=== PATIENT | female | born 1970 | race Caucasian/White ===

== ENCOUNTER 2020-08-08 08:51 | Emergency (ER) | payer OTHER, SELFPAY ==
[2020-08-08] VITALS (7 sets, daily range): BP systolic 129–140; BP diastolic 72–89; PULSE 95–99; RESP 16–20; TEMP 36.2–36.5; O2SAT 95–96; BMI 27.4
--- NOTE | 2020-08-08 10:30 | ED.PSYCH ---
HPI - Psych General Chief Complaint: Psychiatric Symptoms Stated Complaint: crisis Time Seen by Provider: 08/08/20 10:30 Source: patient Mode of arrival: ambulatory Limitations: no limitations History of Present Illness HPI Narrative: 50-year-old female with history of bipolar disorder presenting with disorganized behavior states he has history of bipolar and feels like she is decompensating. Reports she is post be on psych medications but she stop taking a couple days ago and not sure why. Denies any SI or HI. Denies any alcohol or drug use. Denies any recent travel, sick contacts or COVID symptoms. No other medical complaints at this time. Onset (ago): day(s) Duration: constant History of same: Yes Relieving factors: none Exacerbating factors: none Associated symptoms: denies other symptoms Treatments prior to arrival: none Related Data Allergies Allergy/AdvReac Type Severity Reaction Status Date / Time No Known Allergies Allergy Unverified 02/17/20 16:17 [No Known Allergies*] Review of Systems Review of Systems: Constitutional: No Weight loss, No Fever, No Chills, No Night Sweats, No Fatigue, No Malaise ENT/Mouth: No Hearing loss, No Ear Pain, No Nasal Congestion, No Sinus Pain, No Hoarseness, No sore throat, No Rhinorrhea, No Swallowing Difficulty Eyes: No Eye Pain, No Swelling, No Redness, No Foreign Body, No Discharge, No Vision Changes Cardiovascular: No Chest Pain, No SOB, No Dyspnea on Exertion, No Orthopnea, No Edema, No Palpitations Respiratory: No Cough, No Sputum, No Wheezing No Dyspnea Gastrointestinal: No Nausea, No Vomiting, No Diarrhea, No Constipation, No abdominal Pain, No Hematochezia, No Melena Genitourinary: no irregular bleeding, No Dysuria, No Urinary Frequency, No Hematuria, No Urinary Incontinence, No Urgency, No Flank Pain, No Urinary Flow Changes, No Hesitancy Musculoskeletal: No joint pain, No Myalgias, No Joint Swelling Skin: No Skin Lesions, No rash Neuro: No Weakness, No Numbness, No Paresthesias, No Loss of Consciousness, No Dizziness, No Headache Psych: As noted per HPI Heme/Lymph: No Bruising, No Bleeding,No Lymphadenopathy Endocrine: No Polyuria, No Polydipsia, No Temperature Intolerance Yes all other systems are reviewed and are negative [facility] Past Medical History Medical History (Updated 08/08/20 @ 14:15 by Yazan Caballero NP) Bipolar disorder Social History Social History Advance Directives: No Advance Directives Information Provided: No Physical Exam Vital Signs: Vital Signs: Last Vital Signs Temp 97.6 F 08/08/20 09:55 Pulse 98 08/08/20 09:55 Resp 20 08/08/20 12:00 BP 140/89 H 08/08/20 09:55 Pulse Ox 96 08/08/20 09:55 Body Mass Index 27.4 Reviewed Const: Other: Flat affect General: cooperative; No acute distress or intoxicated appearing Nutritional Appearance: average body habitus Orientation/consciousness: patient oriented x3 HENMT: Head: Yes normal to inspection Ears: hearing grossly normal bilaterally General nose exam: Normal external nose present Face and sinus: Yes normal facial exam Eyes: General: appearance normal, both eyes and all related structures Visual Aguirre: normal visual aguirre by confrontation EOM: EOMs intact bilaterally Neck: Neck: Yes normal visual inspection, No positive Brudzinski's sign, No positive Kernig's sign and No tender Thyroid: Thyroid normal Chest: Chest palpation & inspection: normal inspection of the chest Resp: Effort & Inspection: normal respiratory effort Auscultation: clear to auscultation bilaterally Cardio: Jugular venous distension: no JVD Rhythm: regular rhythm Heart sounds: S1 normal heart sound present and S2 normal heart sound present GI: Inspection: Yes normal to inspection Palpation (GI): Soft to palpation Percussion: Yes normal to percussion Auscultation: normal bowel sounds : General: Yes no CVA tenderness Back/Spine/Pelvis: Back: no CVA tenderness Skin: General skin exam: no rashes or lesions noted Neuro: General: patient oriented x3 Extrem: General: Yes normal to inspection Psych: Other: Labile affect Appearance: well kempt Course Reevaluation(s) Reevaluation #1: 1030 Offers no medical complaints will get medical screening labs and psychiatric evaluation. Reevaluation #2: 1412 Remains calm cooperative offers no medical complaints. Medical workup stable. Vitals are stable. Medically clear at this time for psychiatric evaluation At this time patient placed on physician observation due to patient requiring more time for evaluation by the crisis team and potential psychiatric admission. At this time he is alert oriented flat affect offers no medical complaints. Plan reviewed agreeable. MDM - Psych Lab Data Result diagrams: 08/08/20 10:29 08/08/20 10:29 Labs: Lab Results 08/08/20 08/08/20 08/08/20 Range/Units 10: 10:29 10:29 WBC 10.7 (4.8-10.8) X10*3/uL RBC 4.62 (4.20-5.50) X10*6/uL Hgb 14.4 (12.0-16.0) g/dl Hct 43.2 (37-47) % MCV 93.5 (80-98) fL MCH 31.2 (27.0-33.0) pg MCHC 33.3 (31.0-35.0) g/dl RDW 12.6 (11.0-16.0) % Plt Count 378 (160-400) X10*3/uL MPV 9.8 (9.4-12.3) fL Immature Gran % (Auto) 0.4 (0.0-0.4) % Neut % (Auto) 76.0 H (45-73) % Lymph % (Auto) 17.8 L (20-40) % Johnston % (Auto) 4.7 (2-11) % Eos % (Auto) 0.5 (0-4) % Baso % (Auto) 0.6 (0-2) % Lymph # (Auto) 1.9 (1.2-4.9) X10*3/uL Johnston # (Auto) 0.5 (0.1-1.2) X10*3/uL Eos # (Auto) 0.1 (0.0-0.4) X10*3/uL Baso # (Auto) 0.1 (0.0-0.2) X10*3/uL Abs Immat Gran (auto) 0.04 H (0.00-0.03) X10*3/uL Absolute Neuts (auto) 8.2 (2.0-8.3) X10*3/uL Absolute Nucleated RBC 0.000 (0.0-0.012) X10*3/uL Nucleated RBC % (auto) 0.0 (0.0-0.2) /100WBC Sodium (135-145) mmol/L Potassium (3.3-5.1) mmol/L Chloride (96-108) mmol/L Carbon Dioxide (22-29) mmol/L Anion Gap (12-20) BUN (9-16) mg/dL Creatinine (0.5-1.4) mg/dL Estim Creat Clear Calc Estimated GFR Random Glucose (60-115) mg/dL Calcium (8.4-10.2) mg/dL Total Bilirubin (0.0-1.0) mg/dL AST (5-31) U/L ALT (0-31) U/L Alkaline Phosphatase (39-117) U/L Total Protein (6.5-8.0) g/dL Albumin (3.5-5.0) g/dL Urine Test NEGATIVE (NEGATIVE) Salicylates (15-30) mg/dL Urine Opiates Screen Not Detected (Not Detect) Acetaminophen (<30) mcg/mL Ur Barbiturates Screen Not Detected (Not Detect) Ur Phencyclidine Scrn Not Detected (Not Detect) Ur Amphetamines Screen Not Detected (Not Detect) U Benzodiazepines Scrn Not Detected (Not Detect) Urine Cocaine Screen Not Detected (Not Detect) U Marijuana (THC) Screen Not Detected (Not Detect) Ethyl Alcohol mg/dL COVID-19 (DESIREE) (Negative) COVID-19 Clin Com 08/08/20 08/08/20 08/08/20 Range/Units 10:29 10:29 13:27 WBC (4.8-10.8) X10*3/uL RBC (4.20-5.50) X10*6/uL Hgb (12.0-16.0) g/dl Hct (37-47) % MCV (80-98) fL MCH (27.0-33.0) pg MCHC (31.0-35.0) g/dl RDW (11.0-16.0) % Plt Count (160-400) X10*3/uL MPV (9.4-12.3) fL Immature Gran % (Auto) (0.0-0.4) % Neut % (Auto) (45-73) % Lymph % (Auto) (20-40) % Johnston % (Auto) (2-11) % Eos % (Auto) (0-4) % Baso % (Auto) (0-2) % Lymph # (Auto) (1.2-4.9) X10*3/uL Johnston # (Auto) (0.1-1.2) X10*3/uL Eos # (Auto) (0.0-0.4) X10*3/uL Baso # (Auto) (0.0-0.2) X10*3/uL Abs Immat Gran (auto) (0.00-0.03) X10*3/uL Absolute Neuts (auto) (2.0-8.3) X10*3/uL Absolute Nucleated RBC (0.0-0.012) X10*3/uL Nucleated RBC % (auto) (0.0-0.2) /100WBC Sodium 139 (135-145) mmol/L Potassium 4.0 (3.3-5.1) mmol/L Chloride 102 (96-108) mmol/L Carbon Dioxide 26 (22-29) mmol/L Anion Gap 15 (12-20) BUN 5 L (9-16) mg/dL Creatinine 0.72 (0.5-1.4) mg/dL Estim Creat Clear Calc 99.1 Estimated GFR > 60 Random Glucose 99 (60-115) mg/dL Calcium 9.6 (8.4-10.2) mg/dL Total Bilirubin 0.5 (0.0-1.0) mg/dL AST 21 (5-31) U/L ALT 15 (0-31) U/L Alkaline Phosphatase 73 (39-117) U/L Total Protein 7.5 (6.5-8.0) g/dL Albumin 4.7 (3.5-5.0) g/dL Urine Test (NEGATIVE) Salicylates < 5.0 L (15-30) mg/dL Urine Opiates Screen (Not Detect) Acetaminophen < 1 (<30) mcg/mL Ur Barbiturates Screen (Not Detect) Ur Phencyclidine Scrn (Not Detect) Ur Amphetamines Screen (Not Detect) U Benzodiazepines Scrn (Not Detect) Urine Cocaine Screen (Not Detect) U Marijuana (THC) Screen (Not Detect) Ethyl Alcohol < 10 mg/dL COVID-19 (DESIREE) Negative (Negative) COVID-19 Clin Com See Note Discharge Plan Discharge Clinical Impression: Bipolar disorder
[2020-08-08 10:45] LABS: MANUAL DIFF FLAG NO
[2020-08-08 10:53] LABS: Basophils Absolute Auto 0.1 X10*3/uL (0.0-0.2); Basophils Percent Auto 0.6 % (0-2); Eosinophils Absolute Auto 0.1 X10*3/uL (0.0-0.4); Eosinophils Percent Auto 0.5 % (0-4); Hematocrit 43.2 % (37-47); Hemoglobin 14.4 g/dl (12.0-16.0); Imm Gran Abs Auto 0.04 X10*3/uL (0.00-0.03); Imm Gran Pct Auto 0.4 % (0.0-0.4); Lymphocytes Absolute Auto 1.9 X10*3/uL (1.2-4.9); Lymphocytes Percent Auto 17.8 % (20-40); Mean Corpuscular HGB Conc 33.3 g/dl (31.0-35.0); Mean Corpuscular Hemoglobin 31.2 pg (27.0-33.0); Mean Corpuscular Volume 93.5 fL (80-98); Mean Platelet Volume 9.8 fL (9.4-12.3); Monocytes Absolute Auto 0.5 X10*3/uL (0.1-1.2); Monocytes Percent Auto 4.7 % (2-11); Neutrophils Absolute Auto 8.2 X10*3/uL (2.0-8.3); Platelet Count 378 X10*3/uL (160-400); Red Blood Count 4.62 X10*6/uL (4.20-5.50); Red Cell Distribution Width 12.6 % (11.0-16.0); White Blood Count 10.7 X10*3/uL (4.8-10.8)
[2020-08-08 11:00] LABS: UPreg QC Valid YES; Urine Pregnancy NEGATIVE (NEGATIVE)
[2020-08-08 11:11] LABS: Ethanol < 10 mg/dL
[2020-08-08 11:14] LABS: Acetaminophen LAB < 1 mcg/mL (<30); Alanine Aminotransferase 15 U/L (0-31); Albumin Level 4.7 g/dL (3.5-5.0); Alkaline Phosphatase 73 U/L (39-117); Anion Gap 15 (12-20); Aspartate Amino Transferase 21 U/L (5-31); Bilirubin Total 0.5 mg/dL (0.0-1.0); Blood Urea Nitrogen 5 mg/dL (9-16); Calcium 9.6 mg/dL (8.4-10.2); Carbon Dioxide 26 mmol/L (22-29); Chloride 102 mmol/L (96-108); Creatinine Clr Calc Pharmacy 99.1; Estimated Glomerular Filt Rate > 60; Glucose Random 99 mg/dL (60-115); Salicylate < 5.0 mg/dL (15-30); Sodium 139 mmol/L (135-145); Total Protein 7.5 g/dL (6.5-8.0)
--- NOTE | 2020-08-08 11:21 | PC.NURSE ---
Pt awake, alert- in common area, awaiting [facility] evaluation.
[2020-08-08 11:26] LABS: Amphetamine Screen Urine Not Detected (Not Detect); Barbiturates, Urine Not Detected (Not Detect); Benzodiazepines Screen Urine Not Detected (Not Detect); Cannabinoid Screen Urine Not Detected (Not Detect); Cocaine Screen Urine Not Detected (Not Detect); Opiate Screen Urine Not Detected (Not Detect); Phencyclidine Screen Urine Not Detected (Not Detect)
--- NOTE | 2020-08-08 11:59 | PC.NURSE ---
AKIN called and faxed.
--- NOTE | 2020-08-08 13:29 | PC.NURSE ---
pt declined to eat lunch, but did not state why when asked.
[2020-08-08 13:57] LABS: COVID-19 Test Negative (Negative); IDNOW Serial# 9DD0AD1C
--- NOTE | 2020-08-08 16:14 | PC.NURSE ---
BHN in to see. Pt gives permission to give information to Marybeth, daughter. Pt resting out in common area. Affect blunted, pt appears to be thought blocking. Pt continues to decline food or fluids.
--- NOTE | 2020-08-08 18:19 | PC.NURSE ---
Pt out in common area, affect guarded, declined dinner, stated 'I'm just not hungry.' Denies any other concerns at this time.
--- NOTE | 2020-08-08 20:30 | PC.NURSE ---
Patient just got moved to her new room, seems upset and depressed, irritable at time, mood brightens up little after talking her daughter, provided urine sample, discussed her medication refused to take her medication by saying i want to be off my medication, will continue to monitor.
[2020-08-08 20:57] LABS: Glucose Urine UA NEG (NEG); Leukocyte Esterase Urine NEG (NEG); Nitrite Urine NEG (NEG); Specific Gravity - Urine >= 1.030 (1.005-1.025); Urine Blood 2+ (NEG); Urine Ketones 15 MG/DL (NEG); Urine Protein NEG (NEG-TRACE)
[2020-08-08 20:58] LABS: Appearance Urine HAZY; Color Urine YELLOW
[2020-08-08 20:59] LABS: UPreg QC Valid YES; Urine Pregnancy NEGATIVE (NEGATIVE)
[2020-08-08 21:05] LABS: Bacteria Urine 1+ /LPF; Mucus Urine 1+ /LPF; Squamous Epithelial Cell Urine 1+ /LPF; WBC Urine 0 /HPF (0-4)
[2020-08-08 21:25] LABS: Amphetamine Screen Urine Not Detected (Not Detect); Barbiturates, Urine Not Detected (Not Detect); Benzodiazepines Screen Urine Not Detected (Not Detect); Cannabinoid Screen Urine Not Detected (Not Detect); Cocaine Screen Urine Not Detected (Not Detect); Opiate Screen Urine Not Detected (Not Detect); Phencyclidine Screen Urine Not Detected (Not Detect)
[2020-08-09 00:14] VITALS: BP 135/79; PULSE 96; RESP 16; TEMP 36.7; O2SAT 96
--- NOTE | 2020-08-09 08:52 | PC.NURSE ---
PT SLEEPING, BEDSEARCH CONTINUES. CLOSE OBSERVATION MAINTAINED
[2020-08-09 08:55] VITALS: BP 143/67; PULSE 86; RESP 16; TEMP 36.8; O2SAT 95
--- NOTE | 2020-08-09 14:48 | PC.NURSE ---
SPOKE WITH PT'S DAUGHTER. OFF MEDS FOR AT LEAST 2 WEEKS.
--- NOTE | 2020-08-09 15:32 | PC.NURSE ---
Report received. Pt asleep at current. No signs of distress. Respirations even and unlabored.
[2020-08-09 16:18] VITALS: BP 138/82; PULSE 105; RESP 20; TEMP 37.2; O2SAT 95
--- NOTE | 2020-08-09 17:55 | PC.NURSE ---
Pt requesting to go outside to smoke a cigarette. Offered nicotine patch or gum, pt declined. Currently resting in bed.
--- NOTE | 2020-08-09 19:17 | PC.NURSE ---
Patient is out of room in milieu watching TV, quiet and seems depressed, no distress observed/reported, will continue to monitor.
--- NOTE | 2020-08-09 22:01 | PC.NURSE ---
Patient in her bed, resting quietly at this time, no distress observed/reported, will continue to monitor.
--- NOTE | 2020-08-09 22:30 | PC.NURSE ---
Received call from Sondra STOKES [facility] notified that they are considering to admit the patient but not sure about time line. I was told that overnight nurse will call us to set up ETA, patient and her daughter made aware and both were not in agreement to go to [facility] they it is too far away. I request Care team to do follow up with the case because it involves certain insurance technicality that can not be explained by the floor nurse. Care team agreed/pending update.
[2020-08-10] VITALS: BP 113/84; PULSE 93; RESP 18; O2SAT 94
--- NOTE | 2020-08-10 01:35 | PC.NURSE ---
[facility] called and spoke with Celestine to discuss admission plan of the patient, I was told patient is accepted in principle but no ETA because of overnight provider issues.
--- NOTE | 2020-08-10 02:20 | MHC.CARE ---
CARE Team assists [facility] RN, Celso. Pt has been accepted to [facility] for overnight or morning admission, TBD. Pt not willing to go to [facility] and wants [facility]. She is being held on a sect 12. Both pt and daughter express being very upset that pt is not coming to [facility]. CARE Team speaks with [facility] coordinator, Radha, who confirms no beds on [facility], and they are not anticipating openings soon. CARE Team speaks with [facility] shipping track supervisor, Sandra, who states that pt must take the first available bed because she is on a section 12 and insurance mandates that pts take the first available bed. CARE Team speaks with pt and daughter is on speaker phone. CARE Team offers reassurance, apologies and information to demystify this process. Pt and daughter continue to express discontent. Daughter would like to be notified of when pt will be admitted to [facility] so she can drop off belongings. KIKE [place] agrees to keep daughter up to date.
--- NOTE | 2020-08-10 05:00 | PC.NURSE ---
JOLENE called and requested Susie to place a call to [facility] to find admission plan for the patient. Susie told us that [facility] is accepting the patient but do not have ETA due to overnight providers issues.
[2020-08-10 06:00] VITALS: BP 124/91; PULSE 102; RESP 20; TEMP 35.9; O2SAT 94
--- NOTE | 2020-08-10 07:03 | PC.NURSE ---
Report received. PT currently resting, calm and cooperative. PT is inpatient bedsearch.
--- NOTE | 2020-08-10 08:01 | PC.NURSE ---
Nurse to nurse completed with Chen STOKES at [facility]
[2020-08-10 09:00] VITALS: BP 125/50; PULSE 82; RESP 18; TEMP 36.3; O2SAT 96
== END 2020-08-10 11:36 ==
PROVIDERS: Nurse Practitioner Family; Nurse Practitioner Primary Care; Emergency Provider Emergency Medicine Emergency Medical Services; PCP Internal Medicine
DX: F31.9 Bipolar disorder, unspecified (principal); R41.0 Disorientation, unspecified; Z20.822 Contact with and (suspected) exposure to COVID-19; Z79.899 Other long term (current) drug therapy
CPT/HCPCS: 36415; 80053; 80143; 80179; 80307; 80320; 81001; 81025; 85025; 87635; 99285

== ENCOUNTER 2021-07-14 17:10 | Inpatient (IN) | payer OTHER, SELFPAY ==
[2021-07-14 17:31] VITALS: BP 155/95; PULSE 95; RESP 16; TEMP 36.5; O2SAT 96; BMI 30.2
--- NOTE | 2021-07-14 18:03 | ED_ITS ---
HPI - Psych General Chief Complaint: Psychiatric Symptoms Stated Complaint: crisis Time Seen by Provider: 07/14/21 18:02 Source: patient and family (daughter) Mode of arrival: ambulatory Limitations: no limitations History of Present Illness HPI Narrative: 51-year-old female with a history of bipolar disorder, here with her daughter, presents for disorganized behavior. Daughter states that her mother was in the dark downstairs rocking, and making statements such as ?lose use can go upstairs?. Daughter states mother has been staring into space for the last few days and has not been sleeping for the last 2 days. Patient has not been taking her medications. Patient denies SI, HI, but endorses auditory hallucinations but will not tell me what they are. She was here in July 2020 for similar presentation of bipolar disorganized behavior. Related Data Home Medications Medication Instructions Recorded Confirmed atorvastatin 10 mg tablet 1 tab PO DAILY 07/14/21 07/14/21 buprenorphine 2 mg-naloxone 0.5 mg 1 strip SUBLINGUAL DAILY 07/14/21 07/14/21 sublingual film clonazepam 0.5 mg tablet 1 tab PO BID PRN 07/14/21 07/14/21 cyclobenzaprine 10 mg tablet 0.5 - 1 tab PO BID PRN 07/14/21 07/14/21 fluoxetine 20 mg capsule 2 cap PO QAM 07/14/21 07/14/21 risperidone 2 mg tablet 1 tab PO BEDTIME 07/14/21 07/14/21 Allergies Allergy/AdvReac Type Severity Reaction Status Date / Time No Known Allergies Allergy Unverified 02/17/20 16:17 [No Known Allergies*] Review of Systems Constitutional: Constitutional: Denies body ache(s), Denies chills, Denies fatigue, Denies fever(s), Denies headache(s), Denies malaise and Denies weakness Eyes: Eyes: Denies diplopia ENT: Denies vertigo, Denies dizziness, Denies otalgia, Denies headache(s), Denies mouth pain, Denies post nasal drip, Denies sinus pain, Denies sinus pressure, Denies sore throat and Denies throat swelling Cardiovascular: Cardiovascular: Denies chest pain, Denies syncope, Denies leg edema, Denies lightheadedness, Denies Loss of Consciousness, Denies palpitations and Denies dyspnea Respiratory: Respiratory: Denies chest congestion, Denies cough and Denies dyspnea Gastrointestinal: Gastrointestinal: Reports abdominal pain, Denies hematochezia, Denies constipation, Denies diarrhea and Denies vomiting Musculoskeletal: Musculoskeletal: Reports no additional musculoskeletal complaints Neurologic: Denies confusion, Denies vertigo, Denies dizziness, Denies syncope, Denies headache(s) and Denies weakness Psychiatric: Psychiatric: Reports anxiety, Denies confusion, Reports depression, Reports auditory hallucinations, Denies visual hallucinations, Denies homicidal ideation and Denies suicidal ideation Endocrine: Endocrine: Denies fatigue and Denies palpitations Allergic/Immunologic: Allergic/Immunologic: Denies throat swelling PMFSH Past Medical History Medical History (Updated 07/14/21 @ 21:40 by SANDEE Osman) Bipolar disorder Social History Social History Advance Directives: No Advance Directives Information Provided: Yes Patient : No Physical Exam Vital Signs: Vital Signs: Last Vital Signs Temp 97.7 F 07/14/21 17:31 Pulse 95 07/14/21 17:31 Resp 16 07/14/21 17:31 BP 155/95 H 07/14/21 17:31 Pulse Ox 96 07/14/21 17:31 BMI result Body Mass Index 30.2 Const: General: No confusion Nutritional Appearance: well nourished Orientation/consciousness: No confusion Limitations: no limitations HENMT: Head: Yes normal to inspection, Yes normocephalic and Yes atraumatic Ears: hearing grossly normal bilaterally, external ears normal, TM's normal bilaterally and EAC's normal General nose exam: Normal external nose present Face and sinus: Yes normal facial exam and Yes sinuses nontender Mouth: Normal oral and palatal mucosa present Throat: Yes posterior oropharynx normal Eyes: Conjunctivae: conjunctivae normal Pupils: Equal, round and reactive pupils present EOM: EOMs intact bilaterally Neck: Neck: Yes full ROM, Yes no lymphadenopathy and Yes supple Resp: Effort & Inspection: normal respiratory effort and able to speak in complete sentences Auscultation: clear to auscultation bilaterally, no crackles, no rales, no rhonchi and no wheezes Cardio: Rate: regular rate Rhythm: regular rhythm Heart sounds: S1 normal heart sound present and S2 normal heart sound present GI: Inspection: Yes normal to inspection Palpation (GI): Soft to palpation, nontender, no guarding and not rigid Percussion: Yes normal to percussion Auscultation: normal bowel sounds Skin: General skin exam: no rashes or lesions noted Neuro: General: No confusion Cranial nerves: Yes Equal, round and reactive pupils present Extrem: General: Yes normal to inspection and Yes full ROM Psych: Appearance: disheveled Mental Status: other (says, I'm fine to all questions) Speech and movement: Restless speech present Affect: Anxious affect present, Depressed mood present and Blunted affect present Attitude: cooperative Course Course Course Narrative: 51-year-old female with a history of bipolar here for evaluation of disorganized behavior. Patient is COVID negative, urine is negative, alcohol negative. Urine tox screen is negative. Patient has a mild leukocytosis of 12, and is hyponatremic at 129. Discussed low sodium with Dr Tamez, who suggested patient get repeat chemistries in the morning to re-evaluate hyponatremia. Patient is a bed search MDM - Psych Lab Data Result diagrams: 07/14/21 18:34 07/14/21 18:34 Labs: Lab Results 07/14/21 07/14/21 07/14/21 Range/Units 17:52 17:53 17:53 WBC (4.8-10.8) X10*3/uL RBC (4.20-5.50) X10*6/uL Hgb (12.0-16.0) g/dl Hct (37.0-47.0) % MCV (80.0-98.0) fL MCH (27.0-33.0) pg MCHC (31.0-35.0) g/dl RDW (11.0-16.0) % Plt Count (160-400) X10*3/uL MPV (9.4-12.3) fL Immature Gran % (Auto) (0.0-0.4) % Neut % (Auto) (45-73) % Lymph % (Auto) (20-40) % Billings % (Auto) (2-11) % Eos % (Auto) (0-4) % Baso % (Auto) (0-2) % Lymph # (Auto) (1.2-4.9) X10*3/uL Billings # (Auto) (0.1-1.2) X10*3/uL Eos # (Auto) (0.0-0.4) X10*3/uL Baso # (Auto) (0.0-0.2) X10*3/uL Abs Immat Gran (auto) (0.00-0.03) X10*3/uL Absolute Neuts (auto) (2.0-8.3) x10*3/uL Absolute Nucleated RBC (0.0-0.012) X10*3/uL Nucleated RBC % (auto) (0.0-0.2) /100WBC Sodium (135-145) mmol/L Potassium (3.3-5.1) mmol/L Chloride (96-108) mmol/L Carbon Dioxide (22-29) mmol/L Anion Gap (12-20) BUN (9-16) mg/dL Creatinine (0.5-1.4) mg/dL Estim Creat Clear Calc Estimated GFR Random Glucose (60-115) mg/dL Calcium (8.4-10.2) mg/dL Total Bilirubin (0.0-1.0) mg/dL AST (5-31) U/L ALT (0-31) U/L Alkaline Phosphatase (39-117) U/L Total Protein (6.5-8.0) g/dL Albumin (3.5-5.0) g/dL Urine Color YELLOW Urine Appearance CLEAR Urine pH 5.5 (5.0-8.0) Ur Specific [place] 1.020 (1.005-1.025) Urine Protein NEG (NEG-TRACE) MG/DL Urine Glucose (UA) NEG (NEG) MG/DL Urine Ketones 40 (NEG) MG/DL Urine Blood 1+ H (NEG) Urine Nitrite NEG (NEG) Ur Leukocyte Esterase NEG (NEG) Urine RBC 1-4 (0) /HPF Urine WBC 0-2 (0-4) /HPF Ur Squamous Epith Cells 2+ /LPF Urine Bacteria 1+ /LPF Urine Mucus TRACE /LPF Urine Opiates Screen Not Detected (Not Detect) Urine Fentanyl Screen Not Detected (Not Detect) Ur Barbiturates Screen Not Detected (Not Detect) Ur Phencyclidine Scrn Not Detected (Not Detect) Ur Amphetamines Screen Not Detected (Not Detect) U Benzodiazepines Scrn Not Detected (Not Detect) Urine Cocaine Screen Not Detected (Not Detect) U Marijuana (THC) Screen Not Detected (Not Detect) Ethyl Alcohol mg/dL COVID-19 (DESIREE) Negative (Negative) COVID-19 Clin Com See Note 07/14/21 07/14/21 07/14/21 Range/Units 18:34 18:34 18:34 WBC 12.0 H (4.8-10.8) X10*3/uL RBC 4.35 (4.20-5.50) X10*6/uL Hgb 13.8 (12.0-16.0) g/dl Hct 40.3 (37.0-47.0) % MCV 92.6 (80.0-98.0) fL MCH 31.7 (27.0-33.0) pg MCHC 34.2 (31.0-35.0) g/dl RDW 12.7 (11.0-16.0) % Plt Count 377 (160-400) X10*3/uL MPV 9.5 (9.4-12.3) fL Immature Gran % (Auto) 0.3 (0.0-0.4) % Neut % (Auto) 77.3 H (45-73) % Lymph % (Auto) 16.1 L (20-40) % Billings % (Auto) 5.5 (2-11) % Eos % (Auto) 0.2 (0-4) % Baso % (Auto) 0.6 (0-2) % Lymph # (Auto) 1.9 (1.2-4.9) X10*3/uL Billings # (Auto) 0.7 (0.1-1.2) X10*3/uL Eos # (Auto) 0.0 (0.0-0.4) X10*3/uL Baso # (Auto) 0.1 (0.0-0.2) X10*3/uL Abs Immat Gran (auto) 0.04 H (0.00-0.03) X10*3/uL Absolute Neuts (auto) 9.3 H (2.0-8.3) x10*3/uL Absolute Nucleated RBC 0.000 (0.0-0.012) X10*3/uL Nucleated RBC % (auto) 0.0 (0.0-0.2) /100WBC Sodium 129 L (135-145) mmol/L Potassium 4.3 (3.3-5.1) mmol/L Chloride 96 (96-108) mmol/L Carbon Dioxide 23 (22-29) mmol/L Anion Gap 14 (12-20) BUN 8 L (9-16) mg/dL Creatinine 0.65 (0.5-1.4) mg/dL Estim Creat Clear Calc 113.7 Estimated GFR > 60 Random Glucose 105 (60-115) mg/dL Calcium 9.5 (8.4-10.2) mg/dL Total Bilirubin 0.6 (0.0-1.0) mg/dL AST 18 (5-31) U/L ALT 8 (0-31) U/L Alkaline Phosphatase 73 (39-117) U/L Total Protein 7.2 (6.5-8.0) g/dL Albumin 4.5 (3.5-5.0) g/dL Urine Color Urine Appearance Urine pH (5.0-8.0) Ur Specific Kingston (1.005-1.025) Urine Protein (NEG-TRACE) MG/DL Urine Glucose (UA) (NEG) MG/DL Urine Ketones (NEG) MG/DL Urine Blood (NEG) Urine Nitrite (NEG) Ur Leukocyte Esterase (NEG) Urine RBC (0) /HPF Urine WBC (0-4) /HPF Ur Squamous Epith Cells /LPF Urine Bacteria /LPF Urine Mucus /LPF Urine Opiates Screen (Not Detect) Urine Fentanyl Screen (Not Detect) Ur Barbiturates Screen (Not Detect) Ur Phencyclidine Scrn (Not Detect) Ur Amphetamines Screen (Not Detect) U Benzodiazepines Scrn (Not Detect) Urine Cocaine Screen (Not Detect) U Marijuana (THC) Screen (Not Detect) Ethyl Alcohol < 10 mg/dL COVID-19 (DESIREE) (Negative) COVID-19 Clin Com Discharge Plan Discharge Clinical Impression: Bipolar disorder Patient Disposition: Still a Patient Prescriptions: No Action atorvastatin 10 mg tablet 1 tab PO DAILY 0RF buprenorphine-naloxone 2-0.5 mg film 1 strip sublingual DAILY 0RF risperidone 2 mg tablet 1 tab PO BEDTIME 0RF cyclobenzaprine 10 mg tablet 0.5 - 1 tab PO BID PRN (Reason: muscle spasm) 0RF fluoxetine 20 mg capsule 2 cap PO QAM 0RF clonazepam 0.5 mg tablet 1 tab PO BID PRN (Reason: Anxiety) 0RF
[2021-07-14 18:06] LABS: Appearance Urine CLEAR; Color Urine YELLOW; Glucose Urine UA NEG (NEG); Leukocyte Esterase Urine NEG (NEG); Nitrite Urine NEG (NEG); PH 5.5 (5.0-8.0); UACC Culture Trigger NO; Urine Blood 1+ (NEG); Urine Ketones 40 MG/DL (NEG); Urine Protein NEG (NEG-TRACE)
[2021-07-14 18:13] LABS: Bacteria Urine 1+ /LPF; Mucus Urine TRACE /LPF; Squamous Epithelial Cell Urine 2+ /LPF; WBC Urine 0-2 /HPF (0-4)
[2021-07-14 18:17] LABS: COVID-19 Test Negative (Negative)
[2021-07-14 18:18] LABS: Amphetamine Screen Urine Not Detected (Not Detect); Barbiturates, Urine Not Detected (Not Detect); Benzodiazepines Screen Urine Not Detected (Not Detect); Cannabinoid Screen Urine Not Detected (Not Detect); Cocaine Screen Urine Not Detected (Not Detect); Fentanyl, urine Not Detected (Not Detect); Opiate Screen Urine Not Detected (Not Detect); Phencyclidine Screen Urine Not Detected (Not Detect)
[2021-07-14 18:38] LABS: MANUAL DIFF FLAG NO
[2021-07-14 18:42] LABS: Basophils Absolute Auto 0.1 X10*3/uL (0.0-0.2); Basophils Percent Auto 0.6 % (0-2); Eosinophils Percent Auto 0.2 % (0-4); Hematocrit 40.3 % (37.0-47.0); Hemoglobin 13.8 g/dl (12.0-16.0); Imm Gran Abs Auto 0.04 X10*3/uL (0.00-0.03); Imm Gran Pct Auto 0.3 % (0.0-0.4); Lymphocytes Absolute Auto 1.9 X10*3/uL (1.2-4.9); Lymphocytes Percent Auto 16.1 % (20-40); Mean Corpuscular HGB Conc 34.2 g/dl (31.0-35.0); Mean Corpuscular Hemoglobin 31.7 pg (27.0-33.0); Mean Corpuscular Volume 92.6 fL (80.0-98.0); Mean Platelet Volume 9.5 fL (9.4-12.3); Monocytes Absolute Auto 0.7 X10*3/uL (0.1-1.2); Monocytes Percent Auto 5.5 % (2-11); Neutrophils Absolute Auto 9.3 x10*3/uL (2.0-8.3); Neutrophils Percent Auto 77.3 % (45-73); Platelet Count 377 X10*3/uL (160-400); Red Blood Count 4.35 X10*6/uL (4.20-5.50); Red Cell Distribution Width 12.7 % (11.0-16.0)
[2021-07-14 18:59] LABS: Ethanol < 10 mg/dL
[2021-07-14 19:02] LABS: Alanine Aminotransferase 8 U/L (0-31); Albumin Level 4.5 g/dL (3.5-5.0); Alkaline Phosphatase 73 U/L (39-117); Anion Gap 14 (12-20); Aspartate Amino Transferase 18 U/L (5-31); Bilirubin Total 0.6 mg/dL (0.0-1.0); Blood Urea Nitrogen 8 mg/dL (9-16); Calcium 9.5 mg/dL (8.4-10.2); Carbon Dioxide 23 mmol/L (22-29); Chloride 96 mmol/L (96-108); Creatinine Clr Calc Pharmacy 113.7; Estimated Glomerular Filt Rate > 60; Glucose Random 105 mg/dL (60-115); Potassium 4.3 mmol/L (3.3-5.1); Sodium 129 mmol/L (135-145); Total Protein 7.2 g/dL (6.5-8.0)
[2021-07-15 01:06] VITALS: BP 147/85; PULSE 100; RESP 17; TEMP 37; O2SAT 96
--- NOTE | 2021-07-15 06:01 | PC.NURSE ---
Patient stayed up whole night, refused offered medication, thought process tangential, thought content paranoid, behavior quiet and isolative, VS at baseline, patient was assessed by care team, disposition not established yet most probably inpatient bed search, will continue to monitor.
--- NOTE | 2021-07-15 07:03 | PC.NURSE ---
patient appears to remain asleep at present respirations are even and unlabored patient appears in no distress
--- NOTE | 2021-07-15 14:30 | P.CNPS_ITS ---
History of Present Illness Date of Service: 07/15/2021 Chief Complaint: crisis Reason for Consult: 51 yo female, known to our service, history of schizoaffective disorder, bipolar type. Pt to ER with family for disorganized behavior, loss of sleep-team reports no sleep in ~2 days and having stopped prescribed medications-risperdal, prozac, klonopin, suboxone, atorvastatin, flexoril. Family reports pt was found sitting in darkness in a downstairs room, rocking, making comments that were not sensible and staring into space without purpose or intent. Reported perceptual alterations to team. Upon admission pt is found to be hyponatremic at 129. This a.m. she refuses to have this re-evaluated. Team is searching for an in patient bed. Met with pt who is alert, attentive, with good eye contact however she does not verbally respond. She will nod yes or no to answer questions-she affirms auditory perceptual alterations, she affirms medication non-compliance, she affirms refusal to accept meds or diagnostics, even was explanation attempted. She appears calm, depressed, flat Requesting physician: Billy Santiago Discussed with referring provider: Yes (discussed with ER team and CARE Team) Sources of Information: patient interviewed and chart reviewed HPI Narrative: 51 yo female, hx of dx of bipolar II, schizoaffective disorder, bipolar type to ER with family with sx of disorganized behaviors, no sleep for ~2 days, non compliance with medications and auditory perceptual alterations. Past Psychiatric History: IP: [facility] 05/2013-SI, Asked partner to nelida Meyernce 2017 [facility] 2019-two subsequent admissions for decompensation, re-admitted soon after discharge as she was found wandering in the street. 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 Trauma History: Son of OD age 23 in October 2012 Diagnostics Vital Signs (24Hr): Vital Signs - 24 hr 07/14/21 17:31 07/15/21 01:06 Temperature 97.7 F 98.6 F Pulse Rate 95 100 Respiratory Rate 16 17 Blood Pressure 155/95 H 147/85 H Pulse Oximetry 96 96 BMI result Body Mass Index 30.2 Labs Results: 07/14/21 18:34 07/14/21 18:34 Labs: Laboratory Results - last 48 hr 07/14/21 07/14/21 07/14/21 17:52 17:53 17:53 WBC RBC Hgb Hct MCV MCH MCHC RDW Plt Count MPV Immature Gran % (Auto) Neut % (Auto) Lymph % (Auto) Wallace % (Auto) Eos % (Auto) Baso % (Auto) Lymph # (Auto) Wallace # (Auto) Eos # (Auto) Baso # (Auto) Abs Immat Gran (auto) Absolute Neuts (auto) Absolute Nucleated RBC Nucleated RBC % (auto) Sodium Potassium Chloride Carbon Dioxide Anion Gap BUN Creatinine Estim Creat Clear Calc Estimated GFR Random Glucose Calcium Total Bilirubin AST ALT Alkaline Phosphatase Total Protein Albumin Urine Color YELLOW Urine Appearance CLEAR Urine pH 5.5 Ur Specific Barton 1.020 Urine Protein NEG Urine Glucose (UA) NEG Urine Ketones 40 Urine Blood 1+ H Urine Nitrite NEG Ur Leukocyte Esterase NEG Urine RBC 1-4 Urine WBC 0-2 Ur Squamous Epith Cells 2+ Urine Bacteria 1+ Urine Mucus TRACE Urine Opiates Screen Not Detected Urine Fentanyl Screen Not Detected Ur Barbiturates Screen Not Detected Ur Phencyclidine Scrn Not Detected Ur Amphetamines Screen Not Detected U Benzodiazepines Scrn Not Detected Urine Cocaine Screen Not Detected U Marijuana (THC) Screen Not Detected Ethyl Alcohol COVID-19 ([facility]IREE) Negative COVID-19 Clin Com See Note 07/14/21 07/14/21 07/14/21 18:34 18:34 18:34 WBC 12.0 H RBC 4.35 Hgb 13.8 Hct 40.3 MCV 92.6 MCH 31.7 MCHC 34.2 RDW 12.7 Plt Count 377 MPV 9.5 Immature Gran % (Auto) 0.3 Neut % (Auto) 77.3 H Lymph % (Auto) 16.1 L Wallace % (Auto) 5.5 Eos % (Auto) 0.2 Baso % (Auto) 0.6 Lymph # (Auto) 1.9 Wallace # (Auto) 0.7 Eos # (Auto) 0.0 Baso # (Auto) 0.1 Abs Immat Gran (auto) 0.04 H Absolute Neuts (auto) 9.3 H Absolute Nucleated RBC 0.000 Nucleated RBC % (auto) 0.0 Sodium 129 L Potassium 4.3 Chloride 96 Carbon Dioxide 23 Anion Gap 14 BUN 8 L Creatinine 0.65 Estim Creat Clear Calc 113.7 Estimated GFR > 60 Random Glucose 105 Calcium 9.5 Total Bilirubin 0.6 AST 18 ALT 8 Alkaline Phosphatase 73 Total Protein 7.2 Albumin 4.5 Urine Color Urine Appearance Urine pH Ur Specific Barton Urine Protein Urine Glucose (UA) Urine Ketones Urine Blood Urine Nitrite Ur Leukocyte Esterase Urine RBC Urine WBC Ur Squamous Epith Cells Urine Bacteria Urine Mucus Urine Opiates Screen Urine Fentanyl Screen Ur Barbiturates Screen Ur Phencyclidine Scrn Ur Amphetamines Screen U Benzodiazepines Scrn Urine Cocaine Screen U Marijuana (THC) Screen Ethyl Alcohol < 10 COVID-19 ([facility]IREE) COVID-19 Clin Com Mental Status Exam Mental Status Exam Patient Appearance: Fatigued Patient Orientation: Person Level of Consciousness: Awake and Alert Patient Behavior: Guarded, Passive, Suspicious, Anxious, Fearful, Resistive to Care, Avoidant, Fatigued, Distractible, Isolative, Good Eye Contact and Uncooperative Mood Description: Blunted Affect Description: Blunted Ability to Follow Directions: Poor Speech Pattern: No Speech Memory Description: Remote Impaired Hallucinations: Auditory Delusions: Paranoid Ideation Perceptual Disturbances: Depersonalization, Derealization and Hallucinations Thought Process: Illogical, Distracted and Evasive Thought Content: positive for Perseveration, positive for Poverty of Content and positive for Thought Blocking Depressive Symptoms: Insomnia, Diff. Making Decisions, Difficulty Sleeping and Isolating-Friends/Family Judgement: Poor Medications Medications Current Medications Atorvastatin Calcium (Atorvastatin Calcium 10 Mg Tablet) 10 mg PO BEDTIME [facility] Buprenorphine/Naloxone (Buprenorphine/Naloxone 2/0.5mg Film) 1 film SUBLINGUAL DAILY [facility] Last Admin: 07/15/21 09:22 Dose: Not Given Documented by: Clonazepam (Clonazepam 0.5 Mg Tablet) 0.5 mg PO BID PRN PRN Reason: Anxiety Cyclobenzaprine HCl (Cyclobenzaprine Hcl 10 Mg Tablet) 5 mg PO BID PRN PRN Reason: muscle spasm Fluoxetine HCl (Fluoxetine Hcl 20 Mg Capsule) 40 mg PO DAILY [facility] Last Admin: 07/15/21 09:22 Dose: Not Given Documented by: Risperidone (Risperidone 2 Mg Tablet) 2 mg PO BEDTIME [facility] Last Admin: 07/15/21 06:46 Dose: Not Given Documented by: Allergies Allergies Allergy/AdvReac Type Severity Reaction Status Date / Time No Known Allergies Allergy Unverified 02/17/20 16:17 [No Known Allergies*] Assessment & Plan Assessment & Plan (1) Schizoaffective disorder, bipolar type: Status: Acute Code(s): F25.0 - Schizoaffective disorder, bipolar type Assessment and Plan: 51 yo female, hx of schizoaffective disorder, bipolar type, having stopped medications with sx reported of disorganization, isolation, behaviors of concern, nonsensical comments. CARE Team is looking for an inpatient admission for pt which tw agreed is needed. Suggest. 1. Zydis 10 mg bid. 2. EKG-use of atypical antipsychotic medications, TSH- mood instability, A6U-aeo of antipsychotic medications, Lipids-use of antipsychotic medications, B12- Folate- hx of mood instability and addiction 3. Continue in pt bed search 4. Current presentation is similiar to previous presentations of decompensation. Consider ROCHA to assit pt in maintaining more stability and less difficulty to avoid further decompensation. I spent 60 minutes with the patient and/or on the patient floor today, greater than?50% of which was spent counseling/coordinating care. Informed Consent: does not understand
[2021-07-15] MEDS: risperiDONE 2 MG TABLET PO (20:19)
[2021-07-15] MEDS: Nicotine 21 MG PATCH.TD24 TRANSDERMA (20:20)
[2021-07-15] MEDS: clonazePAM 0.5 MG TABLET PO (23:44)
[2021-07-16] VITALS: BP 112/72; PULSE 92; RESP 20; TEMP 36.4; O2SAT 97
--- NOTE | 2021-07-16 | ECG_ITS ---
Test Reason : MED CLEARANCE Blood Pressure : / mmHG Vent. Rate : 093 BPM Atrial Rate : 093 BPM P-R Int : 168 ms QRS Dur : 080 ms QT Int : 366 ms P-R-T Axes : 071 004 048 degrees QTc Int : 455 ms Normal sinus rhythm Normal ECG When compared with ECG of 15-MAY-2019 23:38, Criteria for Septal infarct are no longer Present Referred By: Elana Guzman Electronically Signed By:CHYNA BO MD
--- NOTE | 2021-07-16 06:00 | PC.NURSE ---
Patient slept total 6 hours, denied distress, administered PRN Klonopin 0.5 mg as requested at 2344 with + effect, patient ate adequately, took her night time risperidone 2 mg with prompting, patient is pre-accepted to M3/5, VSS, behavior non-concerning at this time, patient is more verbal, will continue to monitor.
--- NOTE | 2021-07-16 06:57 | PC.NURSE ---
patient appears to remain asleep at present respirations are even and unlabored patient appears in no distress
[2021-07-16 14:55] LABS: Alanine Aminotransferase 7 U/L (0-31); Albumin Level 4.2 g/dL (3.5-5.0); Alkaline Phosphatase 70 U/L (39-117); Anion Gap 13 (12-20); Aspartate Amino Transferase 19 U/L (5-31); Bilirubin Direct 0.2 mg/dL (0.0-0.5); Bilirubin Total 0.5 mg/dL (0.0-1.0); Blood Urea Nitrogen 13 mg/dL (9-16); Calcium 9.4 mg/dL (8.4-10.2); Carbon Dioxide 26 mmol/L (22-29); Chloride 103 mmol/L (96-108); Creatinine Clr Calc Pharmacy 93.5; Estimated Glomerular Filt Rate > 60; Glucose Random 162 mg/dL (60-115); Magnesium 2.1 mg/dL (1.6-2.6); Potassium 4.3 mmol/L (3.3-5.1); Sodium 138 mmol/L (135-145); Total Protein 6.7 g/dL (6.5-8.0)
[2021-07-16 15:01] VITALS: BP 104/74; PULSE 115; TEMP 36.9; O2SAT 95
--- NOTE | 2021-07-16 16:37 | PC.NURSE ---
Patient alert and cooperative was escorted to [id number] via wheelchair, staff and security. Belongings accompanied patient
[2021-07-16 17:00] VITALS: BP 121/65; PULSE 105; TEMP 37.1
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
[2021-07-16] MEDS: risperiDONE 2 MG TABLET PO (22:36)
[2021-07-16] MEDS: Atorvastatin Calcium 10 MG TABLET PO (22:36)
[2021-07-16] MEDS: clonazePAM 0.5 MG TABLET PO (23:53)
--- NOTE | 2021-07-17 00:48 | PC.ADMIT ---
A single, white, female aged 51 years, was [facility] at 1645 following referral from [facility] and [facility] team. Pt has several prior admissions here and elsewhere. Pt denies any admissions r/t substance or Etoh use. Pt self presented to [facility] ED on 07/14/21 reporting that her daughter convinced her to go to the hospital because she had not been taking her medications. Pt reported not taking her medications for several days and is known to decompensate when she stops taking her medications as prescribed. Pt was a poor historian in ED and wasn't oriented to situation or time. Pt was aware of date during admission, but expressed surprise when she was informed she had come to [facility] ED on 07/14 and had been in the hospital for 2 days. Pt denied SI/HI and said can seek out staff for help. Pt denied any history of suicidality, but in ED told CARE team that there was a history of SI a year or two ago. Pt denied AH/VH, but seemed preoccupied and had slowed speech and responses. Pt reports anxiety to be normal and said depression is sometimes present, but right now I am alright . Pt reports that her meds have recently been less effective, adding that she had been on them for a long time. Pt could not say why she stopped taking her medications, but did ask this curriculum writer if any of her meds can cause a sense of heaviness in my legs that makes pt less inclined to walk. Pt said she is open to medication management. Pt's daughter, Marybeth, is involved with her care. Pt reported that she lives with her children, but stated in ED thart she lives alone. Pt stated that her son at age 22 years.GARCÍA was negative, but pt reported she has in the past used opioids to deal with her bilateral knee pain; pt is on suboxone. Pt denies Etoh use; in ED was >10. Medical issuers include: chronic neck pain with a history of cervical spine surgeries, last in 2018 and chronic bilateral leg and knee pain. Pt was placed on 15 minute safety checks upon arrival. [id number] done, initial treatment plan done and admission orders obtained. Pt woke for PRN klonopin 0.5mg and returned to bed. Pt appears to be sleeping at this time.
[2021-07-17 06:00] VITALS: BP 118/78; PULSE 91; RESP 18; TEMP 37; O2SAT 96
[2021-07-17] MEDS: Nicotine 21 MG PATCH.TD24 TRANSDERMA (08:47)
[2021-07-17 18:00] VITALS: BP 113/72; PULSE 91; RESP 18; TEMP 37.1
[2021-07-17] MEDS: Atorvastatin Calcium 10 MG TABLET PO (21:49)
[2021-07-17] MEDS: clonazePAM 0.5 MG TABLET PO (21:49)
[2021-07-17] MEDS: risperiDONE 2 MG TABLET PO (21:49)
--- NOTE | 2021-07-17 22:36 | P.PNPSI_ITS ---
Subjective Subjective Date of Service: 07/17/21 Reason For Visit: Psychosis Interim History: pt reports she's feeling a little better Having been restarted on her medications. Patient reviewed recent history with field underwriter and said she started cutting down on her Risperdal because she was intermittently feeling overly sedated. This started a few months ago. She says she realizes that this was a mistake because whenever she does such a thing she ends of in the hospital. Patient currently denies any SI or HI and says all auditory hallucinations have resolved. She explains that she stop Prozac this past March saying she was feeling overall pretty good and thought maybe she does not needed anymore. She again reiterates that she should have stayed on it. Patient shares further that she used to be a naturally upbeat happy person with lots of energy, friendly and social. She misses that and feels that on Risperdal she has a Drugged feeling. Patient would like to discuss some options that may still be effective but not take away the person she remembers herself to be. Mental Status Exam Mental Status Exam Narrative: A&O. calm, cooperative; dressed in appropriate attire, with adequate hygiene. Good eye contact, attentive. No Tics or Tremors. No abnormal involuntary m ovements.?Mood is better though affect is blunted or constricted Speech is Non-pressured speech, spontaneous with regular rate, normal volume and prosody. No prolonged speech latency or dysarthria; Denies SI/SIB/HI upon inquiry. Denies A/VH or delusional thought content at this time. Thoughts process is organized, goal oriented and logical;? No known cognitive or memory impairment. Insight/ Judgment fair and adequate. Diagnostics Vital Signs (24Hr): Vital Signs - 24 hr 07/17/21 06:00 07/17/21 18:00 Temperature 98.6 F 98.8 F Pulse Rate 91 91 Respiratory Rate 18 18 Blood Pressure 118/78 113/72 Pulse Oximetry 96 BMI result Body Mass Index 30.2 Labs Results: 07/14/21 18:34 07/16/21 14:10 Labs: Laboratory Results - last 48 hr 07/16/21 14:10 Sodium 138 Potassium 4.3 Chloride 103 Carbon Dioxide 26 Anion Gap 13 BUN 13 D Creatinine 0.79 Estim Creat Clear Calc 93.5 Estimated GFR > 60 Random Glucose 162 H Calcium 9.4 Magnesium 2.1 Total Bilirubin 0.5 Direct Bilirubin 0.2 AST 19 ALT 7 Alkaline Phosphatase 70 Total Protein 6.7 Albumin 4.2 Medications Medications Current Medications Acetaminophen (Acetaminophen 325 Mg Tablet) 650 mg PO Q6H PRN PRN Reason: Headache/Pain Mild Scale (1-3) Al Hydroxide/Mg Hydroxide (Magnesium Hydrox/Alum Hydrox 30 Ml Oral.Susp) 30 ml PO Q6H PRN PRN Reason: Heartburn/Nausea Atorvastatin Calcium (Atorvastatin Calcium 10 Mg Tablet) 10 mg PO BEDTIME [facility] Last Admin: 07/17/21 21:49 Dose: 10 mg Documented by: Buprenorphine/Naloxone (Buprenorphine/Naloxone 2/0.5mg Film) 0.5 film SUBLINGUAL BID PRN PRN Reason: leg pain Clonazepam (Clonazepam 0.5 Mg Tablet) 0.5 mg PO BID PRN PRN Reason: Anxiety Last Admin: 07/17/21 21:49 Dose: 0.5 mg Documented by: Cyclobenzaprine HCl (Cyclobenzaprine Hcl 10 Mg Tablet) 5 mg PO BID PRN PRN Reason: muscle spasm Hydroxyzine HCl (Hydroxyzine Hcl 25 Mg Tablet) 25 mg PO BEDTIME PRN PRN Reason: Anxiety Magnesium Hydroxide (Milk Of Magnesia 30 Ml Oral.Susp) 30 ml PO DAILY PRN PRN Reason: Constipation Nicotine (Nicotine 21 Mg Patch.Td24) 21 mg TRANSDERMA DAILY [facility] Last Admin: 07/17/21 08:47 Dose: 21 mg Documented by: Risperidone (Risperidone 2 Mg Tablet) 2 mg PO BEDTIME [facility] Last Admin: 07/17/21 21:49 Dose: 2 mg Documented by: Trazodone HCl (Trazodone Hcl 50 Mg Tablet) 50 mg PO BEDTIME PRN PRN Reason: Insomnia Allergies Allergies Allergy/AdvReac Type Severity Reaction Status Date / Time No Known Allergies Allergy Unverified 02/17/20 16:17 [No Known Allergies*] Assessment & Plan Assessment & Plan (1) Bipolar 1 disorder: Status: Acute Code(s): F31.9 - Bipolar disorder, unspecified Plan Pt carries dx of bipolar I DO, has hx of multiple inpatient stays for decompensation and manic behavior in context of med non-adherence. Hx of SI and depression in context of multiple losses in her life. Patient agrees to continuing with Risperdal for now but wants to discuss other options she would like to get back on Prozac since these have helped her be stable and improved her mood; will discuss further (she's been of it since March) Plan: CV q15 min Continue Risperdal 2 mg q.h.s. since this has helped patient in the past; will discuss further Likely to Restart Prozac 20 mg (home dose 40 mg) since patient reports this has significantly helped her mood in the past I spent minutes with the patient and/or on the patient floor today, greater than?50% of which was spent counseling/coordinating care. Reason for contiued inpatient stay Substantial Risk for: rapid decompensation
[2021-07-18 06:00] VITALS: BP 106/68; PULSE 87; RESP 17; TEMP 36.8; O2SAT 94
--- NOTE | 2021-07-18 09:58 | PC.NURSE ---
pt signed a 3 day notice on friday07/18/2021. will be up on friday07/24/2021.
[2021-07-18] MEDS: Nicotine 21 MG PATCH.TD24 TRANSDERMA (10:03)
[2021-07-18] MEDS: FLUoxetine HCl 10 MG CAPSULE PO (14:40)
--- NOTE | 2021-07-18 17:47 | P.PNPSI_ITS ---
Subjective Subjective Date of Service: 07/18/21 Reason For Visit: Psychosis Interim History: Patient reports she is feeling better. She denies any SI or HI or AVH. She did put in a 3 day notice said she does not like being the unit. Patient engaged in productive discussion about her medications. She agrees that Risperdal is helpful even if it has caused weight gain or intermittently makes her feel sedated. That said she understands that making a change at this time is difficult since she has put in a 3 day notice and it is unclear that another medication will be as effective. To this end patient agrees that she would like to restart Prozac which she said was very helpful for her mood, get back to her normal level of stability and then, discuss medication changes to mitigate side effects with her outpatient provider. She said that she will not stop or lessened her medication on her own, realizing this results an inpatient admissions, but will discussed changes she needs or wants to make with her provider. Retail Merchandiser Technician reviewed chart and discussed with patient that there seems to be a pattern to her inpatient admissions that typically span the months of May, June and July, which encompass the anniversaries of several painful events. She agrees that this is likely true and that it could be helpful knowledge for the future. Regarding sleep, patient said she has typically been taking 0.25 clonazepam at bedtime at the behest of her provider given the concerns for long-term use of benzodiazepines. Patient said she is open to trying other medications for insomnia and agrees to a trial of trazodone. Mental Status Exam Mental Status Exam Narrative: A&O. calm, in appropriate attire, with adequate hygiene. Good eye contact, attentive. No Tics or Tremors. No abnormal involuntary movements. Cooperative, engaged. Non-pressured speech, spontaneous with regular rate and rhythm, normal volume and prosody. No prolonged speech latency or dysarthria. Mood is ?ok,? affect is congruent, somewhat blunted; Denies SI/SIB/HI upon inquiry. Denies A/VH or delusional thought content at this time. Thoughts process organized, goal oriented and logical; No known cognitive or memory impairment. Insight/ Judgment fair and adequate. Diagnostics Vital Signs (24Hr): Vital Signs - 24 hr 07/17/21 18:00 07/18/21 06:00 Temperature 98.8 F 98.2 F Pulse Rate 91 87 Respiratory Rate 18 17 Blood Pressure 113/72 106/68 Pulse Oximetry 94 BMI result Body Mass Index 30.2 Labs Results: 07/14/21 18:34 07/16/21 14:10 Medications Medications Current Medications Acetaminophen (Acetaminophen 325 Mg Tablet) 650 mg PO Q6H PRN PRN Reason: Headache/Pain Mild Scale (1-3) Al Hydroxide/Mg Hydroxide (Magnesium Hydrox/Alum Hydrox 30 Ml Oral.Susp) 30 ml PO Q6H PRN PRN Reason: Heartburn/Nausea Atorvastatin Calcium (Atorvastatin Calcium 10 Mg Tablet) 10 mg PO BEDTIME [facility] Last Admin: 07/17/21 21:49 Dose: 10 mg Documented by: Buprenorphine/Naloxone (Buprenorphine/Naloxone 2/0.5mg Film) 0.5 film S UBLINGUAL BID PRN PRN Reason: leg pain Clonazepam (Clonazepam 0.5 Mg Tablet) 0.5 mg PO BID PRN PRN Reason: Anxiety Last Admin: 07/17/21 21:49 Dose: 0.5 mg Documented by: Cyclobenzaprine HCl (Cyclobenzaprine Hcl 10 Mg Tablet) 5 mg PO BID PRN PRN Reason: muscle spasm Fluoxetine HCl (Fluoxetine Hcl 20 Mg Capsule) 20 mg PO DAILY [facility] Hydroxyzine HCl (Hydroxyzine Hcl 50 Mg Tablet) 50 mg PO TID PRN PRN Reason: Anxiety Magnesium Hydroxide (Milk Of Magnesia 30 Ml Oral.Susp) 30 ml PO DAILY PRN PRN Reason: Constipation Nicotine (Nicotine 21 Mg Patch.Td24) 21 mg TRANSDERMA DAILY [facility] Last Admin: 07/18/21 10:03 Dose: 21 mg Documented by: Risperidone (Risperidone 2 Mg Tablet) 2 mg PO BEDTIME [facility] Last Admin: 07/17/21 21:49 Dose: 2 mg Documented by: Trazodone HCl (Trazodone Hcl 50 Mg Tablet) 50 mg PO BEDTIME PRN PRN Reason: Insomnia Trazodone HCl (Trazodone Hcl 50 Mg Tablet) 50 mg PO BEDTIME [facility] Allergies Allergies Allergy/AdvReac Type Severity Reaction Status Date / Time No Known Allergies Allergy Unverified 02/17/20 16:17 [No Known Allergies*] Assessment & Plan Assessment & Plan (1) Bipolar 1 disorder: Status: Acute Code(s): F31.9 - Bipolar disorder, unspecified Assessment and Plan: PROVISIONAL (symptoms may also be explained by MDD with psychotic features and PTSD/trauma including of her son); psychiatric admissions seem to follow a pattern and occur her around the months of painful traumatic events; Plan Pt carries dx of bipolar I DO, has hx of multiple inpatient stays for decompensation and manic behavior in context of med non-adherence. Hx of SI and depression in context of multiple losses in her life. Pattern of admissions around painful anniversary Patient agrees to continuing with Risperdal and getting back on Prozac since these have helped her be stable and improved her mood; once she feels she has fully returned back to her normal baseline, will address side effects of Risperdal with her outpatient provider to see if they can be lessened. Patient has become organized in speech and behavior; denies any SI, HI or AVH. Plan: 3 day notice Continue Risperdal 2 mg q.h.s. since this has helped patient in the past; patient agrees will continue and address side effects with outpatient provider Restart Prozac 20 mg (home dose 40 mg) since patient reports this has significantly helped her mood in the past Start trazodone 50 mg q.h.s. with a p.r.n. available for help with insomnia to see if she can reduce her need for clonazepam I spent minutes with the patient and/or on the patient floor today, greater than?50% of which was spent counseling/coordinating care. Reason for contiued inpatient stay Substantial Risk for: rapid decompensation
[2021-07-18] MEDS: clonazePAM 0.5 MG TABLET PO (20:12)
[2021-07-18] MEDS: Atorvastatin Calcium 10 MG TABLET PO (20:12)
[2021-07-18] MEDS: risperiDONE 2 MG TABLET PO (20:12)
[2021-07-18] MEDS: traZODone HCL 50 MG TABLET PO ×2 (20:13→23:16)
[2021-07-18 20:14] VITALS: BP 139/81; PULSE 90; RESP 16; TEMP 36.3; O2SAT 98
[2021-07-19 06:00] VITALS: BP 128/68; PULSE 89; RESP 18; TEMP 36.9; O2SAT 97
[2021-07-19 07:00] VITALS: BMI 25.2
[2021-07-19] MEDS: Nicotine 21 MG PATCH.TD24 TRANSDERMA (08:48)
[2021-07-19] MEDS: FLUoxetine HCl 20 MG CAPSULE PO (08:48)
--- NOTE | 2021-07-19 14:04 | HO.PSYCHPN ---
Subjective Subjective Date of Service: 07/19/21 Reason For Visit: Psychosis Interim History: Patient reports that her mood is Okay. She said trazodone did not seem to work that well and had trouble falling asleep. She agrees to increase it to 100 mg tonight to see if this helps. She denies SI; auditory hallucinations remain resolved. Field Crop Farm Worker And patient discussed Behavioral activation as a part of her treatment as she seems to be spending most of her time alone, lying on her bed. She agrees that By pushing herself to interact more, go to groups she will help facilitate her own progress. She agrees to work on this. Mental Status Exam Mental Status Exam Narrative: A&O. calm, cooperative; dressed in appropriate attire, with adequate hygiene. Good eye contact, attentive. No Tics or Tremors. No abnormal involuntary movements.?Mood is ok though affect is blunted; Speech is Non-pressured speech, spontaneous with regular rate, normal volume and prosody. No prolonged speech latency or dysarthria; Denies SI/SIB/HI upon inquiry. Denies A/VH or delusional thought content at this time. Thoughts process is organized, goal oriented and logical;? No known cognitive or memory impairment. Insight/ Judgment fair and adequate. Diagnostics Vital Signs (24Hr): Vital Signs - 24 hr 07/18/21 20:14 07/19/21 06:00 Temperature 97.4 F 98.4 F Pulse Rate 90 89 Respiratory Rate 16 18 Blood Pressure 139/81 128/68 Pulse Oximetry 98 97 BMI result Body Mass Index 30.2 Labs Results: 07/14/21 18:34 07/16/21 14:10 Medications Medications Current Medications Acetaminophen (Acetaminophen 325 Mg Tablet) 650 mg PO Q6H PRN PRN Reason: Headache/Pain Mild Scale (1-3) Al Hydroxide/Mg Hydroxide (Magnesium Hydrox/Alum Hydrox 30 Ml Oral.Susp) 30 ml PO Q6H PRN PRN Reason: Heartburn/Nausea Atorvastatin Calcium (Atorvastatin Calcium 10 Mg Tablet) 10 mg PO BEDTIME [facility] Last Admin: 07/18/21 20:12 Dose: 10 mg Documented by: Buprenorphine/Naloxone (Buprenorphine/Naloxone 2/0.5mg Film) 0.5 film SUBLINGUAL BID PRN PRN Reason: leg pain Clonazepam (Clonazepam 0.5 Mg Tablet) 0.5 mg PO BID PRN PRN Reason: Anxiety Last Admin: 07/18/21 20:12 Dose: 0.5 mg Documented by: Cyclobenzaprine HCl (Cyclobenzaprine Hcl 10 Mg Tablet) 5 mg PO BID PRN PRN Reason: muscle spasm Fluoxetine HCl (Fluoxetine Hcl 20 Mg Capsule) 20 mg PO DAILY [facility] Last Admin: 07/19/21 08:48 Dose: 20 mg Documented by: Hydroxyzine HCl (Hydroxyzine Hcl 50 Mg Tablet) 50 mg PO TID PRN PRN Reason: Anxiety Magnesium Hydroxide (Milk Of Magnesia 30 Ml Oral.Susp) 30 ml PO DAILY PRN PRN Reason: Constipation Nicotine (Nicotine 21 Mg Patch.Td24) 21 mg TRANSDERMA DAILY [facility] Last Admin: 07/19/21 08:48 Dose: 21 mg Documented by: Risperidone (Risperidone 2 Mg Tablet) 2 mg PO BEDTIME [facility] Last Admin: 07/18/21 20:12 Dose: 2 mg Documented by: Trazodone HCl (Trazodone Hcl 50 Mg Tablet) 50 mg PO BEDTIME PRN PRN Reason: Insomnia Last Admin: 07/18/21 23:16 Dose: 50 mg Documented by: Trazodone HCl (Trazodone Hcl 50 Mg Tablet) 50 mg PO BEDTIME [facility] Last Admin: 07/18/21 20:13 Dose: 50 mg Documented by: Allergies Allergies Allergy/AdvReac Type Severity Reaction Status Date / Time No Known Allergies Allergy Unverified 02/17/20 16:17 [No Known Allergies*] Assessment & Plan Assessment & Plan (1) Bipolar 1 disorder: Status: Acute Code(s): F31.9 - Bipolar disorder, unspecified Assessment and Plan: PROVISIONAL (symptoms may also be explained by MDD with psychotic features and PTSD/trauma including of her son); psychiatric admissions seem to follow a pattern and occur her around the months of painful traumatic events; Plan Pt carries dx of bipolar I DO, has hx of multiple inpatient stays for decompensation and manic behavior in context of med non-adherence. Hx of SI and depression in context of multiple losses in her life. Pattern of admissions around painful anniversary; Patient reports that none of these manic or psychotic symptoms were ever present prior to her son's a few years ago. Field Crop Farm Worker will continue with bipolar disorder diagnosis as she has carried that for some time and sign writer hand is working with patient for the 1st time this admission; however sign writer hand did change it to provisional as it may be possible that her symptoms could also be explained by MDD with psychotic features combined with PTSD/trauma, that gets particularly exacerbated around painful anniversaries. Pt placed a 3 day notice; because of this sign writer hand Hesitated to change her current regimen. Field Crop Farm Worker and patient discussed this and Patient agrees to continuing with Risperdal and getting back on Prozac since these have helped her be stable and improved her mood; once she feels she has fully returned back to her normal baseline, will address side effects of Risperdal with her outpatient provider to see if they can be lessened.? Patient has become organized in speech and behavior; denies any SI, HI or AVH. Plan: 3 day notice Continue Risperdal 2 mg q.h.s. since this has helped patient in the past; patient agrees will continue and address side effects with outpatient provider Prozac 20 mg (home dose 40 mg) since patient reports this has significantly helped her mood in the past Increased trazodone 100 mg q.h.s. with a p.r.n. available for help with insomnia to see if she can reduce her need for clonazepam I spent minutes with the patient and/or on the patient floor today, greater than?50% of which was spent counseling/coordinating care. Reason for contiued inpatient stay Substantial Risk for: med/psych decompensation
[2021-07-19 18:00] VITALS: BP 142/84; PULSE 88; RESP 18; TEMP 37.3; O2SAT 96
[2021-07-19] MEDS: clonazePAM 0.5 MG TABLET PO (20:13)
[2021-07-19] MEDS: traZODone HCL 100 MG TABLET PO (20:13)
[2021-07-19] MEDS: Atorvastatin Calcium 10 MG TABLET PO (20:14)
[2021-07-19] MEDS: risperiDONE 2 MG TABLET PO (20:14)
[2021-07-20 06:00] VITALS: BP 140/73; PULSE 70; TEMP 36.8; O2SAT 97
[2021-07-20] MEDS: Nicotine 21 MG PATCH.TD24 TRANSDERMA (08:36)
[2021-07-20] MEDS: FLUoxetine HCl 20 MG CAPSULE PO (08:36)
[2021-07-20 16:20] VITALS: BP 133/73; PULSE 88; TEMP 37.1
--- NOTE | 2021-07-20 18:21 | P.PNPSI_ITS ---
Subjective Subjective Date of Service: 07/20/21 Reason For Visit: Psychosis Interim History: Pt says she's still depressed; no SI and no AVH. Trazodone not helpful, however, she says she eventually falls asleep and gets about 7-8 hours. Hard to fall asleep since thinking about her kids, her life. Agrees to melatonin. Also agrees to increase Risperdal to 3mg qhs to see if this helps w/ mood. Mental Status Exam Mental Status Exam Narrative: A&O. calm, cooperative; dressed in appropriate attire, with adequate hygiene. Good eye contact, attentive. No Tics or Tremors. No abnormal involuntary movements.?Mood is ok though affect is blunted; Speech is Non-pressured speech, spontaneous with regular rate, normal volume and prosody. No prolonged speech latency or dysarthria; Denies SI/SIB/HI upon inquiry. Denies A/VH or delusional thought content at this time. Thoughts process is organized, goal oriented and logical;? No known cognitive or memory impairment. Insight/ Judgment fair and adequate. Diagnostics Vital Signs (24Hr): Vital Signs - 24 hr 07/20/21 06:00 Temperature 98.3 F Pulse Rate 70 Blood Pressure 140/73 H Pulse Oximetry 97 BMI result Body Mass Index 25.2 Labs Results: 07/14/21 18:34 07/16/21 14:10 Medications Medications Current Medications Acetaminophen (Acetaminophen 325 Mg Tablet) 650 mg PO Q6H PRN PRN Reason: Headache/Pain Mild Scale (1-3) Al Hydroxide/Mg Hydroxide (Magnesium Hydrox/Alum Hydrox 30 Ml Oral.Susp) 30 ml PO Q6H PRN PRN Reason: Heartburn/Nausea Atorvastatin Calcium (Atorvastatin Calcium 10 Mg Tablet) 10 mg PO BEDTIME [facility] Last Admin: 07/19/21 20:14 Dose: 10 mg Documented by: Buprenorphine/Naloxone (Buprenorphine/Naloxone 2/0.5mg Film) 0.5 film SUBLINGUAL BID PRN PRN Reason: leg pain Clonazepam (Clonazepam 0.5 Mg Tablet) 0.5 mg PO BID PRN PRN Reason: Anxiety Last Admin: 07/19/21 20:13 Dose: 0.5 mg Documented by: Cyclobenzaprine HCl (Cyclobenzaprine Hcl 10 Mg Tablet) 5 mg PO BID PRN PRN Reason: muscle spasm Fluoxetine HCl (Fluoxetine Hcl 20 Mg Capsule) 20 mg PO DAILY [facility] Last Admin: 07/20/21 08:36 Dose: 20 mg Documented by: Hydroxyzine HCl (Hydroxyzine Hcl 50 Mg Tablet) 50 mg PO TID PRN PRN Reason: Anxiety Magnesium Hydroxide (Milk Of Magnesia 30 Ml Oral.Susp) 30 ml PO DAILY PRN PRN Reason: Constipation Melatonin (Melatonin 3 Mg Tablet) 3 mg PO BEDTIME [facility] Melatonin (Melatonin 3 Mg Tablet) 3 mg PO BEDTIME PRN PRN Reason: insomnia Nicotine (Nicotine 21 Mg Patch.Td24) 21 mg TRANSDERMA DAILY [facility] Last Admin: 07/20/21 08:36 Dose: 21 mg Documented by: Risperidone (Risperidone 3 Mg Tablet) 3 mg PO BEDTIME [facility] Allergies Allergies Allergy/AdvReac Type Severity Reaction Status Date / Time No Known Allergies Allergy Unverified 02/17/20 16:17 [No Known Allergies*] Assessment & Plan Assessment & Plan (1) Bipolar 1 disorder: Status: Acute Code(s): F31.9 - Bipolar disorder, unspecified Assessment and Plan: PROVISIONAL (symptoms may also be explained by MDD with psychotic features and PTSD/trauma including of her son); psychiatric admissions seem to follow a pattern and occur her around the months of painful traumatic events; Plan Pt carries dx of bipolar I DO, has hx of multiple inpatient stays for decompensation and manic behavior in context of med non-adherence. Hx of SI and depression in context of multiple losses in her life. Pattern of admissions around painful anniversary; Patient reports that none of these manic or psychotic symptoms were ever present prior to her son's a few years ago. Imaging Specialist will continue with bipolar disorder diagnosis as she has carried that for some time and junior technical writer is working with patient for the 1st time this admission; however junior technical writer did change it to provisional as it may be possible that her symptoms could also be explained by MDD with psychotic features combined with PTSD/trauma, that gets particularly exacerbated around painful anniversaries. Pt placed a 3 day notice; because of this junior technical writer Hesitated to change her current regimen. Imaging Specialist and patient discussed this and Patient agrees to continuing with Risperdal and getting back on Prozac since these have helped her be stable and improved her mood; once she feels she has fully returned back to her normal baseline, will address side effects of Risperdal with her outpatient provider to see if they can be lessened.? Patient has become organized in speech and behavior; denies any SI, HI or AVH. Plan: 3 day notice INCREASED to Risperdal 3 mg q.h.s. since still depressed; has helped patient in the past; patient agrees will continue and address side effects with outpatient provider start Melatonin pt agrees to trial of Clonidine also to see if can help qhs Prozac 20 mg (home dose 40 mg) since patient reports this has significantly helped her mood in the past DC trazodone not helpful I spent minutes with the patient and/or on the patient floor today, greater than?50% of which was spent counseling/coordinating care. Reason for contiued inpatient stay Substantial Risk for: stable for discharge and med/psych decompensation
[2021-07-20] MEDS: Melatonin 3 MG TABLET PO (21:12)
[2021-07-20] MEDS: risperiDONE 3 MG TABLET PO (21:12)
[2021-07-20] MEDS: Atorvastatin Calcium 10 MG TABLET PO (21:12)
[2021-07-20] MEDS: clonazePAM 0.5 MG TABLET PO (21:15)
[2021-07-21 06:00] VITALS: BP 138/79; PULSE 84; TEMP 37; O2SAT 97
[2021-07-21] MEDS: Nicotine 21 MG PATCH.TD24 TRANSDERMA (08:39)
[2021-07-21] MEDS: FLUoxetine HCl 20 MG CAPSULE PO (08:39)
[2021-07-21] MEDS: Acetaminophen 325 MG TABLET 650 MG PO ×2 (08:43→19:20)
--- NOTE | 2021-07-21 11:45 | HO.PSYCHPN ---
Subjective Subjective Date of Service: 07/21/21 Reason For Visit: Psychosis Subjective Notes: Conditional Voluntary and 3 Day Medical Problems Affecting Mental Status: No Interim History: Met with patient in reviewed with nursing. Seen in room. reports having a lot on their mind. Had difficulty communicating what they are thinking about, however stated that kids and home life were concerning. Unable to elaborate. Reports that they were hearing voices and these are much less intense. Was unable to recognize the Risperdal could be a reason why hallucinations may be decreasing in intensity. Reports mood is okay except for feeling anxious at times. Reports sleep okay. Denied medication side effects. Medication Compliance: Yes Side effects from medications: No Attending Groups: No Review of Systems Acute medical concerns: No Review of Systems: Unremarkable Mental Status Exam Mental Status Exam Narrative: seen in room. Pleasant. Fair hygiene. Internally preoccupied but organization improving. Anxious and affect. No SI. No HI. Did endorse hallucinations but less intense. Non command. No overt delusions. Insight and judgment limited Diagnostics Vital Signs (24Hr): Vital Signs - 24 hr 07/21/21 06:00 07/21/21 19:01 Temperature 98.6 F 98.7 F Pulse Rate 84 97 Respiratory Rate 17 Blood Pressure 138/79 136/77 Pulse Oximetry 97 98 BMI result Body Mass Index 25.2 Labs Results: 07/14/21 18:34 07/16/21 14:10 Medications Medications Current Medications Acetaminophen (Acetaminophen 325 Mg Tablet) 650 mg PO Q6H PRN PRN Reason: Headache/Pain Mild Scale (1-3) Last Admin: 07/21/21 19:20 Dose: 650 mg Documented by: Al Hydroxide/Mg Hydroxide (Magnesium Hydrox/Alum Hydrox 30 Ml Oral.Susp) 30 ml PO Q6H PRN PRN Reason: Heartburn/Nausea Artificial Tears (Artificial Tears 15 Ml Drops) 2 drop EYE-BOTH Q2H PRN PRN Reason: Dry Eyes Last Admin: 07/21/21 20:29 Dose: 2 drop Documented by: Atorvastatin Calcium (Atorvastatin Calcium 10 Mg Tablet) 10 mg PO BEDTIME ADALI Last Admin: 07/21/21 20:25 Dose: 10 mg Documented by: Buprenorphine/Naloxone (Buprenorphine/Naloxone 2/0.5mg Film) 0.5 film SUBLINGUAL BID PRN PRN Reason: leg pain Clonazepam (Clonazepam 0.5 Mg Tablet) 0.5 mg PO BID PRN PRN Reason: Anxiety Last Admin: 07/21/21 20:25 Dose: 0.5 mg Documented by: Clonidine HCl (Clonidine Hcl 0.1 Mg Tablet) 0.1 mg PO BEDTIME PRN; Protocol PRN Reason: Insomnia Cyclobenzaprine HCl (Cyclobenzaprine Hcl 10 Mg Tablet) 5 mg PO BID PRN PRN Reason: muscle spasm Fluoxetine HCl (Fluoxetine Hcl 20 Mg Capsule) 20 mg PO DAILY [facility] Last Admin: 07/21/21 08:39 Dose: 20 mg Documented by: Hydroxyzine HCl (Hydroxyzine Hcl 50 Mg Tablet) 50 mg PO TID PRN PRN Reason: Anxiety Magnesium Hydroxide (Milk Of Magnesia 30 Ml Oral.Susp) 30 ml PO DAILY PRN PRN Reason: Constipation Melatonin (Melatonin 3 Mg Tablet) 3 mg PO BEDTIME [facility] [place] Last Admin: 07/21/21 20:25 Dose: 3 mg Documented by: Melatonin (Melatonin 3 Mg Tablet) 3 mg PO BEDTIME PRN PRN Reason: insomnia Nicotine (Nicotine 21 Mg Patch.Td24) 21 mg TRANSDERMA DAILY [facility] [place] Last Admin: 07/21/21 08:39 Dose: 21 mg Documented by: Risperidone (Risperidone 3 Mg Tablet) 3 mg PO BEDTIME [facility] [place] Last Admin: 07/21/21 20:25 Dose: 3 mg Documented by: Trolamine Salicylate/Aloe Vera (Trolamine Salicylate 10%/Aloe Cream 35.4 Gm) 1 appl TOPICAL QID PRN PRN Reason: Pain, Moderate (Pain Scale 4-6 Allergies Allergies Allergy/AdvReac Type Severity Reaction Status Date / Time No Known Allergies Allergy Unverified 02/17/20 16:17 [No Known Allergies*] Assessment & Plan Assessment & Plan (1) Bipolar 1 disorder: Status: Acute Code(s): F31.9 - Bipolar disorder, unspecified Assessment and Plan: PROVISIONAL (symptoms may also be explained by MDD with psychotic features and PTSD/trauma including of her son); psychiatric admissions seem to follow a pattern and occur her around the months of painful traumatic events; Plan Pt carries dx of bipolar I DO, has hx of multiple inpatient stays for decompensation and manic behavior in context of med non-adherence. Hx of SI and depression in context of multiple losses in her life. Pattern of admissions around painful anniversary; Patient reports that none of these manic or psychotic symptoms were ever present prior to her son's a few years ago. 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 Pt placed a 3 day notice; because of this keno writer Hesitated to change her current regimen. Sales Order Clerk and patient discussed this and Patient agrees to continuing with Risperdal and getting back on Prozac since these have helped her be stable and improved her mood; once she feels she has fully returned back to her normal baseline, will address side effects of Risperdal with her outpatient provider to see if they can be lessened.? Patient has become organized in speech and behavior; denies any SI, HI or AVH. Plan: 3 day notice INCREASED to Risperdal 3 mg q.h.s. since still depressed; has helped patient in the past; patient agrees will continue and address side effects with outpatient provider start Melatonin pt agrees to trial of Clonidine also to see if can help qhs Prozac 20 mg (home dose 40 mg) since patient reports this has significantly helped her mood in the past DC trazodone not helpful 07/21: no changes to current treatment plan. Three-day notice expires 07/24/2021. I spent minutes with the patient and/or on the patient floor today, greater than?50% of which was spent counseling/coordinating care. Reason for contiued inpatient stay Substantial Risk for: inability to function
[2021-07-21 19:01] VITALS: BP 136/77; PULSE 97; RESP 17; TEMP 37.1; O2SAT 98
[2021-07-21] MEDS: risperiDONE 3 MG TABLET PO (20:25)
[2021-07-21] MEDS: clonazePAM 0.5 MG TABLET PO (20:25)
[2021-07-21] MEDS: Melatonin 3 MG TABLET PO (20:25)
[2021-07-21] MEDS: Atorvastatin Calcium 10 MG TABLET PO (20:25)
[2021-07-21] MEDS: Artificial Tears 15 ML DROPS 2 DROP EYE-BOTH (20:29)
[2021-07-22] MEDS: Melatonin 3 MG TABLET PO ×2 (04:44→21:22)
[2021-07-22 06:00] VITALS: BP 118/59; PULSE 118; RESP 18; TEMP 36.8; O2SAT 96
[2021-07-22] MEDS: FLUoxetine HCl 20 MG CAPSULE PO (09:15)
[2021-07-22] MEDS: Nicotine 21 MG PATCH.TD24 TRANSDERMA (09:15)
--- NOTE | 2021-07-22 12:50 | HO.PSYCHPN ---
Subjective Subjective Date of Service: 07/22/21 Reason For Visit: Psychosis Subjective Notes: Conditional Voluntary and 3 Day Medical Problems Affecting Mental Status: No Interim History: Seen in room. Reports mood may be slightly better today. Feeling more motivated. Still however feels overwhelmed. Continues to be vague and unable to give details around same. to encourage getting out of I to groups. Had no clear reason for not attending groups and difficulty communicating concerns. Tried to encourage try and get out of room for perhaps 1 meal per day or even a partial group. Reports sleep is okay. No auditory hallucinations. Medication concerns. Medication side effects. Medication Compliance: Yes Side effects from medications: No Attending Groups: No Review of Systems Acute medical concerns: No Review of Systems Review of Systems Unremarkable Mental Status Exam Mental Status Exam Narrative: seen in room. Pleasant. Poor self-care. Internally preoccupied but organization improving. Anxious and affect. No SI. No HI. Denies hallucinations today. No overt delusions. Insight and judgment limited Diagnostics Vital Signs (24Hr): Vital Signs - 24 hr 07/21/21 19:01 07/22/21 06:00 Temperature 98.7 F 98.2 F Pulse Rate 97 118 H Respiratory Rate 17 18 Blood Pressure 136/77 118/59 L Pulse Oximetry 98 96 BMI result Body Mass Index 25.2 Labs Results: 07/14/21 18:34 07/16/21 14:10 Medications Medications Current Medications Acetaminophen (Acetaminophen 325 Mg Tablet) 650 mg PO Q6H PRN PRN Reason: Headache/Pain Mild Scale (1-3) Last Admin: 07/21/21 19:20 Dose: 650 mg Documented by: Al Hydroxide/Mg Hydroxide (Magnesium Hydrox/Alum Hydrox 30 Ml Oral.Susp) 30 ml PO Q6H PRN PRN Reason: Heartburn/Nausea Artificial Tears (Artificial Tears 15 Ml Drops) 2 drop EYE-BOTH Q2H PRN PRN Reason: Dry Eyes Last Admin: 07/21/21 20:29 Dose: 2 drop Documented by: Atorvastatin Calcium (Atorvastatin Calcium 10 Mg Tablet) 10 mg PO BEDTIME [facility]AL[facility] Last Admin: 07/21/21 20:25 Dose: 10 mg Documented by: Buprenorphine/Naloxone (Buprenorphine/Naloxone 2/0.5mg Film) 0.5 film SUBLINGUAL BID PRN PRN Reason: leg pain Clonazepam (Clonazepam 0.5 Mg Tablet) 0.5 mg PO BID PRN PRN Reason: Anxiety Last Admin: 07/21/21 20:25 Dose: 0.5 mg Documented by: Clonidine HCl (Clonidine Hcl 0.1 Mg Tablet) 0.1 mg PO BEDTIME PRN; Protocol PRN Reason: Insomnia Cyclobenzaprine HCl (Cyclobenzaprine Hcl 10 Mg Tablet) 5 mg PO BID PRN PRN Reason: muscle spasm Fluoxetine HCl (Fluoxetine Hcl 20 Mg Capsule) 20 mg PO DAILY [facility] Last Admin: 07/22/21 09:15 Dose: 20 mg Documented by: Hydroxyzine HCl (Hydroxyzine Hcl 50 Mg Tablet) 50 mg PO TID PRN PRN Reason: Anxiety Magnesium Hydroxide (Milk Of Magnesia 30 Ml Oral.Susp) 30 ml PO DAILY PRN PRN Reason: Constipation Melatonin (Melatonin 3 Mg Tablet) 3 mg PO BEDTIME [facility] Last Admin: 07/21/21 20:25 Dose: 3 mg Documented by: Melatonin (Melatonin 3 Mg Tablet) 3 mg PO BEDTIME PRN PRN Reason: insomnia Last Admin: 07/22/21 04:44 Dose: 3 mg Documented by: Nicotine (Nicotine 21 Mg Patch.Td24) 21 mg TRANSDERMA DAILY [facility] Last Admin: 07/22/21 09:15 Dose: 21 mg Documented by: Risperidone (Risperidone 3 Mg Tablet) 3 mg PO BEDTIME [facility] Last Admin: 07/21/21 20:25 Dose: 3 mg Documented by: Trolamine Salicylate/Aloe Vera (Trolamine Salicylate 10%/Aloe Cream 35.4 Gm) 1 appl TOPICAL QID PRN PRN Reason: Pain, Moderate (Pain Scale 4-6 Allergies Allergies Allergy/AdvReac Type Severity Reaction Status Date / Time No Known Allergies Allergy Unverified 02/17/20 16:17 [No Known Allergies*] Assessment & Plan Assessment & Plan (1) Bipolar 1 disorder: Status: Acute Code(s): F31.9 - Bipolar disorder, unspecified Assessment and Plan: PROVISIONAL (symptoms may also be explained by MDD with psychotic features and PTSD/trauma including of her son); psychiatric admissions seem to follow a pattern and occur her around the months of painful traumatic events; Plan Pt carries dx of bipolar I DO, has hx of multiple inpatient stays for decompensation and manic behavior in context of med non-adherence. Hx of SI and depression in context of multiple losses in her life. Pattern of admissions around painful anniversary; Patient reports that none of these manic or psychotic symptoms were ever present prior to her son's a few years ago. 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 Pt placed a 3 day notice; because of this television writer Hesitated to change her current regimen. Mercury Cracking Tester and patient discussed this and Patient agrees to continuing with Risperdal and getting back on Prozac since these have helped her be stable and improved her mood; once she feels she has fully returned back to her normal baseline, will address side effects of Risperdal with her outpatient provider to see if they can be lessened.? Patient has become organized in speech and behavior; denies any SI, HI or AVH. Plan: 3 day notice INCREASED to Risperdal 3 mg q.h.s. since still depressed; has helped patient in the past; patient agrees will continue and address side effects with outpatient provider start Melatonin pt agrees to trial of Clonidine also to see if can help qhs Prozac 20 mg (home dose 40 mg) since patient reports this has significantly helped her mood in the past DC trazodone not helpful 07/22: no changes to current treatment plan. Three-day notice expires 07/24/2021. I spent minutes with the patient and/or on the patient floor today, greater than?50% of which was spent counseling/coordinating care. Patient educated on: therapeutic strategies Reason for contiued inpatient stay Substantial Risk for: inability to function
[2021-07-22 18:40] VITALS: BP 122/79; PULSE 109; RESP 16; TEMP 36.7; O2SAT 98
[2021-07-22] MEDS: clonazePAM 0.5 MG TABLET PO ×2 (18:41→22:24)
[2021-07-22] MEDS: risperiDONE 3 MG TABLET PO (21:22)
[2021-07-22] MEDS: Atorvastatin Calcium 10 MG TABLET PO (21:34)
[2021-07-23 06:00] VITALS: BP 128/83; PULSE 100; RESP 18; TEMP 36.9; O2SAT 97
[2021-07-23] MEDS: Nicotine 21 MG PATCH.TD24 TRANSDERMA (07:45)
[2021-07-23] MEDS: FLUoxetine HCl 20 MG CAPSULE PO (07:45)
--- NOTE | 2021-07-23 09:40 | P.PNPSI_ITS ---
Subjective Subjective Date of Service: 07/23/21 Reason For Visit: Psychosis Subjective Notes: Conditional Voluntary Interim History: Patient was seen in rounds and discussed. Records were reviewed. She continues to be invasive, anxious and not attending groups because of difficulty communicating. She has put on a 3 day notice. Current plans and medications we re reviewed. She denies any side effects. Eating and sleeping adequately. No changes were made today Medication Compliance: Yes Side effects from medications: No Attending Groups: No Review of Systems Review of Systems Yes all other systems are reviewed and are negative Diagnostics Vital Signs (24Hr): Vital Signs - 24 hr 07/22/21 18:40 07/23/21 06:00 Temperature 98.1 F 98.4 F Pulse Rate 109 H 100 Respiratory Rate 16 18 Blood Pressure 122/79 128/83 Pulse Oximetry 98 97 BMI result Body Mass Index 25.2 Labs Results: 07/14/21 18:34 07/16/21 14:10 Medications Medications Current Medications Acetaminophen (Acetaminophen 325 Mg Tablet) 650 mg PO Q6H PRN PRN Reason: Headache/Pain Mild Scale (1-3) Last Admin: 07/21/21 19:20 Dose: 650 mg Documented by: Al Hydroxide/Mg Hydroxide (Magnesium Hydrox/Alum Hydrox 30 Ml Oral.Susp) 30 ml PO Q6H PRN PRN Reason: Heartburn/Nausea Artificial Tears (Artificial Tears 15 Ml Drops) 2 drop EYE-BOTH Q2H PRN PRN Reason: Dry Eyes Last Admin: 07/21/21 20:29 Dose: 2 drop Documented by: Atorvastatin Calcium (Atorvastatin Calcium 10 Mg Tablet) 10 mg PO BEDTIME [facility] Last Admin: 07/22/21 21:34 Dose: 10 mg Documented by: Buprenorphine/Naloxone (Buprenorphine/Naloxone 2/0.5mg Film) 0.5 film SUBLINGUAL BID PRN PRN Reason: leg pain Clonazepam (Clonazepam 0.5 Mg Tablet) 0.5 mg PO BID PRN PRN Reason: Anxiety Last Admin: 07/22/21 22:24 Dose: 0.5 mg Documented by: Clonidine HCl (Clonidine Hcl 0.1 Mg Tablet) 0.1 mg PO BEDTIME PRN; Protocol PRN Reason: Insomnia Cyclobenzaprine HCl (Cyclobenzaprine Hcl 10 Mg Tablet) 5 mg PO BID PRN PRN Reason: muscle spasm Fluoxetine HCl (Fluoxetine Hcl 20 Mg Capsule) 20 mg PO DAILY [facility] Last Admin: 07/23/21 07:45 Dose: 20 mg Documented by: Hydroxyzine HCl (Hydroxyzine Hcl 50 Mg Tablet) 50 mg PO TID PRN PRN Reason: Anxiety Magnesium Hydroxide (Milk Of Magnesia 30 Ml Oral.Susp) 30 ml PO DAILY PRN PRN Reason: Constipation Melatonin (Melatonin 3 Mg Tablet) 3 mg PO BEDTIME [facility] Last Admin: 07/22/21 21:22 Dose: 3 mg Documented by: Melatonin (Melatonin 3 Mg Tablet) 3 mg PO BEDTIME PRN PRN Reason: insomnia Last Admin: 07/22/21 04:44 Dose: 3 mg Documented by: Nicotine (Nicotine 21 Mg Patch.Td24) 21 mg TRANSDERMA DAILY [facility] Last Admin: 07/23/21 07:45 Dose: 21 mg Documented by: Risperidone (Risperidone 3 Mg Tablet) 3 mg PO BEDTIME [facility] Last Admin: 07/22/21 21:22 Dose: 3 mg Documented by: Trolamine Salicylate/Aloe Vera (Trolamine Salicylate 10%/Aloe Cream 35.4 Gm) 1 appl TOPICAL QID PRN PRN Reason: Pain, Moderate (Pain Scale 4-6 Last Admin: 07/22/21 21:23 Dose: 1 appl Documented by: Allergies Allergies Allergy/AdvReac Type Severity Reaction Status Date / Time No Known Allergies Allergy Unverified 02/17/20 16:17 [No Known Allergies*] Assessment & Plan Assessment & Plan (1) Bipolar 1 disorder: Status: Acute Code(s): F31.9 - Bipolar disorder, unspecified Assessment and Plan: PROVISIONAL (symptoms may also be explained by MDD with psychotic features and PTSD/trauma including of her son); psychiatric admissions seem to follow a pattern and occur her around the months of painful traumatic events; Plan Pt carries dx of bipolar I DO, has hx of multiple inpatient stays for decompensation and manic behavior in context of med non-adherence. Hx of SI and depression in context of multiple losses in her life. Pattern of admissions around painful anniversary; Patient reports that none of t hese manic or psychotic symptoms were ever present prior to her son's a few years ago. 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 Pt placed a 3 day notice; because of this internal communications writer Hesitated to change her current regimen. Job Tracer and patient discussed this and Patient agrees to continuing with Risperdal and getting back on Prozac since these have helped her be stable and improved her mood; once she feels she has fully returned back to her normal baseline, will address side effects of Risperdal with her outpatient provider to see if they can be lessened.? Patient has become organized in speech and behavior; denies any SI, HI or AVH. Plan: 3 day notice INCREASED to Risperdal 3 mg q.h.s. since still depressed; has helped patient in the past; patient agrees will continue and address side effects with outpatient provider start Melatonin pt agrees to trial of Clonidine also to see if can help qhs Prozac 20 mg (home dose 40 mg) since patient reports this has significantly helped her mood in the past DC trazodone not helpful 07/22: no changes to current treatment plan. Three-day notice expires 07/24/2021. 07/23/2021: Continue current regimen and plans. Three day notice expires 07/24 I spent minutes with the patient and/or on the patient floor today, greater than?50% of which was spent counseling/coordinating care. Reason for contiued inpatient stay Substantial Risk for: other
--- NOTE | 2021-07-23 09:44 | HO.PSYCHPN ---
Subjective Subjective Date of Service: 07/23/21 Reason For Visit: Psychosis Subjective Notes: Conditional Voluntary Medical Problems Affecting Mental Status: No Interim History: Patient was seen and discussed in rounds today. She continues to feel anxious. She is not attending groups because of difficulty communicating. She is med compliant. She has put in a 3 day notice which expires on 07/24. No complaints or side effects. Eating and sleeping adequately. No changes were made today PE Medication Compliance: Yes Side effects from medications: No Review of Systems Review of Systems Yes all other systems are reviewed and are negative Mental Status Exam Mental Status Exam Narrative: In today's visit she is alert, oriented and marginally kempt. Speech is soft-spoken. Little eye contact. Affect is appropriate and constricted. No acute signs of psychosis. Denies any hallucinations. No SI. Cognitively she has slow thought processes. Judgment is intact Diagnostics Vital Signs (24Hr): Vital Signs - 24 hr 07/22/21 18:40 07/23/21 06:00 Temperature 98.1 F 98.4 F Pulse Rate 109 H 100 Respiratory Rate 16 18 Blood Pressure 122/79 128/83 Pulse Oximetry 98 97 BMI result Body Mass Index 25.2 Labs Results: 07/14/21 18:34 07/16/21 14:10 Medications Medications Current Medications Acetaminophen (Acetaminophen 325 Mg Tablet) 650 mg PO Q6H PRN PRN Reason: Headache/Pain Mild Scale (1-3) Last Admin: 07/21/21 19:20 Dose: 650 mg Documented by: Al Hydroxide/Mg Hydroxide (Magnesium Hydrox/Alum Hydrox 30 Ml Oral.Susp) 30 ml PO Q6H PRN PRN Reason: Heartburn/Nausea Artificial Tears (Artificial Tears 15 Ml Drops) 2 drop EYE-BOTH Q2H PRN PRN Reason: Dry Eyes Last Admin: 07/21/21 20:29 Dose: 2 drop Documented by: Atorvastatin Calcium (Atorvastatin Calcium 10 Mg Tablet) 10 mg PO BEDTIME ADALI Last Admin: 07/22/21 21:34 Dose: 10 mg Documented by: Buprenorphine/Naloxone (Buprenorphine/Naloxone 2/0.5mg Film) 0.5 film SUBLINGUAL BID PRN PRN Reason: leg pain Clonazepam (Clonazepam 0.5 Mg Tablet) 0.5 mg PO BID PRN PRN Reason: Anxiety Last Admin: 07/22/21 22:24 Dose: 0.5 mg Documented by: Clonidine HCl (Clonidine Hcl 0.1 Mg Tablet) 0.1 mg PO BEDTIME PRN; Protocol PRN Reason: Insomnia Cyclobenzaprine HCl (Cyclobenzaprine Hcl 10 Mg Tablet) 5 mg PO BID PRN PRN Reason: muscle spasm Fluoxetine HCl (Fluoxetine Hcl 20 Mg Capsule) 20 mg PO DAILY [facility] Last Admin: 07/23/21 07:45 Dose: 20 mg Documented by: Hydroxyzine HCl (Hydroxyzine Hcl 50 Mg Tablet) 50 mg PO TID PRN PRN Reason: Anxiety Magnesium Hydroxide (Milk Of Magnesia 30 Ml Oral.Susp) 30 ml PO DAILY PRN PRN Reason: Constipation Melatonin (Melatonin 3 Mg Tablet) 3 mg PO BEDTIME [facility] Last Admin: 07/22/21 21:22 Dose: 3 mg Documented by: Melatonin (Melatonin 3 Mg Tablet) 3 mg PO BEDTIME PRN PRN Reason: insomnia Last Admin: 07/22/21 04:44 Dose: 3 mg Documented by: Nicotine (Nicotine 21 Mg Patch.Td24) 21 mg TRANSDERMA DAILY [facility] Last Admin: 07/23/21 07:45 Dose: 21 mg Documented by: Risperidone (Risperidone 3 Mg Tablet) 3 mg PO BEDTIME [facility] Last Admin: 07/22/21 21:22 Dose: 3 mg Documented by: Trolamine Salicylate/Aloe Vera (Trolamine Salicylate 10%/Aloe Cream 35.4 Gm) 1 appl TOPICAL QID PRN PRN Reason: Pain, Moderate (Pain Scale 4-6 Last Admin: 07/22/21 21:23 Dose: 1 appl Documented by: Allergies Allergies Allergy/AdvReac Type Severity Reaction Status Date / Time No Known Allergies Allergy Unverified 02/17/20 16:17 [No Known Allergies*] Assessment & Plan Assessment & Plan (1) Bipolar 1 disorder: Status: Acute Code(s): F31.9 - Bipolar disorder, unspecified Assessment and Plan: PROVISIONAL (symptoms may also be explained by MDD with psychotic features and PTSD/trauma including of her son); psychiatric admissions seem to follow a pattern and occur her around the months of painful traumatic events; Plan Pt carries dx of bipolar I DO, has hx of multiple inpatient stays for decompensation and manic behavior in context of med non-adherence. Hx of SI and depression in context of multiple losses in her life. Pattern of admissions around painful anniversary; Patient reports that none of these manic or psychotic symptoms were ever present prior to her son's a few years ago. 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 Pt placed a 3 day notice; because of this internal communications writer Hesitated to change her current regimen. Cold Storage Superintendent and patient discussed this and Patient agrees to continuing with Risperdal and getting back on Prozac since these have helped her be stable and improved her mood; once she feels she has fully returned back to her normal baseline, will address side effects of Risperdal with her outpatient provider to see if they can be lessened.? Patient has become organized in speech and behavior; denies any SI, HI or AVH. Plan: 3 day notice INCREASED to Risperdal 3 mg q.h.s. since still depressed; has helped patient in the past; patient agrees will continue and address side effects with outpatient provider start Melatonin pt agrees to trial of Clonidine also to see if can help qhs Prozac 20 mg (home dose 40 mg) since patient reports this has significantly helped her mood in the past DC trazodone not helpful 07/22: no changes to current treatment plan. Three-day notice expires 07/24/2021. 07/23/2021: Continue current regimen and plans. Three day notice expires 07/24 I spent minutes with the patient and/or on the patient floor today, greater than?50% of which was spent counseling/coordinating care. Reason for contiued inpatient stay Substantial Risk for: med/psych decompensation
--- NOTE | 2021-07-23 09:47 | HO.PSYCHPN ---
Subjective Subjective Date of Service: 07/23/21 Reason For Visit: Psychosis Medical Problems Affecting Mental Status: No Medication Compliance: Yes Side effects from medications: No Diagnostics Vital Signs (24Hr): Vital Signs - 24 hr 07/22/21 18:40 07/23/21 06:00 Temperature 98.1 F 98.4 F Pulse Rate 109 H 100 Respiratory Rate 16 18 Blood Pressure 122/79 128/83 Pulse Oximetry 98 97 BMI result Body Mass Index 25.2 Labs Results: 07/14/21 18:34 07/16/21 14:10 Medications Medications Current Medications Acetaminophen (Acetaminophen 325 Mg Tablet) 650 mg PO Q6H PRN PRN Reason: Headache/Pain Mild Scale (1-3) Last Admin: 07/21/21 19:20 Dose: 650 mg Documented by: Al Hydroxide/Mg Hydroxide (Magnesium Hydrox/Alum Hydrox 30 Ml Oral.Susp) 30 ml PO Q6H PRN PRN Reason: Heartburn/Nausea Artificial Tears (Artificial Tears 15 Ml Drops) 2 drop EYE-BOTH Q2H PRN PRN Reason: Dry Eyes Last Admin: 07/21/21 20:29 Dose: 2 drop Documented by: Atorvastatin Calcium (Atorvastatin Calcium 10 Mg Tablet) 10 mg PO BEDTIME ADALI Last Admin: 07/22/21 21:34 Dose: 10 mg Documented by: Buprenorphine/Naloxone (Buprenorphine/Naloxone 2/0.5mg Film) 0.5 film SUBLINGUAL BID PRN PRN Reason: leg pain Clonazepam (Clonazepam 0.5 Mg Tablet) 0.5 mg PO BID PRN PRN Reason: Anxiety Last Admin: 07/22/21 22:24 Dose: 0.5 mg Documented by: Clonidine HCl (Clonidine Hcl 0.1 Mg Tablet) 0.1 mg PO BEDTIME PRN; Protocol PRN Reason: Insomnia Cyclobenzaprine HCl (Cyclobenzaprine Hcl 10 Mg Tablet) 5 mg PO BID PRN PRN Reason: muscle spasm Fluoxetine HCl (Fluoxetine Hcl 20 Mg Capsule) 20 mg PO DAILY [facility] Last Admin: 07/23/21 07:45 Dose: 20 mg Documented by: Hydroxyzine HCl (Hydroxyzine Hcl 50 Mg Tablet) 50 mg PO TID PRN PRN Reason: Anxiety Magnesium Hydroxide (Milk Of Magnesia 30 Ml Oral.Susp) 30 ml PO DAILY PRN PRN Reason: Constipation Melatonin (Melatonin 3 Mg Tablet) 3 mg PO BEDTIME ADALI Last Admin: 07/22/21 21:22 Dose: 3 mg Documented by: Melatonin (Melatonin 3 Mg Tablet) 3 mg PO BEDTIME PRN PRN Reason: insomnia Last Admin: 07/22/21 04:44 Dose: 3 mg Documented by: Nicotine (Nicotine 21 Mg Patch.Td24) 21 mg TRANSDERMA DAILY [facility] Last Admin: 07/23/21 07:45 Dose: 21 mg Documented by: Risperidone (Risperidone 3 Mg Tablet) 3 mg PO BEDTIME [facility] Last Admin: 07/22/21 21:22 Dose: 3 mg Documented by: Trolamine Salicylate/Aloe Vera (Trolamine Salicylate 10%/Aloe Cream 35.4 Gm) 1 appl TOPICAL QID PRN PRN Reason: Pain, Moderate (Pain Scale 4-6 Last Admin: 07/22/21 21:23 Dose: 1 appl Documented by: Allergies Allergies Allergy/AdvReac Type Severity Reaction Status Date / Time No Known Allergies Allergy Unverified 02/17/20 16:17 [No Known Allergies*] Assessment & Plan Assessment & Plan (1) Bipolar 1 disorder: Status: Acute Code(s): F31.9 - Bipolar disorder, unspecified Assessment and Plan: PROVISIONAL (symptoms may also be explained by MDD with psychotic features and PTSD/trauma including of her son); psychiatric admissions seem to follow a pattern and occur her around the months of painful traumatic events; Plan Pt carries dx of bipolar I DO, has hx of multiple inpatient stays for decompensation and manic behavior in context of med non-adherence. Hx of SI and depression in context of multiple losses in her life. Pattern of admissions around painful anniversary; Patient reports that none of these manic or psychotic symptoms were ever present prior to her son's a few years ago. Rn Unit Manager will continue with bipolar disorder diagnosis as she has carried that for some time and medical technical writer is working with patient for the 1st time this admission; however medical technical writer did change it to provisional as it may be possible that her symptoms could also be explained by MDD with psychotic features combined with PTSD/trauma, that gets particularly exacerbated around painful anniversaries. Pt placed a 3 day notice; because of this medical technical writer Hesitated to change her current regimen. Rn Unit Manager and patient discussed this and Patient agrees to continuing with Risperdal and getting back on Prozac since these have helped her be stable and improved her mood; once she feels she has fully returned back to her normal baseline, will address side effects of Risperdal with her outpatient provider to see if they can be lessened.? Patient has become organized in speech and behavior; denies any SI, HI or AVH. Plan: 3 day notice INCREASED to Risperdal 3 mg q.h.s. since still depressed; has helped patient in the past; patient agrees will continue and address side effects with outpatient provider start Melatonin pt agrees to trial of Clonidine also to see if can help qhs Prozac 20 mg (home dose 40 mg) since patient reports this has significantly helped her mood in the past DC trazodone not helpful 07/22: no changes to current treatment plan. Three-day notice expires 07/24/2021. 07/23/2021: Continue current regimen and plans. Three day notice expires 07/24 I spent minutes with the patient and/or on the patient floor today, greater than?50% of which was spent counseling/coordinating care.
[2021-07-23 17:00] VITALS: BP 137/75; PULSE 85; TEMP 37.1
[2021-07-23] MEDS: Atorvastatin Calcium 10 MG TABLET PO (21:33)
[2021-07-23] MEDS: Melatonin 3 MG TABLET PO (21:33)
[2021-07-23] MEDS: risperiDONE 3 MG TABLET PO (21:33)
[2021-07-23] MEDS: clonazePAM 0.5 MG TABLET PO (21:37)
[2021-07-24 06:00] VITALS: BP 128/66; PULSE 66; RESP 16; TEMP 37; O2SAT 97
[2021-07-24] MEDS: FLUoxetine HCl 20 MG CAPSULE PO (08:34)
[2021-07-24] MEDS: Nicotine 21 MG PATCH.TD24 TRANSDERMA (08:34)
--- NOTE | 2021-07-24 11:45 | P.DS_ITS ---
DS: Providers Provider Date of Service: 07/24/21 Date of admission: 07/16/21 11:38 Date of discharge: 07/24/21 Primary care physician: Елена Rene MD Admitting clinician: Jeanne Gold Attending physician on discharge: Justin Scanlon DS: Diagnosis Discharge Diagnosis (1) Bipolar 1 disorder: Status: Deleted DS: Medications Discharge Medications Home Medications: Home Medications Medication Instructions Recorded Confirmed buprenorphine 2 mg-naloxone 0.5 mg 1 strip SUBLINGUAL DAILY 07/14/21 07/14/21 sublingual film Previous Rx's Medication Instructions Recorded atorvastatin 10 mg tablet 10 mg PO DAILY 30 Days #30 tab 07/24/21 clonazepam 0.5 mg tablet 0.5 mg PO BID PRN 7 Days #14 tab 07/24/21 cyclobenzaprine 10 mg tablet 5 - 10 mg PO BID PRN 30 Days #30 07/24/21 tab fluoxetine 20 mg capsule 20 mg PO DAILY 30 Days #30 cap 07/24/21 melatonin 3 mg tablet 3 mg PO BEDTIME PRN 30 Days #30 tab 07/24/21 risperidone 2 mg tablet 3 mg PO BEDTIME 30 Days #45 tab 07/24/21 trolamine salicylate-aloe vera 10 1 appl TOPICAL TID PRN 30 Days 07/24/21 % topical cream (Aspercreme with #35.4 g Aloe) Mental Status Exam Mental Status Exam Narrative: A&O. calm, cooperative; dressed in appropriate attire, with adequate hygiene. Good eye contact, attentive. No Tics or Tremors. No abnormal involuntary movements.?Mood is ok though affect is blunted; Speech is Non-pressured speech, spontaneous with regular rate, normal volume and prosody. No prolonged speech latency or dysarthria; Denies SI/SIB/HI upon inquiry. Denies A/VH or delusional thought content at this time. Thoughts process is organized, goal oriented and logical;? No known cognitive or memory impairment. Insight/ Judgment fair and adequate. DS: Summary Hospital Course Hospital Course: Pt carries dx of bipolar I DO, has hx of multiple inpatient stays for decompensation and manic behavior in context of med non-adherence. Hx of SI and depression in context of multiple losses in her life. Pattern of admissions around painful anniversary; Patient reports that none of these manic or psychotic symptoms were ever present prior to her son's a f ew years ago.? Bipolar disorder diagnosis continued as she has carried that for some time and telegraphic typewriter operator chief is working with patient for the 1st time this admission; however telegraphic typewriter operator chief did change it to provisional as it may be possible that her symptoms could also be explained by MDD with psychotic features combined with PTSD/trauma, that gets particularly exacerbated around painful anniversaries. Also pt has hx of ADHD which could be contributory. Soon after admission, patient reported that her mood was better and though still depressed felt clear minded and that AVH was resolved; no SI or HI and her speech and behavior were well organized. She was ambivalent about continuing with Risperdal since she felt it caused weight gain and was emotionally numbing. However patient put in a 3 day notice, Wanting to go home and work on this as an outpatient so she decided that she would get back on Risperdal in the meantime since it has proved stabilizing and then discuss any changes down the road. Patient was restarted on Risperdal which was increased to 3 mg q.h.s.. Prozac was also restarted since she felt that had significantly helped her mood in the past. Patient remains stable and reported that her depression though still present, was definitely better than on admission. She continued to have a mildly hopeless [place] that not much in her life will change anyway but also acknowledged that her reticence to talk and engage in therapy makes change much harder and will consider therapy. To that end, patient did agree to push herself to engage in groups and did attend some of them. Patient's 3 day notice was due. Though mostly keeping to her room, patient did not exhibit any unsafe Or disorganized behavior throughout her admission and was appropriate with peers and staff. Patient was not in imminent risk for harm to self or others and her request for discharge honored. Time spent discussing smoking cessation with patient: 3 to 10 minutes Status at Discharge Functional status at discharge: independent ambulation Overall status at discharge: patient is progressing back to baseline Time Spent with Patient Time attestation: Total time spent providing and/or coordinating discharge services: Time spent: Less than 30 minutes Discharge Plan Discharge Patient Disposition: Home, Self-Care Discharge Diagnosis: Bipolar disorder, unspecified Referrals: Psych Prescriber: Michelle Best ([facility]) [Other] - 07/30/21 3:20 pm (Telehealth) Therapist: Allison Pollock ([facility]) [Other] - 07/26/21 9:30 am (Telehealth ) Therapist: Allison Pollock ([facility]) [Other] - 08/03/21 9:30 am (Telehealth ) Елена Rene MD [Primary Care Provider] - 1 Week (OFFICE WILL FOLLOW-UP WITH HER WITH AN APPOINTMENT DATE.) Discharge Medications: New fluoxetine 20 mg Capsule 20 mg PO DAILY 30 Days Qty: 30 0RF melatonin 3 mg Tablet 3 mg PO BEDTIME PRN (Reason: sleep) 30 Days Qty: 30 0RF Aspercreme with Aloe 10 % Cream 1 appl topical TID PRN (Reason: Pain, Moderate (Pain Scale 4-6) 30 Days Qty: 35.4 0RF naloxone [Narcan] 4 mg/actuation spray,non-aerosol 4 mg intranasal Q2M PRN (Reason: opioid overdose) 1 Days Qty: 1 0RF Rx Instructions: spray 1 dose into ONE nostril; alternate nostrils w each dose until help arrives Continued buprenorphine-naloxone 2-0.5 mg film 1 strip sublingual DAILY 0RF Changed cyclobenzaprine 10 mg tablet 5 - 10 mg PO BID PRN (Reason: muscle spasm) 30 Days Qty: 30 0RF atorvastatin 10 mg tablet 10 mg PO DAILY 30 Days Qty: 30 0RF clonazepam 0.5 mg tablet 0.5 mg PO BID PRN (Reason: Anxiety) 7 Days Qty: 14 0RF risperidone 2 mg tablet 3 mg PO BEDTIME 30 Days Qty: 45 0RF Discontinued fluoxetine 20 mg capsule 2 cap PO QAM 0RF Discharge Orders: Discharge Order (Routine); Ordered 07/24/21 Ordered By: Justin Scanlon Diet: regular diet Activity on Discharge: As tolerated Stand Alone Forms: Patient Portal Discharge page, Community Support Care Plan Goals: Maintain mood and safe behaviors Take medications as prescribed Practice coping skills Continue with outpatient providers and reach out to them as needed Health Concerns: Mood stability and behaviors Chronic leg pain Plan of Treatment: Follow up with your PCP, psychiatric provider and other outpatient providers regarding above concerns Take medications as prescribed Assessment: Risk assessment at time of discharge:? Patient was interviewed prior to discharge and found to be fully oriented and without any SI or HI. Patient has insight and demonstrates good judgment in terms of wanting to pursue treatment. Patient is not in imminent risk of harm to self or others and has a safety plan that includes presenting to the closest ER or calling 911 if feeling unsafe.? Patient has been observed closely by nursing and unit staff throughout admission; patient has not engaged in any behaviors that suggest dangerousness to self or others and has demonstrated appropriate behaviors and impulse control Discharge Date/Time: 07/24/21 16:29
== END 2021-07-24 16:29 | disposition home or self-care (01) | DRG 885 ==
LOC: HO.ED 07-16 09:31 → HO.PM5 07-16 13:12
PROVIDERS: Emergency Medicine; Physician Assistant; Admitting Provider Psychiatry & Neurology Psychiatry; Emergency Provider Emergency Medicine; PCP Internal Medicine; Visit Provider Psychiatry & Neurology Psychiatry
DX: F25.0 Schizoaffective disorder, bipolar type (principal); F17.210 Nicotine dependence, cigarettes, uncomplicated; Z71.6 Tobacco abuse counseling; Z20.822 Contact with and (suspected) exposure to COVID-19; Z79.899 Other long term (current) drug therapy
CPT/HCPCS: 36415; 80048; 80053; 80076; 80307; 81001; 82077; 83735; 85025; 87635; 93005; 99284; 99285

== ENCOUNTER 2021-08-17 22:47 | Emergency (ER) | payer OTHER, SELFPAY ==
--- NOTE | ~2021-08-17 | XR_ITS ---
EXAMINATION: X-RAY RIGHT HAND/WRIST CLINICAL INFORMATION: Pain and swelling, status post fall. COMPARISON: None. TECHNIQUE: 3 views of the right wrist/hand. FINDINGS: There is a mildly displaced and volarly angulated fracture in the proximal shaft of the fifth metacarpal bone with overlying soft tissue swelling and no unexpected radiopaque foreign bodies. No other fractures are identified with the caveat that evaluation of the phalanges is limited due to partial flexion of the fingers. XR/XR hand wrist RT IMPRESSION: Fifth metacarpal fracture as above.
[2021-08-17 23:00] VITALS: BP 169/99; PULSE 101; RESP 18; TEMP 37.1; O2SAT 96; BMI 25.3
[2021-08-18 00:35] VITALS: BP 143/85; PULSE 82; RESP 16; TEMP 36.3; O2SAT 98
--- NOTE | 2021-08-18 00:43 | ED.EXTPRO ---
HPI - Extremity Problem General Chief complaint: Extremity Injury, Upper Stated complaint: fall/hand swelling Time Seen by Provider: 08/18/21 00:39 Source: patient Mode of arrival: ambulatory Limitations: no limitations History of Present Illness HPI Narrative: 51-year-old female came in for evaluation of right hand injury. Patient is right handed tripped over her dog fell landing on his right hand, pain and swelling to the right hand. Denies any head injury or LOC, no neck pain, no chest pain, no abdominal pain. Related Data Home Medications Medication Instructions Recorded Confirmed buprenorphine 2 mg-naloxone 0.5 mg 1 strip SUBLINGUAL DAILY 07/14/21 07/14/21 sublingual film Previous Rx's Medication Instructions Recorded atorvastatin 10 mg tablet 10 mg PO DAILY 30 Days #30 tab 07/24/21 clonazepam 0.5 mg tablet 0.5 mg PO BID PRN 7 Days #14 tab 07/24/21 cyclobenzaprine 10 mg tablet 5 - 10 mg PO BID PRN 30 Days #30 07/24/21 tab fluoxetine 20 mg capsule 20 mg PO DAILY 30 Days #30 cap 07/24/21 melatonin 3 mg tablet 3 mg PO BEDTIME PRN 30 Days #30 tab 07/24/21 naloxone 4 mg/actuation nasal 4 mg INTRANASAL Q2M PRN 1 Days #1 07/24/21 spray (Narcan) ea risperidone 2 mg tablet 3 mg PO BEDTIME 30 Days #45 tab 07/24/21 trolamine salicylate-aloe vera 10 1 appl TOPICAL TID PRN 30 Days 07/24/21 % topical cream (Aspercreme with #35.4 g Aloe) oxycodone 5 mg tablet 5 mg PO BID PRN #5 tab 08/18/21 Allergies Allergy/AdvReac Type Severity Reaction Status Date / Time No Known Allergies Allergy Unverified 02/17/20 16:17 [No Known Allergies*] Review of Systems Review of Systems: All other systems are reviewed and are negative Constitutional: Reports as per HPI and Reports no additional constitutional complaints Eyes: Reports as per HPI and Reports no additional eye complaints Reports system reviewed and no additional complaints, except as documented Cardiovascular: Reports as per HPI and Reports no additional cardiovascular complaints Respiratory: Reports as per HPI and Reports no additional respiratory complaints Gastrointestinal: Reports as per HPI and Reports no additional gastrointestinal complaints Genitourinary: Reports no additional female genitourinary complaints Musculoskeletal: Reports no additional musculoskeletal complaints Skin/Breast: Reports system reviewed and no additional complaints, except as docu Psychiatric: Reports no additional psychiatric complaints Endocrine: Reports no additional endocrine complaints Hematologic/Lymphatic: Reports no additional hematologic/lymphatic complaints Allergic/Immunologic: Reports no additional allergic/immunologic complaints Reports system reviewed and no additional complaints, except as documented and Reports Abnormal speech present [facility], [facility] Past Medical History Medical History Bipolar disorder Chronic neck pain with history of cervical spinal surgery Chronic pain of both knees High cholesterol Social History Social History Household Members: Children Housing: House Do you presently have visiting nurse or other home services: No Patient Tobacco Use Status: Current everyday Tobacco user Tobacco use type: Cigarette Cigarette Packs Per Day: 1.2 Cigarettes Per Day: 24.0 Years Smoked: 39 years e-Cigarette/Vaping Use: Former Use Second Hand Smoke Exposure: No Substance Use Type: Opiates Advance Directives: No Advance Directives Information Provided: No Patient : No service: No Sexual orientation: Did not discuss Physical Exam Vital Signs: Vital Signs: Last Vital Signs Temp 97.3 F 08/18/21 00:35 Pulse 82 08/18/21 00:35 Resp 16 08/18/21 00:35 BP 143/85 H 08/18/21 00:35 Pulse Ox 98 08/18/21 00:35 BMI result Body Mass Index 25.3 vital signs have been reviewed as appeared to be correct. Blood pressure normal. Heart rate normal. Respiration rate normal. Temperature normal. Oxygen saturation normal. Appearance: Alert. Oriented X3. No acute distress. Head: Normal external exam. Normocephalic. Atraumatic. No Santana signs noted. No raccoon eyes noted Eyes: PERRLA. EOMI. Conjunctiva and sclera normal. Eyelids normal. ENT: TM's Normal. Pharynx normal. Uvula midline. Moist mucous membranes. No trismus noted. No drooling noted. No muffled voice noted. Neck: Normal inspection. Neck supple. FROM. No adenopathy. Thyroid Normal. No meningeal signs. No neck mass noted. CVS: Normal heart rate and rhythm. Heart sound normal. No murmurs noted. Pulses normal throughout. Respiratory: No respiratory distress. Painless inspiration. Breath sounds normal. No wheezes/rales/rhonchi noted. Chest nontender. No accessory muscle usage noted or decreased air movement noted. Abdomen: Soft and nontender. Bowel sounds normal in all 4 quadrants. No distention noted. No organomegaly noted. No visible injury noted. Back: No CVA tenderness. Full range of motion noted. Skin: Skin warm and dry. Normal skin color. Normal skin turgor. No rashes/lesions/lacerations noted. Extremities: Right hand swelling over the 5th metacarpal bone, tenderness, step-off and deformity. Neurovascular intact Neuro: Oriented X 3. Cranial nerve exam: II-XII are grossly intact No motor deficit. No sensory deficit. Reflexes normal. Course Course Course Narrative: assessment and plan. 51-year-old female tripped and fell causing right 5th metacarpal bone fracture. Elevation/ ice/ splint/ analgesia/ follow-up with Ortho MDM - Extremity (Nontraumatic) Imaging Data right hand x-ray: Attestation: I personally reviewed and interpreted this imaging study as follows: Radiologist's impression: Fifth metacarpal fracture as above. Discharge Plan Discharge Clinical Impression: Fx metacarpal shaft-closed Patient Disposition: Home, Self-Care Instructions: Boxer Fracture (ED) Prescriptions: New oxycodone 5 mg tablet 5 mg PO BID PRN (Reason: pain) Qty: 5 0RF No Action buprenorphine-naloxone 2-0.5 mg film 1 strip sublingual DAILY 0RF fluoxetine 20 mg Capsule 20 mg PO DAILY 30 Days Qty: 30 0RF melatonin 3 mg Tablet 3 mg PO BEDTIME PRN (Reason: sleep) 30 Days Qty: 30 0RF Aspercreme with Aloe 10 % Cream 1 appl topical TID PRN (Reason: Pain, Moderate (Pain Scale 4-6) 30 Days Qty: 35.4 0RF cyclobenzaprine 10 mg tablet 5 - 10 mg PO BID PRN (Reason: muscle spasm) 30 Days Qty: 30 0RF atorvastatin 10 mg tablet 10 mg PO DAILY 30 Days Qty: 30 0RF clonazepam 0.5 mg tablet 0.5 mg PO BID PRN (Reason: Anxiety) 7 Days Qty: 14 0RF risperidone 2 mg tablet 3 mg PO BEDTIME 30 Days Qty: 45 0RF naloxone [Narcan] 4 mg/actuation spray,non-aerosol 4 mg intranasal Q2M PRN (Reason: opioid overdose) 1 Days Qty: 1 0RF Rx Instructions: spray 1 dose into ONE nostril; alternate nostrils w each dose until help arrives Referrals: Felipe Jean MD [Physician] - 2 days
[2021-08-18] MEDS: oxyCODONE HCl Immed Release 5 MG TABLET PO (00:59)
--- NOTE | 2021-08-18 01:57 | PC.NURSE ---
PT [facility] TO RIGHT HAND CHECKED BY DR TAYLOR.
== END 2021-08-18 02:05 | disposition home or self-care (01) ==
PROVIDERS: Emergency Provider Emergency Medicine; PCP Internal Medicine
DX: S62.326A Displaced fracture of shaft of fifth metacarpal bone, right hand, initial encounter for closed fracture (principal); W01.0XXA Fall on same level from slipping, tripping and stumbling without subsequent striking against object, initial encounter; Y93.89 Activity, other specified; Y92.019 Unspecified place in single-family (private) house as the place of occurrence of the external cause; Y99.9 Unspecified external cause status
CPT/HCPCS: 29125; 73110; 73130; 99284

== ENCOUNTER 2021-08-21 07:20 | Outpatient (REF) | payer OTHER, SELFPAY ==
--- NOTE | ~2021-08-21 | XR_ITS ---
EXAMINATION: XR HAND, RIGHT CLINICAL INFORMATION: Right hand pain. COMPARISON: Right hand 08/17/2021 TECHNIQUE: PA, lateral, and oblique views of the right hand. FINDINGS: There is a nondisplaced slightly more angulated fracture proximal end 5th metacarpal with minimal soft tissue swelling along the dorsal aspect. There is no callus formation seen yet. Loss of PIP and DIP joint space is seen at all digits consistent with degenerative arthritis. XR/XR hand RT min 3V IMPRESSION: No change in fracture fracture at the base of 5th metacarpal with mild soft tissue swelling. Degenerative arthritic changes PIP and DIP joints.
== END 2021-08-21 07:21 | disposition home or self-care (01) ==
LOC: HO.HOSX 07:20
PROVIDERS: Visit Provider Physician Assistant
DX: S62.306A Unspecified fracture of fifth metacarpal bone, right hand, initial encounter for closed fracture (principal)
CPT/HCPCS: 73130; 99202

== ENCOUNTER 2021-08-23 08:18 | Day surgery (SDC) | payer OTHER, SELFPAY ==
--- NOTE | 2021-08-22 12:07 | HO.ANESPROP2 ---
Documented by User: Denise Stovall NP 08/22/21 12:13 HPI - Anesthesia Eval Consult details Narrative: 51yo F for Right 4th and 5th Metacarpal CRPP vs ORIF PMFSH Active Problems Active Problems: All Active Problems (Updated 08/21/21 @ 12:23 by Maddi Love PA-C) Fracture of fifth metacarpal bone of right hand (Acute) Bipolar disorder (Acute) Past Medical History Medical History Bipolar disorder Chronic neck pain with history of cervical spinal surgery Chronic pain of both knees High cholesterol Social History Social History Household Members: Children Housing: House Do you presently have visiting nurse or other home services: No Patient Tobacco Use Status: Current everyday Tobacco user Tobacco use type: Cigarette Cigarette Packs Per Day: 1 Cigarettes Per Day: 20.0 Years Smoked: 39 years e-Cigarette/Vaping Use: Former Use Second Hand Smoke Exposure: No Use of substances other than those prescribed or required for medical reasons: No Substance Use Type: Opiates Are you DNR?: No Advance Directives: No Advance Directives Information Provided: Yes service: No Sexual orientation: Did not discuss Meds Allergies Allergy/AdvReac Type Severity Reaction Status Date / Time No Known Allergies Allergy Unverified 02/17/20 16:17 [No Known Allergies*] Home Medications Medication Instructions Recorded Confirmed Last Taken Type buprenorphine 2 mg-naloxone 0.5 mg 1 strip SUBLINGUAL DAILY 07/14/21 07/14/21 Unknown History sublingual film Exam Exam Date and Time: August 22, 2021 1207 Pertinent Lab Results Pertinent Lab Results: Laboratory Tests 07/14/21 07/16/21 18:34 14:10 WBC 12.0 H Hgb 13.8 Hct 40.3 Plt Count 377 Sodium 138 Potassium 4.3 Chloride 103 Carbon Dioxide 26 BUN 13 D Creatinine 0.79 Narrative Narrative: EKG 07/2021 Vent. Rate : 093 BPM ? ? Atrial Rate : 093 BPM ?? P-R Int : 168 ms? QRS Dur : 080 ms ? ? QT Int : 366 ms ? ? ? P-R-T Axes : 071 004 048 degrees ?? QTc Int : 455 ms ? Normal sinus rhythm Normal ECG When compared with ECG of 15-MAY-2019 23:38, Criteria for Septal infarct are no longer Present Assessment and Plan Assessment Anesthesia Assessment: Chart Reviewed Documented by User: Pia Gross MD 08/23/21 08:42 PMFSH Past Medical History Medical History Bipolar disorder Chronic neck pain with history of cervical spinal surgery Chronic pain of both knees High cholesterol Functional capacity: independent ambulation Surgical History History of Problems with Anesthesia: No Social History Social History Household Members: Children Housing: House Do you presently have visiting nurse or other home services: No Patient Tobacco Use Status: Current everyday Tobacco user Tobacco use type: Cigarette Cigarette Packs Per Day: 1 Cigarettes Per Day: 20.0 Years Smoked: 39 years e-Cigarette/Vaping Use: Former Use Second Hand Smoke Exposure: No Use of substances other than those prescribed or required for medical reasons: No Substance Use Type: Opiates Are you DNR?: No Advance Directives: No Advance Directives Information Provided: Yes service: No Sexual orientation: Did not discuss Meds Allergies Allergy/AdvReac Type Severity Reaction Status Date / Time No Known Allergies Allergy Unverified 02/17/20 16:17 [No Known Allergies*] Home Medications Medication Instructions Recorded Confirmed Last Taken Type buprenorphine 2 mg-naloxone 0.5 mg 1 strip SUBLINGUAL DAILY 07/14/21 07/14/21 Unknown History sublingual film Exam Airway Mallampati Class: II TM Dist: >3cm Neck ROM: Full Assessment and Plan Final Anesthetic Review History of Problems with Anesthesia: No Documented by User: Juwan Diaz MD 08/23/21 09:41 PMF Past Medical History Medical History Bipolar disorder Chronic neck pain with history of cervical spinal surgery Chronic pain of both knees High cholesterol Family History Family history of problems with anesthesia: No Social History Social History Household Members: Children Housing: House Do you presently have visiting nurse or other home services: No Patient Tobacco Use Status: Current everyday Tobacco user Tobacco use type: Cigarette Cigarette Packs Per Day: 1 Cigarettes Per Day: 20.0 Years Smoked: 39 years e-Cigarette/Vaping Use: Former Use Second Hand Smoke Exposure: No Use of substances other than those prescribed or required for medical reasons: No Substance Use Type: Opiates Are you DNR?: No Advance Directives: No Advance Directives Information Provided: Yes service: No Sexual orientation: Did not discuss Meds Allergies Allergy/AdvReac Type Severity Reaction Status Date / Time No Known Allergies Allergy Unverified 02/17/20 16:17 [No Known Allergies*] Home Medications Medication Instructions Recorded Confirmed Last Taken Type buprenorphine 2 mg-naloxone 0.5 mg 1 strip SUBLINGUAL DAILY 07/14/21 07/14/21 Unknown History sublingual film Exam Airway Denture: Upper Partial: Lower Loose/Missing/Broken Teeth: Yes Assessment and Plan Assessment Anesthesia Assessment: Anesthesia Plan Discussed Final Anesthetic Review Family History of Problems with Anesthesia: No NPO: Yes ASA Class: II Final Preanesthetic Review: No Changes in Pt Med Stat, Meds/Allgs Chart Reviewed, Consent Obtained/Reviewed and Anes Risks/Benef Reviewed Patient Risk: Low Procedure Risk: Low Anesthetic Plan Anesthetic Plan: GA Disposition: Standard PACU
--- NOTE | ~2021-08-23 | FL_ITS ---
EXAMINATION: XR FLUOROSCOPY WITH IMAGES CLINICAL INFORMATION: Interval stabilization of fracture. COMPARISON: Right hand 08/21/2021. TECHNIQUE: Fluoroscopy performed by Dr. Soraya Hernandez. Fluoroscopy time: 20.9 seconds Dose: 28376.8 uGy-cm2 Images: 1 FINDINGS: The fracture along the base of the 5th metacarpal has been stabilized with a solitary pin. The fracture fragment is in alignment. No additional bony abnormality seen. FL/FL guidance in OR IMPRESSION: Stabilized fracture base of 5th metacarpal with a solitary pin traversing the fracture.
[2021-08-23 08:34] VITALS: BP 134/80; PULSE 101; RESP 18; TEMP 36.9; O2SAT 96; BMI 25.3
[2021-08-23] MEDS: Lactated Ringers 1,000 ML 100 ML IVCONT (08:44)
--- NOTE | 2021-08-23 10:55 | P.OP_ITS ---
Operative Note Operative Note Date of Service: 08/23/21 Narrative: Operative Note Narrative: Preop diagnosis: 1. Right 5th Metacarpal base fracture 2. Right 4th metacarpal base fracture Postop diagnosis: Same Procedure: 1. right 5th Metacarpal fracture closed reduction percutaneous pinning 2. Ulnar nerve block Surgeon: Soraya Hernandez MD Anesthesia: General Findings: Metacarpal fracture Implants: 0.062 K-wires times 1 Tourniquet time: None EBL: Minimal Specimen: None Drains: None Complications: None Disposition: Brought to the recovery room in stable condition Plan: Follow-up in 10-14 days for a wound check, postop radiographs and for placement in a short-arm cast Anticipate K-wire removal in 4-5 weeks based on interval bony healing Educate the patient that full fracture healing anticipated in approximately 8-12 weeks. Indications: The patient is 51 years old with a displaced right 5th metacarpal base fracture and a nondisplaced right 4th metacarpal base fracture . The risks and benefits of operative treatment, including but not limited to risk of damage to blood vessels, nerves, tendons, infection, recurrence, delayed or nonunion of fracture, persistent pain or numbness, incomplete resolution of preoperative symptoms, or need for further surgery were discussed with the patient and they wished to proceed with surgery. Procedure: Once consent was obtained patient was brought back to the operating suite and placed in the operating table in a supine position. . Perioperative antibiotics and general anesthesia was administered by the anesthesia team. A tourniquet was applied to the proximal aspect of the right upper extremity and the limb was prepped and draped in a standard surgical fashion. Tourniquet was not inflated during the case. The FluoroScan was used during the case to assist with our fracture reduction and placement of all implants. A closed reduction was performed on the patient's right 5th metacarpal shaft fracture. I placed a single 0.062 K-wire retrograde through the head of the 5th metacarpal extending proximally across the fracture site to the base of the metacarpal and into the hamate. the 4th metacarpal base fracture appeared to be well aligned and did not require any stabilizing implants. Fracture alignment was assessed for both angular and rotational malalignment. Once satisfied with our fracture reduction and implant placement, the K-wires were bent and cut short and pin caps applied. Final fluoroscopic images were then obtained. The wounds were copiously irrigated with normal saline. An ulnar nerve block was then performed by infiltrating about the ulnar nerve at the wrist with some 1% lidocaine with epinephrine for postop pain control. A Sterile dressing and short volar splint was applied. The patient appears to have tolerated the proc edure well and with no complications. All digits were well vascularized at the conclusion of the case.
--- NOTE | 2021-08-23 10:55 | MHC.SHP ---
Pre-Procedural Eval Section A Date of Service: 08/23/21 The patient is an INPATIENT: No Changes since office visit: No Cold of Flu in the past 2 weeks, No New Medical Problems, No Changes in Medication and No Patient answered all questions The History & Physical has been completed within 30 days and I have reviewed it.: Yes Section B Chief Complaint: 4th and 5th metacarpal right hand Allergies: Allergies Allergy/AdvReac Type Severity Reaction Status Date / Time No Known Allergies Allergy Unverified 02/17/20 16:17 [No Known Allergies*] Plan I have reviewed the history and physical and performed a pertinent physical examination on my patient. No changes have occurred unless specified.
[2021-08-23 11:05] VITALS: BP 161/90; PULSE 112; RESP 18; TEMP 36.5; O2SAT 96
[2021-08-23 11:10] VITALS: BP 148/92; PULSE 100; RESP 17; TEMP 36.4; O2SAT 97
[2021-08-23 11:15] VITALS: BP 147/99; PULSE 99; RESP 18; O2SAT 98
[2021-08-23 11:20] VITALS: BP 147/99; PULSE 93; RESP 20; TEMP 36.8; O2SAT 97
[2021-08-23] MEDS: Acetaminophen 325 MG TABLET 975 MG PO (11:20)
[2021-08-23] MEDS: oxyCODONE HCl Immed Release 5 MG TABLET PO (11:21)
[2021-08-23 11:35] VITALS: BP 149/95; PULSE 97; RESP 20; TEMP 36.5; O2SAT 97
[2021-08-23] MEDS: Ketorolac Tromethamine 30 MG/ML VIAL 15 MG IVPUSH (11:40)
== END 2021-08-23 12:09 | disposition home or self-care (01) ==
PROVIDERS: PCP Internal Medicine; Visit Provider Orthopaedic Surgery
PROC: (CPT 26615; principal; 2021-08-23 09:40)
DX: S62.316A Displaced fracture of base of fifth metacarpal bone, right hand, initial encounter for closed fracture (principal); S62.344A Nondisplaced fracture of base of fourth metacarpal bone, right hand, initial encounter for closed fracture; W01.0XXA Fall on same level from slipping, tripping and stumbling without subsequent striking against object, initial encounter; Y93.9 Activity, unspecified; Y92.9 Unspecified place or not applicable; Y99.8 Other external cause status; E78.00 Pure hypercholesterolemia, unspecified; F31.9 Bipolar disorder, unspecified; Z79.899 Other long term (current) drug therapy; F17.210 Nicotine dependence, cigarettes, uncomplicated
CPT/HCPCS: 26608; J0690; J1100; J1885; J2250; J2405; J3010

== ENCOUNTER 2021-09-05 09:21 | Outpatient (REF) | payer OTHER, SELFPAY ==
--- NOTE | ~2021-09-05 | XR_ITS ---
EXAMINATION: XR HAND, RIGHT CLINICAL INFORMATION: Right hand pain. COMPARISON: 08/21/2021. TECHNIQUE: PA, lateral, and oblique views of the right hand. FINDINGS: Corresponding to the site of the previously documented fracture involving the base of the fifth digit, interval placement of a K wire is noted which appears intact and show satisfactory alignment. The fracture line is still visualized. Minimal interval healing is noted. No new abnormalities. XR/XR hand RT min 3V IMPRESSION: Mild interval healing at the site of the previously documented fracture involving the base of the fifth metacarpal and interval placement of 50 US showing intact hardware and satisfactory alignment. No new abnormalities.
== END 2021-09-05 09:22 | disposition home or self-care (01) ==
LOC: HO.HOSX 09:21
PROVIDERS: Visit Provider Orthopaedic Surgery
DX: S62.306A Unspecified fracture of fifth metacarpal bone, right hand, initial encounter for closed fracture (principal); Z87.891 Personal history of nicotine dependence
CPT/HCPCS: 73130; 99212

== ENCOUNTER → 2021-09-06 10:50 | Outpatient (BNVA) | payer OTHER, SELFPAY | PROVIDERS: Visit Provider Physician Assistant | DX: S62.306A Unspecified fracture of fifth metacarpal bone, right hand, initial encounter for closed fracture (principal); X58.XXXA Exposure to other specified factors, initial encounter; Y93.9 Activity, unspecified; Y92.9 Unspecified place or not applicable; Y99.8 Other external cause status; E78.00 Pure hypercholesterolemia, unspecified; F17.210 Nicotine dependence, cigarettes, uncomplicated; Z79.891 Long term (current) use of opiate analgesic | CPT/HCPCS: 29085; 99212 ==

== ENCOUNTER 2021-09-25 08:39 | Outpatient (REF) | payer OTHER, SELFPAY ==
--- NOTE | ~2021-09-25 | XR_ITS ---
EXAMINATION: XR HAND, RIGHT CLINICAL INFORMATION: Fracture COMPARISON: Previous x-ray most recent 09/05/2021 TECHNIQUE: PA, lateral, and oblique views of the right hand. FINDINGS: There is a K wire or pin transfixing the fracture of the base of the fifth metacarpal bone. Alignment appears unchanged. Fracture lines appear more indistinct suggestive of evidence of healing. No other fracture is seen. There is arthritis at the IP joints and first HALFWAY joint. Soft tissues are unremarkable. XR/XR hand RT min 3V IMPRESSION: Healing of the base of the fifth metacarpal bone.
== END 2021-09-25 08:40 | disposition home or self-care (01) ==
LOC: HO.HOSX 08:39
PROVIDERS: Visit Provider Orthopaedic Surgery
DX: S62.306D Unspecified fracture of fifth metacarpal bone, right hand, subsequent encounter for fracture with routine healing (principal); F17.210 Nicotine dependence, cigarettes, uncomplicated; X58.XXXD Exposure to other specified factors, subsequent encounter
CPT/HCPCS: 73130; 99212

== ENCOUNTER 2021-10-15 09:14 | Outpatient (RCR) | payer OTHER, SELFPAY ==
--- NOTE | 2021-10-15 10:44 | MHC.OT.OEV ---
[address] [phone] F: [phone] Occupational Therapy Evaluation Diagnosis: Right D4 and D5 MC fx Date of Onset: 08/18/21 Date of Surgery: 08/23/21 Attending Provider: Soraya Hernandez MD Prescribed Treatment: Supriya PARISI Follow Up Appointment: 10/18/21 History of Current Condition: Pt reports tripping over her dog and landing on her hand. Seen in the ED then referred to Dr Hernandez. Underwent CRPP for 4th amd 5th MC fx . Pins pulled 09/26/21. Pt referred to OT. OT appt rescheduled due to therapist cancellation Significant Medical History: RA, OA, Cervical fusion Precautions/Contraindications: Patient Goals: Better hand movement Hand Dominance: Right Observations: QuickDASH Score: 68 Prior Level of Function and Occupation Self Care, Employment, Leisure: Indep in all areas Heavy house and yard work... Out of work since 2013 Reports no hobbie Face book Living Situation, Family and/or Social Support: Single parent.. recent 4 children , 1 dog and 3 cats Current Level of Function and Occupation Self Care, Employment, Leisure: Reports not wearing protective brace..Avoiding heavy use of right hand... little protection of right hand with light daily activities Avoiding dishes.. and cooking Doing yard work the past two days. Cut down branches Okay feeding and bathing, personal care with right hand Trying tight jars.. Sleep: Driving: Using left..Brace on right Vision: Glasses Balance: Pain Assessment Pain Score: 4 Pain Scale Used: Numeric (0 - 10) Pain Location and Description: 3-4 achy... right ulnar hand Aggravating Factors: Doing yard works Alleviating Factors: Ibuprofen..ice Skin and Soft Tissue Assessment Skin and Soft Tissue: Comments: Right ulnar hand stiffness and mild swelling Bilateral DIP jt OA Nerve assessment Ulnar Nerve: Median Nerve: Radial Nerve: Comments: Sensory Assessment Temperature: Light Touch: WNL Proprioception: Vibration: Comments: Edema Assessment Upper Extremity: Lower Extremity: Comments: WFL Dexterity Assessment Dexterity: WNL Comments: Special Tests Comments: AROM(PROM) Strength Cervical Cervical Flexion: Cervical Extension: Cervical Lateral Flexion: Cervical Rotation: Comments: Shoulder Flexion: Extension: Abduction: Internal Rotation: External Rotation: Comments: Flexion: Extension: Abduction: Internal Rotation: External Rotation: Comments: Elbow Flexion: Extension: Pronation: Supination: Comments: Flexion: Extension: Pronation: Supination: Comments: Wrist Flexion: Extension: Ulnar Deviation: Radial Deviation: Comments: WNL Flexion: Extension: Ulnar Deviation: Radial Deviation: Comments: Thumb Thumb CMC Flexion: Thumb MCP Flexion: Thumb IP Flexion: Radial Abduction: Palmar Abduction: [place] (Kapandji 0-10): Comments: WNL Digits Index MCP: PIP: DIP: Long MCP: PIP: DIP: Ring MCP: R 50 deg PIP: R 100 deg DIP: R 40 deg Small MCP: R 55 deg PIP: R 80 deg DIP: R 60 deg Comments: Gross Grasp: R deferred L 37 lb Lateral Pinch: Two-Point Pinch: Three-Jaw Jean [place]: Comments: Deferred R Patient Education Primary Language: Mosotho 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 Patient demonstrates Patient verbalizes Barriers to Learning: None Readiness for Learning: Accepting Who was educated? Patient Comments: Plan of Care Assessment: Pt is a 51 yo female in 3 days will be 8 wks s/p CRPP to right D4 and D5. Pt also with underlying RA and OA with jt changes noted at her DIP jts. She has weaned from her protective splint due to discomfort and wearing to drive and with heavy work... 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 LTG Duration: 3 wks Director Of Partner Marketing Goals: Same as above Frequency and Duration: The patient will be seen 1x wk x 3 wks Treatment Plan: Therapeutic Exercise Therapeutic Activity Home Exercise Program Patient Education ADL Training Paraffin Electronically Signed By: Arielle Valles OT CHT Reviewed/agree with student documentation: N/A Therapist: Please sign and return to therapist, Thank you for your referral.
--- NOTE | 2021-11-07 10:34 | MHC.OT.DC ---
[address] [phone] F: [phone] Occupational Therapy Discharge Note Provider: Soraya Hernandez Diagnosis: Right D4 and D5 MC fx Date of Surgery: 08/23/21 Date of Evaluation: 10/15/21 Date of Discharge: 11/07/21 Treatments to Date: 1 Cancellations to Date: 2 No Shows to Date: 1 Discharge Status: Visit Non-compliance Discharge Summary: See eval for details Good inc in ROM after treatment .5 cm to DPC Electronically Signed By: Arielle Valles OT CHT Reviewed/agree with student documentation: N/A Therapist: Please Sign and return to therapist, thank you for your referral.
== END 2021-11-07 10:36 | disposition home or self-care (01) ==
LOC: HO.OT 09:14
PROVIDERS: PCP Internal Medicine; Visit Provider Orthopaedic Surgery
DX: S62.306A Unspecified fracture of fifth metacarpal bone, right hand, initial encounter for closed fracture (principal)
CPT/HCPCS: 97110; 97165

== ENCOUNTER 2021-10-16 08:55 | Outpatient (REF) | payer OTHER, SELFPAY ==
--- NOTE | ~2021-10-16 | XR_ITS ---
EXAMINATION: XR WRIST, RIGHT CLINICAL INFORMATION: Fracture COMPARISON: Previous x-ray August 2020 TECHNIQUE: PA, lateral, and oblique views of the right wrist. FINDINGS: The bones are osteopenic. The K wire or pin across the base of the fifth metacarpal bone has been removed. There is a healing fracture of the base of the fifth metacarpal bone. No new fracture is seen. There are mild degenerative changes of the first CORRECTION joint. Carpal bones are otherwise normal. Soft tissues are normal. XR/XR wrist RT min 3V IMPRESSION: Healing fracture of the base of the fifth metacarpal bone.
== END 2021-10-16 08:56 | disposition home or self-care (01) ==
LOC: HO.HOSX 08:55
PROVIDERS: Visit Provider Orthopaedic Surgery
DX: S62.306D Unspecified fracture of fifth metacarpal bone, right hand, subsequent encounter for fracture with routine healing (principal)
CPT/HCPCS: 73110; 99212

== ENCOUNTER 2022-02-20 15:49 | Emergency (ER) | payer OTHER, SELFPAY ==
--- NOTE | ~2022-02-20 | XR_ITS ---
EXAMINATION: XR CHEST CLINICAL INFORMATION: Cough COMPARISON: May 16, 2019 TECHNIQUE: Frontal view of the chest was obtained. FINDINGS: No significant abnormality is noted involving the heart, lungs, mediastinum, bony thorax or soft tissues. Status post previous cervical spine surgery. XR/XR chest 1V IMPRESSION: No acute disease.
[2022-02-20 16:20] VITALS: BP 124/86; PULSE 89; RESP 18; TEMP 36.6; O2SAT 96; BMI 28.2
[2022-02-20 17:05] LABS: MANUAL DIFF FLAG NO
[2022-02-20 17:06] LABS: Basophils Absolute Auto 0.1 X10*3/uL (0.0-0.2); Basophils Percent Auto 0.9 % (0-2); Eosinophils Absolute Auto 0.4 X10*3/uL (0.0-0.4); Eosinophils Percent Auto 4.7 % (0-4); Hematocrit 43.1 % (37.0-47.0); Imm Gran Abs Auto 0.03 X10*3/uL (0.00-0.03); Imm Gran Pct Auto 0.3 % (0.0-0.4); Lymphocytes Absolute Auto 2.3 X10*3/uL (1.2-4.9); Lymphocytes Percent Auto 24.6 % (20-40); Mean Corpuscular HGB Conc 32.5 g/dl (31.0-35.0); Mean Corpuscular Hemoglobin 30.8 pg (27.0-33.0); Mean Corpuscular Volume 94.7 fL (80.0-98.0); Monocytes Absolute Auto 0.5 X10*3/uL (0.1-1.2); Monocytes Percent Auto 5.3 % (2-11); Neutrophils Absolute Auto 5.9 x10*3/uL (2.0-8.3); Neutrophils Percent Auto 64.2 % (45-73); Platelet Count 326 X10*3/uL (160-400); Red Blood Count 4.55 X10*6/uL (4.20-5.50); Red Cell Distribution Width 13.2 % (11.0-16.0); White Blood Count 9.2 X10*3/uL (4.8-10.8)
[2022-02-20 17:25] LABS: COVID-19 Test Negative (Negative); IDNOW Serial# 08D9AD1C
[2022-02-20 17:33] LABS: Anion Gap 13 (12-20); Blood Urea Nitrogen 4 mg/dL (9-16); Calcium 8.6 mg/dL (8.4-10.2); Carbon Dioxide 30 mmol/L (22-29); Chloride 95 mmol/L (96-108); Creatinine Clr Calc Pharmacy 98.2; Estimated Glomerular Filt Rate > 60; Glucose Random 91 mg/dL (60-115); Potassium 4.4 mmol/L (3.3-5.1); Sodium 134 mmol/L (135-145)
[2022-02-20 20:00] VITALS: BP 108/69; PULSE 94; RESP 18; TEMP 37.2; O2SAT 87; O2SAT 90
--- NOTE | 2022-02-20 20:09 | PC.NURSE ---
pt a&ox3, O2 88-90 on RA, nasal cannual applied, O2 @ 94% on 2L, other vss, pt reports URI symptoms for a couple of weeks, hx of same, usually improves w PO steroids/inhaler per pt but pt has been unable to get in w PCP. referred to urgent care, pt referred from urgent care due to hypotension. pt reporting increased productive coughing, sore throat from post nasal drip, congestion. denies any pain at this time. pt pending ED provider.
--- NOTE | 2022-02-20 20:26 | ED.URI ---
HPI - URI/Sore Throat General Chief Complaint: Upper Respiratory Symptoms Stated Complaint: sent from urgent care stated o2 is low Time Seen by Provider: 02/20/22 16:14 Source: patient Mode of arrival: ambulatory Limitations: no limitations History of Present Illness HPI Narrative: 52-year-old female who presents emergency department for evaluation of cough x2 weeks shortness of breath, fever. The patient states she went to an urgent care clinic and was found to have a low O2 saturation on room air was sent to the emergency department for evaluation. Patient states she has had a productive cough 2 weeks. She states that she coughs up clear to green sputum that is thick. She had subjective fever and chills over the past 2 weeks. She has had rhinorrhea, sore throat. She states she does feel short of breath at rest and with exertion. Patient had 1 episode of diarrhea 1 week prior. The patient does have a history of COPD and she continues to smoke. She smokes 3/4 of pack of cigarettes per day times 40 years. She is not vaccinated against COVID-19. MD elicited complaint: fever, cough, sore throat and rhinorrhea Onset (ago): week(s) (2) Consistency: intermittent Severity: moderate Description of mucous: clear, green and other (Thick) Able to tolerate fluids by mouth: Yes Exacerbating factors: speaking Relieving factors: other (Albuterol inhaler) Associated symptoms: fever, chills, rhinorrhea, sore throat, cough, shortness of breath and diarrhea Treatments prior to arrival: none Related Data Home Medications Medication Instructions Recorded Confirmed buprenorphine 2 mg-naloxone 0.5 mg 1 strip sublingual DAILY 07/14/21 07/14/21 sublingual film Previous Rx's Medication Instructions Recorded atorvastatin 10 mg tablet 10 mg PO DAILY 30 days #30 tabs 07/24/21 clonazepam 0.5 mg tablet 0.5 mg PO BID PRN Anxiety 7 days 07/24/21 #14 tabs cyclobenzaprine 10 mg tablet 5 - 10 mg PO BID PRN muscle spasm 07/24/21 30 days #30 tabs fluoxetine 20 mg capsule 20 mg PO DAILY 30 days #30 caps 07/24/21 melatonin 3 mg tablet 3 mg PO BEDTIME PRN sleep 30 days 07/24/21 #30 tabs naloxone 4 mg/actuation nasal 4 mg intranasal Q2M PRN opioid 07/24/21 spray (Narcan) overdose 1 day #1 ea risperidone 2 mg tablet 3 mg PO BEDTIME 30 days #45 tabs 07/24/21 trolamine salicylate-aloe vera 10 1 appl topical TID PRN Pain, 07/24/21 % topical cream (Aspercreme with Moderate (Pain Scale 4-6 30 days Aloe) #35.4 grams hydrocodone 5 mg-acetaminophen 325 1 - 2 tab PO Q6H PRN pain #15 tabs 08/23/21 mg tablet albuterol sulfate 90 mcg/actuation 2 puff inhalation Q4-6H PRN 02/20/22 aerosol inhaler (ProAir HFA) shortness of breath or wheezing #8.5 grams amoxicillin 500 mg capsule 1,000 mg PO TID 5 days #30 caps 02/20/22 prednisone 20 mg tablet 60 mg PO DAILY 5 days #15 tabs 02/20/22 Allergies Allergy/AdvReac Type Severity Reaction Status Date / Time No Known Allergies Allergy Unverified 02/20/22 16:20 [No Known Allergies*] Review of Systems Review of Systems: Yes all other systems are reviewed and are negative [facility] Past Medical History [facility] Narrative: Social history: The patient smokes 3/4 of pack 6 per day times 40 years. Patient a denies alcohol use. She denies drug use. Medical History Bipolar disorder Chronic neck pain with history of cervical spinal surgery Chronic pain of both knees High cholesterol Social History Social History Household Members: Children Housing: House Do you presently have visiting nurse or other home services: No Alcohol intake: current Alcohol intake frequency: holidays/special occasions only Patient Tobacco Use Status: Current everyday Tobacco user Tobacco use type: Cigarette Cigarette Packs Per Day: 1 Cigarettes Per Day: 20.0 Years Smoked: 39 years Smoked in Last 30 Days: Yes e-Cigarette/Vaping Use: Former Use Second Hand Smoke Exposure: No Use of substances other than those prescribed or required for medical reasons: No Substance Use Type: Opiates Advance Directives: No Advance Directives Information Provided: No service: No Sexual orientation: Did not discuss Physical Exam Vital Signs: Vital Signs: Last Vital Signs Temp 98.9 F 02/20/22 20:00 Pulse 94 02/20/22 20:00 Resp 18 02/20/22 20:00 BP 108/69 02/20/22 20:00 Pulse Ox 90 L 02/20/22 20:00 O2 Del Method 02/20/22 20:00 BMI result Body Mass Index 28.2 Const: General: cooperative and no acute distress Orientation/consciousness: oriented to person and oriented to place Limitations: no limitations HEENT: Head: Yes normal to inspection, Yes normocephalic and Yes atraumatic Ears: external ears normal General nose exam: Normal external nose present Face and sinus: Yes normal facial exam Mouth: Normal oral and palatal mucosa present Throat: Yes posterior oropharynx normal Eyes: General: appearance normal, both eyes and all related structures Pupils: Equal, round and reactive pupils present Neck: Neck: Yes normal visual inspection, Yes no lymphadenopathy, Yes trachea midline and Yes supple Chest: Chest palpation & inspection: normal inspection of the chest and normal palpation of entire chest wall Resp: Effort & Inspection: normal respiratory effort and able to speak in complete sentences Auscultation: clear to auscultation bilaterally Cardio: Rate: regular rate Rhythm: regular rhythm Heart sounds: S1 normal heart sound present, S2 normal heart sound present and no murmurs GI: Inspection: Yes normal to inspection Palpation (GI): Soft to palpation, nontender and no guarding Auscultation: normal bowel sounds : General: Yes no CVA tenderness Back/Spine/Pelvis: Back: no CVA tenderness Skin: General skin exam: no rashes or lesions noted Neuro: General: oriented to person and oriented to place Cranial nerves: Yes CN's II-XII intact bilaterally and Yes Equal, round and reactive pupils present Cognition (Neuro): normal cognition Motor exam (neuro): 5/5 motor strength present throughout Extrem: General: Yes normal to inspection Psych: Appearance: grossly normal Speech and movement: Normal speech and movement present Affect: normal affect Attitude: cooperative Thought process: Normal thought process present Thought content: Normal thought content present Course Course Course Narrative: 52-year-old female with history of COPD who continues to smoke 3/4 pack of cigarettes per day who presents emergency department for evaluation of 2 weeks of productive cough, fever, chills, sore throat, rhinorrhea shortness of breath. Patient was seen in urgent care and referred to the emergency department for low O2 saturation. Here in the emergency department the patient's O2 saturation ranged from 88-92% on room air. Patient's lung exam was clear. Patient's laboratory evaluation was unremarkable. Chest x-ray revealed no pneumonia. COVID-19 was negative. Patient will be treated for acute bronchitis with amoxicillin 1000 mg 3 times a day for 5 days. She received her 1st dose here in the emergency department. She was also started on prednisone 60 mg orally x5 days. She received her 1st dose here in the emergency department. She was also given a prescription for albuterol inhaler 2 puffs every 4 hours as needed for shortness of breath, wheezing. Patient was strongly advised to stop smoking cigarettes. She was also strongly advised to get vaccinated for COVID-19. Patient was given printed and verbal instructions and discharged home. MDM - URI/Sore Throat Lab Data Result diagrams: 02/20/22 16:55 02/20/22 16:55 Labs: Lab Results 02/20/22 02/20/22 02/20/22 Range/Units 16:55 16:55 16:55 WBC 9.2 (4.8-10.8) X10*3/uL RBC 4.55 (4.20-5.50) X10*6/uL Hgb 14.0 (12.0-16.0) g/dl Hct 43.1 (37.0-47.0) % MCV 94.7 (80.0-98.0) fL MCH 30.8 (27.0-33.0) pg MCHC 32.5 (31.0-35.0) g/dl RDW 13.2 (11.0-16.0) % Plt Count 326 (160-400) X10*3/uL MPV 9.0 L (9.4-12.3) fL Immature Gran % (Auto) 0.3 (0.0-0.4) % Neut % (Auto) 64.2 (45-73) % Lymph % (Auto) 24.6 (20-40) % [place] % (Auto) 5.3 (2-11) % Eos % (Auto) 4.7 H (0-4) % Baso % (Auto) 0.9 (0-2) % Lymph # (Auto) 2.3 (1.2-4.9) X10*3/uL [place] # (Auto) 0.5 (0.1-1.2) X10*3/uL Eos # (Auto) 0.4 (0.0-0.4) X10*3/uL Baso # (Auto) 0.1 (0.0-0.2) X10*3/uL Abs Immat Gran (auto) 0.03 (0.00-0.03) X10*3/uL Absolute Neuts (auto) 5.9 (2.0-8.3) x10*3/uL Absolute Nucleated RBC 0.000 (0.0-0.012) X10*3/uL Nucleated RBC % (auto) 0.0 (0.0-0.2) /100WBC Sodium 134 L (135-145) mmol/L Potassium 4.4 (3.3-5.1) mmol/L Chloride 95 L (96-108) mmol/L Carbon Dioxide 30 H (22-29) mmol/L Anion Gap 13 (12-20) BUN 4 L D (9-16) mg/dL Creatinine 0.72 (0.5-1.4) mg/dL Estim Creat Clear Calc 98.2 Estimated GFR > 60 Random Glucose 91 (60-115) mg/dL Calcium 8.6 D (8.4-10.2) mg/dL COVID-19 (DESIREE) Negative (Negative) COVID-19 Clin Com See Note Discharge Plan Discharge Clinical Impression: Acute bronchitis, Acute exacerbation of chronic obstructive pulmonary disease Patient Disposition: Home, Self-Care Instructions: Acute Bronchitis (ED) Additional Instructions: Your blood work was normal. Your chest x-ray was normal. Your COVID-19 test was negative. Your symptoms are consistent with bronchitis causing a exacerbation of your COPD. Take amoxicillin 500 mg, 2 pills 3 times a day for 5 days. Take prednisone 20 mg pills, 3 pills once a day for 5 days. While you are taking prednisone, do not take any NSAIDs (Motrin, Advil, ibuprofen, Aleve, naproxen). Follow-up with your doctor in 2 days. Please return to the emergency department if your symptoms get worse or if you develop any symptoms that are concerning to you. You need to stop smoking cigarettes. You should consider getting vaccinated for COVID-19 since COVID-19 in someone that has COPD and low oxygen levels can be life threatening. Prescriptions: New amoxicillin 500 mg capsule 1,000 mg PO TID 5 Days Qty: 30 0RF prednisone 20 mg tablet 60 mg PO DAILY 5 Days Qty: 15 0RF albuterol sulfate [ProAir HFA] 90 mcg/actuation HFA aerosol inhaler 2 puff inhalation Q4-6H PRN (Reason: shortness of breath or wheezing) Qty: 8.5 0RF No Action buprenorphine-naloxone 2-0.5 mg film 1 strip sublingual DAILY fluoxetine 20 mg Capsule 20 mg PO DAILY 30 Days Qty: 30 0RF melatonin 3 mg Tablet 3 mg PO BEDTIME PRN (Reason: sleep) 30 Days Qty: 30 0RF Aspercreme with Aloe 10 % Cream 1 appl topical TID PRN (Reason: Pain, Moderate (Pain Scale 4-6) 30 Days Qty: 35.4 0RF cyclobenzaprine 10 mg tablet 5 - 10 mg PO BID PRN (Reason: muscle spasm) 30 Days Qty: 30 0RF atorvastatin 10 mg tablet 10 mg PO DAILY 30 Days Qty: 30 0RF clonazepam 0.5 mg tablet 0.5 mg PO BID PRN (Reason: Anxiety) 7 Days Qty: 14 0RF risperidone 2 mg tablet 3 mg PO BEDTIME 30 Days Qty: 45 0RF naloxone [Narcan] 4 mg/actuation spray,non-aerosol 4 mg intranasal Q2M PRN (Reason: opioid overdose) 1 Days Qty: 1 0RF Rx Instructions: spray 1 dose into ONE nostril; alternate nostrils w each dose until help arrives hydrocodone-acetaminophen 5-325 mg tablet 1 - 2 tab PO Q6H PRN (Reason: pain) Qty: 15 0RF
[2022-02-20 20:30] VITALS: BP 107/79; PULSE 89; RESP 18; TEMP 37; O2SAT 90
[2022-02-20] MEDS: predniSONE 20 MG TABLET 60 MG PO (20:48)
[2022-02-20] MEDS: Amoxicillin 500 MG CAPSULE 1000 MG PO (20:49)
--- NOTE | 2022-02-20 20:52 | PC.NURSE ---
medicated per provider order.
== END 2022-02-20 20:53 | disposition home or self-care (01) ==
PROVIDERS: Emergency Provider Emergency Medicine Emergency Medical Services; PCP Internal Medicine
DX: J44.0 Chronic obstructive pulmonary disease with (acute) lower respiratory infection (principal); J44.1 Chronic obstructive pulmonary disease with (acute) exacerbation; E78.00 Pure hypercholesterolemia, unspecified; F17.210 Nicotine dependence, cigarettes, uncomplicated; Z20.822 Contact with and (suspected) exposure to COVID-19; Z79.899 Other long term (current) drug therapy
CPT/HCPCS: 71045; 80048; 85025; 87635; 99283; 99284

== ENCOUNTER 2022-03-08 12:09 | Emergency (ER) | payer OTHER, SELFPAY ==
--- NOTE | ~2022-03-08 | XR_ITS ---
EXAMINATION: XR CHEST CLINICAL INFORMATION: Shortness of breath. COMPARISON: Chest x-rays dating between February 20, 2022 and November 18, 2018. TECHNIQUE: 2 views of the chest were obtained. FINDINGS: No significant abnormality is noted involving the heart, lungs, mediastinum, bony thorax or soft tissues. Lower cervical anterior fixation plate and screws. XR/XR chest 2V IMPRESSION: Unremarkable examination.
--- NOTE | 2022-03-08 12:14 | ECG_ITS ---
Test Reason : chest pain/ tightness Blood Pressure : / mmHG Vent. Rate : 085 BPM Atrial Rate : 085 BPM P-R Int : 174 ms QRS Dur : 078 ms QT Int : 366 ms P-R-T Axes : 077 028 052 degrees QTc Int : 435 ms Normal sinus rhythm with sinus arrhythmia Normal ECG When compared with ECG of 16-JUL-2021 12:45, No significant change was found Referred By: Generic ED Physician Electronically Signed By:MARIBEL CHARLTON
[2022-03-08 12:42] VITALS: BP 135/79; PULSE 100; RESP 22; TEMP 36.6; O2SAT 92; BMI 29.8
[2022-03-08 13:00] LABS: MANUAL DIFF FLAG NO
[2022-03-08 13:02] LABS: Basophils Absolute Auto 0.1 X10*3/uL (0.0-0.2); Eosinophils Absolute Auto 0.4 X10*3/uL (0.0-0.4); Eosinophils Percent Auto 4.5 % (0-4); Hematocrit 43.2 % (37.0-47.0); Imm Gran Abs Auto 0.03 X10*3/uL (0.00-0.03); Imm Gran Pct Auto 0.4 % (0.0-0.4); Lymphocytes Absolute Auto 1.6 X10*3/uL (1.2-4.9); Lymphocytes Percent Auto 19.7 % (20-40); Mean Corpuscular HGB Conc 32.4 g/dl (31.0-35.0); Mean Corpuscular Hemoglobin 30.8 pg (27.0-33.0); Mean Corpuscular Volume 94.9 fL (80.0-98.0); Mean Platelet Volume 8.8 fL (9.4-12.3); Monocytes Absolute Auto 0.4 X10*3/uL (0.1-1.2); Monocytes Percent Auto 4.4 % (2-11); Neutrophils Absolute Auto 5.6 x10*3/uL (2.0-8.3); Platelet Count 325 X10*3/uL (160-400); Red Blood Count 4.55 X10*6/uL (4.20-5.50); Red Cell Distribution Width 13.4 % (11.0-16.0)
[2022-03-08 13:17] LABS: Anion Gap 17 (12-20); Blood Urea Nitrogen 5 mg/dL (9-16); COVID-19 Test Negative (Negative); Carbon Dioxide 26 mmol/L (22-29); Chloride 102 mmol/L (96-108); Creatinine Clr Calc Pharmacy 96.8; Estimated Glomerular Filt Rate > 60; Glucose Random 110 mg/dL (60-115); IDNOW Serial# 9DB6401D; Influenza A Negative (Negative); Influenza B2 Negative (Negative); Potassium 4.9 mmol/L (3.3-5.1); Sodium 140 mmol/L (135-145)
[2022-03-08 19:59] VITALS: BP 143/93; PULSE 80; RESP 16; TEMP 36.7; O2SAT 98
--- NOTE | 2022-03-08 20:28 | ED.SOB ---
HPI - SOB/Dyspnea General Chief Complaint: Dyspnea Stated Complaint: diff breathing/chest pains Time Seen by Provider: 03/08/22 19:39 Source: patient Mode of arrival: ambulatory Limitations: no limitations History of Present Illness HPI Narrative: 52-year-old female history of bipolar disorder, chronic neck pain, chronic pain of both knees, high cholesterol, COPD, asthma presents to the emergency department complaints of chest pain, shortness of breath times a month. Patient reports she has been evaluated in the emergency department and at urgent care and she tells me nobody has been able to figure out what is going on with her. She describes the chest pain as a hard chest unable to elaborate more on this chest pain, tells me it does not radiate however. Reports shortness of breath both at rest and with exertion, she reports she has been taking her albuterol inhaler more frequently and she feels like she is abusing it. Patient tells me that she is a current daily smoker and smokes 1 pack per day. Patient not on control, denies long travel, no lower extremity pain, no calf pain, no headache, vision changes, dizziness, weakness, abdominal pain, nausea, vomiting, fevers or chills. MD elicited complaint: shortness of breath Related Data Home Medications Medication Instructions Recorded Confirmed buprenorphine 2 mg-naloxone 0.5 mg 1 strip sublingual DAILY 07/14/21 07/14/21 sublingual film Previous Rx's Medication Instructions Recorded atorvastatin 10 mg tablet 10 mg PO DAILY 30 days #30 tabs 07/24/21 clonazepam 0.5 mg tablet 0.5 mg PO BID PRN Anxiety 7 days 07/24/21 #14 tabs cyclobenzaprine 10 mg tablet 5 - 10 mg PO BID PRN muscle spasm 07/24/21 30 days #30 tabs fluoxetine 20 mg capsule 20 mg PO DAILY 30 days #30 caps 07/24/21 melatonin 3 mg tablet 3 mg PO BEDTIME PRN sleep 30 days 07/24/21 #30 tabs naloxone 4 mg/actuation nasal 4 mg intranasal Q2M PRN opioid 07/24/21 spray (Narcan) overdose 1 day #1 ea risperidone 2 mg tablet 3 mg PO BEDTIME 30 days #45 tabs 07/24/21 trolamine salicylate-aloe vera 10 1 appl topical TID PRN Pain, 07/24/21 % topical cream (Aspercreme with Moderate (Pain Scale 4-6 30 days Aloe) #35.4 grams hydrocodone 5 mg-acetaminophen 325 1 - 2 tab PO Q6H PRN pain #15 tabs 08/23/21 mg tablet albuterol sulfate 90 mcg/actuation 2 puff inhalation Q4-6H PRN 02/20/22 aerosol inhaler (ProAir HFA) shortness of breath or wheezing #8.5 grams amoxicillin 500 mg capsule 1,000 mg PO TID 5 days #30 caps 02/20/22 prednisone 20 mg tablet 60 mg PO DAILY 5 days #15 tabs 02/20/22 albuterol sulfate 90 mcg/actuation 2 inh inhalation Q4-6H PRN 03/08/22 breath activated powder inhaler shortness of breath or wheezing #1 ea azithromycin 250 mg tablet See Rx Instructions PO .COMPLEX #6 03/08/22 tabs prednisone 20 mg tablet 40 mg PO DAILY 5 days #10 tabs 03/08/22 Allergies Allergy/AdvReac Type Severity Reaction Status Date / Time No Known Allergies Allergy Unverified 02/20/22 16:20 [No Known Allergies*] Review of Systems Review of Systems: Constitutional : No Weight loss, No Fever, No Chills, No Fatigue, No Malaise ENT/Mouth : No sore throat, No Rhinorrhea Eyes: No Eye Pain, No Swelling, No Redness Cardiovascular : + Chest Pain, + SOB, No Dyspnea on Exertion, No Orthopnea, No Edema, No Palpitations Respiratory : No Cough, No Sputum, No Wheezing Gastrointestinal : No Nausea, No Vomiting, No Diarrhea, No Constipation, No abdominal Pain, No Hematochezia, No Melena Genitourinary : No Dysuria, No Urinary Frequency, No Hematuria, Musculoskeletal : No joint pain, No Myalgias, No Joint Swelling Skin : No Skin Lesions, No rash Neuro : No Weakness, No Numbness, No Dizziness, No Headache Psych : No Anxiety/Panic, No Depression All other systems reviewed and are negative Yes all other systems are reviewed and are negative [facility] Past Medical History Attestation statement: The following information was validated with the patient. Source: old records reviewed and nursing notes reviewed Medical History Bipolar disorder Chronic neck pain with history of cervical spinal surgery Chronic pain of both knees High cholesterol Social History Social History Household Members: Children Housing: House Do you presently have visiting nurse or other home services: No Alcohol intake: never Patient Tobacco Use Status: Current everyday Tobacco user Tobacco use type: Cigarette Cigarette Packs Per Day: 1 Cigarettes Per Day: 20.0 Years Smoked: 39 years e-Cigarette/Vaping Use: Former Use Second Hand Smoke Exposure: No Use of substances other than those prescribed or required for medical reasons: No Substance Use Type: Opiates Advance Directives: No Advance Directives Information Provided: No Patient : No service: No Sexual orientation: Did not discuss Physical Exam Vital Signs: Vital Signs: Last Vital Signs Temp 98.3 F 03/08/22 22:00 Pulse 85 03/08/22 22:00 Resp 16 03/08/22 22:00 BP 125/77 03/08/22 22:00 Pulse Ox 97 03/08/22 22:00 O2 Del Method 03/08/22 22:00 BMI result Body Mass Index 29.8 vss Appearance: Alert.? Oriented X3.? No acute distress.? Head: Normocephalic, atraumatic, no step-offs or deformities Eyes: Pupils equal, round and reactive to light.? ENT: Pharynx normal.? Neck: Normal inspection.? Neck supple.? CVS: Normal heart rate and rhythm.? Pulses normal.? Respiratory: No respiratory distress.? Breath sounds normal.? Abdomen: Soft and nontender.? Skin: Skin warm and dry.? Normal skin color.? Normal skin turgor.? Extremities: No lower extremity edema.? No calf ttp, negative elaine. 5/5 strength to bilateral upper and lower extremities Neuro: Oriented X 3.? No motor deficit.? No sensory deficit. CN 2-12 intact Course Reevaluation(s) Reevaluation #1: CBC within normal limits. Chemistry with no acute findings. Troponin negative, EKG nonischemic unlikely ACS. BNP normal. Chest x-ray no acute findings. D-dimer slightly elevated therefore CTA of the chest will be done to rule out PE although unlikely.. Went in to speak to patient some more and patient tells me that she forgot to mention that she has been having a cough with productive of thick sputum. Likely bronchitis. Some symptomatic relief after DuoNeb. Wheezing improved. Patient appears well saturating well on room air. Negative Elaine bilaterally, unlikely DVT. Pending CTA. Time: 21:47 Reevaluation #2: CTA with no signs of PE. Likely bacterial bronchitis based off time frame. At this time patient will be discharged home on antibiotics, prednisone. Advised return with new or worsening symptoms. To note patient's O2 saturation 97% even after ambulation. At this time patient will be discharged home with prompt PCP follow-up, educated on worrisome signs and symptoms, outlined on discharge. Comfortable discharge Time: 23:25 MDM - SOB/Dyspnea MDM Narrative Medical decision making narrative: 2003 52-year-old female presents with chest pain, shortness of breath times a month, reports multiple hospital visits and visits Urgent Care and she tells me know nose with wrong with her. Physical examination with slight wheezing. Likely bronchitis or viral process, I do not suspect PE on this patient. Low suspicion for ACS. Plan at this time is to obtain basic labs, imaging. Medical Records Attestation: I reviewed the patient's medical records. Lab Data Attestation: I reviewed the patient's lab results. Result diagrams: 03/08/22 12:54 03/08/22 12:54 Labs: Lab Results 03/08/22 03/08/22 03/08/22 Range/Units 12:54 12:54 12:54 WBC 8.0 (4.8-10.8) X10*3/uL RBC 4.55 (4.20-5.50) X10*6/uL Hgb 14.0 (12.0-16.0) g/dl Hct 43.2 (37.0-47.0) % MCV 94.9 (80.0-98.0) fL MCH 30.8 (27.0-33.0) pg MCHC 32.4 (31.0-35.0) g/dl RDW 13.4 (11.0-16.0) % Plt Count 325 (160-400) X10*3/uL MPV 8.8 L (9.4-12.3) fL Immature Gran % (Auto) 0.4 (0.0-0.4) % Neut % (Auto) 70.0 (45-73) % Lymph % (Auto) 19.7 L (20-40) % Meagher % (Auto) 4.4 (2-11) % Eos % (Auto) 4.5 H (0-4) % Baso % (Auto) 1.0 (0-2) % Lymph # (Auto) 1.6 (1.2-4.9) X10*3/uL Meagher # (Auto) 0.4 (0.1-1.2) X10*3/uL Eos # (Auto) 0.4 (0.0-0.4) X10*3/uL Baso # (Auto) 0.1 (0.0-0.2) X10*3/uL Abs Immat Gran (auto) 0.03 (0.00-0.03) X10*3/uL Absolute Neuts (auto) 5.6 (2.0-8.3) x10*3/uL Absolute Nucleated RBC 0.000 (0.0-0.012) X10*3/uL Nucleated RBC % (auto) 0.0 (0.0-0.2) /100WBC D-Dimer High Sensitivty NG/ML Sodium 140 (135-145) mmol/L Potassium 4.9 (3.3-5.1) mmol/L Chloride 102 (96-108) mmol/L Carbon Dioxide 26 (22-29) mmol/L Anion Gap 17 (12-20) BUN 5 L (9-16) mg/dL Creatinine 0.75 (0.5-1.4) mg/dL Estim Creat Clear Calc 96.8 Estimated GFR > 60 Random Glucose 110 (60-115) mg/dL Calcium 9.0 (8.4-10.2) mg/dL Troponin I High Sens (<3.5-17.0) ng/L B-Natriuretic Peptide (<100) pg/mL COVID-19 ([facility]) (Negative) COVID-19 Clin Com Influenza Type A ([facility]) Negative (Negative) Influenza Type B ([facility]) Negative (Negative) Influenza A & B Note See Note 03/08/22 03/08/22 03/08/22 Range/Units 12:54 20:52 20:52 WBC (4.8-10.8) X10*3/uL RBC (4.20-5.50) X10*6/uL Hgb (12.0-16.0) g/dl Hct (37.0-47.0) % MCV (80.0-98.0) fL MCH (27.0-33.0) pg MCHC (31.0-35.0) g/dl RDW (11.0-16.0) % Plt Count (160-400) X10*3/uL MPV (9.4-12.3) fL Immature Gran % (Auto) (0.0-0.4) % Neut % (Auto) (45-73) % Lymph % (Auto) (20-40) % Meagher % (Auto) (2-11) % Eos % (Auto) (0-4) % Baso % (Auto) (0-2) % Lymph # (Auto) (1.2-4.9) X10*3/uL Meagher # (Auto) (0.1-1.2) X10*3/uL Eos # (Auto) (0.0-0.4) X10*3/uL Baso # (Auto) (0.0-0.2) X10*3/uL Abs Immat Gran (auto) (0.00-0.03) X10*3/uL Absolute Neuts (auto) (2.0-8.3) x10*3/uL Absolute Nucleated RBC (0.0-0.012) X10*3/uL Nucleated RBC % (auto) (0.0-0.2) /100WBC D-Dimer High Sensitivty 241 NG/ML Sodium (135-145) mmol/L Potassium (3.3-5.1) mmol/L Chloride (96-108) mmol/L Carbon Dioxide (22-29) mmol/L Anion Gap (12-20) BUN (9-16) mg/dL Creatinine (0.5-1.4) mg/dL Estim Creat Clear Calc Estimated GFR Random Glucose (60-115) mg/dL Calcium (8.4-10.2) mg/dL Troponin I High Sens < 3.5 (<3.5-17.0) ng/L B-Natriuretic Peptide 20 (<100) pg/mL COVID-19 ([facility]) Negative (Negative) COVID-19 Clin Com See Note Influenza Type A ([facility]) (Negative) Influenza Type B ([facility]) (Negative) Influenza A & B Note Critical Care Time Critical Care Time Critical Care Time: No Discharge Plan Discharge Clinical Impression: Bronchitis, Shortness of breath, Chest pain Patient Disposition: Home, Self-Care Instructions: Chest Pain (DC), Acute Bronchitis (ED), Wheezing (ED), Shortness of Breath (ED) Additional Instructions: Take your medications as prescribed. If you were prescribed antibiotics today, it is important that you take your medication to their entirety, do not skip any doses, do not finish them early. Follow-up with your primary care provider this week. Return to the emergency department with new or worsening symptoms. Such as fevers, chills, chest pain, shortness of breath, nausea, vomiting, dizziness, headache, vision changes, lethargy, leg swelling In case of emergency call 911 Prescriptions: New azithromycin 250 mg tablet See Rx Instructions .ROUTE .COMPLEX Qty: 6 0RF Rx Instructions: For 250 mg dose pack: take 500 mg today (day 1), then 250 mg for 4 days (days 2-5) prednisone 20 mg tablet 40 mg PO DAILY 5 Days Qty: 10 0RF albuterol sulfate 90 mcg/actuation aerosol powdr breath activated 2 inh inhalation Q4-6H PRN (Reason: shortness of breath or wheezing) Qty: 1 0RF No Action amoxicillin 500 mg capsule 1,000 mg PO TID 5 Days Qty: 30 0RF prednisone 20 mg tablet 60 mg PO DAILY 5 Days Qty: 15 0RF albuterol sulfate [ProAir HFA] 90 mcg/actuation HFA aerosol inhaler 2 puff inhalation Q4-6H PRN (Reason: shortness of breath or wheezing) Qty: 8.5 0RF buprenorphine-naloxone 2-0.5 mg film 1 strip sublingual DAILY fluoxetine 20 mg Capsule 20 mg PO DAILY 30 Days Qty: 30 0RF melatonin 3 mg Tablet 3 mg PO BEDTIME PRN (Reason: sleep) 30 Days Qty: 30 0RF Aspercreme with Aloe 10 % Cream 1 appl topical TID PRN (Reason: Pain, Moderate (Pain Scale 4-6) 30 Days Qty: 35.4 0RF cyclobenzaprine 10 mg tablet 5 - 10 mg PO BID PRN (Reason: muscle spasm) 30 Days Qty: 30 0RF atorvastatin 10 mg tablet 10 mg PO DAILY 30 Days Qty: 30 0RF clonazepam 0.5 mg tablet 0.5 mg PO BID PRN (Reason: Anxiety) 7 Days Qty: 14 0RF risperidone 2 mg tablet 3 mg PO BEDTIME 30 Days Qty: 45 0RF naloxone [Narcan] 4 mg/actuation spray,non-aerosol 4 mg intranasal Q2M PRN (Reason: opioid overdose) 1 Days Qty: 1 0RF Rx Instructions: spray 1 dose into ONE nostril; alternate nostrils w each dose until help arrives hydrocodone-acetaminophen 5-325 mg tablet 1 - 2 tab PO Q6H PRN (Reason: pain) Qty: 15 0RF Referrals: Physician,Unknown J [Primary Care Provider] - 2 days Stand Alone Forms: Work/School Release
[2022-03-08] MEDS: Albuterol/Iprat 2.5/0.5MG 3 ML AMPUL.NEB INHALE (20:32)
[2022-03-08 20:38] VITALS: PULSE 82; RESP 18; O2SAT 95
[2022-03-08 21:05] LABS: D Dimer High Sensitivity 241 NG/ML
[2022-03-08 21:16] LABS: B Type Natriuretic Peptide 20 pg/mL (<100); Troponin-I High Sensitivity < 3.5 ng/L (<3.5-17.0)
--- NOTE | 2022-03-08 21:21 | PC.NURSE ---
Pt was slightly labored upon walking to room at arrival. coarse wheeze. recovered quickly. skin pwd. states she is a 1PPD smoker which is less than previous. plans on quitting. hx of emphysema/COPD.
[2022-03-08 22:00] VITALS: BP 125/77; PULSE 85; RESP 16; TEMP 36.8; O2SAT 97
[2022-03-08] MEDS: iohexoL 350 MG/ML 100 ML INFUS..BTL IV (22:33)
== END 2022-03-09 01:07 | disposition home or self-care (01) ==
PROVIDERS: Physician Assistant; Emergency Provider Emergency Medicine
DX: J40 Bronchitis, not specified as acute or chronic (principal); R06.00 Dyspnea, unspecified; R07.89 Other chest pain; M54.2 Cervicalgia; R51.9 Headache, unspecified; Z20.822 Contact with and (suspected) exposure to COVID-19; Z79.899 Other long term (current) drug therapy; F17.210 Nicotine dependence, cigarettes, uncomplicated; Z71.6 Tobacco abuse counseling
CPT/HCPCS: 36415; 71046; 71275; 80048; 83880; 84484; 85025; 85379; 87502; 87635; 93005; 94640; 99284; 99285; Q9967

== ENCOUNTER 2022-03-22 15:29 | Emergency (ER) | payer OTHER, SELFPAY ==
--- NOTE | ~2022-03-22 | XR_ITS ---
EXAMINATION: XR CHEST CLINICAL INFORMATION: Dyspnea COMPARISON: Chest x-ray 03/08/2022 TECHNIQUE: Frontal view of the chest was obtained. FINDINGS: The lungs are clear. No airspace consolidation, pleural effusion, or pneumothorax. The cardiomediastinal silhouette is within normal limits. No acute osseous injury. ACDF hardware projects over the lower cervical spine. XR/XR chest 1V IMPRESSION: No acute pulmonary disease.
[2022-03-22 15:48] VITALS: BP 128/71; PULSE 100; RESP 20; TEMP 36.7; O2SAT 93; BMI 28.5
--- NOTE | 2022-03-22 15:50 | ECG_ITS ---
Test Reason : CHEST PAIN Blood Pressure : / mmHG Vent. Rate : 091 BPM Atrial Rate : 091 BPM P-R Int : 162 ms QRS Dur : 080 ms QT Int : 352 ms P-R-T Axes : 077 016 062 degrees QTc Int : 432 ms Normal sinus rhythm Normal ECG When compared with ECG of 08-MAR-2022 12:43, No significant change was found Referred By: Generic ED Physician Electronically Signed By:GISELE MERINO MD
[2022-03-22 16:43] LABS: MANUAL DIFF FLAG NO
[2022-03-22 16:46] LABS: Basophils Absolute Auto 0.1 X10*3/uL (0.0-0.2); Basophils Percent Auto 1.1 % (0-2); Eosinophils Absolute Auto 0.3 X10*3/uL (0.0-0.4); Eosinophils Percent Auto 3.2 % (0-4); Hematocrit 44.2 % (37.0-47.0); Hemoglobin 14.3 g/dl (12.0-16.0); Imm Gran Abs Auto 0.02 X10*3/uL (0.00-0.03); Imm Gran Pct Auto 0.2 % (0.0-0.4); Lymphocytes Absolute Auto 2.2 X10*3/uL (1.2-4.9); Lymphocytes Percent Auto 27.3 % (20-40); Mean Corpuscular HGB Conc 32.4 g/dl (31.0-35.0); Mean Corpuscular Hemoglobin 31.3 pg (27.0-33.0); Mean Corpuscular Volume 96.7 fL (80.0-98.0); Monocytes Absolute Auto 0.4 X10*3/uL (0.1-1.2); Monocytes Percent Auto 5.1 % (2-11); Neutrophils Absolute Auto 5.1 x10*3/uL (2.0-8.3); Neutrophils Percent Auto 63.1 % (45-73); Platelet Count 296 X10*3/uL (160-400); Red Blood Count 4.57 X10*6/uL (4.20-5.50); Red Cell Distribution Width 14.1 % (11.0-16.0)
[2022-03-22 17:01] LABS: Alanine Aminotransferase 8 U/L (0-31); Albumin Level 3.9 g/dL (3.5-5.0); Alkaline Phosphatase 89 U/L (39-117); Anion Gap 15 (12-20); Aspartate Amino Transferase 16 U/L (5-31); Bilirubin Direct < 0.2 mg/dL (0.0-0.5); Bilirubin Total 0.3 mg/dL (0.0-1.0); Blood Urea Nitrogen 5 mg/dL (9-16); Calcium 8.7 mg/dL (8.4-10.2); Carbon Dioxide 27 mmol/L (22-29); Chloride 101 mmol/L (96-108); Creatinine Clr Calc Pharmacy 101.6; Estimated Glomerular Filt Rate > 60; Glucose Random 110 mg/dL (60-115); Lipase 10 U/L (8-78); Potassium 4.5 mmol/L (3.3-5.1); Sodium 138 mmol/L (135-145); Total Protein 6.6 g/dL (6.5-8.0)
--- NOTE | 2022-03-22 23:55 | ED_ITS ---
HPI - General Adult General Chief complaint: Dyspnea Stated complaint: diff. breathing Time Seen by Provider: 03/22/22 23:53 History of Present Illness HPI narrative: This is a 52-year-old female with history of COPD, who complains of worsened shortness of breath. The patient has been on prednisone, the last course few weeks ago, which seemed to help. She states that she owes needs to have prednisone to get her breathing better. She has an albuterol metered dose inhaler but is almost out of it. She does not have a nebulizer machine. She does smoke cigarettes. She went to her primary care physician today but was referred to the emergency department. Patient states she has specially short of breath when she gets up in the morning. She has had a cough for about a month. She denies any fever or URI symptoms. Related Data Home Medications Medication Instructions Recorded Confirmed buprenorphine 2 mg-naloxone 0.5 mg 1 strip sublingual DAILY 07/14/21 07/14/21 sublingual film Previous Rx's Medication Instructions Recorded atorvastatin 10 mg tablet 10 mg PO DAILY 30 days #30 tabs 07/24/21 clonazepam 0.5 mg tablet 0.5 mg PO BID PRN Anxiety 7 days 07/24/21 #14 tabs cyclobenzaprine 10 mg tablet 5 - 10 mg PO BID PRN muscle spasm 07/24/21 30 days #30 tabs fluoxetine 20 mg capsule 20 mg PO DAILY 30 days #30 caps 07/24/21 melatonin 3 mg tablet 3 mg PO BEDTIME PRN sleep 30 days 07/24/21 #30 tabs naloxone 4 mg/actuation nasal 4 mg intranasal Q2M PRN opioid 07/24/21 spray (Narcan) overdose 1 day #1 ea risperidone 2 mg tablet 3 mg PO BEDTIME 30 days #45 tabs 07/24/21 trolamine salicylate-aloe vera 10 1 appl topical TID PRN Pain, 07/24/21 % topical cream (Aspercreme with Moderate (Pain Scale 4-6 30 days Aloe) #35.4 grams hydrocodone 5 mg-acetaminophen 325 1 - 2 tab PO Q6H PRN pain #15 tabs 08/23/21 mg tablet albuterol sulfate 90 mcg/actuation 2 puff inhalation Q4-6H PRN 02/20/22 aerosol inhaler (ProAir HFA) shortness of breath or wheezing #8.5 grams amoxicillin 500 mg capsule 1,000 mg PO TID 5 days #30 caps 02/20/22 prednisone 20 mg tablet 60 mg PO DAILY 5 days #15 tabs 02/20/22 albuterol sulfate 90 mcg/actuation 2 inh inhalation Q4-6H PRN 03/08/22 breath activated powder inhaler shortness of breath or wheezing #1 ea azithromycin 250 mg tablet See Rx Instructions PO .COMPLEX #6 03/08/22 tabs prednisone 20 mg tablet 40 mg PO DAILY 5 days #10 tabs 03/08/22 albuterol sulfate 2.5 mg/3 mL 2.5 mg (3 mL) inhalation Q4-6H PRN 03/23/22 (0.083 %) solution for nebulization shortness of breath or wheezing #90 mL nebulizer and compressor ([place] #1 ea 03/23/22 Choice Nebulizer) prednisone 10 mg tablets in a dose 10 mg PO PER PKG DIR #21 ea 03/23/22 pack Allergies Allergy/AdvReac Type Severity Reaction Status Date / Time No Known Allergies Allergy Unverified 02/20/22 16:20 [No Known Allergies*] Review of Systems Review of Systems: Yes all other systems are reviewed and are negative Constitutional: Constitutional: Reports as per HPI and Denies fever(s) Eyes: Eyes: Reports as per HPI and Reports no additional eye complaints ENT: Reports system reviewed and no additional complaints, except as documented, Reports as per HPI, Denies nasal congestion, Denies nasal discharge and Denies sore throat Cardiovascular: Cardiovascular: Reports as per HPI, Denies chest pain and Reports dyspnea Respiratory: Respiratory: Reports as per HPI, Reports cough, Reports dyspnea and Reports wheezing Gastrointestinal: Gastrointestinal: Reports as per HPI, Denies abdominal pain, Denies diarrhea and Denies vomiting Genitourinary: Genitourinary: Reports as per HPI, Denies hematuria, Denies urinary frequency and Denies dysuria Musculoskeletal: Musculoskeletal: Reports no additional musculoskeletal complaints and Denies numbness Integumentary/Breasts: Skin/Breast: Reports as per HPI and Denies rash Neurologic: Reports as per HPI, Denies focal weakness and Denies numbness Psychiatric: Psychiatric: Reports no additional psychiatric complaints and Reports as per HPI Endocrine: Endocrine: Reports no additional endocrine complaints and Reports as per HPI Hematologic/Lymphatic: Hematologic/Lymphatic: Reports no additional hematologic/lymphatic complaints, Reports as per HPI and Reports other (No peripheral edema) Allergic/Immunologic: Allergic/Immunologic: Reports wheezing PMFSH Past Medical History Medical History Bipolar disorder Chronic neck pain with history of cervical spinal surgery Chronic pain of both knees High cholesterol Social History Social History Household Members: Children Housing: House Do you presently have visiting nurse or other home services: No Alcohol intake: never Patient Tobacco Use Status: Current everyday Tobacco user Tobacco use type: Cigarette Cigarette Packs Per Day: 1 Cigarettes Per Day: 20.0 Years Smoked: 39 years e-Cigarette/Vaping Use: Former Use Second Hand Smoke Exposure: No Substance Use Type: Opiates Advance Directives: No Advance Directives Information Provided: No service: No Sexual orientation: Did not discuss Physical Exam ED Vital Signs: Vital Signs - 24 hr 03/22/22 15:48 03/23/22 00:15 03/23/22 00:38 Temperature 98.1 F 98.3 F Pulse Rate 100 105 H 87 Respiratory Rate 20 20 16 Blood Pressure 128/71 139/90 H Pulse Oximetry 93 93 Oxygen Delivery Method Room Air Room Air BMI result Body Mass Index 28.5 Const Other: Patient sitting up, appears comfortable, speaking in full sentences General: no acute distress Orientation/consciousness: patient oriented x3 HENMT Head: Yes normal to inspection General nose exam: Normal external nose present Mouth: moist mucous membranes Throat: Yes posterior oropharynx normal, Yes tonsils normal and Yes uvula midline Eyes Eyelids: Yes eyelids normal Conjunctivae: conjunctivae normal Pupils: Equal, round and reactive pupils present Neck Neck: Yes supple Resp Effort & Inspection: normal respiratory effort Auscultation: clear to auscultation bilaterally and other (Bronchospastic cough, mildly decreased breath sounds bilaterally) Cardio Rate: regular rate Rhythm: regular rhythm Heart sounds: S1 normal heart sound present, S2 normal heart sound present, no gallops, no murmurs and no rubs GI Inspection: No distended Palpation (GI): Soft to palpation and nontender Auscultation: normal bowel sounds Skin General skin exam: other (Warm and dry) Neuro General: patient oriented x3 and CN's II-XI intact bilaterally Cranial nerves: Yes Equal, round and reactive pupils present Extrem General: Yes no pedal edema Psych Affect: normal affect Attitude: cooperative Medical Decision Making MDM Narrative Medical decision making narrative: Patient with COPD, with a cough for a month, has a negative chest x-ray. Patient reports being almost out of her albuterol inhaler. Patient was given DuoNeb, also was dispensed an albuterol inhaler. I am prescribing her a nebulizer machine and albuterol for the nebulizer machine, as well as prednisone taper. She can follow up with her primary care physician. Patient was speaking full sentences, was in no distress, had mild wheezing decreased breath sounds on exam. Labs unremarkable. Lab Data Result diagrams: 03/22/22 16:36 03/22/22 16:36 Labs: Lab Results 03/22/22 03/22/22 Range/Units 16:36 16:36 WBC 8.0 (4.8-10.8) X10*3/uL RBC 4.57 (4.20-5.50) X10*6/uL Hgb 14.3 (12.0-16.0) g/dl Hct 44.2 (37.0-47.0) % MCV 96.7 (80.0-98.0) fL MCH 31.3 (27.0-33.0) pg MCHC 32.4 (31.0-35.0) g/dl RDW 14.1 (11.0-16.0) % Plt Count 296 (160-400) X10*3/uL MPV 9.0 L (9.4-12.3) fL Immature Gran % (Auto) 0.2 (0.0-0.4) % Neut % (Auto) 63.1 (45-73) % Lymph % (Auto) 27.3 (20-40) % [place] % (Auto) 5.1 (2-11) % Eos % (Auto) 3.2 (0-4) % Baso % (Auto) 1.1 (0-2) % Lymph # (Auto) 2.2 (1.2-4.9) X10*3/uL [place] # (Auto) 0.4 (0.1-1.2) X10*3/uL Eos # (Auto) 0.3 (0.0-0.4) X10*3/uL Baso # (Auto) 0.1 (0.0-0.2) X10*3/uL Abs Immat Gran (auto) 0.02 (0.00-0.03) X10*3/uL Absolute Neuts (auto) 5.1 (2.0-8.3) x10*3/uL Absolute Nucleated RBC 0.000 (0.0-0.012) X10*3/uL Nucleated RBC % (auto) 0.0 (0.0-0.2) /100WBC Sodium 138 (135-145) mmol/L Potassium 4.5 (3.3-5.1) mmol/L Chloride 101 (96-108) mmol/L Carbon Dioxide 27 (22-29) mmol/L Anion Gap 15 (12-20) BUN 5 L (9-16) mg/dL Creatinine 0.70 (0.5-1.4) mg/dL Estim Creat Clear Calc 101.6 Estimated GFR > 60 Random Glucose 110 (60-115) mg/dL Calcium 8.7 (8.4-10.2) mg/dL Total Bilirubin 0.3 (0.0-1.0) mg/dL Direct Bilirubin < 0.2 (0.0-0.5) mg/dL AST 16 (5-31) U/L ALT 8 (0-31) U/L Alkaline Phosphatase 89 D (39-117) U/L Total Protein 6.6 (6.5-8.0) g/dL Albumin 3.9 (3.5-5.0) g/dL Lipase 10 (8-78) U/L Imaging Data Chest x-ray: Radiologist's impression: FINDINGS: The lungs are clear. No airspace consolidation, pleural effusion, or pneumothorax. The cardiomediastinal silhouette is within normal limits. No acute osseous injury. ACDF hardware projects over the lower cervical spine. XR/XR chest 1V IMPRESSION: No acute pulmonary disease. ? ECG Data Attestation: I personally reviewed and interpreted this ECG as follows: Interpretation: Normal sinus rhythm with a rate of 91. No ST elevation or depression. Normal QRS axis. Unchanged compared to 03/08/2022. Discharge Plan Discharge Clinical Impression: COPD exacerbation Patient Disposition: Home, Self-Care Additional Instructions: Use the albuterol and prednisone as prescribed. Use the nebulizer machine with the albuterol every 4-6 hours. Follow-up with primary care physician. Return for any new or worsened symptoms Prescriptions: New (DME) nebulizer and compressor [[place] Choice Nebulizer] Device See Rx Instructions .Route Qty: 1 0RF Rx Instructions: As directed albuterol sulfate 2.5 mg /3 mL (0.083 %) solution for nebulization 2.5 mg inhalation Q4-6H PRN (Reason: shortness of breath or wheezing) Qty: 90 1RF prednisone 10 mg tablets,dose pack 10 mg PO PER PKG DIR Qty: 21 0RF Rx Instructions: 4 tabs qd x 3d then 2 tabs qd x 3d then 1 tab qd x 3 d No Action amoxicillin 500 mg capsule 1,000 mg PO TID 5 Days Qty: 30 0RF prednisone 20 mg tablet 60 mg PO DAILY 5 Days Qty: 15 0RF albuterol sulfate [ProAir HFA] 90 mcg/actuation HFA aerosol inhaler 2 puff inhalation Q4-6H PRN (Reason: shortness of breath or wheezing) Qty: 8.5 0RF buprenorphine-naloxone 2-0.5 mg film 1 strip sublingual DAILY fluoxetine 20 mg Capsule 20 mg PO DAILY 30 Days Qty: 30 0RF melatonin 3 mg Tablet 3 mg PO BEDTIME PRN (Reason: sleep) 30 Days Qty: 30 0RF Aspercreme with Aloe 10 % Cream 1 appl topical TID PRN (Reason: Pain, Moderate (Pain Scale 4-6) 30 Days Qty: 35.4 0RF cyclobenzaprine 10 mg tablet 5 - 10 mg PO BID PRN (Reason: muscle spasm) 30 Days Qty: 30 0RF atorvastatin 10 mg tablet 10 mg PO DAILY 30 Days Qty: 30 0RF clonazepam 0.5 mg tablet 0.5 mg PO BID PRN (Reason: Anxiety) 7 Days Qty: 14 0RF risperidone 2 mg tablet 3 mg PO BEDTIME 30 Days Qty: 45 0RF naloxone [Narcan] 4 mg/actuation spray,non-aerosol 4 mg intranasal Q2M PRN (Reason: opioid overdose) 1 Days Qty: 1 0RF Rx Instructions: spray 1 dose into ONE nostril; alternate nostrils w each dose until help arrives hydrocodone-acetaminophen 5-325 mg tablet 1 - 2 tab PO Q6H PRN (Reason: pain) Qty: 15 0RF azithromycin 250 mg tablet See Rx Instructions .ROUTE .COMPLEX Qty: 6 0RF Rx Instructions: For 250 mg dose pack: take 500 mg today (day 1), then 250 mg for 4 days (days 2-5) prednisone 20 mg tablet 40 mg PO DAILY 5 Days Qty: 10 0RF albuterol sulfate 90 mcg/actuation aerosol powdr breath activated 2 inh inhalation Q4-6H PRN (Reason: shortness of breath or wheezing) Qty: 1 0RF Interventions: ED Discharge Assessment Last Done: 03/23/22 01:17 Discharge Date/Time: 03/23/22 01:32
[2022-03-23] MEDS: predniSONE 20 MG TABLET 40 MG PO (00:13)
[2022-03-23 00:15] VITALS: BP 139/90; PULSE 105; RESP 20; TEMP 36.8; O2SAT 93
[2022-03-23] MEDS: Albuterol/Iprat 2.5/0.5MG 3 ML AMPUL.NEB INHALE (00:36)
[2022-03-23] MEDS: Albuterol Sulfate 90 MCG 8 GM INHALER 2 PUFF INHALE (00:36)
[2022-03-23 00:38] VITALS: PULSE 87; RESP 16; O2SAT 93
--- NOTE | 2022-03-23 01:16 | PC.NURSE ---
Discharged instructions reviewed with pt. Pt verbalizes understanding.
== END 2022-03-23 01:32 | disposition home or self-care (01) ==
PROVIDERS: Emergency Provider Emergency Medicine; PCP Internal Medicine
DX: J44.1 Chronic obstructive pulmonary disease with (acute) exacerbation (principal); F17.210 Nicotine dependence, cigarettes, uncomplicated
CPT/HCPCS: 71045; 80053; 82248; 83690; 85025; 93005; 94640; 99284; 99285

== ENCOUNTER 2022-04-06 22:09 | Emergency (ER) | payer OTHER, SELFPAY ==
--- NOTE | ~2022-04-06 | XR_ITS ---
EXAMINATION: XR LUMBOSACRAL SPINE CLINICAL INFORMATION: Back pain COMPARISON: None TECHNIQUE: Three views of the lumbosacral spine. FINDINGS: Normal alignment of the lumbar spine. No subluxation. Vertebral body heights are maintained. Intervertebral disc space heights are preserved. Mild endplate sclerosis and anterior endplate proliferative change at L1-L2 through L4-L5 consistent with mild degenerative disc disease. No pars defects are identified. XR/XR lumbar spine 2-3V IMPRESSION: 1. No subluxation or fracture. 2. Preserved intervertebral disc space heights. 3. Mild multilevel degenerative disc disease.
[2022-04-06 22:09] VITALS: BP 135/85; PULSE 118; RESP 18; TEMP 36.1; O2SAT 95; BMI 29.2
--- NOTE | 2022-04-06 23:30 | ED.GENADULT ---
HPI - General Adult General Chief complaint: Back Pain/Injury Stated complaint: Back pain Time Seen by Provider: 04/06/22 23:09 Source: patient Mode of arrival: ambulatory Limitations: no limitations History of Present Illness HPI narrative: 52-year-old female presents to ED for back pain since yesterday. Patient states while throwing trash she felt severe back pain. Patient states pain on range of motiong. patient denies any dysuria, hematuria, fever, chills, blunt trauma, or any history of drug use. Patient denies any immunocompromised diseases. Patient denies any urinay or bowel incontincne Related Data Home Medications Medication Instructions Recorded Confirmed buprenorphine 2 mg-naloxone 0.5 mg 1 strip sublingual DAILY 07/14/21 07/14/21 sublingual film Previous Rx's Medication Instructions Recorded atorvastatin 10 mg tablet 10 mg PO DAILY 30 days #30 tabs 07/24/21 clonazepam 0.5 mg tablet 0.5 mg PO BID PRN Anxiety 7 days 07/24/21 #14 tabs cyclobenzaprine 10 mg tablet 5 - 10 mg PO BID PRN muscle spasm 07/24/21 30 days #30 tabs fluoxetine 20 mg capsule 20 mg PO DAILY 30 days #30 caps 07/24/21 melatonin 3 mg tablet 3 mg PO BEDTIME PRN sleep 30 days 07/24/21 #30 tabs naloxone 4 mg/actuation nasal 4 mg intranasal Q2M PRN opioid 07/24/21 spray (Narcan) overdose 1 day #1 ea risperidone 2 mg tablet 3 mg PO BEDTIME 30 days #45 tabs 07/24/21 trolamine salicylate-aloe vera 10 1 appl topical TID PRN Pain, 07/24/21 % topical cream (Aspercreme with Moderate (Pain Scale 4-6 30 days Aloe) #35.4 grams hydrocodone 5 mg-acetaminophen 325 1 - 2 tab PO Q6H PRN pain #15 tabs 08/23/21 mg tablet albuterol sulfate 90 mcg/actuation 2 puff inhalation Q4-6H PRN 02/20/22 aerosol inhaler (ProAir HFA) shortness of breath or wheezing #8.5 grams amoxicillin 500 mg capsule 1,000 mg PO TID 5 days #30 caps 02/20/22 prednisone 20 mg tablet 60 mg PO DAILY 5 days #15 tabs 02/20/22 albuterol sulfate 90 mcg/actuation 2 inh inhalation Q4-6H PRN 03/08/22 breath activated powder inhaler shortness of breath or wheezing #1 ea azithromycin 250 mg tablet See Rx Instructions PO .COMPLEX #6 03/08/22 tabs prednisone 20 mg tablet 40 mg PO DAILY 5 days #10 tabs 03/08/22 albuterol sulfate 2.5 mg/3 mL 2.5 mg (3 mL) inhalation Q4-6H PRN 03/23/22 (0.083 %) solution for nebulization shortness of breath or wheezing #90 mL nebulizer and compressor ([place] #1 ea 03/23/22 Choice Nebulizer) prednisone 10 mg tablets in a dose 10 mg PO PER PKG DIR #21 ea 03/23/22 pack ketorolac 10 mg tablet 10 mg PO QID PRN pain 5 days #20 04/07/22 tabs Allergies Allergy/AdvReac Type Severity Reaction Status Date / Time No Known Allergies Allergy Unverified 02/20/22 16:20 [No Known Allergies*] Review of Systems Review of Systems: Back pain Yes all other systems are reviewed and are negative [facility] Past Medical History Medical History Bipolar disorder Chronic neck pain with history of cervical spinal surgery Chronic pain of both knees High cholesterol Social History Social History Household Members: Children Housing: House Do you presently have visiting nurse or other home services: No Alcohol intake: never Patient Tobacco Use Status: Current everyday Tobacco user Tobacco use type: Cigarette Cigarette Packs Per Day: 1 Cigarettes Per Day: 20.0 Years Smoked: 39 years e-Cigarette/Vaping Use: Former Use Second Hand Smoke Exposure: No Substance Use Type: Opiates Advance Directives: No Advance Directives Information Provided: No service: No Sexual orientation: Did not discuss Physical Exam ED Vital Signs: Vital Signs - 24 hr 04/06/22 22:09 Temperature 97.0 F Pulse Rate 118 H Respiratory Rate 18 Blood Pressure 135/85 Pulse Oximetry 95 Oxygen Delivery Method Room Air BMI result Body Mass Index 29.2 Const General: cooperative, healthy appearing, comfortable, no acute distress, well developed, alert, awake and Physically active Orientation/consciousness: oriented to time and patient oriented x3 [facility] Head: Yes normal to inspection, Yes No palpable skull fracture present, Yes normocephalic, Yes atraumatic and No abrasion Eyes General: appearance normal, both eyes and all related structures Neck Neck: Yes normal visual inspection, Yes full ROM, Yes no lymphadenopathy, Yes no meningeal signs, Yes trachea midline, Yes supple, No anterior neck swelling and No tender Chest Chest palpation & inspection: normal inspection of the chest and normal palpation of entire chest wall Resp Effort & Inspection: normal respiratory effort and able to speak in complete sentences Auscultation: clear to auscultation bilaterally Cardio Jugular venous distension: no JVD Heart sounds: S1 normal heart sound present and S2 normal heart sound present GI Inspection: Yes normal to inspection Palpation (GI): not firm, nontender, no guarding and not rigid General: No CVA tenderness and Yes no CVA tenderness Back/Spine/Pelvis Back: no CVA tenderness, No CVA tenderness and back tenderness (lumbar) Skin General skin exam: no rashes or lesions noted and elasticity normal Neuro General: oriented to time, patient oriented x3, gait normal, no meningeal signs and CN's II-XI intact bilaterally Cranial nerves: Yes CN's II-XII intact bilaterally Extrem General: Yes normal to inspection and Yes full ROM Psych Appearance: grossly normal, well kempt and not disheveled Course Course Course Narrative: lumbar xray and UA ordered Reevaluation(s) Reevaluation #1: UA normal. Lumbar xray shows degenerative disc diseases. Time: 00:06 Medical Decision Making [facility] Narrative Medical decision making narrative: lumbar radiculopathy Lab Data Labs: Lab Results 04/06/22 Range/Units 23:42 Urine Color Yellow Urine Appearance Clear Urine pH 6.0 (5.0-9.0) Ur Specific Gleason 1.015 (1.005-1.025) Urine Protein Negative (Neg-Trace) mg/dL Urine Glucose (UA) Negative (Negative) mg/dL Urine Ketones Negative (Negative) mg/dL Urine Blood Negative (Negative) Urine Nitrite Negative (Negative) Ur Leukocyte Esterase Negative (Negative) Discharge Plan Discharge Clinical Impression: Lumbar radiculopathy, Degenerative disc disease at L5-S1 level Patient Disposition: Home, Self-Care Instructions: Lumbar Radiculopathy (ED), Degenerative Disc Disease (ED) Additional Instructions: X-ray shows degenerative disc disease in lumbar spine. Urine came back negative for infection. Return to the ED immediatley for any urinary or bowel incontinence, abdominal pain, nausea, vomitting, fever, chills, flank pain, weakness, trouble walking, or any other concerning symptoms. Do not take any other NSIADS with toradol. Prescriptions: New ketorolac 10 mg tablet 10 mg PO QID PRN (Reason: pain) 5 Days Qty: 20 0RF Rx Instructions: Recieved toradol 30mg IM in the ED No Action amoxicillin 500 mg capsule 1,000 mg PO TID 5 Days Qty: 30 0RF prednisone 20 mg tablet 60 mg PO DAILY 5 Days Qty: 15 0RF albuterol sulfate [ProAir HFA] 90 mcg/actuation HFA aerosol inhaler 2 puff inhalation Q4-6H PRN (Reason: shortness of breath or wheezing) Qty: 8.5 0RF buprenorphine-naloxone 2-0.5 mg film 1 strip sublingual DAILY fluoxetine 20 mg Capsule 20 mg PO DAILY 30 Days Qty: 30 0RF melatonin 3 mg Tablet 3 mg PO BEDTIME PRN (Reason: sleep) 30 Days Qty: 30 0RF Aspercreme with Aloe 10 % Cream 1 appl topical TID PRN (Reason: Pain, Moderate (Pain Scale 4-6) 30 Days Qty: 35.4 0RF cyclobenzaprine 10 mg tablet 5 - 10 mg PO BID PRN (Reason: muscle spasm) 30 Days Qty: 30 0RF atorvastatin 10 mg tablet 10 mg PO DAILY 30 Days Qty: 30 0RF clonazepam 0.5 mg tablet 0.5 mg PO BID PRN (Reason: Anxiety) 7 Days Qty: 14 0RF risperidone 2 mg tablet 3 mg PO BEDTIME 30 Days Qty: 45 0RF naloxone [Narcan] 4 mg/actuation spray,non-aerosol 4 mg intranasal Q2M PRN (Reason: opioid overdose) 1 Days Qty: 1 0RF Rx Instructions: spray 1 dose into ONE nostril; alternate nostrils w each dose until help arrives hydrocodone-acetaminophen 5-325 mg tablet 1 - 2 tab PO Q6H PRN (Reason: pain) Qty: 15 0RF azithromycin 250 mg tablet See Rx Instructions .ROUTE .COMPLEX Qty: 6 0RF Rx Instructions: For 250 mg dose pack: take 500 mg today (day 1), then 250 mg for 4 days (days 2-5) prednisone 20 mg tablet 40 mg PO DAILY 5 Days Qty: 10 0RF albuterol sulfate 90 mcg/actuation aerosol powdr breath activated 2 inh inhalation Q4-6H PRN (Reason: shortness of breath or wheezing) Qty: 1 0RF (DME) nebulizer and compressor [[place] Choice Nebulizer] Device See Rx Instructions .Route Qty: 1 0RF Rx Instructions: As directed albuterol sulfate 2.5 mg /3 mL (0.083 %) solution for nebulization 2.5 mg inhalation Q4-6H PRN (Reason: shortness of breath or wheezing) Qty: 90 1RF prednisone 10 mg tablets,dose pack 10 mg PO PER PKG DIR Qty: 21 0RF Rx Instructions: 4 tabs qd x 3d then 2 tabs qd x 3d then 1 tab qd x 3 d Stand Alone Forms: Work/School Release Interventions: ED Discharge Assessment Last Done: 04/07/22 00:32 Discharge Date/Time: 04/07/22 00:33 Print Language: [place]
[2022-04-06] MEDS: Ketorolac Tromethamine 30 MG/ML VIAL IM (23:41)
[2022-04-06 23:51] LABS: Appearance Urine Clear; Color Urine Yellow; Glucose Urine UA Negative (Negative); Leukocyte Esterase Urine Negative (Negative); Nitrite Urine Negative (Negative); Specific Gravity - Urine 1.015 (1.005-1.025); Urine Blood Negative (Negative); Urine Ketones Negative (Negative); Urine Protein Negative (Neg-Trace)
== END 2022-04-07 00:33 | disposition home or self-care (01) ==
PROVIDERS: Physician Assistant; Emergency Provider Emergency Medicine; PCP Internal Medicine
DX: M54.16 Radiculopathy, lumbar region (principal); M51.37 Other intervertebral disc degeneration, lumbosacral region; F17.210 Nicotine dependence, cigarettes, uncomplicated; F11.20 Opioid dependence, uncomplicated
CPT/HCPCS: 72100; 81003; 96372; 99284; J1885

== ENCOUNTER 2022-08-08 20:09 | Emergency (ER) | payer OTHER, SELFPAY ==
--- NOTE | ~2022-08-08 | CT_ITS ---
EXAMINATION: CT ABDOMEN AND PELVIS WITHOUT CONTRAST CLINICAL INFORMATION: Upper abdominal pain. COMPARISON: CT scan abdomen pelvis 04/21/2017 TECHNIQUE: Multidetector volumetric imaging was performed from the superior aspect of the liver through the pubic symphysis. Sagittal and coronal reformatted images were obtained on the technologist's workstation. This CT examination was performed using dose optimization techniques as appropriate, variously including the following: *Automated exposure control *Adjustment of mA and/or kV according to patient size (this includes techniques or standardized protocols for targeted exams where dose is matched to indication/reason for exam; i.e. extremities or head) *Use of iterative reconstruction technique DLP: 659 mGy-cm FINDINGS: LUNG BASES: Subpleural peripheral hazy airspace opacities in the lung bases. No dense consolidation. LIVER, GALLBLADDER, AND BILIARY TREE: The liver is normal in size, shape, and attenuation. No focal hepatic lesion or biliary ductal dilatation is present. The gallbladder is unremarkable with no evidence of radiopaque gallstones, gallbladder wall thickening, or obvious pericholecystic inflammatory changes. PANCREAS: Unremarkable. SPLEEN: Unremarkable. ADRENAL GLANDS: Unremarkable. KIDNEYS AND URETERS: The kidneys are normal in size, shape, and attenuation. No hydronephrosis, hydroureter, or calculi seen. No perinephric stranding. BLADDER: Unremarkable. GASTROINTESTINAL TRACT: The small and large bowel are unremarkable. The appendix is unremarkable. ABDOMINAL WALL: No significant hernia is appreciated. LYMPH NODES: Normal. VASCULAR: Scattered vascular calcifications of aorta and iliac arteries. No aneurysm. PELVIC VISCERA: Unremarkable. OSSEOUS STRUCTURES: Unremarkable. CT/CT abdomen pelvis wo IV con IMPRESSION: 1. No acute abnormality CT scan abdomen pelvis. 2. Subpleural peripheral hazy airspace opacities in the lung bases. Fleischner guidelines were followed.
[2022-08-08 20:30] VITALS: BP 114/81; PULSE 124; RESP 18; TEMP 35.9; O2SAT 95; BMI 31.4
[2022-08-08 20:53] LABS: MANUAL DIFF FLAG NO
[2022-08-08 21:10] LABS: Basophils Absolute Auto 0.1 X10*3/uL (0.0-0.2); Basophils Percent Auto 0.9 % (0-2); Eosinophils Absolute Auto 0.3 X10*3/uL (0.0-0.4); Eosinophils Percent Auto 4.3 % (0-4); Hematocrit 40.8 % (37.0-47.0); Hemoglobin 13.2 g/dl (12.0-16.0); Imm Gran Abs Auto 0.06 X10*3/uL (0.00-0.03); Imm Gran Pct Auto 0.8 % (0.0-0.4); Lymphocytes Absolute Auto 2.3 X10*3/uL (1.2-4.9); Lymphocytes Percent Auto 31.1 % (20-40); Mean Corpuscular HGB Conc 32.4 g/dl (31.0-35.0); Mean Corpuscular Hemoglobin 31.7 pg (27.0-33.0); Mean Corpuscular Volume 97.8 fL (80.0-98.0); Mean Platelet Volume 9.2 fL (9.4-12.3); Monocytes Absolute Auto 0.3 X10*3/uL (0.1-1.2); Monocytes Percent Auto 4.6 % (2-11); Neutrophils Absolute Auto 4.4 x10*3/uL (2.0-8.3); Neutrophils Percent Auto 58.3 % (45-73); Platelet Count 331 X10*3/uL (160-400); Red Blood Count 4.17 X10*6/uL (4.20-5.50); Red Cell Distribution Width 13.2 % (11.0-16.0); White Blood Count 7.5 X10*3/uL (4.8-10.8)
[2022-08-08 21:12] LABS: Alanine Aminotransferase 17 U/L (0-31); Albumin Level 3.9 g/dL (3.5-5.0); Alkaline Phosphatase 91 U/L (39-117); Anion Gap 15 (12-20); Aspartate Amino Transferase 19 U/L (5-31); Bilirubin Direct < 0.2 mg/dL (0.0-0.5); Bilirubin Total 0.3 mg/dL (0.0-1.0); Blood Urea Nitrogen 7 mg/dL (9-16); Calcium 8.7 mg/dL (8.4-10.2); Carbon Dioxide 28 mmol/L (22-29); Chloride 102 mmol/L (96-108); Creatinine Clr Calc Pharmacy 88.7; Estimated Glomerular Filt Rate > 60; Glucose Random 156 mg/dL (60-115); Lipase 13 U/L (8-78); Potassium 4.2 mmol/L (3.3-5.1); Sodium 141 mmol/L (135-145); Total Protein 6.2 g/dL (6.5-8.0)
--- NOTE | 2022-08-08 21:27 | ED_ITS ---
HPI - Abdominal Pain General Chief Complaint: Abdominal Pain Stated Complaint: back and abd pain, contractions Time Seen by Provider: 08/08/22 21:21 Source: patient Mode of arrival: ambulatory Limitations: no limitations History of Present Illness HPI narrative: Patient having upper abdominal pain increased gas about a month patient with nausea no vomiting no diarrhea patient's Suboxone no history of constipation no fever or chills Related Data Home Medications Medication Instructions Recorded Confirmed buprenorphine 2 mg-naloxone 0.5 mg 1 strip sublingual DAILY 07/14/21 07/14/21 sublingual film Previous Rx's Medication Instructions Recorded atorvastatin 10 mg tablet 10 mg PO DAILY 30 days #30 tabs 07/24/21 clonazepam 0.5 mg tablet 0.5 mg PO BID PRN Anxiety 7 days 07/24/21 #14 tabs cyclobenzaprine 10 mg tablet 5 - 10 mg PO BID PRN muscle spasm 07/24/21 30 days #30 tabs fluoxetine 20 mg capsule 20 mg PO DAILY 30 days #30 caps 07/24/21 melatonin 3 mg tablet 3 mg PO BEDTIME PRN sleep 30 days 07/24/21 #30 tabs naloxone 4 mg/actuation nasal 4 mg intranasal Q2M PRN opioid 07/24/21 spray (Narcan) overdose 1 day #1 ea risperidone 2 mg tablet 3 mg PO BEDTIME 30 days #45 tabs 07/24/21 trolamine salicylate-aloe vera 10 1 appl topical TID PRN Pain, 07/24/21 % topical cream (Aspercreme with Moderate (Pain Scale 4-6 30 days Aloe) #35.4 grams hydrocodone 5 mg-acetaminophen 325 1 - 2 tab PO Q6H PRN pain #15 tabs 08/23/21 mg tablet albuterol sulfate 90 mcg/actuation 2 puff inhalation Q4-6H PRN 02/20/22 aerosol inhaler (ProAir HFA) shortness of breath or wheezing #8.5 grams amoxicillin 500 mg capsule 1,000 mg PO TID 5 days #30 caps 02/20/22 prednisone 20 mg tablet 60 mg PO DAILY 5 days #15 tabs 02/20/22 albuterol sulfate 90 mcg/actuation 2 inh inhalation Q4-6H PRN 03/08/22 breath activated powder inhaler shortness of breath or wheezing #1 ea azithromycin 250 mg tablet See Rx Instructions PO .COMPLEX #6 03/08/22 tabs prednisone 20 mg tablet 40 mg PO DAILY 5 days #10 tabs 03/08/22 albuterol sulfate 2.5 mg/3 mL 2.5 mg (3 mL) inhalation Q4-6H PRN 03/23/22 (0.083 %) solution for nebulization shortness of breath or wheezing #90 mL nebulizer and compressor ([place] #1 ea 03/23/22 Choice Nebulizer) prednisone 10 mg tablets in a dose 10 mg PO PER PKG DIR #21 ea 03/23/22 pack ketorolac 10 mg tablet 10 mg PO QID PRN pain 5 days #20 04/07/22 tabs pantoprazole 40 mg tablet,delayed 40 mg PO DAILY #30 tabs 08/09/22 release (Protonix) tramadol 50 mg tablet 50 mg PO Q6H PRN pain #20 tabs 08/09/22 Allergies Allergy/AdvReac Type Severity Reaction Status Date / Time levofloxacin [From Levaquin] AdvReac Unknown Verified 08/08/22 20:35 Review of Systems Review of Systems Yes all other systems are reviewed and are negative PMFSH Past Medical History Medical History Bipolar disorder Chronic neck pain with history of cervical spinal surgery Chronic pain of both knees High cholesterol Social History Social History Household Members: Children Housing: House Do you presently have visiting nurse or other home services: No Alcohol intake: never Patient Tobacco Use Status: Current everyday Tobacco user Tobacco use type: Cigarette Cigarette Packs Per Day: 1 Cigarettes Per Day: 20.0 Years Smoked: 39 years e-Cigarette/Vaping Use: Former Use Second Hand Smoke Exposure: No Substance Use Type: Opiates Advance Directives: No Advance Directives Information Provided: No service: No Sexual orientation: Did not discuss Physical Exam ED Vital Signs: Vital Signs - 24 hr 08/08/22 20:30 08/08/22 22:00 08/09/22 00:00 Temperature 96.6 F L 99.2 F 97.8 F Pulse Rate 124 H 103 H 95 Respiratory Rate 18 16 16 Blood Pressure 114/81 131/68 119/71 Pulse Oximetry 95 98 98 Oxygen Delivery Method Room Air Room Air Room Air BMI result Body Mass Index 31.4 Appearance: Alert. Oriented X3. No acute distress. Eyes: PERRLA, No Nystagmus ENT: Pharynx normal. Oral Mucosa moist Neck: Normal inspection. Neck supple. CVS: Normal heart rate and rhythm. Pulses normal. Respiratory: No respiratory distress. Equal air entry bilateral, no wheezing/rales/rhonchi Abdomen: Soft , tenderness in epigastric area Bowel sounds are present, no mass palpable, no CVA tenderness Skin: Skin warm and dry. Normal skin color. Normal skin turgor. Extremities: No lower extremity edema. No calf tenderness back: Diffuse lumbar tenderness no focal spinal tenderness sensations intact Neuro: Oriented X 3. No motor deficit. Medical Decision Making Medical Decision Making [facility] Narrative: Patient diffuse abdominal pain CT scan negative for acute pathology likely has gastritis start patient on Protonix will give tramadol for chronic back Differential Diagnosis Cholelithiasis/pancreatitis/gastritis/kidney stone Lab Data [facility] Lab Attestation statement: I reviewed the patient's lab results. 08/08/22 20:49 08/08/22 20:49 Labs: Lab Results 08/08/22 08/08/22 08/08/22 Range/Units 20:49 20:49 22:29 WBC 7.5 (4.8-10.8) X10*3/uL RBC 4.17 L (4.20-5.50) X10*6/uL Hgb 13.2 (12.0-16.0) g/dl Hct 40.8 (37.0-47.0) % MCV 97.8 (80.0-98.0) fL MCH 31.7 (27.0-33.0) pg MCHC 32.4 (31.0-35.0) g/dl RDW 13.2 (11.0-16.0) % Plt Count 331 (160-400) X10*3/uL MPV 9.2 L (9.4-12.3) fL Immature Gran % (Auto) 0.8 H (0.0-0.4) % Neut % (Auto) 58.3 (45-73) % Lymph % (Auto) 31.1 (20-40) % [place] % (Auto) 4.6 (2-11) % Eos % (Auto) 4.3 H (0-4) % Baso % (Auto) 0.9 (0-2) % Lymph # (Auto) 2.3 (1.2-4.9) X10*3/uL [place] # (Auto) 0.3 (0.1-1.2) X10*3/uL Eos # (Auto) 0.3 (0.0-0.4) X10*3/uL Baso # (Auto) 0.1 (0.0-0.2) X10*3/uL Abs Immat Gran (auto) 0.06 H (0.00-0.03) X10*3/uL Absolute Neuts (auto) 4.4 (2.0-8.3) x10*3/uL Absolute Nucleated RBC 0.000 (0.0-0.012) X10*3/uL Nucleated RBC % (auto) 0.0 (0.0-0.2) /100WBC Sodium 141 (135-145) mmol/L Potassium 4.2 (3.3-5.1) mmol/L Chloride 102 (96-108) mmol/L Carbon Dioxide 28 (22-29) mmol/L Anion Gap 15 (12-20) BUN 7 L (9-16) mg/dL Creatinine 0.84 (0.5-1.4) mg/dL Estim Creat Clear Calc 88.7 Estimated GFR > 60 Random Glucose 156 H (60-115) mg/dL Calcium 8.7 (8.4-10.2) mg/dL Total Bilirubin 0.3 (0.0-1.0) mg/dL Direct Bilirubin < 0.2 (0.0-0.5) mg/dL AST 19 (5-31) U/L ALT 17 (0-31) U/L Alkaline Phosphatase 91 (39-117) U/L Total Protein 6.2 L (6.5-8.0) g/dL Albumin 3.9 (3.5-5.0) g/dL Lipase 13 (8-78) U/L Urine Color Yellow Urine Appearance Clear Urine pH 5.5 (5.0-9.0) Ur Specific [place] 1.010 (1.005-1.025) Urine Protein Negative (Neg-Trace) mg/dL Urine Glucose (UA) Negative (Negative) mg/dL Urine Ketones Negative (Negative) mg/dL Urine Blood Negative (Negative) Urine Nitrite Negative (Negative) Ur Leukocyte Esterase Negative (Negative) Medications Administered Discontinued Medications Generic Name Dose Route Start Last Admin Trade Name Freq PRN Reason Stop Dose Admin Al Hydroxide/Mg Hydroxide 30 ml 08/08/22 21:33 08/08/22 22:31 Magnesium Hydrox/Alum Hydrox 30 Ml Oral.Susp PO 08/08/22 21:34 30 ml ONCE ONE Administration Omeprazole 40 mg 08/08/22 21:33 08/08/22 22:31 Omeprazole 40 Mg Capsule.Dr PO 08/08/22 21:34 40 mg ONCE ONE Administration Oxycodone HCl 5 mg 08/09/22 00:13 08/09/22 00:25 Oxycodone Hcl Immed Release 5 Mg Tablet PO 08/09/22 00:14 5 mg ONCE ONE Administration Discharge Plan Discharge Clinical Impression: Gastritis, Back pain Patient Disposition: Home, Self-Care Instructions: Gastritis (ED), Back Pain (ED) Additional Instructions: Drink plenty of fluids Avoid NSAID Protonix daily as advised Oxycodone for pain Prescriptions: New pantoprazole [Protonix] 40 mg tablet,delayed release (DR/EC) 40 mg PO DAILY Qty: 30 0RF tramadol 50 mg tablet 50 mg PO Q6H PRN (Reason: pain) Qty: 20 0RF No Action amoxicillin 500 mg capsule 1,000 mg PO TID 5 Days Qty: 30 0RF prednisone 20 mg tablet 60 mg PO DAILY 5 Days Qty: 15 0RF albuterol sulfate [ProAir HFA] 90 mcg/actuation HFA aerosol inhaler 2 puff inhalation Q4-6H PRN (Reason: shortness of breath or wheezing) Qty: 8.5 0RF ketorolac 10 mg tablet 10 mg PO QID PRN (Reason: pain) 5 Days Qty: 20 0RF Rx Instructions: Recieved toradol 30mg IM in the ED buprenorphine-naloxone 2-0.5 mg film 1 strip sublingual DAILY fluoxetine 20 mg Capsule 20 mg PO DAILY 30 Days Qty: 30 0RF melatonin 3 mg Tablet 3 mg PO BEDTIME PRN (Reason: sleep) 30 Days Qty: 30 0RF Aspercreme with Aloe 10 % Cream 1 appl topical TID PRN (Reason: Pain, Moderate (Pain Scale 4-6) 30 Days Qty: 35.4 0RF cyclobenzaprine 10 mg tablet 5 - 10 mg PO BID PRN (Reason: muscle spasm) 30 Days Qty: 30 0RF atorvastatin 10 mg tablet 10 mg PO DAILY 30 Days Qty: 30 0RF clonazepam 0.5 mg tablet 0.5 mg PO BID PRN (Reason: Anxiety) 7 Days Qty: 14 0RF risperidone 2 mg tablet 3 mg PO BEDTIME 30 Days Qty: 45 0RF naloxone [Narcan] 4 mg/actuation spray,non-aerosol 4 mg intranasal Q2M PRN (Reason: opioid overdose) 1 Days Qty: 1 0RF Rx Instructions: spray 1 dose into ONE nostril; alternate nostrils w each dose until help arrives hydrocodone-acetaminophen 5-325 mg tablet 1 - 2 tab PO Q6H PRN (Reason: pain) Qty: 15 0RF azithromycin 250 mg tablet See Rx Instructions .ROUTE .COMPLEX Qty: 6 0RF Rx Instructions: For 250 mg dose pack: take 500 mg today (day 1), then 250 mg for 4 days (days 2-5) prednisone 20 mg tablet 40 mg PO DAILY 5 Days Qty: 10 0RF albuterol sulfate 90 mcg/actuation aerosol powdr breath activated 2 inh inhalation Q4-6H PRN (Reason: shortness of breath or wheezing) Qty: 1 0RF (DME) nebulizer and compressor [[place] Choice Nebulizer] Device See Rx Instructions .Route Qty: 1 0RF Rx Instructions: As directed albuterol sulfate 2.5 mg /3 mL (0.083 %) solution for nebulization 2.5 mg inhalation Q4-6H PRN (Reason: shortness of breath or wheezing) Qty: 90 1RF prednisone 10 mg tablets,dose pack 10 mg PO PER PKG DIR Qty: 21 0RF Rx Instructions: 4 tabs qd x 3d then 2 tabs qd x 3d then 1 tab qd x 3 d
[2022-08-08 22:00] VITALS: BP 131/68; PULSE 103; RESP 16; TEMP 37.3; O2SAT 98
--- NOTE | 2022-08-08 22:30 | MHC.EDTECH ---
pt vitals sign taken and urine sample sent to lab .
[2022-08-08] MEDS: Magnesium Hydrox/Alum Hydrox 30 ML ORAL.SUSP PO (22:31)
[2022-08-08] MEDS: Omeprazole 40 MG CAPSULE.DR PO (22:31)
[2022-08-08 22:41] LABS: Appearance Urine Clear; Color Urine Yellow; Glucose Urine UA Negative (Negative); Leukocyte Esterase Urine Negative (Negative); Nitrite Urine Negative (Negative); PH 5.5 (5.0-9.0); Urine Blood Negative (Negative); Urine Ketones Negative (Negative); Urine Protein Negative (Neg-Trace)
[2022-08-09] VITALS: BP 119/71; PULSE 95; RESP 16; TEMP 36.6; O2SAT 98
[2022-08-09] MEDS: oxyCODONE HCl Immed Release 5 MG TABLET PO (00:25)
== END 2022-08-09 00:42 | disposition home or self-care (01) ==
PROVIDERS: Emergency Provider Internal Medicine; PCP Internal Medicine
DX: K29.70 Gastritis, unspecified, without bleeding (principal); M54.50 Low back pain, unspecified; R10.9 Unspecified abdominal pain; Z79.899 Other long term (current) drug therapy
CPT/HCPCS: 36415; 74176; 80053; 81003; 82248; 83690; 85025; 99283; 99284

== ENCOUNTER 2022-08-19 23:22 | Emergency (ER) | payer OTHER, SELFPAY ==
[2022-08-19 23:25] VITALS: BP 136/89; PULSE 128; RESP 18; TEMP 36.9; O2SAT 96; BMI 31.4
[2022-08-19 23:58] LABS: Basophils Absolute Auto 0.1 X10*3/uL (0.0-0.2); Basophils Percent Auto 0.8 % (0-2); Eosinophils Absolute Auto 0.3 X10*3/uL (0.0-0.4); Eosinophils Percent Auto 2.7 % (0-4); Hematocrit 39.8 % (37.0-47.0); Hemoglobin 13.1 g/dl (12.0-16.0); Imm Gran Abs Auto 0.02 X10*3/uL (0.00-0.03); Imm Gran Pct Auto 0.2 % (0.0-0.4); Lymphocytes Absolute Auto 2.7 X10*3/uL (1.2-4.9); Lymphocytes Percent Auto 24.9 % (20-40); MANUAL DIFF FLAG NO; Mean Corpuscular HGB Conc 32.9 g/dl (31.0-35.0); Mean Corpuscular Hemoglobin 31.6 pg (27.0-33.0); Mean Corpuscular Volume 96.1 fL (80.0-98.0); Mean Platelet Volume 9.3 fL (9.4-12.3); Monocytes Absolute Auto 0.5 X10*3/uL (0.1-1.2); Monocytes Percent Auto 4.9 % (2-11); Neutrophils Absolute Auto 7.1 x10*3/uL (2.0-8.3); Neutrophils Percent Auto 66.5 % (45-73); Platelet Count 317 X10*3/uL (160-400); Red Blood Count 4.14 X10*6/uL (4.20-5.50); White Blood Count 10.7 X10*3/uL (4.8-10.8)
[2022-08-20 00:27] LABS: Alanine Aminotransferase 14 U/L (0-31); Alkaline Phosphatase 101 U/L (39-117); Anion Gap 14 (12-20); Aspartate Amino Transferase 18 U/L (5-31); Bilirubin Total 0.2 mg/dL (0.0-1.0); Blood Urea Nitrogen 6 mg/dL (9-16); Calcium 8.4 mg/dL (8.4-10.2); Carbon Dioxide 25 mmol/L (22-29); Chloride 102 mmol/L (96-108); Creatinine Clr Calc Pharmacy 99.4; Estimated Glomerular Filt Rate > 60; Glucose Random 124 mg/dL (60-115); Potassium 3.9 mmol/L (3.3-5.1); Sodium 137 mmol/L (135-145); Total Protein 6.7 g/dL (6.5-8.0)
[2022-08-20 02:00] VITALS: BP 119/68; PULSE 98; RESP 16; TEMP 36.8; O2SAT 98
--- NOTE | 2022-08-20 02:08 | ED_ITS ---
HPI - Back Pain/Injury General Chief Complaint: Back Pain/Injury Stated Complaint: Back Pain/ stomach swollen,Pain in legs Time Seen by Provider: 08/20/22 01:49 Source: patient Mode of arrival: ambulatory Limitations: no limitations History of Present Illness HPI Narrative: 52-year-old female who presents emergency department for evaluation of lower back pain. Patient states approximately 4 months prior she fell out of bed and since that time she has been having lower back pain. A she states the pain radiates across her back and down the back of her legs to her knees. She states she has been getting this pain every day and the pain is better at night when she is lying down but worse when she standing up and moving. She states that yesterday at 17:00 hours while she was standing in her kitchen the pain became severe to the point where she became diaphoretic. She denies loss of bowel or bladder control. She denied fever, chills, frequency, urgency or dysuria. Patient states that she was taking ibuprofen 800 mg 3 times a day, ibuprofen and Flexeril with no relief for pain. The patient was seen on 08/08/2022 4 abdominal distension increased gas. She had a negative workup including a CT scan of the abdomen pelvis. She was diagnosed with gastritis. She was advised to stop taking ibuprofen and she was started on Protonix daily. She was also given a prescription for tramadol which she states did help her pain but she is now out of this medication. The patient states that she does have chronic pain in her lower extremities and does take Suboxone for chronic pain. Related Data Home Medications Medication Instructions Recorded Confirmed buprenorphine 2 mg-naloxone 0.5 mg 1 strip sublingual DAILY 07/14/21 07/14/21 sublingual film Previous Rx's Medication Instructions Recorded atorvastatin 10 mg tablet 10 mg PO DAILY 30 days #30 tabs 07/24/21 clonazepam 0.5 mg tablet 0.5 mg PO BID PRN Anxiety 7 days 07/24/21 #14 tabs cyclobenzaprine 10 mg tablet 5 - 10 mg PO BID PRN muscle spasm 07/24/21 30 days #30 tabs fluoxetine 20 mg capsule 20 mg PO DAILY 30 days #30 caps 07/24/21 melatonin 3 mg tablet 3 mg PO BEDTIME PRN sleep 30 days 07/24/21 #30 tabs naloxone 4 mg/actuation nasal 4 mg intranasal Q2M PRN opioid 07/24/21 spray (Narcan) overdose 1 day #1 ea risperidone 2 mg tablet 3 mg PO BEDTIME 30 days #45 tabs 07/24/21 trolamine salicylate-aloe vera 10 1 appl topical TID PRN Pain, 07/24/21 % topical cream (Aspercreme with Moderate (Pain Scale 4-6 30 days Aloe) #35.4 grams hydrocodone 5 mg-acetaminophen 325 1 - 2 tab PO Q6H PRN pain #15 tabs 08/23/21 mg tablet albuterol sulfate 90 mcg/actuation 2 puff inhalation Q4-6H PRN 02/20/22 aerosol inhaler (ProAir HFA) shortness of breath or wheezing #8.5 grams amoxicillin 500 mg capsule 1,000 mg PO TID 5 days #30 caps 02/20/22 prednisone 20 mg tablet 60 mg PO DAILY 5 days #15 tabs 02/20/22 albuterol sulfate 90 mcg/actuation 2 inh inhalation Q4-6H PRN 03/08/22 breath activated powder inhaler shortness of breath or wheezing #1 ea azithromycin 250 mg tablet See Rx Instructions PO .COMPLEX #6 03/08/22 tabs prednisone 20 mg tablet 40 mg PO DAILY 5 days #10 tabs 03/08/22 albuterol sulfate 2.5 mg/3 mL 2.5 mg (3 mL) inhalation Q4-6H PRN 03/23/22 (0.083 %) solution for nebulization shortness of breath or wheezing #90 mL nebulizer and compressor ([place] #1 ea 03/23/22 Choice Nebulizer) prednisone 10 mg tablets in a dose 10 mg PO PER PKG DIR #21 ea 03/23/22 pack ketorolac 10 mg tablet 10 mg PO QID PRN pain 5 days #20 04/07/22 tabs pantoprazole 40 mg tablet,delayed 40 mg PO DAILY #30 tabs 08/09/22 release (Protonix) tramadol 50 mg tablet 50 mg PO Q6H PRN pain #20 tabs 08/09/22 methocarbamol 500 mg tablet 1,000 mg PO TID 7 days #42 tabs 08/20/22 tramadol 50 mg tablet 50 mg PO Q6H PRN pain #14 tabs 08/20/22 Allergies Allergy/AdvReac Type Severity Reaction Status Date / Time levofloxacin [From Levaquin] AdvReac Unknown Verified 08/19/22 23:24 Review of Systems Review of Systems: Yes all other systems are reviewed and are negative [facility] Past Medical History [facility] Narrative: Past surgical history: Patient had a neck fusion in 2012 and treatment for disc in her neck in 2016. Social history: She smokes 1 pack of cigarettes per day times 40 years. She denies alcohol use. She denies drug use. Medical History Bipolar disorder Chronic neck pain with history of cervical spinal surgery Chronic pain of both knees High cholesterol Social History Social History Household Members: Children Housing: House Do you presently have visiting nurse or other home services: No Alcohol intake: never Patient Tobacco Use Status: Current everyday Tobacco user Tobacco use type: Cigarette Cigarette Packs Per Day: 1 Cigarettes Per Day: 20.0 Years Smoked: 39 years e-Cigarette/Vaping Use: Former Use Second Hand Smoke Exposure: No Substance Use Type: Opiates Advance Directives: No Advance Directives Information Provided: Yes service: No Sexual orientation: Did not discuss Physical Exam Vital Signs: Vital Signs: Last Vital Signs Temp 98.4 F 08/19/22 23:25 Pulse 128 H 08/19/22 23:25 Resp 18 08/19/22 23:25 BP 136/89 08/19/22 23:25 Pulse Ox 96 08/19/22 23:25 O2 Del Method 08/19/22 23:25 BMI result Body Mass Index 31.4 Const: General: cooperative and no acute distress Orientation/consciousness: oriented to person and oriented to place Cox itations: no limitations HEENT: Head: Yes normal to inspection, Yes normocephalic and Yes atraumatic Ears: external ears normal General nose exam: Normal external nose present Face and sinus: Yes normal facial exam Mouth: Normal oral and palatal mucosa present Throat: Yes posterior oropharynx normal Eyes: General: appearance normal, both eyes and all related structures Pupils: Equal, round and reactive pupils present Neck: Neck: Yes normal visual inspection, Yes no lymphadenopathy, Yes trachea midline and Yes supple Chest: Chest palpation & inspection: normal inspection of the chest and normal palpation of entire chest wall Resp: Effort & Inspection: normal respiratory effort and able to speak in complete sentences Auscultation: clear to auscultation bilaterally Cardio: Rate: regular rate Rhythm: regular rhythm Heart sounds: S1 normal heart sound present, S2 normal heart sound present and no murmurs GI: Inspection: Yes normal to inspection Palpation (GI): Soft to palpation, nontender and no guarding Auscultation: normal bowel sounds Back/Spine/Pelvis: Other: Patient has tenderness palpation of her lumbar sacral spine as well as the paraspinal muscles in these areas. There is no spasm. The patient has negative straight leg raises bilaterally. Skin: General skin exam: no rashes or lesions noted Neuro: General: oriented to person and oriented to place Cranial nerves: Yes CN's II-XII intact bilaterally and Yes Equal, round and reactive pupils present Cognition (Neuro): normal cognition Motor exam (neuro): 5/5 motor strength present throughout Extrem: General: Yes normal to inspection Psych: Appearance: grossly normal Speech and movement: Normal speech and movement present Affect: normal affect Attitude: cooperative Thought process: Normal thought process present Thought content: Normal thought content present Medical Decision Making Medical Decision Making MDM Narrative: 52-year-old female who presents emergency department for evaluation of lower back pain radiating down her posterior legs bilaterally x4 months which started after she fell out of bed. The patient was seen in the emergency department on 08/08/2021 and diagnosed with gastritis secondary to ibuprofen she was started on tramadol and has been taking Tylenol Flexeril with no relief for pain. The patient's vital signs initially revealed an elevated pulse of 128 without treatment it came down to 98 otherwise there were unremarkable. Exam did reveal tenderness palpation of her lumbar sacral spine as as the paraspinal muscles in this area. She had negative straight leg raises and a normal neurologic exam. I ordered a laboratory evaluation to include CBC, CMP. 0217: Laboratory evaluation revealed an elevated glucose 124 otherwise unremarkable. My impression is the patient either has spinal stenosis or disc disease as the cause of her symptoms. I did discuss this with the patient. Given her normal neurologic exam at this time I do not think that she needs any imaging from the emergency department until need an MRI as an outpatient. The patient was advised to continue taking Tylenol for pain. She will be prescribed tramadol again since this did help her pain. She was advised to stop Flexeril a nd I did prescribe Robaxin 1000 mg 4 times a day as needed for spasm. Patient was given printed and verbal instructions discharged home. Differential Diagnosis Differential diagnosis includes was not limited to spinal stenosis, central disc disease, spinal abscess, musculoskeletal strain Lab Data [facility] Lab Attestation statement: I reviewed the patient's lab results. Please see [facility] for my discussion 08/19/22 23:52 08/19/22 23:52 Labs: Lab Results 08/19/22 08/19/22 Range/Units 23:52 23:52 WBC 10.7 (4.8-10.8) X10*3/uL RBC 4.14 L (4.20-5.50) X10*6/uL Hgb 13.1 (12.0-16.0) g/dl Hct 39.8 (37.0-47.0) % MCV 96.1 (80.0-98.0) fL MCH 31.6 (27.0-33.0) pg MCHC 32.9 (31.0-35.0) g/dl RDW 13.0 (11.0-16.0) % Plt Count 317 (160-400) X10*3/uL MPV 9.3 L (9.4-12.3) fL Immature Gran % (Auto) 0.2 (0.0-0.4) % Neut % (Auto) 66.5 (45-73) % Lymph % (Auto) 24.9 (20-40) % Gulf % (Auto) 4.9 (2-11) % Eos % (Auto) 2.7 (0-4) % Baso % (Auto) 0.8 (0-2) % Lymph # (Auto) 2.7 (1.2-4.9) X10*3/uL [place] # (Auto) 0.5 (0.1-1.2) X10*3/uL Eos # (Auto) 0.3 (0.0-0.4) X10*3/uL Baso # (Auto) 0.1 (0.0-0.2) X10*3/uL Abs Immat Gran (auto) 0.02 (0.00-0.03) X10*3/uL Absolute Neuts (auto) 7.1 (2.0-8.3) x10*3/uL Absolute Nucleated RBC 0.000 (0.0-0.012) X10*3/uL Nucleated RBC % (auto) 0.0 (0.0-0.2) /100WBC Sodium 137 (135-145) mmol/L Potassium 3.9 (3.3-5.1) mmol/L Chloride 102 (96-108) mmol/L Carbon Dioxide 25 (22-29) mmol/L Anion Gap 14 (12-20) BUN 6 L (9-16) mg/dL Creatinine 0.75 (0.5-1.4) mg/dL Estim Creat Clear Calc 99.4 Estimated GFR > 60 Random Glucose 124 H (60-115) mg/dL Calcium 8.4 (8.4-10.2) mg/dL Total Bilirubin 0.2 (0.0-1.0) mg/dL AST 18 (5-31) U/L ALT 14 (0-31) U/L Alkaline Phosphatase 101 (39-117) U/L Total Protein 6.7 (6.5-8.0) g/dL Albumin 4.0 (3.5-5.0) g/dL Discharge Plan Discharge Clinical Impression: Acute lumbar radiculopathy, Lumbar back pain Patient Disposition: Home, Self-Care Instructions: Acute Low Back Pain (ED), Lumbar Radiculopathy (ED) Additional Instructions: Your blood work was normal. Your symptoms are consistent either with spinal stenosis (narrowing of the spinal caused by arthritis) or bulging of your discs in your lower back. Stop taking Flexeril. I am starting you on a different muscle relaxant called Robaxin (methocarbamol) 500 mg pills, take 2 pills 3 times a day as needed for pain and spasm. Take Tylenol (acetaminophen) 500 mg pills, 2 pills every 6 hours as needed for pain. For pain not relieved by Tylenol take tramadol 50 mg pills, 1 pill every 4 hours as needed for pain. Do not drive or work while taking this medication since they can cause sleepiness. Tramadol is a synthetic narcotic medication that can be addicting. If you are concerned about addiction you can ask the pharmacist for less pills or do not get this prescription filled. Continue taking your other medications. You should follow-up with your primary care provider and discuss getting an MRI of your back to see if this helps determine further treatment. Follow-up with your doctor in 2 days. Please return to the emergency department if your symptoms get worse or if you develop any symptoms that are concerning to you. Prescriptions: New methocarbamol 500 mg tablet 1,000 mg PO TID 7 Days Qty: 42 0RF tramadol 50 mg tablet 50 mg PO Q6H PRN (Reason: pain) Qty: 14 0RF No Action amoxicillin 500 mg capsule 1,000 mg PO TID 5 Days Qty: 30 0RF prednisone 20 mg tablet 60 mg PO DAILY 5 Days Qty: 15 0RF albuterol sulfate [ProAir HFA] 90 mcg/actuation HFA aerosol inhaler 2 puff inhalation Q4-6H PRN (Reason: shortness of breath or wheezing) Qty: 8.5 0RF ketorolac 10 mg tablet 10 mg PO QID PRN (Reason: pain) 5 Days Qty: 20 0RF Rx Instructions: Recieved toradol 30mg IM in the ED buprenorphine-naloxone 2-0.5 mg film 1 strip sublingual DAILY fluoxetine 20 mg Capsule 20 mg PO DAILY 30 Days Qty: 30 0RF melatonin 3 mg Tablet 3 mg PO BEDTIME PRN (Reason: sleep) 30 Days Qty: 30 0RF Aspercreme with Aloe 10 % Cream 1 appl topical TID PRN (Reason: Pain, Moderate (Pain Scale 4-6) 30 Days Qty: 35.4 0RF cyclobenzaprine 10 mg tablet 5 - 10 mg PO BID PRN (Reason: muscle spasm) 30 Days Qty: 30 0RF atorvastatin 10 mg tablet 10 mg PO DAILY 30 Days Qty: 30 0RF clonazepam 0.5 mg tablet 0.5 mg PO BID PRN (Reason: Anxiety) 7 Days Qty: 14 0RF risperidone 2 mg tablet 3 mg PO BEDTIME 30 Days Qty: 45 0RF naloxone [Narcan] 4 mg/actuation spray,non-aerosol 4 mg intranasal Q2M PRN (Reason: opioid overdose) 1 Days Qty: 1 0RF Rx Instructions: spray 1 dose into ONE nostril; alternate nostrils w each dose until help arrives hydrocodone-acetaminophen 5-325 mg tablet 1 - 2 tab PO Q6H PRN (Reason: pain) Qty: 15 0RF azithromycin 250 mg tablet See Rx Instructions .ROUTE .COMPLEX Qty: 6 0RF Rx Instructions: For 250 mg dose pack: take 500 mg today (day 1), then 250 mg for 4 days (days 2-5) prednisone 20 mg tablet 40 mg PO DAILY 5 Days Qty: 10 0RF albuterol sulfate 90 mcg/actuation aerosol powdr breath activated 2 inh inhalation Q4-6H PRN (Reason: shortness of breath or wheezing) Qty: 1 0RF (DME) nebulizer and compressor [[place] Choice Nebulizer] Device See Rx Instructions .Route Qty: 1 0RF Rx Instructions: As directed albuterol sulfate 2.5 mg /3 mL (0.083 %) solution for nebulization 2.5 mg inhalation Q4-6H PRN (Reason: shortness of breath or wheezing) Qty: 90 1RF prednisone 10 mg tablets,dose pack 10 mg PO PER PKG DIR Qty: 21 0RF Rx Instructions: 4 tabs qd x 3d then 2 tabs qd x 3d then 1 tab qd x 3 d pantoprazole [Protonix] 40 mg tablet,delayed release (DR/EC) 40 mg PO DAILY Qty: 30 0RF tramadol 50 mg tablet 50 mg PO Q6H PRN (Reason: pain) Qty: 20 0RF
[2022-08-20] MEDS: traMADoL HCL 50 MG TABLET PO (02:15)
== END 2022-08-20 02:46 | disposition home or self-care (01) ==
PROVIDERS: Emergency Provider Emergency Medicine Emergency Medical Services
DX: M54.16 Radiculopathy, lumbar region (principal); M54.9 Dorsalgia, unspecified; M79.606 Pain in leg, unspecified; R19.00 Intra-abdominal and pelvic swelling, mass and lump, unspecified site
CPT/HCPCS: 36415; 80053; 85025; 99283

== ENCOUNTER 2022-09-13 22:23 | Emergency (ER) | payer OTHER, SELFPAY ==
[2022-09-13 23:14] VITALS: BP 123/96; PULSE 114; RESP 16; TEMP 37.2; O2SAT 98; BMI 31.4
[2022-09-14 01:58] VITALS: BP 136/76; PULSE 104; RESP 18; TEMP 36.8; O2SAT 96
--- NOTE | 2022-09-14 02:33 | PC.NURSE ---
Pt ambulatory to restroom to provide urine specimen
[2022-09-14 02:54] LABS: Appearance Urine Clear; Color Urine Yellow; Glucose Urine UA 100 mg/dL (Negative); Leukocyte Esterase Urine Negative (Negative); Nitrite Urine Negative (Negative); PH 6.5 (5.0-9.0); Urine Blood Negative (Negative); Urine Ketones Negative (Negative); Urine Protein Negative (Neg-Trace)
[2022-09-14 02:59] LABS: Bacteria Urine None Seen (None Seen); Hyaline Casts Urine 0-2 /LPF (0-2); RBC Urine 0-2 /HPF (0-2); Squamous Epithelial Cell Urine 0-2 /HPF (0-2); WBC Urine 0-5 /HPF (0-5)
[2022-09-14 05:22] VITALS: BP 143/86; PULSE 95; RESP 18; TEMP 36.8; O2SAT 94
--- NOTE | 2022-09-14 05:22 | ED_ITS ---
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 plan for colonoscopy and endoscopy previous workup was negative comes here for similar abdominal fullness and chronic back pain no nausea no vomiting no diarrhea patient feels bloated and over she eats something Related Data Home Medications Medication Instructions Recorded Confirmed buprenorphine 2 mg-naloxone 0.5 mg 1 strip sublingual DAILY 07/14/21 07/14/21 sublingual film Previous Rx's Medication Instructions Recorded atorvastatin 10 mg tablet 10 mg PO DAILY 30 days #30 tabs 07/24/21 clonazepam 0.5 mg tablet 0.5 mg PO BID PRN Anxiety 7 days 07/24/21 #14 tabs cyclobenzaprine 10 mg tablet 5 - 10 mg PO BID PRN muscle spasm 07/24/21 30 days #30 tabs fluoxetine 20 mg capsule 20 mg PO DAILY 30 days #30 caps 07/24/21 melatonin 3 mg tablet 3 mg PO BEDTIME PRN sleep 30 days 07/24/21 #30 tabs naloxone 4 mg/actuation nasal 4 mg intranasal Q2M PRN opioid 07/24/21 spray (Narcan) overdose 1 day #1 ea risperidone 2 mg tablet 3 mg PO BEDTIME 30 days #45 tabs 07/24/21 trolamine salicylate-aloe vera 10 1 appl topical TID PRN Pain, 07/24/21 % topical cream (Aspercreme with Moderate (Pain Scale 4-6 30 days Aloe) #35.4 grams hydrocodone 5 mg-acetaminophen 325 1 - 2 tab PO Q6H PRN pain #15 tabs 08/23/21 mg tablet albuterol sulfate 90 mcg/actuation 2 puff inhalation Q4-6H PRN 02/20/22 aerosol inhaler (ProAir HFA) shortness of breath or wheezing #8.5 grams amoxicillin 500 mg capsule 1,000 mg PO TID 5 days #30 caps 02/20/22 prednisone 20 mg tablet 60 mg PO DAILY 5 days #15 tabs 02/20/22 albuterol sulfate 90 mcg/actuation 2 inh inhalation Q4-6H PRN 03/08/22 breath activated powder inhaler shortness of breath or wheezing #1 ea azithromycin 250 mg tablet See Rx Instructions PO .COMPLEX #6 03/08/22 tabs prednisone 20 mg tablet 40 mg PO DAILY 5 days #10 tabs 03/08/22 albuterol sulfate 2.5 mg/3 mL 2.5 mg (3 mL) inhalation Q4-6H PRN 03/23/22 (0.083 %) solution for nebulization shortness of breath or wheezing #90 mL nebulizer and compressor ([place] #1 ea 03/23/22 Choice Nebulizer) prednisone 10 mg tablets in a dose 10 mg PO PER PKG DIR #21 ea 03/23/22 pack ketorolac 10 mg tablet 10 mg PO QID PRN pain 5 days #20 04/07/22 tabs pantoprazole 40 mg tablet,delayed 40 mg PO DAILY #30 tabs 08/09/22 release (Protonix) tramadol 50 mg tablet 50 mg PO Q6H PRN pain #20 tabs 08/09/22 methocarbamol 500 mg tablet 1,000 mg PO TID 7 days #42 tabs 08/20/22 tramadol 50 mg tablet 50 mg PO Q6H PRN pain #14 tabs 08/20/22 dicyclomine 20 mg tablet 20 mg PO QID PRN abdominal pain 09/14/22 #20 tabs tramadol 50 mg tablet 50 mg PO Q6H PRN pain #20 tabs 09/14/22 Allergies Allergy/AdvReac Type Severity Reaction Status Date / Time levofloxacin [From Levaquin] AdvReac Unknown Verified 08/19/22 23:24 Review of Systems Review of Systems Yes all other systems are reviewed and are negative [facility] Past Medical History Medical History Bipolar disorder Chronic neck pain with history of cervical spinal surgery Chronic pain of both knees High cholesterol Social History Social History Household Members: Children Housing: House Do you presently have visiting nurse or other home services: No Alcohol intake: never Patient Tobacco Use Status: Current everyday Tobacco user Tobacco use type: Cigarette Cigarette Packs Per Day: 1 Cigarettes Per Day: 20.0 Years Smoked: 39 years e-Cigarette/Vaping Use: Former Use Second Hand Smoke Exposure: No Substance Use Type: Opiates Advance Directives: No Advance Directives Information Provided: Yes service: No Sexual orientation: Did not discuss Physical Exam ED Vital Signs: Vital Signs - 24 hr 09/13/22 23:14 09/14/22 01:58 09/14/22 05:22 Temperature 98.9 F 98.3 F 98.3 F Pulse Rate 114 H 104 H 95 Respiratory Rate 16 18 18 Blood Pressure 123/96 H 136/76 143/86 H Pulse Oximetry 98 96 94 Oxygen Delivery Method Room Air Room Air Room Air BMI result Body Mass Index 31.4 Appearance: Alert. Oriented X3. No acute distress. Eyes: PERRLA, No Nystagmus ENT: Pharynx normal. Oral Mucosa moist Neck: Normal inspection. Neck supple. CVS: Normal heart rate and rhythm. Pulses normal. Respiratory: No respiratory distress. Equal air entry bilateral, no wheezing/rales/rhonchi Abdomen: Soft diffuse tenderness no rebound tenderness and guarding Bowel sounds are present, no mass palpable, no CVA tenderness Skin: Skin warm and dry. Normal skin color. Normal skin turgor. Extremities: No lower extremity edema. No calf tenderness Neuro: Oriented X 3. No motor deficit. No sensory deficit.No cerebellar signs , cranial nerves II-XII intact Medical Decision Making Medical Decision Making MDM Narrative: Patient with benign abdomen previous workup negative bleeding CT scan. UA negative for UTI likely IBS discharge patient on Bentyl and tramadol for chronic back pain Lab Data [facility] Lab Attestation statement: I reviewed the patient's lab results. Labs: Lab Results 09/14/22 Range/Units 02:42 Urine Color Yellow Urine Appearance Clear Urine pH 6.5 (5.0-9.0) Ur Specific [place] 1.010 (1.005-1.025) Urine Protein Negative (Neg-Trace) mg/dL Urine Glucose (UA) 100 H (Negative) mg/dL Urine Ketones Negative (Negative) mg/dL Urine Blood Negative (Negative) Urine Nitrite Negative (Negative) Ur Leukocyte Esterase Negative (Negative) Urine RBC 0-2 (0-2) /HPF Urine WBC 0-5 (0-5) /HPF Ur Squamous Epith Cells 0-2 (0-2) /HPF Urine Bacteria None Seen (None Seen) Hyaline Casts 0-2 (0-2) /LPF Medications Administered Discontinued Medications Generic Name Dose Route Start Last Admin Trade Name Freq PRN Reason Stop Dose Admin Dicyclomine HCl 20 mg 09/14/22 05:48 09/14/22 06:10 Dicyclomine Hcl 10 Mg Capsule PO 09/14/22 05:49 20 mg ONCE ONE Administration Tramadol HCl 50 mg 09/14/22 05:50 09/14/22 06:10 Tramadol Hcl 50 Mg Tablet PO 09/14/22 05:51 50 mg ONCE ONE Administration Discharge Plan Discharge Clinical Impression: Irritable bowel syndrome, Back pain Patient Disposition: Home, Self-Care Instructions: Irritable Bowel Syndrome (ED), Back Pain (ED) Additional Instructions: Take pain medication for back and Bentyl for abdominal pain Follow-up with GI and PCP Prescriptions: New tramadol 50 mg tablet 50 mg PO Q6H PRN (Reason: pain) Qty: 20 0RF dicyclomine 20 mg tablet 20 mg PO QID PRN (Reason: abdominal pain) Qty: 20 0RF No Action amoxicillin 500 mg capsule 1,000 mg PO TID 5 Days Qty: 30 0RF prednisone 20 mg tablet 60 mg PO DAILY 5 Days Qty: 15 0RF albuterol sulfate [ProAir HFA] 90 mcg/actuation HFA aerosol inhaler 2 puff inhalation Q4-6H PRN (Reason: shortness of breath or wheezing) Qty: 8.5 0RF ketorolac 10 mg tablet 10 mg PO QID PRN (Reason: pain) 5 Days Qty: 20 0RF Rx Instructions: Recieved toradol 30mg IM in the ED methocarbamol 500 mg tablet 1,000 mg PO TID 7 Days Qty: 42 0RF tramadol 50 mg tablet 50 mg PO Q6H PRN (Reason: pain) Qty: 14 0RF buprenorphine-naloxone 2-0.5 mg film 1 strip sublingual DAILY fluoxetine 20 mg Capsule 20 mg PO DAILY 30 Days Qty: 30 0RF melatonin 3 mg Tablet 3 mg PO BEDTIME PRN (Reason: sleep) 30 Days Qty: 30 0RF Aspercreme with Aloe 10 % Cream 1 appl topical TID PRN (Reason: Pain, Moderate (Pain Scale 4-6) 30 Days Qty: 35.4 0RF cyclobenzaprine 10 mg tablet 5 - 10 mg PO BID PRN (Reason: muscle spasm) 30 Days Qty: 30 0RF atorvastatin 10 mg tablet 10 mg PO DAILY 30 Days Qty: 30 0RF clonazepam 0.5 mg tablet 0.5 mg PO BID PRN (Reason: Anxiety) 7 Days Qty: 14 0RF risperidone 2 mg tablet 3 mg PO BEDTIME 30 Days Qty: 45 0RF naloxone [Narcan] 4 mg/actuation spray,non-aerosol 4 mg intranasal Q2M PRN (Reason: opioid overdose) 1 Days Qty: 1 0RF Rx Instructions: spray 1 dose into ONE nostril; alternate nostrils w each dose until help arrives hydrocodone-acetaminophen 5-325 mg tablet 1 - 2 tab PO Q6H PRN (Reason: pain) Qty: 15 0RF azithromycin 250 mg tablet See Rx Instructions .ROUTE .COMPLEX Qty: 6 0RF Rx Instructions: For 250 mg dose pack: take 500 mg today (day 1), then 250 mg for 4 days (days 2-5) prednisone 20 mg tablet 40 mg PO DAILY 5 Days Qty: 10 0RF albuterol sulfate 90 mcg/actuation aerosol powdr breath activated 2 inh inhalation Q4-6H PRN (Reason: shortness of breath or wheezing) Qty: 1 0RF (DME) nebulizer and compressor [[place] Choice Nebulizer] Device See Rx Instructions .Route Qty: 1 0RF Rx Instructions: As directed albuterol sulfate 2.5 mg /3 mL (0.083 %) solution for nebulization 2.5 mg inhalation Q4-6H PRN (Reason: shortness of breath or wheezing) Qty: 90 1RF prednisone 10 mg tablets,dose pack 10 mg PO PER PKG DIR Qty: 21 0RF Rx Instructions: 4 tabs qd x 3d then 2 tabs qd x 3d then 1 tab qd x 3 d pantoprazole [Protonix] 40 mg tablet,delayed release (DR/EC) 40 mg PO DAILY Qty: 30 0RF tramadol 50 mg tablet 50 mg PO Q6H PRN (Reason: pain) Qty: 20 0RF Interventions: ED Discharge Assessment Last Done: 09/14/22 06:13 Discharge Date/Time: 09/14/22 06:13
[2022-09-14] MEDS: traMADoL HCL 50 MG TABLET PO (06:10)
[2022-09-14] MEDS: Dicyclomine HCl 10 MG CAPSULE 20 MG PO (06:10)
== END 2022-09-14 06:13 | disposition home or self-care (01) ==
PROVIDERS: Emergency Provider Internal Medicine; PCP Internal Medicine
DX: K58.9 Irritable bowel syndrome, unspecified (principal); G89.29 Other chronic pain; M54.9 Dorsalgia, unspecified; E78.5 Hyperlipidemia, unspecified; F17.210 Nicotine dependence, cigarettes, uncomplicated; Z79.02 Long term (current) use of antithrombotics/antiplatelets; Z79.899 Other long term (current) drug therapy
CPT/HCPCS: 81001; 99283; 99284

== ENCOUNTER 2022-09-28 21:05 | Emergency (ER) | payer OTHER, SELFPAY ==
[2022-09-28 21:14] VITALS: BP 142/86; PULSE 109; RESP 18; TEMP 37.3; O2SAT 94; BMI 31.4
[2022-09-28 21:44] LABS: Basophils Absolute Auto 0.1 X10*3/uL (0.0-0.2); Basophils Percent Auto 0.8 % (0-2); Eosinophils Absolute Auto 0.3 X10*3/uL (0.0-0.4); Eosinophils Percent Auto 2.7 % (0-4); Hemoglobin 13.4 g/dl (12.0-16.0); Imm Gran Abs Auto 0.03 X10*3/uL (0.00-0.03); Imm Gran Pct Auto 0.3 % (0.0-0.4); Lymphocytes Absolute Auto 2.7 X10*3/uL (1.2-4.9); Lymphocytes Percent Auto 27.8 % (20-40); MANUAL DIFF FLAG NO; Mean Corpuscular HGB Conc 32.7 g/dl (31.0-35.0); Mean Corpuscular Hemoglobin 31.6 pg (27.0-33.0); Mean Corpuscular Volume 96.7 fL (80.0-98.0); Mean Platelet Volume 9.9 fL (9.4-12.3); Monocytes Absolute Auto 0.5 X10*3/uL (0.1-1.2); Monocytes Percent Auto 5.1 % (2-11); Neutrophils Absolute Auto 6.1 x10*3/uL (2.0-8.3); Neutrophils Percent Auto 63.3 % (45-73); Platelet Count 304 X10*3/uL (160-400); Red Blood Count 4.24 X10*6/uL (4.20-5.50); Red Cell Distribution Width 13.2 % (11.0-16.0); White Blood Count 9.6 X10*3/uL (4.8-10.8)
[2022-09-28 22:16] LABS: Alanine Aminotransferase 22 U/L (0-31); Albumin Level 3.9 g/dL (3.5-5.0); Alkaline Phosphatase 96 U/L (39-117); Anion Gap 15 (12-20); Aspartate Amino Transferase 22 U/L (5-31); Bilirubin Total 0.2 mg/dL (0.0-1.0); Blood Urea Nitrogen 7 mg/dL (9-16); Calcium 8.8 mg/dL (8.4-10.2); Carbon Dioxide 28 mmol/L (22-29); Chloride 104 mmol/L (96-108); Creatinine Clr Calc Pharmacy 89.8; Estimated Glomerular Filt Rate > 60; Glucose Random 114 mg/dL (60-115); Potassium 4.6 mmol/L (3.3-5.1); Sodium 142 mmol/L (135-145); Total Protein 6.4 g/dL (6.5-8.0)
--- NOTE | 2022-09-28 22:54 | ED_ITS ---
HPI - General Adult General Chief complaint: General Medical Stated complaint: stomachache, back pain. vomiting Time Seen by Provider: 09/28/22 22:42 Source: patient Mode of arrival: ambulatory Limitations: no limitations History of Present Illness HPI narrative: So the emergency room complaining of epigastric pain that has been present for several months. Patient states that she feels a burning sensation especially when she is laying down. Patient is taking Prilosec [id number] and has good relief. 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 Also, patient complaining of chronic back pain that has been present for over half year. Patient is already doing physical therapy. Related Data Home Medications Medication Instructions Recorded Confirmed buprenorphine 2 mg-naloxone 0.5 mg 1 strip sublingual DAILY 07/14/21 07/14/21 sublingual film Previous Rx's Medication Instructions Recorded atorvastatin 10 mg tablet 10 mg PO DAILY 30 days #30 tabs 07/24/21 clonazepam 0.5 mg tablet 0.5 mg PO BID PRN Anxiety 7 days 07/24/21 #14 tabs cyclobenzaprine 10 mg tablet 5 - 10 mg PO BID PRN muscle spasm 07/24/21 30 days #30 tabs fluoxetine 20 mg capsule 20 mg PO DAILY 30 days #30 caps 07/24/21 melatonin 3 mg tablet 3 mg PO BEDTIME PRN sleep 30 days 07/24/21 #30 tabs naloxone 4 mg/actuation nasal 4 mg intranasal Q2M PRN opioid 07/24/21 spray (Narcan) overdose 1 day #1 ea risperidone 2 mg tablet 3 mg PO BEDTIME 30 days #45 tabs 07/24/21 trolamine salicylate-aloe vera 10 1 appl topical TID PRN Pain, 07/24/21 % topical cream (Aspercreme with Moderate (Pain Scale 4-6 30 days Aloe) #35.4 grams hydrocodone 5 mg-acetaminophen 325 1 - 2 tab PO Q6H PRN pain #15 tabs 08/23/21 mg tablet albuterol sulfate 90 mcg/actuation 2 puff inhalation Q4-6H PRN 02/20/22 aerosol inhaler (ProAir HFA) shortness of breath or wheezing #8.5 grams amoxicillin 500 mg capsule 1,000 mg PO TID 5 days #30 caps 02/20/22 prednisone 20 mg tablet 60 mg PO DAILY 5 days #15 tabs 02/20/22 albuterol sulfate 90 mcg/actuation 2 inh inhalation Q4-6H PRN 03/08/22 breath activated powder inhaler shortness of breath or wheezing #1 ea azithromycin 250 mg tablet See Rx Instructions PO .COMPLEX #6 03/08/22 tabs prednisone 20 mg tablet 40 mg PO DAILY 5 days #10 tabs 03/08/22 albuterol sulfate 2.5 mg/3 mL 2.5 mg (3 mL) inhalation Q4-6H PRN 03/23/22 (0.083 %) solution for nebulization shortness of breath or wheezing #90 mL nebulizer and compressor ([place] #1 ea 03/23/22 Choice Nebulizer) prednisone 10 mg tablets in a dose 10 mg PO PER PKG DIR #21 ea 03/23/22 pack ketorolac 10 mg tablet 10 mg PO QID PRN pain 5 days #20 04/07/22 tabs pantoprazole 40 mg tablet,delayed 40 mg PO DAILY #30 tabs 08/09/22 release (Protonix) tramadol 50 mg tablet 50 mg PO Q6H PRN pain #20 tabs 08/09/22 methocarbamol 500 mg tablet 1,000 mg PO TID 7 days #42 tabs 08/20/22 tramadol 50 mg tablet 50 mg PO Q6H PRN pain #14 tabs 08/20/22 dicyclomine 20 mg tablet 20 mg PO QID PRN abdominal pain 09/14/22 #20 tabs tramadol 50 mg tablet 50 mg PO Q6H PRN pain #20 tabs 09/14/22 sucralfate 1 gram tablet 1 g PO BID #60 tabs 09/28/22 Allergies Allergy/AdvReac Type Severity Reaction Status Date / Time levofloxacin [From Levaquin] AdvReac Unknown Verified 08/19/22 23:24 Review of Systems Review of Systems: Constitutional : No Weight loss, No Fever, No Chills, No Night Sweats, No Fatigue, No Malaise ENT/Mouth : No Hearing loss, No Ear Pain, No Nasal Congestion, No Sinus Pain, No Hoarseness, No sore throat, No Rhinorrhea, No Swallowing Difficulty Eyes: No Eye Pain, No Swelling, No Redness, No Foreign Body, No Discharge, No Vision Changes Cardiovascular : No Chest Pain, No SOB, No Dyspnea on Exertion, No Orthopnea, No Edema, No Palpitations Respiratory : No Cough, No Sputum, No Wheezing, No Smoke Exposure, No Dyspnea Gastrointestinal : No Nausea, No Vomiting, No Diarrhea, No Constipation, complaining of epigastric burning sensation, abdominal pain does get worse with eating or drinking Genitourinary : no irregular bleeding, No Dysuria, No Urinary Frequency, No Hem aturia, No Urinary Incontinence, No Urgency, No Flank Pain, No Urinary Flow Changes, No Hesitancy Musculoskeletal : No joint pain, No Myalgias, No Joint Swelling Skin : No Skin Lesions, No rash Neuro : No Weakness, No Numbness, No Paresthesias, No Loss of Consciousness, No Dizziness, No Headache Psych : No Anxiety/Panic, No Depression, No SI/HI/AH/VH, No Social Issues, Heme/Lymph: No Bruising, No Bleeding,No Lymphadenopathy Endocrine : No Polyuria, No Polydipsia, No Temperature Intolerance PMFSH Past Medical History Medical History Bipolar disorder Chronic neck pain with history of cervical spinal surgery Chronic pain of both knees High cholesterol Social History Social History Household Members: Children Housing: House Do you presently have visiting nurse or other home services: No Alcohol intake: never Patient Tobacco Use Status: Current everyday Tobacco user Tobacco use type: Cigarette Cigarette Packs Per Day: 1 Cigarettes Per Day: 20.0 Years Smoked: 39 years Smoked in Last 30 Days: No e-Cigarette/Vaping Use: Former Use Second Hand Smoke Exposure: No Use of substances other than those prescribed or required for medical reasons: No Substance Use Type: Opiates Advance Directives: No Advance Directives Information Provided: Yes service: No Sexual orientation: Did not discuss Physical Exam ED Vital Signs: Vital Signs - 24 hr 09/28/22 21:14 Temperature 99.2 F Pulse Rate 109 H Respiratory Rate 18 Blood Pressure 142/86 H Pulse Oximetry 94 Oxygen Delivery Method Room Air BMI result Body Mass Index 31.4 Const Other: Appearance: Alert. Oriented X3. No acute distress. Eyes: Pupils equal, round and reactive to light. ENT: Pharynx normal. Neck: Normal inspection. Neck supple. No lymph nodes noted. No crepitus CVS: Normal heart rate and rhythm. Pulses normal. Normal S1 and S2 Respiratory: No respiratory distress. Breath sounds normal. No Wheezing. No rales Abdomen: Soft and nontender. No rigidity. Minimally distended, no rebound, no guarding Skin: Skin warm and dry. Normal skin color. Normal skin turgor. Extremities: No lower extremity edema. No Lacerations. No Rash Neuro: Oriented X 3. No motor deficit. No sensory deficit. Moving all extremities. No slurred speech. CN 2 through 12 grossly intact Psych: calm, cooperative, normal affect Medications Administered Discontinued Medications Generic Name Dose Route Start Last Admin Trade Name Freq PRN Reason Stop Dose Admin Al Hydroxide/Mg Hydroxide 30 ml 09/28/22 22:55 09/28/22 23:08 Magnesium Hydrox/Alum Hydrox 30 Ml Oral.Susp PO 09/28/22 22:56 30 ml ONCE ONE Administration Lidocaine HCl 15 ml 09/28/22 22:55 09/28/22 23:08 Lidocaine Hcl Viscous 2 % 15 Ml Solution MUCOUS MEM 09/28/22 22:56 15 ml ONCE ONE Administration Medical Decision Making Medical Decision Making [facility] Narrative: -I discussed with the patient that given her history, she likely has peptic ulcer disease versus gastritis versus gastric/ duodenal ulcer -patient has an endoscopy planned. Patient recently started taking Prilosec [id number]. I discussed with the patient to inform her logistics officer that she started taking this medication because she may have to stop taking this medication days prior to the procedure. -patient was given p.o. Maalox and viscous lidocaine. -patient instructed to with her primary care physician for the chronic back pain. Patient is already doing physical therapy. -had an outpatient ultrasound done, she showed me the results on her phone/patient portal, shows hepatic steatosis and the common bile duct is 0.9 cm. Patient's LFTs are within normal limits. Patient has no right upper quadrant pain -patient will follow-up with her primary care physician and logistics officer. Patient denies chest pain. EKG my interpretation: Normal sinus rhythm, heart rate 84, no ST segment depression or elevation, no T-wave inversion, QTC 458 Lab Data 09/28/22 21:30 09/28/22 21:30 Labs: Lab Results 09/28/22 09/28/22 Range/Units 21:30 21:30 WBC 9.6 (4.8-10.8) X10*3/uL RBC 4.24 (4.20-5.50) X10*6/uL Hgb 13.4 (12.0-16.0) g/dl Hct 41.0 (37.0-47.0) % MCV 96.7 (80.0-98.0) fL MCH 31.6 (27.0-33.0) pg MCHC 32.7 (31.0-35.0) g/dl RDW 13.2 (11.0-16.0) % Plt Count 304 (160-400) X10*3/uL MPV 9.9 (9.4-12.3) fL Immature Gran % (Auto) 0.3 (0.0-0.4) % Neut % (Auto) 63.3 (45-73) % Lymph % (Auto) 27.8 (20-40) % Stark % (Auto) 5.1 (2-11) % Eos % (Auto) 2.7 (0-4) % Baso % (Auto) 0.8 (0-2) % Lymph # (Auto) 2.7 (1.2-4.9) X10*3/uL Stark # (Auto) 0.5 (0.1-1.2) X10*3/uL Eos # (Auto) 0.3 (0.0-0.4) X10*3/uL Baso # (Auto) 0.1 (0.0-0.2) X10*3/uL Abs Immat Gran (auto) 0.03 (0.00-0.03) X10*3/uL Absolute Neuts (auto) 6.1 (2.0-8.3) x10*3/uL Absolute Nucleated RBC 0.000 (0.0-0.012) X10*3/uL Nucleated RBC % (auto) 0.0 (0.0-0.2) /100WBC Sodium 142 (135-145) mmol/L Potassium 4.6 (3.3-5.1) mmol/L Chloride 104 (96-108) mmol/L Carbon Dioxide 28 (22-29) mmol/L Anion Gap 15 (12-20) BUN 7 L (9-16) mg/dL Creatinine 0.83 (0.5-1.4) mg/dL Estim Creat Clear Calc 89.8 Estimated GFR > 60 Random Glucose 114 (60-115) mg/dL Calcium 8.8 (8.4-10.2) mg/dL Total Bilirubin 0.2 (0.0-1.0) mg/dL AST 22 (5-31) U/L ALT 22 (0-31) U/L Alkaline Phosphatase 96 (39-117) U/L Total Protein 6.4 L (6.5-8.0) g/dL Albumin 3.9 (3.5-5.0) g/dL Discharge Plan Discharge Clinical Impression: Peptic ulcer disease Patient Disposition: Home, Self-Care Instructions: Peptic Ulcer (ED), Diet for Stomach Ulcers and Gastritis (ED) Additional Instructions: Please follow-up with your primary care physician tomorrow. If you have any worsening or new symptoms, please return to the emergency room or call 911 Prescriptions: New sucralfate 1 gram tablet 1 g PO BID Qty: 60 0RF No Action amoxicillin 500 mg capsule 1,000 mg PO TID 5 Days Qty: 30 0RF prednisone 20 mg tablet 60 mg PO DAILY 5 Days Qty: 15 0RF albuterol sulfate [ProAir HFA] 90 mcg/actuation HFA aerosol inhaler 2 puff inhalation Q4-6H PRN (Reason: shortness of breath or wheezing) Qty: 8.5 0RF ketorolac 10 mg tablet 10 mg PO QID PRN (Reason: pain) 5 Days Qty: 20 0RF Rx Instructions: Recieved toradol 30mg IM in the ED methocarbamol 500 mg tablet 1,000 mg PO TID 7 Days Qty: 42 0RF tramadol 50 mg tablet 50 mg PO Q6H PRN (Reason: pain) Qty: 14 0RF buprenorphine-naloxone 2-0.5 mg film 1 strip sublingual DAILY fluoxetine 20 mg Capsule 20 mg PO DAILY 30 Days Qty: 30 0RF melatonin 3 mg Tablet 3 mg PO BEDTIME PRN (Reason: sleep) 30 Days Qty: 30 0RF Aspercreme with Aloe 10 % Cream 1 appl topical TID PRN (Reason: Pain, Moderate (Pain Scale 4-6) 30 Days Qty: 35.4 0RF cyclobenzaprine 10 mg tablet 5 - 10 mg PO BID PRN (Reason: muscle spasm) 30 Days Qty: 30 0RF atorvastatin 10 mg tablet 10 mg PO DAILY 30 Days Qty: 30 0RF clonazepam 0.5 mg tablet 0.5 mg PO BID PRN (Reason: Anxiety) 7 Days Qty: 14 0RF risperidone 2 mg tablet 3 mg PO BEDTIME 30 Days Qty: 45 0RF naloxone [Narcan] 4 mg/actuation spray,non-aerosol 4 mg intranasal Q2M PRN (Reason: opioid overdose) 1 Days Qty: 1 0RF Rx Instructions: spray 1 dose into ONE nostril; alternate nostrils w each dose until help arrives hydrocodone-acetaminophen 5-325 mg tablet 1 - 2 tab PO Q6H PRN (Reason: pain) Qty: 15 0RF azithromycin 250 mg tablet See Rx Instructions .ROUTE .COMPLEX Qty: 6 0RF Rx Instructions: For 250 mg dose pack: take 500 mg today (day 1), then 250 mg for 4 days (days 2-5) prednisone 20 mg tablet 40 mg PO DAILY 5 Days Qty: 10 0RF albuterol sulfate 90 mcg/actuation aerosol powdr breath activated 2 inh inhalation Q4-6H PRN (Reason: shortness of breath or wheezing) Qty: 1 0RF (DME) nebulizer and compressor [[place] Choice Nebulizer] Device See Rx Instructions .Route Qty: 1 0RF Rx Instructions: As directed albuterol sulfate 2.5 mg /3 mL (0.083 %) solution for nebulization 2.5 mg inhalation Q4-6H PRN (Reason: shortness of breath or wheezing) Qty: 90 1RF prednisone 10 mg tablets,dose pack 10 mg PO PER PKG DIR Qty: 21 0RF Rx Instructions: 4 tabs qd x 3d then 2 tabs qd x 3d then 1 tab qd x 3 d pantoprazole [Protonix] 40 mg tablet,delayed release (DR/EC) 40 mg PO DAILY Qty: 30 0RF tramadol 50 mg tablet 50 mg PO Q6H PRN (Reason: pain) Qty: 20 0RF tramadol 50 mg tablet 50 mg PO Q6H PRN (Reason: pain) Qty: 20 0RF dicyclomine 20 mg tablet 20 mg PO QID PRN (Reason: abdominal pain) Qty: 20 0RF Interventions: ED Discharge Assessment Last Done: 09/28/22 23:12 Discharge Date/Time: 09/28/22 23:13
--- NOTE | 2022-09-28 22:56 | ECG_ITS ---
Test Reason : BACK AND ABD PAIN Blood Pressure : / mmHG Vent. Rate : 084 BPM Atrial Rate : 084 BPM P-R Int : 184 ms QRS Dur : 078 ms QT Int : 388 ms P-R-T Axes : 070 015 036 degrees QTc Int : 458 ms Normal sinus rhythm Normal ECG When compared with ECG of 22-MAR-2022 16:21, No significant change was found Referred By: Gita Reinoso Electronically Signed By:Darwin Lambert
[2022-09-28] MEDS: Magnesium Hydrox/Alum Hydrox 30 ML ORAL.SUSP PO (23:08)
[2022-09-28] MEDS: Lidocaine HCl Viscous 2 % 15 ML SOLUTION MUCOUS MEM (23:08)
== END 2022-09-28 23:13 | disposition home or self-care (01) ==
PROVIDERS: Emergency Provider Emergency Medicine; PCP Internal Medicine
DX: K27.9 Peptic ulcer, site unspecified, unspecified as acute or chronic, without hemorrhage or perforation (principal); E78.00 Pure hypercholesterolemia, unspecified; F17.210 Nicotine dependence, cigarettes, uncomplicated; Z79.899 Other long term (current) drug therapy
CPT/HCPCS: 36415; 80053; 85025; 93005; 99283; 99284

== ENCOUNTER 2022-10-01 20:21 | Emergency (ER) | payer OTHER, SELFPAY ==
[2022-10-01 21:09] VITALS: BP 123/82; PULSE 115; RESP 18; TEMP 37.4; O2SAT 93; BMI 31.5
--- NOTE | 2022-10-02 00:14 | ED.BACK ---
HPI - Back Pain/Injury General Chief Complaint: Extremity Problem Stated Complaint: Back pain Time Seen by Provider: 10/01/22 23:47 Source: patient Mode of arrival: ambulatory Limitations: no limitations History of Present Illness HPI Narrative: Patient with chronic back problems been having pain for at least 2 months wan here had a CT scan and x-ray shows arthritis patient follows with physical therapy plan to MRI no bladder bowel incontinence no paresthesia no motor weakness Related Data Home Medications Medication Instructions Recorded Confirmed buprenorphine 2 mg-naloxone 0.5 mg 1 strip sublingual DAILY 07/14/21 07/14/21 sublingual film Previous Rx's Medication Instructions Recorded atorvastatin 10 mg tablet 10 mg PO DAILY 30 days #30 tabs 07/24/21 clonazepam 0.5 mg tablet 0.5 mg PO BID PRN Anxiety 7 days 07/24/21 #14 tabs cyclobenzaprine 10 mg tablet 5 - 10 mg PO BID PRN muscle spasm 07/24/21 30 days #30 tabs fluoxetine 20 mg capsule 20 mg PO DAILY 30 days #30 caps 07/24/21 melatonin 3 mg tablet 3 mg PO BEDTIME PRN sleep 30 days 07/24/21 #30 tabs naloxone 4 mg/actuation nasal 4 mg intranasal Q2M PRN opioid 07/24/21 spray (Narcan) overdose 1 day #1 ea risperidone 2 mg tablet 3 mg PO BEDTIME 30 days #45 tabs 07/24/21 trolamine salicylate-aloe vera 10 1 appl topical TID PRN Pain, 07/24/21 % topical cream (Aspercreme with Moderate (Pain Scale 4-6 30 days Aloe) #35.4 grams hydrocodone 5 mg-acetaminophen 325 1 - 2 tab PO Q6H PRN pain #15 tabs 08/23/21 mg tablet albuterol sulfate 90 mcg/actuation 2 puff inhalation Q4-6H PRN 02/20/22 aerosol inhaler (ProAir HFA) shortness of breath or wheezing #8.5 grams amoxicillin 500 mg capsule 1,000 mg PO TID 5 days #30 caps 02/20/22 prednisone 20 mg tablet 60 mg PO DAILY 5 days #15 tabs 02/20/22 albuterol sulfate 90 mcg/actuation 2 inh inhalation Q4-6H PRN 03/08/22 breath activated powder inhaler shortness of breath or wheezing #1 ea azithromycin 250 mg tablet See Rx Instructions PO .COMPLEX #6 03/08/22 tabs prednisone 20 mg tablet 40 mg PO DAILY 5 days #10 tabs 03/08/22 albuterol sulfate 2.5 mg/3 mL 2.5 mg (3 mL) inhalation Q4-6H PRN 03/23/22 (0.083 %) solution for nebulization shortness of breath or wheezing #90 mL nebulizer and compressor ([place] #1 ea 03/23/22 Choice Nebulizer) prednisone 10 mg tablets in a dose 10 mg PO PER PKG DIR #21 ea 03/23/22 pack ketorolac 10 mg tablet 10 mg PO QID PRN pain 5 days #20 04/07/22 tabs pantoprazole 40 mg tablet,delayed 40 mg PO DAILY #30 tabs 08/09/22 release (Protonix) tramadol 50 mg tablet 50 mg PO Q6H PRN pain #20 tabs 08/09/22 methocarbamol 500 mg tablet 1,000 mg PO TID 7 days #42 tabs 08/20/22 tramadol 50 mg tablet 50 mg PO Q6H PRN pain #14 tabs 08/20/22 dicyclomine 20 mg tablet 20 mg PO QID PRN abdominal pain 09/14/22 #20 tabs tramadol 50 mg tablet 50 mg PO Q6H PRN pain #20 tabs 09/14/22 sucralfate 1 gram tablet 1 g PO BID #60 tabs 09/28/22 cyclobenzaprine 10 mg tablet 10 mg PO Q8H #20 tabs 10/02/22 tramadol 50 mg tablet 50 mg PO Q6H PRN pain #20 tabs 10/02/22 Allergies Allergy/AdvReac Type Severity Reaction Status Date / Time levofloxacin [From Levaquin] AdvReac Unknown Verified 08/19/22 23:24 Review of Systems Review of Systems: Yes all other systems are reviewed and are negative PMFSH Past Medical History Medical History Bipolar disorder Chronic neck pain with history of cervical spinal surgery Chronic pain of both knees High cholesterol Social History Social History Household Members: Children Housing: House Do you presently have visiting nurse or other home services: No Alcohol intake: never Patient Tobacco Use Status: Current everyday Tobacco user Tobacco use type: Cigarette Cigarette Packs Per Day: 1 Cigarettes Per Day: 20.0 Years Smoked: 39 years e-Cigarette/Vaping Use: Former Use Second Hand Smoke Exposure: No Substance Use Type: Opiates Advance Directives: No Advance Directives Information Provided: Yes service: No Sexual orientation: Did not discuss Physical Exam Vital Signs: Vital Signs: Last Vital Signs Temp 99.3 F 10/01/22 21:09 Pulse 115 H 10/01/22 21:09 Resp 18 10/01/22 21:09 BP 123/82 10/01/22 21:09 Pulse Ox 93 10/01/22 21:09 O2 Del Method Room Air 10/01/22 21:09 BMI result Body Mass Index 31.5 Appearance: Alert. Oriented X3. No acute distress. Eyes: PERRLA, ENT: Pharynx normal. Oral Mucosa moist Neck: Normal inspection. Neck supple. CVS: Normal heart rate and rhythm. Pulses normal. Respiratory: No respiratory distress. Equal air entry bilateral, no wheezing/rales/rhonchi Abdomen: Soft and nontender. Bowel sounds are present, no mass palpable, no CVA tenderness Skin: Skin warm and dry. Normal skin color. Normal skin turgor. Extremities: No lower extremity edema. No calf tenderness back: Diffuse lower lumbar spinal tenderness, good range of movement SLR normal intact sacral sensation Neuro: Oriented X 3. No motor deficit. No sensory deficit.No cerebellar signs , cranial nerves II-XII intact Medications Administered Discontinued Medications Generic Name Dose Route Start Last Admin Trade Name Tyeq PRN Reason Stop Dose Admin Tramadol HCl 50 mg 10/02/22 00:10 10/02/22 00:19 Tramadol Hcl 50 Mg Tablet PO 10/02/22 00:11 50 mg ONCE ONE Administration Medical Decision Making Medical Decision Making MDM Narrative: Patient clinically with lumbar spinal stenosis with chronic pain advised to follow with PCP if for further evaluation including MRI patient does follow up with physical therapy Discharge Plan Discharge Clinical Impression: Low back pain, Lumbar canal stenosis Patient Disposition: Home, Self-Care Instructions: Lumbar Spinal Stenosis (ED), Chronic Back Pain (DC) Additional Instructions: Rest, take pain medication and muscle relaxant as prescribed and follow up with your PCP for further management including MRI Prescriptions: New cyclobenzaprine 10 mg tablet 10 mg PO Q8H Qty: 20 0RF tramadol 50 mg tablet 50 mg PO Q6H PRN (Reason: pain) Qty: 20 0RF No Action amoxicillin 500 mg capsule 1,000 mg PO TID 5 Days Qty: 30 0RF prednisone 20 mg tablet 60 mg PO DAILY 5 Days Qty: 15 0RF albuterol sulfate [ProAir HFA] 90 mcg/actuation HFA aerosol inhaler 2 puff inhalation Q4-6H PRN (Reason: shortness of breath or wheezing) Qty: 8.5 0RF ketorolac 10 mg tablet 10 mg PO QID PRN (Reason: pain) 5 Days Qty: 20 0RF Rx Instructions: Recieved toradol 30mg IM in the ED methocarbamol 500 mg tablet 1,000 mg PO TID 7 Days Qty: 42 0RF tramadol 50 mg tablet 50 mg PO Q6H PRN (Reason: pain) Qty: 14 0RF buprenorphine-naloxone 2-0.5 mg film 1 strip sublingual DAILY fluoxetine 20 mg Capsule 20 mg PO DAILY 30 Days Qty: 30 0RF melatonin 3 mg Tablet 3 mg PO BEDTIME PRN (Reason: sleep) 30 Days Qty: 30 0RF Aspercreme with Aloe 10 % Cream 1 appl topical TID PRN (Reason: Pain, Moderate (Pain Scale 4-6) 30 Days Qty: 35.4 0RF cyclobenzaprine 10 mg tablet 5 - 10 mg PO BID PRN (Reason: muscle spasm) 30 Days Qty: 30 0RF atorvastatin 10 mg tablet 10 mg PO DAILY 30 Days Qty: 30 0RF clonazepam 0.5 mg tablet 0.5 mg PO BID PRN (Reason: Anxiety) 7 Days Qty: 14 0RF risperidone 2 mg tablet 3 mg PO BEDTIME 30 Days Qty: 45 0RF naloxone [Narcan] 4 mg/actuation spray,non-aerosol 4 mg intranasal Q2M PRN (Reason: opioid overdose) 1 Days Qty: 1 0RF Rx Instructions: spray 1 dose into ONE nostril; alternate nostrils w each dose until help arrives hydrocodone-acetaminophen 5-325 mg tablet 1 - 2 tab PO Q6H PRN (Reason: pain) Qty: 15 0RF azithromycin 250 mg tablet See Rx Instructions .ROUTE .COMPLEX Qty: 6 0RF Rx Instructions: For 250 mg dose pack: take 500 mg today (day 1), then 250 mg for 4 days (days 2-5) prednisone 20 mg tablet 40 mg PO DAILY 5 Days Qty: 10 0RF albuterol sulfate 90 mcg/actuation aerosol powdr breath activated 2 inh inhalation Q4-6H PRN (Reason: shortness of breath or wheezing) Qty: 1 0RF (DME) nebulizer and compressor [[place] Choice Nebulizer] Device See Rx Instructions .Route Qty: 1 0RF Rx Instructions: As directed albuterol sulfate 2.5 mg /3 mL (0.083 %) solution for nebulization 2.5 mg inhalation Q4-6H PRN (Reason: shortness of breath or wheezing) Qty: 90 1RF prednisone 10 mg tablets,dose pack 10 mg PO PER PKG DIR Qty: 21 0RF Rx Instructions: 4 tabs qd x 3d then 2 tabs qd x 3d then 1 tab qd x 3 d pantoprazole [Protonix] 40 mg tablet,delayed release (DR/EC) 40 mg PO DAILY Qty: 30 0RF tramadol 50 mg tablet 50 mg PO Q6H PRN (Reason: pain) Qty: 20 0RF tramadol 50 mg tablet 50 mg PO Q6H PRN (Reason: pain) Qty: 20 0RF dicyclomine 20 mg tablet 20 mg PO QID PRN (Reason: abdominal pain) Qty: 20 0RF sucralfate 1 gram tablet 1 g PO BID Qty: 60 0RF Interventions: ED Discharge Assessment Last Done: 10/02/22 00:23 Discharge Date/Time: 10/02/22 00:27
[2022-10-02] MEDS: traMADoL HCL 50 MG TABLET PO (00:19)
== END 2022-10-02 00:27 | disposition home or self-care (01) ==
PROVIDERS: Emergency Provider Internal Medicine; PCP Internal Medicine
DX: M54.50 Low back pain, unspecified (principal); M48.061 Spinal stenosis, lumbar region without neurogenic claudication; Z79.899 Other long term (current) drug therapy
CPT/HCPCS: 99283

== ENCOUNTER 2022-11-02 21:46 | Emergency (ER) | payer OTHER, SELFPAY ==
[2022-11-02 22:13] VITALS: BP 139/82; PULSE 98; RESP 18; TEMP 36.4; O2SAT 94; BMI 34.1
[2022-11-02 23:36] VITALS: BP 100/73; PULSE 100; RESP 16; TEMP 36.7; O2SAT 98
[2022-11-02] MEDS: dexAMETHasone 2 MG TABLET 10 MG PO (23:38)
[2022-11-02] MEDS: oxyCODONE HCl Immed Release 5 MG TABLET PO (23:39)
--- NOTE | 2022-11-02 23:43 | ED_ITS ---
HPI - Back Pain/Injury General Chief Complaint: Back Pain/Injury Stated Complaint: back pain, bulging discs Time Seen by Provider: 11/02/22 23:01 Source: patient Mode of arrival: ambulatory Limitations: no limitations History of Present Illness HPI Narrative: 52-year-old female presents with chronic low back pain. Patient reportedly had an MRI as an outpatient recently and was told she has L1-L2 and L2-L3 disc p rotrusions some compression of nerve roots. Patient is experiencing acute on chronic low back pain radiating to bilateral legs. She denies any numbness or tingling. She has noted that her right knee has given out on her today. She did not fall or injure herself. She denies any loss of bowel or bladder control or saddle paresthesias. She denies any fevers or chills or intravenous drug abuse. EKG patient has stopped taking ibuprofen because it is irritating her stomach. She is taking Tylenol with minimal relief. She also takes cyclobenzaprine. Current pain level as moderate to severe. The pain is worse with ambulation. Better with lying on her left side. Patient describes the pain as sharp and achy. Related Data Home Medications Medication Instructions Recorded Confirmed buprenorphine 2 mg-naloxone 0.5 mg 1 strip sublingual DAILY 07/14/21 07/14/21 sublingual film Previous Rx's Medication Instructions Recorded atorvastatin 10 mg tablet 10 mg PO DAILY 30 days #30 tabs 07/24/21 clonazepam 0.5 mg tablet 0.5 mg PO BID PRN Anxiety 7 days 07/24/21 #14 tabs cyclobenzaprine 10 mg tablet 5 - 10 mg PO BID PRN muscle spasm 07/24/21 30 days #30 tabs fluoxetine 20 mg capsule 20 mg PO DAILY 30 days #30 caps 07/24/21 melatonin 3 mg tablet 3 mg PO BEDTIME PRN sleep 30 days 07/24/21 #30 tabs naloxone 4 mg/actuation nasal 4 mg intranasal Q2M PRN opioid 07/24/21 spray (Narcan) overdose 1 day #1 ea risperidone 2 mg tablet 3 mg PO BEDTIME 30 days #45 tabs 07/24/21 trolamine salicylate-aloe vera 10 1 appl topical TID PRN Pain, 07/24/21 % topical cream (Aspercreme with Moderate (Pain Scale 4-6 30 days Aloe) #35.4 grams hydrocodone 5 mg-acetaminophen 325 1 - 2 tab PO Q6H PRN pain #15 tabs 08/23/21 mg tablet albuterol sulfate 90 mcg/actuation 2 puff inhalation Q4-6H PRN 02/20/22 aerosol inhaler (ProAir HFA) shortness of breath or wheezing #8.5 grams amoxicillin 500 mg capsule 1,000 mg PO TID 5 days #30 caps 02/20/22 prednisone 20 mg tablet 60 mg PO DAILY 5 days #15 tabs 02/20/22 albuterol sulfate 90 mcg/actuation 2 inh inhalation Q4-6H PRN 03/08/22 breath activated powder inhaler shortness of breath or wheezing #1 ea azithromycin 250 mg tablet See Rx Instructions PO .COMPLEX #6 03/08/22 tabs prednisone 20 mg tablet 40 mg PO DAILY 5 days #10 tabs 03/08/22 albuterol sulfate 2.5 mg/3 mL 2.5 mg (3 mL) inhalation Q4-6H PRN 03/23/22 (0.083 %) solution for nebulization shortness of breath or wheezing #90 mL nebulizer and compressor ([place] #1 ea 03/23/22 Choice Nebulizer) prednisone 10 mg tablets in a dose 10 mg PO PER PKG DIR #21 ea 03/23/22 pack ketorolac 10 mg tablet 10 mg PO QID PRN pain 5 days #20 04/07/22 tabs pantoprazole 40 mg tablet,delayed 40 mg PO DAILY #30 tabs 08/09/22 release (Protonix) tramadol 50 mg tablet 50 mg PO Q6H PRN pain #20 tabs 08/09/22 methocarbamol 500 mg tablet 1,000 mg PO TID 7 days #42 tabs 08/20/22 tramadol 50 mg tablet 50 mg PO Q6H PRN pain #14 tabs 08/20/22 dicyclomine 20 mg tablet 20 mg PO QID PRN abdominal pain 09/14/22 #20 tabs tramadol 50 mg tablet 50 mg PO Q6H PRN pain #20 tabs 09/14/22 sucralfate 1 gram tablet 1 g PO BID #60 tabs 09/28/22 cyclobenzaprine 10 mg tablet 10 mg PO Q8H #20 tabs 10/02/22 tramadol 50 mg tablet 50 mg PO Q6H PRN pain #20 tabs 10/02/22 meloxicam 15 mg tablet 15 mg PO DAILY #10 tabs 11/02/22 oxycodone 5 mg tablet 5 mg PO Q8H PRN pain #7 tabs 11/02/22 pantoprazole 40 mg tablet,delayed 40 mg PO DAILY #14 tabs 11/02/22 release Allergies Allergy/AdvReac Type Severity Reaction Status Date / Time levofloxacin [From Levaquin] AdvReac Unknown Verified 11/02/22 22:13 Review of Systems Review of Systems: CONSTITUTIONAL: Denies weight loss, fever and chills. HEENT: Denies changes in vision and hearing. RESPIRATORY: Denies SOB and cough. CV: Denies palpitations no CP. GI: Denies abdominal pain, nausea, vomiting and diarrhea. : Denies dysuria and urinary frequency. MSK: Denies myalgia and joint pain. SKIN: Denies rash and pruritus. NEUROLOGICAL: Denies headache and syncope. PSYCHIATRIC: Denies recent changes in mood. Denies anxiety and depression. All other ROS are negative unless in HPI PMFSH Past Medical History Medical History Bipolar disorder Chronic neck pain with history of cervical spinal surgery Chronic pain of both knees High cholesterol Social History Social History Household Members: Children Housing: House Do you presently have visiting nurse or other home services: No Alcohol intake: never Patient Tobacco Use Status: Current everyday Tobacco user Tobacco use type: Cigarette Cigarette Packs Per Day: 1 Cigarettes Per Day: 20.0 Years Smoked: 39 years e-Cigarette/Vaping Use: Former Use Second Hand Smoke Exposure: No Substance Use Type: Opiates Advance Directives: No Advance Directives Information Provided: No service: No Sexual orientation: Did not discuss Physical Exam Vital Signs: Vital Signs: Last Vital Signs Temp 98.1 F 11/02/22 23:36 Pulse 100 11/02/22 23:36 Resp 16 11/02/22 23:36 BP 100/73 11/02/22 23:36 Pulse Ox 98 11/02/22 23:36 O2 Del Method Room Air 11/02/22 23:36 BMI result Body Mass Index 34.1 GEN: Well developed, no acute distress, alert, oriented HEENT: Normocephalic, atraumatic, normal external ears, nose appears normal, no oropharyngeal edema or exudates Eyes: Normal to appearance Neck: Supple, no lymphadenopathy Respiratory: Talks in complete sentences, no respiratory distress, clear to auscultation bilaterally Cardiovascular: Regular rate and rhythm, no murmurs rubs or gallops Abdomen: Soft, nontender, nondistended, no guarding, no rebound Back: No CVA tenderness Extremities: No clubbing cyanosis or edema Neurologic: No focal neurologic deficits, cranial nerves 2-12 intact, strength is 5/5 bilaterally Skin: No rash Course Course Course Narrative: Patient presents with acute on chronic lumbar radiculopathy. While in the emergency department, she received dexamethasone 10 mg. She does not prefer to stay on steroids she got 1 single dose. She did not he had Tylenol prior to arrival so no additional Tylenol was given. She was also given oxycodone 5 mg orally. I have given her a pain regimen to follow which includes locks a cam 15 mg daily, Tylenol 1000 mg every 6 hours as needed, cyclobenzaprine to take every 8 hours as needed, oxycodone 5 mg every 8 hours as needed for severe pain. She is aware that oxycodone and cyclobenzaprine can cause drowsiness and she will need to maintain caution. She has follow-up later this week with a spine surgeon. She is hoping to get an epidural injection and to avoid surgery if at all possible. Medications Administered Discontinued Medications Generic Name Dose Route Start Last Admin Trade Name Freq PRN Reason Stop Dose Admin Dexamethasone 10 mg 11/02/22 23:24 11/02/22 23:38 Dexamethasone 2 Mg Tablet PO 11/02/22 23:25 10 mg ONCE ONE Administration Oxycodone HCl 5 mg 11/02/22 23:24 11/02/22 23:39 Oxycodone Hcl Immed Release 5 Mg Tablet PO 11/02/22 23:25 5 mg ONCE ONE Administration Medical Decision Making Medical Decision Making [facility] Narrative: 52-year-old female presents with lumbar radiculopathy. There is no midline tenderness, fevers to suggest epidural abscess. She has no risk factors for epidural abscess. She has no loss of bowel or bladder control or saddle paresthesias. There is no concerns at this time for acute cauda equina syndrome. Patient had outpatient MRI which showed disc protrusions with some spinal nerve root compression. Her exam and history are most consistent with lumbar radiculopathy secondary to these compressions. I will provide the patient with oral steroids x1, oxycodone for her severe pain tonight. I have also made a red recommendation for managing her pain as an outpatient. Differential Diagnosis Differential Diagnoses: The differential diagnosis associated with the presentation includes (Lumbar radiculopathy, back pain, muscle spasm, neuropathy) Independent Historian Clinical information obtained from an independent historian. History obtained from or confirmed by: Spouse External Record Review External record reviewed: Prior outpatient radiology Discharge Plan Discharge Clinical Impression: Lumbar radiculopathy Patient Disposition: Home, Self-Care Instructions: Lumbar Radiculopathy (ED) Additional Instructions: For Pain: Meloxicam 15 mg daily Tylenol 1000 mg every 6 hours as needed Cyclobenzaprine every 8 hours as needed Oxycodone 5 mg every8 hours as needed for severe pain Pantoprazole 40 mg daily. Prescriptions: New oxycodone 5 mg tablet 5 mg PO Q8H PRN (Reason: pain) Qty: 7 0RF Rx Instructions: Partial Fill upon patient request. meloxicam 15 mg tablet 15 mg PO DAILY Qty: 10 0RF pantoprazole 40 mg tablet,delayed release (DR/EC) 40 mg PO DAILY Qty: 14 0RF No Action amoxicillin 500 mg capsule 1,000 mg PO TID 5 Days Qty: 30 0RF prednisone 20 mg tablet 60 mg PO DAILY 5 Days Qty: 15 0RF albuterol sulfate [ProAir HFA] 90 mcg/actuation HFA aerosol inhaler 2 puff inhalation Q4-6H PRN (Reason: shortness of breath or wheezing) Qty: 8.5 0RF ketorolac 10 mg tablet 10 mg PO QID PRN (Reason: pain) 5 Days Qty: 20 0RF Rx Instructions: Recieved toradol 30mg IM in the ED methocarbamol 500 mg tablet 1,000 mg PO TID 7 Days Qty: 42 0RF tramadol 50 mg tablet 50 mg PO Q6H PRN (Reason: pain) Qty: 14 0RF buprenorphine-naloxone 2-0.5 mg film 1 strip sublingual DAILY fluoxetine 20 mg Capsule 20 mg PO DAILY 30 Days Qty: 30 0RF melatonin 3 mg Tablet 3 mg PO BEDTIME PRN (Reason: sleep) 30 Days Qty: 30 0RF Aspercreme with Aloe 10 % Cream 1 appl topical TID PRN (Reason: Pain, Moderate (Pain Scale 4-6) 30 Days Qty: 35.4 0RF cyclobenzaprine 10 mg tablet 5 - 10 mg PO BID PRN (Reason: muscle spasm) 30 Days Qty: 30 0RF atorvastatin 10 mg tablet 10 mg PO DAILY 30 Days Qty: 30 0RF clonazepam 0.5 mg tablet 0.5 mg PO BID PRN (Reason: Anxiety) 7 Days Qty: 14 0RF risperidone 2 mg tablet 3 mg PO BEDTIME 30 Days Qty: 45 0RF naloxone [Narcan] 4 mg/actuation spray,non-aerosol 4 mg intranasal Q2M PRN (Reason: opioid overdose) 1 Days Qty: 1 0RF Rx Instructions: spray 1 dose into ONE nostril; alternate nostrils w each dose until help arrives hydrocodone-acetaminophen 5-325 mg tablet 1 - 2 tab PO Q6H PRN (Reason: pain) Qty: 15 0RF azithromycin 250 mg tablet See Rx Instructions .ROUTE .COMPLEX Qty: 6 0RF Rx Instructions: For 250 mg dose pack: take 500 mg today (day 1), then 250 mg for 4 days (days 2-5) prednisone 20 mg tablet 40 mg PO DAILY 5 Days Qty: 10 0RF albuterol sulfate 90 mcg/actuation aerosol powdr breath activated 2 inh inhalation Q4-6H PRN (Reason: shortness of breath or wheezing) Qty: 1 0RF (DME) nebulizer and compressor [[place] Choice Nebulizer] Device See Rx Instructions .Route Qty: 1 0RF Rx Instructions: As directed albuterol sulfate 2.5 mg /3 mL (0.083 %) solution for nebulization 2.5 mg inhalation Q4-6H PRN (Reason: shortness of breath or wheezing) Qty: 90 1RF prednisone 10 mg tablets,dose pack 10 mg PO PER PKG DIR Qty: 21 0RF Rx Instructions: 4 tabs qd x 3d then 2 tabs qd x 3d then 1 tab qd x 3 d pantoprazole [Protonix] 40 mg tablet,delayed release (DR/EC) 40 mg PO DAILY Qty: 30 0RF tramadol 50 mg tablet 50 mg PO Q6H PRN (Reason: pain) Qty: 20 0RF tramadol 50 mg tablet 50 mg PO Q6H PRN (Reason: pain) Qty: 20 0RF dicyclomine 20 mg tablet 20 mg PO QID PRN (Reason: abdominal pain) Qty: 20 0RF sucralfate 1 gram tablet 1 g PO BID Qty: 60 0RF cyclobenzaprine 10 mg tablet 10 mg PO Q8H Qty: 20 0RF tramadol 50 mg tablet 50 mg PO Q6H PRN (Reason: pain) Qty: 20 0RF Referrals: Amauri Sevilla MD [Primary Care Provider] - 2 days
== END 2022-11-03 00:11 | disposition home or self-care (01) ==
PROVIDERS: Emergency Provider Emergency Medicine; PCP Internal Medicine
DX: M54.16 Radiculopathy, lumbar region (principal); F17.210 Nicotine dependence, cigarettes, uncomplicated; Z71.6 Tobacco abuse counseling; Z79.899 Other long term (current) drug therapy
CPT/HCPCS: 99283; 99284; J8540

== ENCOUNTER 2022-12-21 21:54 | Emergency (ER) | payer OTHER, SELFPAY ==
[2022-12-21 22:06] VITALS: BP 149/91; PULSE 96; RESP 20; TEMP 36.7; O2SAT 94; BMI 35.1
--- NOTE | 2022-12-21 23:04 | ED_ITS ---
HPI - General Adult General Chief complaint: Dental/Oral Stated complaint: dental pain Time Seen by Provider: 12/21/22 23:04 Source: patient Mode of arrival: ambulatory Limitations: no limitations History of Present Illness HPI narrative: Patient is a 52 year old assigned female at with a history of bipolar dis order presenting to the emergency department today with dental pain. Patient states that over the last few days she has had worsening lower dental pain. Patient states that she has extensive dental issues and is nervous about getting her teeth pulled. Patient denies any dizziness, lightheadedness, abdominal pain, nausea, vomiting, fever, chills, blurry vision, double vision, loss of vision, chest pain, difficulty breathing, shortness of breath, back pain, night sweats, pain with urination, increased urinary frequency, increased urinary urgency, blood in his urine or stool, syncope or a near syncopal episode, recent trauma or falls, bowel incontinence, bladder incontinence, bowel retention, bladder retention, or any other complaints at this time. Onset (ago): day(s) Location: mouth Radiation: non-radiation Severity: mild Severity scale (1-10): 3 Quality: aching and dull Pain Consistency: constant Relieving factors: none Exacerbating factors: none Associated symptoms: denies other symptoms Treatments prior to arrival: none Related Data Home Medications Medication Instructions Recorded Confirmed buprenorphine 2 mg-naloxone 0.5 mg 1 strip sublingual DAILY 07/14/21 07/14/21 sublingual film Previous Rx's Medication Instructions Recorded atorvastatin 10 mg tablet 10 mg PO DAILY 30 days #30 tabs 07/24/21 clonazepam 0.5 mg tablet 0.5 mg PO BID PRN Anxiety 7 days 07/24/21 #14 tabs cyclobenzaprine 10 mg tablet 5 - 10 mg PO BID PRN muscle spasm 07/24/21 30 days #30 tabs fluoxetine 20 mg capsule 20 mg PO DAILY 30 days #30 caps 07/24/21 melatonin 3 mg tablet 3 mg PO BEDTIME PRN sleep 30 days 07/24/21 #30 tabs naloxone 4 mg/actuation nasal 4 mg intranasal Q2M PRN opioid 07/24/21 spray (Narcan) overdose 1 day #1 ea risperidone 2 mg tablet 3 mg PO BEDTIME 30 days #45 tabs 07/24/21 trolamine salicylate-aloe vera 10 1 appl topical TID PRN Pain, 07/24/21 % topical cream (Aspercreme with Moderate (Pain Scale 4-6 30 days Aloe) #35.4 grams hydrocodone 5 mg-acetaminophen 325 1 - 2 tab PO Q6H PRN pain #15 tabs 08/23/21 mg tablet albuterol sulfate 90 mcg/actuation 2 puff inhalation Q4-6H PRN 02/20/22 aerosol inhaler (ProAir HFA) shortness of breath or wheezing #8.5 grams amoxicillin 500 mg capsule 1,000 mg PO TID 5 days #30 caps 02/20/22 prednisone 20 mg tablet 60 mg PO DAILY 5 days #15 tabs 02/20/22 albuterol sulfate 90 mcg/actuation 2 inh inhalation Q4-6H PRN 03/08/22 breath activated powder inhaler shortness of breath or wheezing #1 ea azithromycin 250 mg tablet See Rx Instructions PO .COMPLEX #6 03/08/22 tabs prednisone 20 mg tablet 40 mg PO DAILY 5 days #10 tabs 03/08/22 albuterol sulfate 2.5 mg/3 mL 2.5 mg (3 mL) inhalation Q4-6H PRN 03/23/22 (0.083 %) solution for nebulization shortness of breath or wheezing #90 mL nebulizer and compressor (Hestand #1 ea 03/23/22 Choice Nebulizer) prednisone 10 mg tablets in a dose 10 mg PO PER PKG DIR #21 ea 03/23/22 pack ketorolac 10 mg tablet 10 mg PO QID PRN pain 5 days #20 04/07/22 tabs pantoprazole 40 mg tablet,delayed 40 mg PO DAILY #30 tabs 08/09/22 release (Protonix) tramadol 50 mg tablet 50 mg PO Q6H PRN pain #20 tabs 08/09/22 methocarbamol 500 mg tablet 1,000 mg PO TID 7 days #42 tabs 08/20/22 tramadol 50 mg tablet 50 mg PO Q6H PRN pain #14 tabs 08/20/22 dicyclomine 20 mg tablet 20 mg PO QID PRN abdominal pain 09/14/22 #20 tabs tramadol 50 mg tablet 50 mg PO Q6H PRN pain #20 tabs 09/14/22 sucralfate 1 gram tablet 1 g PO BID #60 tabs 09/28/22 cyclobenzaprine 10 mg tablet 10 mg PO Q8H #20 tabs 10/02/22 tramadol 50 mg tablet 50 mg PO Q6H PRN pain #20 tabs 10/02/22 meloxicam 15 mg tablet 15 mg PO DAILY #10 tabs 11/02/22 oxycodone 5 mg tablet 5 mg PO Q8H PRN pain #7 tabs 11/02/22 pantoprazole 40 mg tablet,delayed 40 mg PO DAILY #14 tabs 11/02/22 release chlorhexidine gluconate 0.12 % 15 ml buccal BID #118 mL 12/21/22 mouthwash (Peridex) naproxen 500 mg tablet 500 mg PO BID 7 days #14 tabs 12/21/22 penicillin V potassium 500 mg 500 mg PO BID 10 days #20 tabs 12/21/22 tablet Allergies Allergy/AdvReac Type Severity Reaction Status Date / Time levofloxacin [From Levaquin] AdvReac Unknown Verified 11/02/22 22:13 Review of Systems Constitutional: Constitutional: Reports no additional constitutional complaints, Denies chills, Denies fever(s) and Denies night sweats Eyes: Eyes: Reports no additional eye complaints, Denies blurry vision, Denies change in vision, Denies diplopia, Denies eye discharge, Denies loss of vision and Denies eye pain ENT: Denies dizziness and Reports mouth pain Cardiovascular: Cardiovascular: Reports no additional cardiovascular complaints, Denies chest pain, Denies lightheadedness, Denies Loss of Consciousn ess and Denies dyspnea Respiratory: Respiratory: Reports no additional respiratory complaints and Denies dyspnea Gastrointestinal: Gastrointestinal: Reports no additional gastrointestinal complaints, Denies abdominal pain, Denies melena, Denies hematochezia, Denies change in bowel habits and Denies change in stool character Genitourinary: Genitourinary: Denies hematuria, Denies urinary frequency, Denies dysuria, Denies urinary incontinence, Denies urinary hesitancy and Denies urinary urgency Musculoskeletal: Musculoskeletal: Reports no additional musculoskeletal complaints, Denies numbness and Denies tingling Neurologic: Denies dizziness, Denies loss of vision, Denies numbness and Denies tingling Psychiatric: Psychiatric: Reports no additional psychiatric complaints Endocrine: Endocrine: Reports no additional endocrine complaints Hematologic/Lymphatic: Hematologic/Lymphatic: Reports no additional hematologic/lymphatic complaints Allergic/Immunologic: Allergic/Immunologic: Reports no additional allergic/immunologic complaints [facility] Past Medical History Attestation statement: The following information was validated with the patient. Source: old records reviewed and nursing notes reviewed Medical History Bipolar disorder Chronic neck pain with history of cervical spinal surgery Chronic pain of both knees Fracture of fifth metacarpal bone of right hand High cholesterol Social History Social History Household Members: Children Housing: House Do you presently have visiting nurse or other home services: No Alcohol intake: never Patient Tobacco Use Status: Current everyday Tobacco user Tobacco use type: Cigarette Cigarette Packs Per Day: 1 Cigarettes Per Day: 20.0 Years Smoked: 39 years e-Cigarette/Vaping Use: Former Use Second Hand Smoke Exposure: No Substance Use Type: Opiates Advance Directives: No Advance Directives Information Provided: Yes service: No Sexual orientation: Did not discuss Physical Exam ED Vital Signs: Vital Signs - 24 hr 12/21/22 22:06 Temperature 98.1 F Pulse Rate 96 Respiratory Rate 20 Blood Pressure 149/91 H Pulse Oximetry 94 Oxygen Delivery Method Room Air BMI result Body Mass Index 35.1 Const General: cooperative, no acute distress, alert and awake Nutritional Appearance: well nourished Orientation/consciousness: patient oriented x3 Limitations: no limitations HENMT Head: Yes normal to inspection and Yes atraumatic Ears: hearing grossly normal bilaterally and external ears normal General nose exam: Normal external nose present, no nasal discharge noted and no epistaxis Face and sinus: Yes normal facial exam, No abrasion and No laceration Mouth: Normal oral and palatal mucosa present, no drooling and no muffled voice Teeth and gingiva: poor dentition Teeth image: 1. erythema and swelling, no fluctuance Eyes General: appearance normal, both eyes and all related structures Periorbital: periorbital findings normal Eyelids: Yes eyelids normal Conjunctivae: conjunctivae normal Pupils: Equal, round and reactive pupils present EOM: EOMs intact bilaterally Neck Neck: Yes normal visual inspection, Yes full ROM and Yes no lymphadenopathy Chest Chest palpation & inspection: normal inspection of the chest Resp Effort & Inspection: normal respiratory effort and able to speak in complete sentences GI Inspection: Yes normal to inspection Neuro General: patient oriented x3 and moves all extremities Cranial nerves: Yes Equal, round and reactive pupils present Cognition (Neuro): normal cognition Motor exam (neuro): 5/5 motor strength present throughout Sensory Exam: Normal double simultaneous stimulation for sensation Coordination: [id number] test normal Extrem General: Yes normal to inspection, Yes full ROM and Yes capillary refill normal Psych Appearance: grossly normal Mental Status: mental status grossly normal Affect: normal affect Attitude: cooperative Thought process: Normal thought process present Thought content: Normal thought content present Insight: Good insight present (Psych) Medical Decision Making Medical Decision Making MDM Narrative: Patient is a 52 year old assigned male at with a history of bipolar disorder presenting to the emergency department today with right sided lower dental pain. Patient's physical exam showed extensive poor dentition and erythema with swelling as noted in the physical exam portion of this chart. I explained my physical exam findings to the patient. I answered all questions asked by the patient. I stressed the importance of the patient taking her medication as prescribed. I stressed the importance of the patient following up with her primary care provider and a dentist. I stressed the importance of the patient returning to the emergency department immediately if her symptoms were to worsen or if she were to develop any dizziness, shortness of breath, difficulty breathing, chest pain, blurry vision, loss of vision, nausea, vomiting, abdominal pain, fever, chills, back pain, or any other complaints. Patient verbalized agreement and understanding with this treatment plan and discharge. Differential Diagnosis Differential Diagnoses: The differential diagnosis associated with the presentation includes Poor dental hygiene Dental caries Dental abscess Prescription Management I considered prescription management with: Pain Medication (patient prescribed pain medication for dental pain) and Antibiotic (patient prescribed antibiotic for dental abscess) Discharge Plan Discharge Clinical Impression: Abscess, dental, Dental decay Patient Disposition: Home, Self-Care Instructions: Dental Abscess (ED) Additional Instructions: Follow up with your primary care provider and a dentist. Return to the emergency department immediately if your symptoms worsen or if you develop any dizziness, shortness of breath, difficulty breathing, chest pain, blurry vision, loss of vision, nausea, vomiting, abdominal pain, fever, chills, back pain, or any other complaints. Call or visit any of the clinics below to establish with a dentist: [facility] [address] [place] [id number] [facility] [address] [facility], [address] [address] [place] [address] [facility] [address] [facility] [address] [place] [address] [facility] [address] [place] [address] [place] [address] [place] [address] Prescriptions: New penicillin V potassium 500 mg tablet 500 mg PO BID 10 Days Qty: 20 0RF naproxen 500 mg tablet 500 mg PO BID 7 Days Qty: 14 0RF chlorhexidine gluconate [Peridex] 0.12 % mouthwash 15 ml buccal BID Qty: 118 0RF No Action amoxicillin 500 mg capsule 1,000 mg PO TID 5 Days Qty: 30 0RF prednisone 20 mg tablet 60 mg PO DAILY 5 Days Qty: 15 0RF albuterol sulfate [ProAir HFA] 90 mcg/actuation HFA aerosol inhaler 2 puff inhalation Q4-6H PRN (Reason: shortness of breath or wheezing) Qty: 8.5 0RF ketorolac 10 mg tablet 10 mg PO QID PRN (Reason: pain) 5 Days Qty: 20 0RF Rx Instructions: Recieved toradol 30mg IM in the ED methocarbamol 500 mg tablet 1,000 mg PO TID 7 Days Qty: 42 0RF tramadol 50 mg tablet 50 mg PO Q6H PRN (Reason: pain) Qty: 14 0RF buprenorphine-naloxone 2-0.5 mg film 1 strip sublingual DAILY fluoxetine 20 mg Capsule 20 mg PO DAILY 30 Days Qty: 30 0RF melatonin 3 mg Tablet 3 mg PO BEDTIME PRN (Reason: sleep) 30 Days Qty: 30 0RF Aspercreme with Aloe 10 % Cream 1 appl topical TID PRN (Reason: Pain, Moderate (Pain Scale 4-6) 30 Days Qty: 35.4 0RF cyclobenzaprine 10 mg tablet 5 - 10 mg PO BID PRN (Reason: muscle spasm) 30 Days Qty: 30 0RF atorvastatin 10 mg tablet 10 mg PO DAILY 30 Days Qty: 30 0RF clonazepam 0.5 mg tablet 0.5 mg PO BID PRN (Reason: Anxiety) 7 Days Qty: 14 0RF risperidone 2 mg tablet 3 mg PO BEDTIME 30 Days Qty: 45 0RF naloxone [Narcan] 4 mg/actuation spray,non-aerosol 4 mg intranasal Q2M PRN (Reason: opioid overdose) 1 Days Qty: 1 0RF Rx Instructions: spray 1 dose into ONE nostril; alternate nostrils w each dose until help arrives hydrocodone-acetaminophen 5-325 mg tablet 1 - 2 tab PO Q6H PRN (Reason: pain) Qty: 15 0RF azithromycin 250 mg tablet See Rx Instructions .ROUTE .COMPLEX Qty: 6 0RF Rx Instructions: For 250 mg dose pack: take 500 mg today (day 1), then 250 mg for 4 days (days 2-5) prednisone 20 mg tablet 40 mg PO DAILY 5 Days Qty: 10 0RF albuterol sulfate 90 mcg/actuation aerosol powdr breath activated 2 inh inhalation Q4-6H PRN (Reason: shortness of breath or wheezing) Qty: 1 0RF (DME) nebulizer and compressor [Hestand Choice Nebulizer] Device See Rx Instructions .Route Qty: 1 0RF Rx Instructions: As directed albuterol sulfate 2.5 mg /3 mL (0.083 %) solution for nebulization 2.5 mg inhalation Q4-6H PRN (Reason: shortness of breath or wheezing) Qty: 90 1RF prednisone 10 mg tablets,dose pack 10 mg PO PER PKG DIR Qty: 21 0RF Rx Instructions: 4 tabs qd x 3d then 2 tabs qd x 3d then 1 tab qd x 3 d pantoprazole [Protonix] 40 mg tablet,delayed release (DR/EC) 40 mg PO DAILY Qty: 30 0RF tramadol 50 mg tablet 50 mg PO Q6H PRN (Reason: pain) Qty: 20 0RF oxycodone 5 mg tablet 5 mg PO Q8H PRN (Reason: pain) Qty: 7 0RF Rx Instructions: Partial Fill upon patient request. meloxicam 15 mg tablet 15 mg PO DAILY Qty: 10 0RF pantoprazole 40 mg tablet,delayed release (DR/EC) 40 mg PO DAILY Qty: 14 0RF tramadol 50 mg tablet 50 mg PO Q6H PRN (Reason: pain) Qty: 20 0RF dicyclomine 20 mg tablet 20 mg PO QID PRN (Reason: abdominal pain) Qty: 20 0RF sucralfate 1 gram tablet 1 g PO BID Qty: 60 0RF cyclobenzaprine 10 mg tablet 10 mg PO Q8H Qty: 20 0RF tramadol 50 mg tablet 50 mg PO Q6H PRN (Reason: pain) Qty: 20 0RF Referrals: [facility] Family Medicine [Provider Group] (Call to establish and follow up with a primary care provider. If you already have a primary care provider, please follow up with them.) [facility] [Provider Group] (Call to establish and follow up with a primary care provider. If you already have a primary care provider, please follow up with them.) [facility] [Provider Group] (Call to establish and follow up with a primary care provider. If you already have a primary care provider, please follow up with them.) Interventions: ED Discharge Assessment Last Done: 12/21/22 23:35 Discharge Date/Time: 12/21/22 23:36 Print Language: Turkmen
== END 2022-12-21 23:36 | disposition home or self-care (01) ==
PROVIDERS: Emergency Provider Emergency Medicine
DX: K08.89 Other specified disorders of teeth and supporting structures (principal); K04.7 Periapical abscess without sinus; K02.9 Dental caries, unspecified
CPT/HCPCS: 99282

== ENCOUNTER 2022-12-23 22:02 | Emergency (ER) | payer OTHER, SELFPAY ==
[2022-12-23 22:50] VITALS: BP 132/82; PULSE 115; RESP 18; TEMP 36; O2SAT 95; BMI 35.0
[2022-12-24 00:22] LABS: MANUAL DIFF FLAG NO
[2022-12-24 00:28] LABS: Basophils Absolute Auto 0.1 X10*3/uL (0.0-0.2); Basophils Percent Auto 0.9 % (0-2); Eosinophils Absolute Auto 0.3 X10*3/uL (0.0-0.4); Eosinophils Percent Auto 2.5 % (0-4); Imm Gran Abs Auto 0.09 X10*3/uL (0.00-0.03); Imm Gran Pct Auto 0.8 % (0.0-0.4); Lymphocytes Absolute Auto 1.8 X10*3/uL (1.2-4.9); Lymphocytes Percent Auto 16.7 % (20-40); Mean Corpuscular HGB Conc 32.6 g/dl (31.0-35.0); Mean Corpuscular Hemoglobin 31.1 pg (27.0-33.0); Mean Corpuscular Volume 95.6 fL (80.0-98.0); Mean Platelet Volume 9.7 fL (9.4-12.3); Monocytes Absolute Auto 0.5 X10*3/uL (0.1-1.2); Monocytes Percent Auto 4.8 % (2-11); Neutrophils Absolute Auto 8.1 x10*3/uL (2.0-8.3); Neutrophils Percent Auto 74.3 % (45-73); Platelet Count 353 X10*3/uL (160-400); Red Cell Distribution Width 13.8 % (11.0-16.0); White Blood Count 10.9 X10*3/uL (4.8-10.8)
[2022-12-24 00:43] LABS: Alanine Aminotransferase 15 U/L (0-31); Albumin Level 3.9 g/dL (3.5-5.0); Alkaline Phosphatase 95 U/L (39-117); Anion Gap 13 (12-20); Aspartate Amino Transferase 25 U/L (5-31); Bilirubin Total 0.4 mg/dL (0.0-1.0); Blood Urea Nitrogen 9 mg/dL (9-16); Calcium 8.9 mg/dL (8.4-10.2); Carbon Dioxide 25 mmol/L (22-29); Chloride 102 mmol/L (96-108); Creatinine Clr Calc Pharmacy 100.9; Estimated Glomerular Filt Rate > 60; Glucose Random 125 mg/dL (60-115); Potassium 5.1 mmol/L (3.3-5.1); Sodium 135 mmol/L (135-145); Total Protein 7.6 g/dL (6.5-8.0)
--- NOTE | 2022-12-24 01:49 | ED_ITS ---
HPI - Dental/Oral General Chief complaint: Dental/Oral Stated complaint: abscess in mouth Time Seen by Provider: 12/24/22 01:00 Source: patient Mode of arrival: ambulatory History of Present Illness HPI Narrative: 52-year-old female with significant dental caries disease comes in with complaints dental pain and has been on antibiotics for 2 days. Patient denies any fevers or chills and has an appointment in the morning with a dentist. Related Data Home Medications Medication Instructions Recorded Confirmed buprenorphine 2 mg-naloxone 0.5 mg 1 strip sublingual DAILY 07/14/21 07/14/21 sublingual film Previous Rx's Medication Instructions Recorded atorvastatin 10 mg tablet 10 mg PO DAILY 30 days #30 tabs 07/24/21 clonazepam 0.5 mg tablet 0.5 mg PO BID PRN Anxiety 7 days 07/24/21 #14 tabs cyclobenzaprine 10 mg tablet 5 - 10 mg PO BID PRN muscle spasm 07/24/21 30 days #30 tabs fluoxetine 20 mg capsule 20 mg PO DAILY 30 days #30 caps 07/24/21 melatonin 3 mg tablet 3 mg PO BEDTIME PRN sleep 30 days 07/24/21 #30 tabs naloxone 4 mg/actuation nasal 4 mg intranasal Q2M PRN opioid 07/24/21 spray (Narcan) overdose 1 day #1 ea risperidone 2 mg tablet 3 mg PO BEDTIME 30 days #45 tabs 07/24/21 trolamine salicylate-aloe vera 10 1 appl topical TID PRN Pain, 07/24/21 % topical cream (Aspercreme with Moderate (Pain Scale 4-6 30 days Aloe) #35.4 grams hydrocodone 5 mg-acetaminophen 325 1 - 2 tab PO Q6H PRN pain #15 tabs 08/23/21 mg tablet albuterol sulfate 90 mcg/actuation 2 puff inhalation Q4-6H PRN 02/20/22 aerosol inhaler (ProAir HFA) shortness of breath or wheezing #8.5 grams amoxicillin 500 mg capsule 1,000 mg PO TID 5 days #30 caps 02/20/22 prednisone 20 mg tablet 60 mg PO DAILY 5 days #15 tabs 02/20/22 albuterol sulfate 90 mcg/actuation 2 inh inhalation Q4-6H PRN 03/08/22 breath activated powder inhaler shortness of breath or wheezing #1 ea azithromycin 250 mg tablet See Rx Instructions PO .COMPLEX #6 03/08/22 tabs prednisone 20 mg tablet 40 mg PO DAILY 5 days #10 tabs 03/08/22 albuterol sulfate 2.5 mg/3 mL 2.5 mg (3 mL) inhalation Q4-6H PRN 03/23/22 (0.083 %) solution for nebulization shortness of breath or wheezing #90 mL nebulizer and compressor (Start #1 ea 03/23/22 Choice Nebulizer) prednisone 10 mg tablets in a dose 10 mg PO PER PKG DIR #21 ea 03/23/22 pack ketorolac 10 mg tablet 10 mg PO QID PRN pain 5 days #20 04/07/22 tabs pantoprazole 40 mg tablet,delayed 40 mg PO DAILY #30 tabs 08/09/22 release (Protonix) tramadol 50 mg tablet 50 mg PO Q6H PRN pain #20 tabs 08/09/22 methocarbamol 500 mg tablet 1,000 mg PO TID 7 days #42 tabs 08/20/22 tramadol 50 mg tablet 50 mg PO Q6H PRN pain #14 tabs 08/20/22 dicyclomine 20 mg tablet 20 mg PO QID PRN abdominal pain 09/14/22 #20 tabs tramadol 50 mg tablet 50 mg PO Q6H PRN pain #20 tabs 09/14/22 sucralfate 1 gram tablet 1 g PO BID #60 tabs 09/28/22 cyclobenzaprine 10 mg tablet 10 mg PO Q8H #20 tabs 10/02/22 tramadol 50 mg tablet 50 mg PO Q6H PRN pain #20 tabs 10/02/22 meloxicam 15 mg tablet 15 mg PO DAILY #10 tabs 11/02/22 oxycodone 5 mg tablet 5 mg PO Q8H PRN pain #7 tabs 11/02/22 pantoprazole 40 mg tablet,delayed 40 mg PO DAILY #14 tabs 11/02/22 release chlorhexidine gluconate 0.12 % 15 ml buccal BID #118 mL 12/21/22 mouthwash (Peridex) naproxen 500 mg tablet 500 mg PO BID 7 days #14 tabs 12/21/22 penicillin V potassium 500 mg 500 mg PO BID 10 days #20 tabs 12/21/22 tablet Allergies Allergy/AdvReac Type Severity Reaction Status Date / Time levofloxacin [From Levaquin] AdvReac Unknown Verified 12/23/22 22:50 Review of Systems 2 Review of Systems: Pertinent positives and negatives as stated in [facility] Past Medical History Source: nursing notes reviewed Medical History Bipolar disorder Chronic neck pain with history of cervical spinal surgery Chronic pain of both knees Fracture of fifth metacarpal bone of right hand High cholesterol Social History Social History Household Members: Children Housing: House Do you presently have visiting nurse or other home services: No Alcohol intake: never Patient Tobacco Use Status: Current everyday Tobacco user Tobacco use type: Cigarette Cigarette Packs Per Day: 1 Cigarettes Per Day: 20.0 Years Smoked: 39 years Smoked in Last 30 Days: No e-Cigarette/Vaping Use: Former Use Second Hand Smoke Exposure: No Use of substances other than those prescribed or required for medical reasons: No Substance Use Type: Opiates Advance Directives: No Advance Directives Information Provided: Yes service: No Sexual orientation: Did not discuss Physical Exam Vital Signs: Vital Signs: Last Vital Signs Temp 96.8 F 12/23/22 22:50 Pulse 115 H 12/23/22 22:50 Resp 18 12/23/22 22:50 BP 132/82 12/23/22 22:50 Pulse Ox 95 12/23/22 22:50 O2 Del Method Room Air 12/23/22 22:50 BMI result Body Mass Index 35.0 VITAL SIGNS: Reviewed. GENERAL: Well developed, well nourished, in no acute distress. HEAD: Normocephalic/atraumatic EYES: PERRLA, EOMI OROPHARYNX: no oral lesions noted, posterior pharynx clear, dental caries, dental abscess with fullness of the gingival/buccal interface NECK: Supple, no adenopathy LUNGS: Normal breath sounds. No adventitious sounds or accessory muscle use. SpO2<95> CARDIOVASCULAR: Regular rate and rhythm without noted murmurs ABDOMEN: Soft, non-tender, non-distended with bowel sounds. MUSCULOSKELETAL: No tenderness, deformities, or effusions noted on gross inspection. EXTREMITIES: No cyanosis, clubbing or edema. SKIN: Inspection of the skin reveals no rashes NEUROLOGIC: Alert and oriented x 4. Strength and sensation to light touch were grossly intact x 4. Medical Decision Making Medical Decision Making [facility] Narrative: 52-year-old female who is already on antibiotics comes in with persistent pain and swelling, identified abscess and attempted to drain at the location of the gingival/buccal and her face but no purulence discharge was noted, however on further inspection there was noted purulence drainage just posterior to the last tooth on the right lower jaw. Patient was then given combination analgesics, oxycodone as well as several Lollicaine swabs. She is otherwise discharged in has a follow-up appointment with dentist in the morning. I reviewed all investigations the hematologic indices show a detectable leukocytosis, no anemia and there is a mild left shift. Patient is afebrile without evidence of trismus. Chemistry in the sees a without significant ab normalities, there is no DEON and there are no liver enzyme derangements. My interpretation is as patient has likely more than 1 dental abscess but was able to drain the most posterior, otherwise dental caries are significant and throughout the entire oral cavity. Lab Data [facility] Lab Attestation statement: I reviewed the patient's lab results. Please see the discussion above 12/24/22 00:17 12/24/22 00:17 Labs: Lab Results 12/24/22 12/24/22 Range/Units 00:17 00:17 WBC 10.9 H (4.8-10.8) X10*3/uL RBC 4.50 (4.20-5.50) X10*6/uL Hgb 14.0 (12.0-16.0) g/dl Hct 43.0 (37.0-47.0) % MCV 95.6 (80.0-98.0) fL MCH 31.1 (27.0-33.0) pg MCHC 32.6 (31.0-35.0) g/dl RDW 13.8 (11.0-16.0) % Plt Count 353 (160-400) X10*3/uL MPV 9.7 (9.4-12.3) fL Immature Gran % (Auto) 0.8 H (0.0-0.4) % Neut % (Auto) 74.3 H (45-73) % Lymph % (Auto) 16.7 L (20-40) % Sequoyah % (Auto) 4.8 (2-11) % Eos % (Auto) 2.5 (0-4) % Baso % (Auto) 0.9 (0-2) % Lymph # (Auto) 1.8 (1.2-4.9) X10*3/uL Sequoyah # (Auto) 0.5 (0.1-1.2) X10*3/uL Eos # (Auto) 0.3 (0.0-0.4) X10*3/uL Baso # (Auto) 0.1 (0.0-0.2) X10*3/uL Abs Immat Gran (auto) 0.09 H (0.00-0.03) X10*3/uL Absolute Neuts (auto) 8.1 (2.0-8.3) x10*3/uL Absolute Nucleated RBC 0.000 (0.0-0.012) X10*3/uL Nucleated RBC % (auto) 0.0 (0.0-0.2) /100WBC Sodium 135 (135-145) mmol/L Potassium 5.1 (3.3-5.1) mmol/L Chloride 102 (96-108) mmol/L Carbon Dioxide 25 (22-29) mmol/L Anion Gap 13 (12-20) BUN 9 (9-16) mg/dL Creatinine 0.78 (0.5-1.4) mg/dL Estim Creat Clear Calc 100.9 Estimated GFR > 60 Random Glucose 125 H (60-115) mg/dL Calcium 8.9 (8.4-10.2) mg/dL Total Bilirubin 0.4 (0.0-1.0) mg/dL AST 25 (5-31) U/L ALT 15 (0-31) U/L Alkaline Phosphatase 95 (39-117) U/L Total Protein 7.6 (6.5-8.0) g/dL Albumin 3.9 (3.5-5.0) g/dL External Record Review External record reviewed: Outpatient record and Prior outpatient labs Procedures Abscess I/D Site: oral Side (if applicable): right Local Anesthetic: other anesthetic Technique: needle aspiration and incised with blade Amount of fluid expressed (mL): 2 Sent for culture/gram staining?: No Irrigation: No Packing used?: none Discharge Plan Discharge Clinical Impression: Dental abscess Patient Disposition: Home, Self-Care Instructions: Dental Abscess (ED) Additional Instructions: 1. Resume all home medications as prescribed. 2. Complete the entire course of antibiotics as ordered. 3. Tylenol 1000 mg, orally, every 6 hours as needed for pain control. 4. Use the Lollicaine topical anesthetic, apply ice to unexposed skin. 5. Keep your 10:00 appointment in the morning. Return to the ER for any worsening symptoms. Prescriptions: No Action amoxicillin 500 mg capsule 1,000 mg PO TID 5 Days Qty: 30 0RF prednisone 20 mg tablet 60 mg PO DAILY 5 Days Qty: 15 0RF albuterol sulfate [ProAir HFA] 90 mcg/actuation HFA aerosol inhaler 2 puff inhalation Q4-6H PRN (Reason: shortness of breath or wheezing) Qty: 8.5 0RF ketorolac 10 mg tablet 10 mg PO QID PRN (Reason: pain) 5 Days Qty: 20 0RF Rx Instructions: Recieved toradol 30mg IM in the ED methocarbamol 500 mg tablet 1,000 mg PO TID 7 Days Qty: 42 0RF tramadol 50 mg tablet 50 mg PO Q6H PRN (Reason: pain) Qty: 14 0RF buprenorphine-naloxone 2-0.5 mg film 1 strip sublingual DAILY fluoxetine 20 mg Capsule 20 mg PO DAILY 30 Days Qty: 30 0RF melatonin 3 mg Tablet 3 mg PO BEDTIME PRN (Reason: sleep) 30 Days Qty: 30 0RF Aspercreme with Aloe 10 % Cream 1 appl topical TID PRN (Reason: Pain, Moderate (Pain Scale 4-6) 30 Days Qty: 35.4 0RF cyclobenzaprine 10 mg tablet 5 - 10 mg PO BID PRN (Reason: muscle spasm) 30 Days Qty: 30 0RF atorvastatin 10 mg tablet 10 mg PO DAILY 30 Days Qty: 30 0RF clonazepam 0.5 mg tablet 0.5 mg PO BID PRN (Reason: Anxiety) 7 Days Qty: 14 0RF risperidone 2 mg tablet 3 mg PO BEDTIME 30 Days Qty: 45 0RF naloxone [Narcan] 4 mg/actuation spray,non-aerosol 4 mg intranasal Q2M PRN (Reason: opioid overdose) 1 Days Qty: 1 0RF Rx Instructions: spray 1 dose into ONE nostril; alternate nostrils w each dose until help arrives hydrocodone-acetaminophen 5-325 mg tablet 1 - 2 tab PO Q6H PRN (Reason: pain) Qty: 15 0RF azithromycin 250 mg tablet See Rx Instructions .ROUTE .COMPLEX Qty: 6 0RF Rx Instructions: For 250 mg dose pack: take 500 mg today (day 1), then 250 mg for 4 days (days 2-5) prednisone 20 mg tablet 40 mg PO DAILY 5 Days Qty: 10 0RF albuterol sulfate 90 mcg/actuation aerosol powdr breath activated 2 inh inhalation Q4-6H PRN (Reason: shortness of breath or wheezing) Qty: 1 0RF (DME) nebulizer and compressor [Start Choice Nebulizer] Device See Rx Instructions .Route Qty: 1 0RF Rx Instructions: As directed albuterol sulfate 2.5 mg /3 mL (0.083 %) solution for nebulization 2.5 mg inhalation Q4-6H PRN (Reason: shortness of breath or wheezing) Qty: 90 1RF prednisone 10 mg tablets,dose pack 10 mg PO PER PKG DIR Qty: 21 0RF Rx Instructions: 4 tabs qd x 3d then 2 tabs qd x 3d then 1 tab qd x 3 d pantoprazole [Protonix] 40 mg tablet,delayed release (DR/EC) 40 mg PO DAILY Qty: 30 0RF tramadol 50 mg tablet 50 mg PO Q6H PRN (Reason: pain) Qty: 20 0RF oxycodone 5 mg tablet 5 mg PO Q8H PRN (Reason: pain) Qty: 7 0RF Rx Instructions: Partial Fill upon patient request. meloxicam 15 mg tablet 15 mg PO DAILY Qty: 10 0RF pantoprazole 40 mg tablet,delayed release (DR/EC) 40 mg PO DAILY Qty: 14 0RF tramadol 50 mg tablet 50 mg PO Q6H PRN (Reason: pain) Qty: 20 0RF dicyclomine 20 mg tablet 20 mg PO QID PRN (Reason: abdominal pain) Qty: 20 0RF sucralfate 1 gram tablet 1 g PO BID Qty: 60 0RF cyclobenzaprine 10 mg tablet 10 mg PO Q8H Qty: 20 0RF tramadol 50 mg tablet 50 mg PO Q6H PRN (Reason: pain) Qty: 20 0RF penicillin V potassium 500 mg tablet 500 mg PO BID 10 Days Qty: 20 0RF naproxen 500 mg tablet 500 mg PO BID 7 Days Qty: 14 0RF chlorhexidine gluconate [Peridex] 0.12 % mouthwash 15 ml buccal BID Qty: 118 0RF
[2022-12-24] MEDS: Acetaminophen 325 MG TABLET 975 MG PO (01:54)
[2022-12-24] MEDS: Ketorolac Tromethamine 15 MG/ML VIAL IM (01:55)
[2022-12-24] MEDS: oxyCODONE HCl Immed Release 5 MG TABLET PO (01:55)
== END 2022-12-24 01:58 | disposition home or self-care (01) ==
PROVIDERS: Emergency Provider Student in an Organized Health Care Education/Training Program
DX: K04.7 Periapical abscess without sinus (principal); K02.9 Dental caries, unspecified; K08.89 Other specified disorders of teeth and supporting structures; F17.210 Nicotine dependence, cigarettes, uncomplicated; F11.20 Opioid dependence, uncomplicated
CPT/HCPCS: 36415; 41800; 80053; 85025; 96372; 99284; J1885

== ENCOUNTER 2022-12-26 14:00 | Outpatient (RCR) | payer OTHER, SELFPAY | END 2023-03-17 14:17 | disposition home or self-care (01) | LOC: HO.PTCHIC 14:00 | PROVIDERS: PCP Internal Medicine; Visit Provider Physician Assistant | DX: M47.896 Other spondylosis, lumbar region (principal); M54.16 Radiculopathy, lumbar region | CPT/HCPCS: 97014; 97110; 97140; 97162; 97164 ==

== ENCOUNTER 2023-04-07 22:06 | Emergency (ER) | payer OTHER, SELFPAY ==
[2023-04-07 22:13] VITALS: BP 121/87; PULSE 105; RESP 20; TEMP 36.7; O2SAT 98; BMI 35.2
--- NOTE | 2023-04-08 03:07 | PC.NURSE ---
this rn assumed care of pt. pt reports lower back pain due to leg strain from walking. pt denies any urinary and bowel issues at this time. pt reports sitting in wheel chair feels better for her back.
--- NOTE | 2023-04-08 03:20 | PC.NURSE ---
provider at bedside discussing pt care.
--- NOTE | 2023-04-08 03:20 | ED.BACK ---
HPI - Back Pain/Injury General Chief Complaint: Back Pain/Injury Stated Complaint: lower back pain ,leg pain Time Seen by Provider: 04/08/23 03:04 Source: patient Mode of arrival: ambulatory Limitations: no limitations History of Present Illness HPI Narrative: 53-year-old female with history of chronic back pain chronic knee pain who presents emergency department for evaluation of increased pain in her lower back and both knees. The patient states that she had an appointment with her credit verifier yesterday and had to walk around [facility]. She states that after walking around for most the day she had increased pain in her lower back and her knees. She states the pain is a constant, dull ache in her lower back that radiates down her buttocks to both thighs. She also states the pain in her knees constant aching sensation which is worse with walking. Patient states that she has [id number] in her knees and needs bilateral knee replacements. She also states she had a recent MRI that shows multiple bulging discs and she needs to follow-up with her back surgeon to determine if she needs a surgical intervention. Patient states that she does take Suboxone for chronic pain, she also takes Tylenol ibuprofen cyclobenzaprine which is not helped her pain. She states she has had tramadol and oxycodone in the past which has given her some relief. Related Data Home Medications Medication Instructions Recorded Confirmed buprenorphine 2 mg-naloxone 0.5 mg 1 strip sublingual DAILY 07/14/21 07/14/21 sublingual film Previous Rx's Medication Instructions Recorded atorvastatin 10 mg tablet 10 mg PO DAILY 30 days #30 tabs 07/24/21 clonazepam 0.5 mg tablet 0.5 mg PO BID PRN Anxiety 7 days 07/24/21 #14 tabs cyclobenzaprine 10 mg tablet 5 - 10 mg (0.5 - 1 x 10 mg) PO BID 07/24/21 PRN muscle spasm 30 days #30 tabs fluoxetine 20 mg capsule 20 mg PO DAILY 30 days #30 caps 07/24/21 melatonin 3 mg tablet 3 mg PO BEDTIME PRN sleep 30 days 07/24/21 #30 tabs naloxone 4 mg/actuation nasal 4 mg intranasal Q2M PRN opioid 07/24/21 spray (Narcan) overdose 1 day #1 ea risperidone 2 mg tablet 3 mg (1.5 x 2 mg) PO BEDTIME 30 07/24/21 days #45 tabs trolamine salicylate-aloe vera 10 1 appl topical TID PRN Pain, 07/24/21 % topical cream (Aspercreme with Moderate (Pain Scale 4-6 30 days Aloe) #35.4 grams hydrocodone 5 mg-acetaminophen 325 1 - 2 tab PO Q6H PRN pain #15 tabs 08/23/21 mg tablet albuterol sulfate 90 mcg/actuation 2 puff inhalation Q4-6H PRN 02/20/22 aerosol inhaler (ProAir HFA) shortness of breath or wheezing #8.5 grams amoxicillin 500 mg capsule 1,000 mg (2 x 500 mg) PO TID 5 02/20/22 days #30 caps prednisone 20 mg tablet 60 mg (3 x 20 mg) PO DAILY 5 days 02/20/22 #15 tabs albuterol sulfate 90 mcg/actuation 2 inh inhalation Q4-6H PRN 03/08/22 breath activated powder inhaler shortness of breath or wheezing #1 ea azithromycin 250 mg tablet See Rx Instructions PO .COMPLEX #6 03/08/22 tabs prednisone 20 mg tablet 40 mg (2 x 20 mg) PO DAILY 5 days 03/08/22 #10 tabs albuterol sulfate 2.5 mg/3 mL 2.5 mg (3 mL) inhalation Q4-6H PRN 03/23/22 (0.083 %) solution for nebulization shortness of breath or wheezing #90 mL nebulizer and compressor (Wilkinson #1 ea 03/23/22 Choice Nebulizer) prednisone 10 mg tablets in a dose 10 mg PO PER PKG DIR #21 ea 03/23/22 pack ketorolac 10 mg tablet 10 mg PO QID PRN pain 5 days #20 04/07/22 tabs pantoprazole 40 mg tablet,delayed 40 mg PO DAILY #30 tabs 08/09/22 release (Protonix) tramadol 50 mg tablet 50 mg PO Q6H PRN pain #20 tabs 08/09/22 methocarbamol 500 mg tablet 1,000 mg (2 x 500 mg) PO TID 7 08/20/22 days #42 tabs tramadol 50 mg tablet 50 mg PO Q6H PRN pain #14 tabs 08/20/22 dicyclomine 20 mg tablet 20 mg PO QID PRN abdominal pain 09/14/22 #20 tabs tramadol 50 mg tablet 50 mg PO Q6H PRN pain #20 tabs 09/14/22 sucralfate 1 gram tablet 1 g PO BID #60 tabs 09/28/22 cyclobenzaprine 10 mg tablet 10 mg PO Q8H #20 tabs 10/02/22 tramadol 50 mg tablet 50 mg PO Q6H PRN pain #20 tabs 10/02/22 meloxicam 15 mg tablet 15 mg PO DAILY #10 tabs 11/02/22 oxycodone 5 mg tablet 5 mg PO Q8H PRN pain #7 tabs 11/02/22 pantoprazole 40 mg tablet,delayed 40 mg PO DAILY #14 tabs 11/02/22 release chlorhexidine gluconate 0.12 % 15 ml buccal BID #118 mL 12/21/22 mouthwash (Peridex) naproxen 500 mg tablet 500 mg PO BID 7 days #14 tabs 12/21/22 penicillin V potassium 500 mg 500 mg PO BID 10 days #20 tabs 12/21/22 tablet oxycodone 5 mg tablet 5 mg PO Q4H PRN pain #10 tabs 04/08/23 Allergies Allergy/AdvReac Type Severity Reaction Status Date / Time levofloxacin [From Levaquin] AdvReac Unknown Verified 12/23/22 22:50 Review of Systems Review of Systems: Yes all other systems are reviewed and are negative PMFSH Past Medical History Medical History Fracture of fifth metacarpal bone of right hand High cholesterol Chronic pain of both knees Chronic neck pain with history of cervical spinal surgery Bipolar disorder Social History Social History Household Members: Children Housing: House Do you presently have visiting nurse or other home services: No Alcohol intake: never Patient Tobacco Use Status: Current everyday Tobacco user Tobacco use type: Cigarette Cigarette Packs Per Day: 1 Cigarettes Per Day: 20.0 Years Smoked: 39 years e-Cigarette/Vaping Use: Former Use Second Hand Smoke Exposure: No Substance Use Type: Opiates Advance Directives: No Advance Directives Information Provided: Yes service: No Sexual orientation: Did not discuss Physical Exam Vital Signs: Vital Signs: Last Vital Signs Temp 98.0 F 04/07/23 22:13 Pulse 105 H 04/07/23 22:13 Resp 20 04/07/23 22:13 BP 121/87 04/07/23 22:13 Pulse Ox 98 04/07/23 22:13 O2 Del Method Room Air 04/07/23 22:13 BMI result Body Mass Index 35.2 Vital signs revealed an elevated heart rate of 105 otherwise unremarkable Exam: General: Awake, alert in no distress Head: Normocephalic, atraumatic Abdomen: soft, non-tender, nondistended, normal bowel sounds Back: no vertebral tenderness, no CVAT, patient does have tenderness palpation of the paraspinal muscles in the lumbar sacral area bilaterally, she has negative straight leg raises, she is able to stand and walk without any difficulty Extremities: no deformities, moves all extremities symmetrically, patient does have tenderness palpation of both knees, there is no joint effusions, or soft tissue swelling Neuro: Awake, alert, oriented, normal speech, cranial nerves intact, moves all extremities symmetrically Medical Decision Making Medical Decision Making MDM Narrative: 53-year-old female with a history of chronic back and chronic knee pain who presents emergency department for evaluation of exacerbation of condition secondary to having to walk throughout the day yesterday to get to her medical appointments. Patient's vital signs did reveal an elevated pulse otherwise were unremarkable. Patient's exam did reveal tenderness palpation of her paraspinal muscles lumbar sacral region with no point vertebral tenderness, negative straight leg raises and no difficulty walking. Patient also has tenderness palpation of both her knees but again she is able to walk O2 difficulty. The patient's presentation is consistent exacerbation of her chronic lower back and knee pain. Patient was advised to continue taking Tylenol, ibuprofen cyclobenzaprine and for pain not relieved by these medications she was prescribed oxycodone Differential Diagnosis Differential Diagnoses: The differential diagnosis associated with the presentation includes Differential diagnosis includes but is not limited to chronic back pain, chronic knee pain, acute exacerbation of back pain, acute exacerbation of knee pain Prescription Management I considered prescription management with: Pain Medication Chronic Conditions Patient?s care impacted by: Other (Chronic back pain, chronic knee pain, COPD) Discharge Plan Discharge Clinical Impression: Chronic pain of both knees, Acute exacerbation of chronic low back pain Patient Disposition: Home, Self-Care Instructions: Chronic Pain (ED) Additional Instructions: You have both chronic back and knee pain. Based on what he told me, your doctor wants you to see a back surgeon to determine if surgery will improve your pain, if the surgeon does not think that you need an operation on your back then you will need to be referred to a pain management clinic help control your pain. Continue taking your medications as prescribed by your doctors. Take ibuprofen 200 mg pills, 2 pills every 6 hours as needed for pain. Take Tylenol (acetaminophen) 500 mg pills, 2 pills every 6 hours as needed for pain. For pain not relieved by ibuprofen or Tylenol take oxycodone 5 mg pills, 1 pill every 4 hours as needed for pain. Do not drive or work while taking this medication since they can cause sleepiness. Oxycodone is a narcotic medication that can be addicting. If you are concerned about addiction you can ask the pharmacist for less pills or do not get this prescription filled. Follow-up with your doctor in 2 days. Please return to the emergency department if your symptoms get worse or if you develop any symptoms that are concerning to you. Prescriptions: New oxycodone 5 mg tablet 5 mg PO Q4H PRN (Reason: pain) Qty: 10 0RF Rx Instructions: Patient may request partial fill; Partial Fill upon patient request. No Action amoxicillin 500 mg capsule 1,000 mg PO TID 5 Days Qty: 30 0RF prednisone 20 mg tablet 60 mg PO DAILY 5 Days Qty: 15 0RF albuterol sulfate [ProAir HFA] 90 mcg/actuation HFA aerosol inhaler 2 puff inhalation Q4-6H PRN (Reason: shortness of breath or wheezing) Qty: 8.5 0RF ketorolac 10 mg tablet 10 mg PO QID PRN (Reason: pain) 5 Days Qty: 20 0RF Rx Instructions: Recieved toradol 30mg IM in the ED methocarbamol 500 mg tablet 1,000 mg PO TID 7 Days Qty: 42 0RF tramadol 50 mg tablet 50 mg PO Q6H PRN (Reason: pain) Qty: 14 0RF buprenorphine-naloxone 2-0.5 mg film 1 strip sublingual DAILY fluoxetine 20 mg Capsule 20 mg PO DAILY 30 Days Qty: 30 0RF melatonin 3 mg Tablet 3 mg PO BEDTIME PRN (Reason: sleep) 30 Days Qty: 30 0RF Aspercreme with Aloe 10 % Cream 1 appl topical TID PRN (Reason: Pain, Moderate (Pain Scale 4-6) 30 Days Qty: 35.4 0RF cyclobenzaprine 10 mg tablet 5 - 10 mg PO BID PRN (Reason: muscle spasm) 30 Days Qty: 30 0RF atorvastatin 10 mg tablet 10 mg PO DAILY 30 Days Qty: 30 0RF clonazepam 0.5 mg tablet 0.5 mg PO BID PRN (Reason: Anxiety) 7 Days Qty: 14 0RF risperidone 2 mg tablet 3 mg PO BEDTIME 30 Days Qty: 45 0RF naloxone [Narcan] 4 mg/actuation spray,non-aerosol 4 mg intranasal Q2M PRN (Reason: opioid overdose) 1 Days Qty: 1 0RF Rx Instructions: spray 1 dose into ONE nostril; alternate nostrils w each dose until help arrives hydrocodone-acetaminophen 5-325 mg tablet 1 - 2 tab PO Q6H PRN (Reason: pain) Qty: 15 0RF azithromycin 250 mg tablet See Rx Instructions .ROUTE .COMPLEX Qty: 6 0RF Rx Instructions: For 250 mg dose pack: take 500 mg today (day 1), then 250 mg for 4 days (days 2-5) prednisone 20 mg tablet 40 mg PO DAILY 5 Days Qty: 10 0RF albuterol sulfate 90 mcg/actuation aerosol powdr breath activated 2 inh inhalation Q4-6H PRN (Reason: shortness of breath or wheezing) Qty: 1 0RF (DME) nebulizer and compressor [Wilkinson Choice Nebulizer] Device See Rx Instructions .Route Qty: 1 0RF Rx Instructions: As directed albuterol sulfate 2.5 mg /3 mL (0.083 %) solution for nebulization 2.5 mg inhalation Q4-6H PRN (Reason: shortness of breath or wheezing) Qty: 90 1RF prednisone 10 mg tablets,dose pack 10 mg PO PER PKG DIR Qty: 21 0RF Rx Instructions: 4 tabs qd x 3d then 2 tabs qd x 3d then 1 tab qd x 3 d pantoprazole [Protonix] 40 mg tablet,delayed release (DR/EC) 40 mg PO DAILY Qty: 30 0RF tramadol 50 mg tablet 50 mg PO Q6H PRN (Reason: pain) Qty: 20 0RF oxycodone 5 mg tablet 5 mg PO Q8H PRN (Reason: pain) Qty: 7 0RF Rx Instructions: Partial Fill upon patient request. meloxicam 15 mg tablet 15 mg PO DAILY Qty: 10 0RF pantoprazole 40 mg tablet,delayed release (DR/EC) 40 mg PO DAILY Qty: 14 0RF tramadol 50 mg tablet 50 mg PO Q6H PRN (Reason: pain) Qty: 20 0RF dicyclomine 20 mg tablet 20 mg PO QID PRN (Reason: abdominal pain) Qty: 20 0RF sucralfate 1 gram tablet 1 g PO BID Qty: 60 0RF cyclobenzaprine 10 mg tablet 10 mg PO Q8H Qty: 20 0RF tramadol 50 mg tablet 50 mg PO Q6H PRN (Reason: pain) Qty: 20 0RF penicillin V potassium 500 mg tablet 500 mg PO BID 10 Days Qty: 20 0RF naproxen 500 mg tablet 500 mg PO BID 7 Days Qty: 14 0RF chlorhexidine gluconate [Peridex] 0.12 % mouthwash 15 ml buccal BID Qty: 118 0RF
[2023-04-08 03:23] VITALS: BP 177/88; PULSE 88; RESP 18; TEMP 37.2; O2SAT 98
[2023-04-08] MEDS: oxyCODONE HCl Immed Release 5 MG TABLET 10 MG PO (03:27)
== END 2023-04-08 03:30 | disposition home or self-care (01) ==
PROVIDERS: Emergency Provider Emergency Medicine Emergency Medical Services
DX: M54.50 Low back pain, unspecified (principal); G89.29 Other chronic pain; M25.562 Pain in left knee; M25.561 Pain in right knee; F17.210 Nicotine dependence, cigarettes, uncomplicated
CPT/HCPCS: 99283; 99284

== ENCOUNTER 2023-04-12 20:06 | Emergency (ER) | payer OTHER, SELFPAY ==
--- NOTE | ~2023-04-12 | US_ITS ---
EXAMINATION: US VENOUS ULTRASOUND WITH DOPPLER LOWER EXTREMITY, LEFT CLINICAL INFORMATION: Left calf swelling/pain, r/o dvt COMPARISON: None available. TECHNIQUE: Ultrasound of the deep veins is performed from the hip to the calf with compression sonography and color and pulse Doppler assessment. Spectral analysis with color-flow imaging is performed. FINDINGS: There is normal venous compression and respiratory variation and augmented flow. The visualized common femoral vein, superficial femoral vein, profunda femoral vein, popliteal vein, and the trifurcation region shows no evidence of deep venous thrombosis. If the patient's symptoms persist, followup ultrasound in 5 days 7 days might be of value to exclude proximal propagation from a non-visualized calf vein. US/US venous duplex LE LT IMPRESSION: No DVT demonstrated in the left lower extremity.
[2023-04-12 20:35] VITALS: BP 179/100; PULSE 98; RESP 19; TEMP 36.6; O2SAT 92; BMI 35.5
--- NOTE | 2023-04-12 20:36 | ED.GENADULT ---
HPI - General Adult General Chief complaint: Extremity Injury, Lower Stated complaint: left lower leg swollen Time Seen by Provider: 04/12/23 21:48 Source: patient Mode of arrival: ambulatory History of Present Illness HPI narrative: 53-year-old female who presents with left lower leg pain without traumatic injury and denies any fevers or chills. Related Data Home Medications Medication Instructions Recorded Confirmed buprenorphine 2 mg-naloxone 0.5 mg 1 strip sublingual DAILY 07/14/21 07/14/21 sublingual film Previous Rx's Medication Instructions Recorded atorvastatin 10 mg tablet 10 mg PO DAILY 30 days #30 tabs 07/24/21 clonazepam 0.5 mg tablet 0.5 mg PO BID PRN Anxiety 7 days 07/24/21 #14 tabs cyclobenzaprine 10 mg tablet 5 - 10 mg (0.5 - 1 x 10 mg) PO BID 07/24/21 PRN muscle spasm 30 days #30 tabs fluoxetine 20 mg capsule 20 mg PO DAILY 30 days #30 caps 07/24/21 melatonin 3 mg tablet 3 mg PO BEDTIME PRN sleep 30 days 07/24/21 #30 tabs naloxone 4 mg/actuation nasal 4 mg intranasal Q2M PRN opioid 07/24/21 spray (Narcan) overdose 1 day #1 ea risperidone 2 mg tablet 3 mg (1.5 x 2 mg) PO BEDTIME 30 07/24/21 days #45 tabs trolamine salicylate-aloe vera 10 1 appl topical TID PRN Pain, 07/24/21 % topical cream (Aspercreme with Moderate (Pain Scale 4-6 30 days Aloe) #35.4 grams hydrocodone 5 mg-acetaminophen 325 1 - 2 tab PO Q6H PRN pain #15 tabs 08/23/21 mg tablet albuterol sulfate 90 mcg/actuation 2 puff inhalation Q4-6H PRN 02/20/22 aerosol inhaler (ProAir HFA) shortness of breath or wheezing #8.5 grams amoxicillin 500 mg capsule 1,000 mg (2 x 500 mg) PO TID 5 02/20/22 days #30 caps prednisone 20 mg tablet 60 mg (3 x 20 mg) PO DAILY 5 days 02/20/22 #15 tabs albuterol sulfate 90 mcg/actuation 2 inh inhalation Q4-6H PRN 03/08/22 breath activated powder inhaler shortness of breath or wheezing #1 ea azithromycin 250 mg tablet See Rx Instructions PO .COMPLEX #6 03/08/22 tabs prednisone 20 mg tablet 40 mg (2 x 20 mg) PO DAILY 5 days 03/08/22 #10 tabs albuterol sulfate 2.5 mg/3 mL 2.5 mg (3 mL) inhalation Q4-6H PRN 03/23/22 (0.083 %) solution for nebulization shortness of breath or wheezing #90 mL nebulizer and compressor (Adair #1 ea 03/23/22 Choice Nebulizer) prednisone 10 mg tablets in a dose 10 mg PO PER PKG DIR #21 ea 03/23/22 pack ketorolac 10 mg tablet 10 mg PO QID PRN pain 5 days #20 04/07/22 tabs pantoprazole 40 mg tablet,delayed 40 mg PO DAILY #30 tabs 08/09/22 release (Protonix) tramadol 50 mg tablet 50 mg PO Q6H PRN pain #20 tabs 08/09/22 methocarbamol 500 mg tablet 1,000 mg (2 x 500 mg) PO TID 7 08/20/22 days #42 tabs tramadol 50 mg tablet 50 mg PO Q6H PRN pain #14 tabs 08/20/22 dicyclomine 20 mg tablet 20 mg PO QID PRN abdominal pain 09/14/22 #20 tabs tramadol 50 mg tablet 50 mg PO Q6H PRN pain #20 tabs 09/14/22 sucralfate 1 gram tablet 1 g PO BID #60 tabs 09/28/22 cyclobenzaprine 10 mg tablet 10 mg PO Q8H #20 tabs 10/02/22 tramadol 50 mg tablet 50 mg PO Q6H PRN pain #20 tabs 10/02/22 meloxicam 15 mg tablet 15 mg PO DAILY #10 tabs 11/02/22 oxycodone 5 mg tablet 5 mg PO Q8H PRN pain #7 tabs 11/02/22 pantoprazole 40 mg tablet,delayed 40 mg PO DAILY #14 tabs 11/02/22 release chlorhexidine gluconate 0.12 % 15 ml buccal BID #118 mL 12/21/22 mouthwash (Peridex) naproxen 500 mg tablet 500 mg PO BID 7 days #14 tabs 12/21/22 penicillin V potassium 500 mg 500 mg PO BID 10 days #20 tabs 12/21/22 tablet oxycodone 5 mg tablet 5 mg PO Q4H PRN pain #10 tabs 04/08/23 Allergies Allergy/AdvReac Type Severity Reaction Status Date / Time levofloxacin [From Levaquin] AdvReac Unknown Verified 12/23/22 22:50 Review of Systems Review of Systems: Pertinent positives and negatives as stated in [facility] Past Medical History Source: nursing notes reviewed Medical History Fracture of fifth metacarpal bone of right hand High cholesterol Chronic pain of both knees Chronic neck pain with history of cervical spinal surgery Bipolar disorder Social History Social History Household Members: Children Housing: House Do you presently have visiting nurse or other home services: No Alcohol intake: never Patient Tobacco Use Status: Current everyday Tobacco user Tobacco use type: Cigarette Cigarette Packs Per Day: 1 Cigarettes Per Day: 20.0 Years Smoked: 39 years e-Cigarette/Vaping Use: Former Use Second Hand Smoke Exposure: No Substance Use Type: Opiates Advance Directives: No Advance Directives Information Provided: No service: No Sexual orientation: Did not discuss Physical Exam ED Vital Signs: Vital Signs - 24 hr 04/12/23 20:35 Temperature 97.8 F Pulse Rate 98 Respiratory Rate 19 Blood Pressure 179/100 H Pulse Oximetry 92 Oxygen Delivery Method Room Air BMI result Body Mass Index 35.5 VITAL SIGNS: Reviewed. GENERAL: Well developed, well nourished, in no acute distress. HEAD: Normocephalic/atraumatic EYES: PERRLA, EOMI LUNGS: Normal breath sounds. No adventitious sounds or accessory muscle use. SpO2<92> CARDIOVASCULAR: Regular rate and rhythm without noted murmurs ABDOMEN: Soft, non-tender, non-distended with bowel sounds. MUSCULOSKELETAL: No tenderness, deformities, or effusions noted on gross inspection. EXTREMITIES: No cyanosis, clubbing or edema. LLE: There is no asymmetry when compared to the right, there is no erythema/induration, no palpable cords, sensation and pulses are intact distally. SKIN: Inspection of the skin reveals no rashes NEUROLOGIC: Alert and oriented x 4. Strength and sensation to light touch were grossly intact x 4. Course Course Course Narrative: this is a rapid medical exam. Defer additional HPI, ROS, PE to prior provider. 53-year-old female with a history of OA, COPD, bipolar disorder, high cholesterol presents the ER with complaints of left calf pain and swelling since last evening. Will obtain US VSS Medical Decision Making Medical Decision Making MDM Narrative: 53-year-old female with history and clinical presentation, DDX: Musculoskeletal pain, DVT, no clinical suspicion for cellulitis. I reviewed the ultrasound study which is not significant for DVT, patient had Koby wrap applied and was discharged home. Differential Diagnosis Differential Diagnoses: The differential diagnosis associated with the presentation includes Please see the discussion above Admission/Observation Consideration of admission/observation: Escalation of care including admission/observation considered Please see the discussion above Radiology Impression Discussion of test interpretation with radiology: I have reviewed the radiologist's reading. Radiologist Impression: Please see the discussion above Discharge Plan Discharge Clinical Impression: Left leg pain Patient Disposition: Home, Self-Care Instructions: Leg Pain (ED) Additional Instructions: 1. Resume all home medications as prescribed. The ultrasound was negative for any clot in your leg 2. Follow-up with primary care doctor on Friday morning. Return to the ER for any worsening symptoms. Prescriptions: No Action amoxicillin 500 mg capsule 1,000 mg PO TID 5 Days Qty: 30 0RF prednisone 20 mg tablet 60 mg PO DAILY 5 Days Qty: 15 0RF albuterol sulfate [ProAir HFA] 90 mcg/actuation HFA aerosol inhaler 2 puff inhalation Q4-6H PRN (Reason: shortness of breath or wheezing) Qty: 8.5 0RF ketorolac 10 mg tablet 10 mg PO QID PRN (Reason: pain) 5 Days Qty: 20 0RF Rx Instructions: Recieved toradol 30mg IM in the ED methocarbamol 500 mg tablet 1,000 mg PO TID 7 Days Qty: 42 0RF tramadol 50 mg tablet 50 mg PO Q6H PRN (Reason: pain) Qty: 14 0RF buprenorphine-naloxone 2-0.5 mg film 1 strip sublingual DAILY fluoxetine 20 mg Capsule 20 mg PO DAILY 30 Days Qty: 30 0RF melatonin 3 mg Tablet 3 mg PO BEDTIME PRN (Reason: sleep) 30 Days Qty: 30 0RF Aspercreme with Aloe 10 % Cream 1 appl topical TID PRN (Reason: Pain, Moderate (Pain Scale 4-6) 30 Days Qty: 35.4 0RF cyclobenzaprine 10 mg tablet 5 - 10 mg PO BID PRN (Reason: muscle spasm) 30 Days Qty: 30 0RF atorvastatin 10 mg tablet 10 mg PO DAILY 30 Days Qty: 30 0RF clonazepam 0.5 mg tablet 0.5 mg PO BID PRN (Reason: Anxiety) 7 Days Qty: 14 0RF risperidone 2 mg tablet 3 mg PO BEDTIME 30 Days Qty: 45 0RF naloxone [Narcan] 4 mg/actuation spray,non-aerosol 4 mg intranasal Q2M PRN (Reason: opioid overdose) 1 Days Qty: 1 0RF Rx Instructions: spray 1 dose into ONE nostril; alternate nostrils w each dose until help arrives hydrocodone-acetaminophen 5-325 mg tablet 1 - 2 tab PO Q6H PRN (Reason: pain) Qty: 15 0RF azithromycin 250 mg tablet See Rx Instructions .ROUTE .COMPLEX Qty: 6 0RF Rx Instructions: For 250 mg dose pack: take 500 mg today (day 1), then 250 mg for 4 days (days 2-5) prednisone 20 mg tablet 40 mg PO DAILY 5 Days Qty: 10 0RF albuterol sulfate 90 mcg/actuation aerosol powdr breath activated 2 inh inhalation Q4-6H PRN (Reason: shortness of breath or wheezing) Qty: 1 0RF (DME) nebulizer and compressor [Adair Choice Nebulizer] Device See Rx Instructions .Route Qty: 1 0RF Rx Instructions: As directed albuterol sulfate 2.5 mg /3 mL (0.083 %) solution for nebulization 2.5 mg inhalation Q4-6H PRN (Reason: shortness of breath or wheezing) Qty: 90 1RF prednisone 10 mg tablets,dose pack 10 mg PO PER PKG DIR Qty: 21 0RF Rx Instructions: 4 tabs qd x 3d then 2 tabs qd x 3d then 1 tab qd x 3 d pantoprazole [Protonix] 40 mg tablet,delayed release (DR/EC) 40 mg PO DAILY Qty: 30 0RF tramadol 50 mg tablet 50 mg PO Q6H PRN (Reason: pain) Qty: 20 0RF oxycodone 5 mg tablet 5 mg PO Q8H PRN (Reason: pain) Qty: 7 0RF Rx Instructions: Partial Fill upon patient request. meloxicam 15 mg tablet 15 mg PO DAILY Qty: 10 0RF pantoprazole 40 mg tablet,delayed release (DR/EC) 40 mg PO DAILY Qty: 14 0RF oxycodone 5 mg tablet 5 mg PO Q4H PRN (Reason: pain) Qty: 10 0RF Rx Instructions: Patient may request partial fill; Partial Fill upon patient request. tramadol 50 mg tablet 50 mg PO Q6H PRN (Reason: pain) Qty: 20 0RF dicyclomine 20 mg tablet 20 mg PO QID PRN (Reason: abdominal pain) Qty: 20 0RF sucralfate 1 gram tablet 1 g PO BID Qty: 60 0RF cyclobenzaprine 10 mg tablet 10 mg PO Q8H Qty: 20 0RF tramadol 50 mg tablet 50 mg PO Q6H PRN (Reason: pain) Qty: 20 0RF penicillin V potassium 500 mg tablet 500 mg PO BID 10 Days Qty: 20 0RF naproxen 500 mg tablet 500 mg PO BID 7 Days Qty: 14 0RF chlorhexidine gluconate [Peridex] 0.12 % mouthwash 15 ml buccal BID Qty: 118 0RF Interventions: ED Discharge Assessment Last Done: 04/12/23 22:39 Discharge Date/Time: 04/12/23 22:41
== END 2023-04-12 22:41 | disposition home or self-care (01) ==
PROVIDERS: Emergency Provider Student in an Organized Health Care Education/Training Program
DX: M79.662 Pain in left lower leg (principal); F11.20 Opioid dependence, uncomplicated; F17.210 Nicotine dependence, cigarettes, uncomplicated
CPT/HCPCS: 93971; 99282; 99284

== ENCOUNTER 2023-05-07 20:42 | Emergency (ER) | payer OTHER, SELFPAY ==
--- NOTE | ~2023-05-07 | XR_ITS ---
EXAMINATION: XR TIBIA AND FIBULA, LEFT CLINICAL INFORMATION: Pain. COMPARISON: None available. TECHNIQUE: AP and lateral views of the left tibia and fibula were obtained. FINDINGS: The bone mineralization is normal. There is mild medial and lateral knee degenerative change. 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 There is no acute fracture. The soft tissues are unremarkable. XR/XR tibia fibula LT 2V IMPRESSION: No acute osseous abnormality.
[2023-05-07 21:34] VITALS: BP 129/91; PULSE 103; RESP 18; TEMP 36.1; O2SAT 95; BMI 37.2
--- NOTE | 2023-05-08 00:59 | ED.GENADULT ---
HPI - General Adult General Chief complaint: Extremity Injury, Lower Stated complaint: left leg pain Time Seen by Provider: 05/08/23 00:20 Source: patient Mode of arrival: ambulatory Limitations: no limitations History of Present Illness HPI narrative: Patient is a 53-year-old female with history of chronic bilateral knee pain presenting to the emergency department with complaint of worsening left lower leg pain over the past 2-3 days. Reports this pain is chronic but has increased in severity. States she has been walking more than normal recently. Denies any fall or other trauma. Currently using Tylenol, ibuprofen, Percocet, Aspercreme topical ointment with little relief of pain. Denies any numbness or tingling to her leg. Denies fevers, chills, body aches. Denies calf pain or swelling. Denies chest pain or shortness of breath. Seen here recently for similar complaint. MD complaint: Left leg pain Onset (ago): day(s) Location: left and lower extremity Radiation: non-radiation Severity: severe Quality: aching Pain Consistency: constant Relieving factors: rest Exacerbating factors: movement Associated symptoms: denies other symptoms Treatments prior to arrival: NSAID and other Related Data Home Medications Medication Instructions Recorded Confirmed buprenorphine 2 mg-naloxone 0.5 mg 1 strip sublingual DAILY 07/14/21 07/14/21 sublingual film Previous Rx's Medication Instructions Recorded atorvastatin 10 mg tablet 10 mg PO DAILY 30 days #30 tabs 07/24/21 clonazepam 0.5 mg tablet 0.5 mg PO BID PRN Anxiety 7 days 07/24/21 #14 tabs cyclobenzaprine 10 mg tablet 5 - 10 mg (0.5 - 1 x 10 mg) PO BID 07/24/21 PRN muscle spasm 30 days #30 tabs fluoxetine 20 mg capsule 20 mg PO DAILY 30 days #30 caps 07/24/21 melatonin 3 mg tablet 3 mg PO BEDTIME PRN sleep 30 days 07/24/21 #30 tabs naloxone 4 mg/actuation nasal 4 mg intranasal Q2M PRN opioid 07/24/21 spray (Narcan) overdose 1 day #1 ea risperidone 2 mg tablet 3 mg (1.5 x 2 mg) PO BEDTIME 30 07/24/21 days #45 tabs trolamine salicylate-aloe vera 10 1 appl topical TID PRN Pain, 07/24/21 % topical cream (Aspercreme with Moderate (Pain Scale 4-6 30 days Aloe) #35.4 grams hydrocodone 5 mg-acetaminophen 325 1 - 2 tab PO Q6H PRN pain #15 tabs 08/23/21 mg tablet albuterol sulfate 90 mcg/actuation 2 puff inhalation Q4-6H PRN 02/20/22 aerosol inhaler (ProAir HFA) shortness of breath or wheezing #8.5 grams amoxicillin 500 mg capsule 1,000 mg (2 x 500 mg) PO TID 5 02/20/22 days #30 caps prednisone 20 mg tablet 60 mg (3 x 20 mg) PO DAILY 5 days 02/20/22 #15 tabs albuterol sulfate 90 mcg/actuation 2 inh inhalation Q4-6H PRN 03/08/22 breath activated powder inhaler shortness of breath or wheezing #1 ea azithromycin 250 mg tablet See Rx Instructions PO .COMPLEX #6 03/08/22 tabs prednisone 20 mg tablet 40 mg (2 x 20 mg) PO DAILY 5 days 03/08/22 #10 tabs albuterol sulfate 2.5 mg/3 mL 2.5 mg (3 mL) inhalation Q4-6H PRN 03/23/22 (0.083 %) solution for nebulization shortness of breath or wheezing #90 mL nebulizer and compressor ([place] #1 ea 03/23/22 Choice Nebulizer) prednisone 10 mg tablets in a dose 10 mg PO PER PKG DIR #21 ea 03/23/22 pack ketorolac 10 mg tablet 10 mg PO QID PRN pain 5 days #20 04/07/22 tabs pantoprazole 40 mg tablet,delayed 40 mg PO DAILY #30 tabs 08/09/22 release (Protonix) tramadol 50 mg tablet 50 mg PO Q6H PRN pain #20 tabs 08/09/22 methocarbamol 500 mg tablet 1,000 mg (2 x 500 mg) PO TID 7 08/20/22 days #42 tabs tramadol 50 mg tablet 50 mg PO Q6H PRN pain #14 tabs 08/20/22 dicyclomine 20 mg tablet 20 mg PO QID PRN abdominal pain 09/14/22 #20 tabs tramadol 50 mg tablet 50 mg PO Q6H PRN pain #20 tabs 09/14/22 sucralfate 1 gram tablet 1 g PO BID #60 tabs 09/28/22 cyclobenzaprine 10 mg tablet 10 mg PO Q8H #20 tabs 10/02/22 tramadol 50 mg tablet 50 mg PO Q6H PRN pain #20 tabs 10/02/22 meloxicam 15 mg tablet 15 mg PO DAILY #10 tabs 11/02/22 oxycodone 5 mg tablet 5 mg PO Q8H PRN pain #7 tabs 11/02/22 pantoprazole 40 mg tablet,delayed 40 mg PO DAILY #14 tabs 11/02/22 release chlorhexidine gluconate 0.12 % 15 ml buccal BID #118 mL 12/21/22 mouthwash (Peridex) naproxen 500 mg tablet 500 mg PO BID 7 days #14 tabs 12/21/22 penicillin V potassium 500 mg 500 mg PO BID 10 days #20 tabs 12/21/22 tablet oxycodone 5 mg tablet 5 mg PO Q4H PRN pain #10 tabs 04/08/23 lidocaine 5 % topical patch 1 patch topical DAILY #15 ea 05/08/23 Allergies Allergy/AdvReac Type Severity Reaction Status Date / Time levofloxacin [From Levaquin] AdvReac Unknown Verified 12/23/22 22:50 Review of Systems Review of Systems: As per MDM. Yes all other systems are reviewed and are negative Constitutional: Constitutional: Reports as per HPI [facility] Past Medical History Medical History Fracture of fifth metacarpal bone of right hand High cholesterol Chronic pain of both knees Chronic neck pain with history of cervical spinal surgery Bipolar disorder Social History Social History Household Members: Children Housing: House Do you presently have visiting nurse or other home services: No Alcohol intake: never Patient Tobacco Use Status: Current everyday Tobacco user Tobacco use type: Cigarette Cigarette Packs Per Day: 1 Cigarettes Per Day: 20.0 Years Smoked: 39 years e-Cigarette/Vaping Use: Former Use Second Hand Smoke Exposure: No Substance Use Type: Opiates Advance Directives: No Advance Directives Information Provided: No service: No Sexual orientation: Did not discuss Physical Exam ED Vital Signs: Vital Signs - 24 hr 05/07/23 21:34 Temperature 97.0 F Pulse Rate 103 H Respiratory Rate 18 Blood Pressure 129/91 H Pulse Oximetry 95 Oxygen Delivery Method Room Air BMI result Body Mass Index 37.2 Vital signs have been reviewed and appear to be correct. Blood pressure elevated. Heart rate mild tachycardia. Respiratory rate normal. Temperature normal. Oxygen saturation normal. Const General: cooperative and no acute distress Orientation/consciousness: oriented to person, oriented to place, oriented to time and patient oriented x3 Limitations: no limitations [facility] Head: Yes normocephalic and Yes atraumatic Ears: external ears normal General nose exam: Normal external nose present Face and sinus: Yes face symmetric Mouth: oropharynx normal and moist mucous membranes Throat: Yes uvula midline Eyes Pupils: Equal, round and reactive pupils present Neck Neck: Yes normal visual inspection and Yes supple Resp Effort & Inspection: normal respiratory effort and able to speak in complete sentences Auscultation: clear to auscultation bilaterally Cardio Rate: regular rate Rhythm: regular rhythm Heart sounds: S1 normal heart sound present and S2 normal heart sound present GI Palpation (GI): Soft to palpation and nontender Auscultation: normoactive bowel sounds General: Yes no CVA tenderness Back/Spine/Pelvis Back: no CVA tenderness Skin General skin exam: elasticity normal and turgor normal Neuro General: oriented to person, oriented to place, oriented to time, patient oriented x3, tone normal, moves all extremities, no focal motor deficits, CN's II-XI intact bilaterally and deep tendon reflexes 2+ bilaterally Cranial nerves: Yes Equal, round and reactive pupils present Cognition (Neuro): normal cognition Motor exam (neuro): 5/5 motor strength present throughout Sensory Exam: Normal double simultaneous stimulation for sensation Extrem General: Yes full ROM, Yes no pedal edema and Yes no calf tenderness Left lower extremity: normal to inspection, full ROM, normal capillary refill, knee (no tenderness to popliteal fossa) Details: normal to inspection, tenderness Location: of the patella Details: inferiorly and normal ROM and lower leg (no calf tenderness) Details: normal to inspection; no erythema, no tenderness, no localized swelling, no palpable cords, no abrasions, no ecchymosis, no deformity and no unusual warmth; no edema Psych Mental Status: mental status grossly normal Affect: normal affect Thought process: Normal thought process present Medical Decision Making Medical Decision Making MDM Narrative: Patient is a 53-year-old female with history of chronic bilateral knee pain presenting to the emergency department with complaint of worsening left lower leg pain over the past 2-3 days. On exam patient is awake, A+Ox3, very slightly tachycardic, VS otherwise WNL, normal neurological exam without focal deficits, physical exam findings as above. Given reported symptoms and physical exam findings, initial differential includes acute on chronic pain, muscle strain, musculoskeletal pain. Wells score 0, unlikely DVT. X-ray notable for no acute abnormality. My interpretation is in agreement with the radiologist's interpretation. Will discharge patient home with lidocaine patches, instructed her to follow up with PCP this week. Return precautions discussed. Patient verbalized understanding of and agreement with plan. Wells' Criteria for DVT from [email or web address] on 05/08/2023 All calculations should be rechecked by clinician prior to use RESULT SUMMARY: 0 points Low risk group for DVT. ?Unlikely? according to Wells? DVT studies. INPUTS: Active cancer ?> 0 = No Bedridden recently >3 days or major surgery within 12 weeks ?> 0 = No Calf swelling >3 cm compared to the other leg ?> 0 = No Collateral (nonvaricose) superficial veins present ?> 0 = No Entire leg swollen ?> 0 = No Localized tenderness along the deep venous system ?> 0 = No Pitting edema, confined to symptomatic leg ?> 0 = No Paralysis, paresis, or recent plaster immobilization of the lower extremity ?> 0 = No Previously documented DVT ?> 0 = No Alternative diagnosis to DVT as likely or more likely ?> 0 = No Differential Diagnosis Differential Diagnoses: The differential diagnosis associated with the presentation includes As per [facility] Independent Interpretation I performed an independent interpretation of an: Plain X-Ray Interpretation: No acute abnormality Radiology Impression Discussion of test interpretation with radiology: I have reviewed the radiologist's reading. Radiologist Impression: FINDINGS: The bone mineralization is normal. There is mild medial and lateral knee degenerative change. 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 There is no acute fracture. The soft tissues are unremarkable. XR/XR tibia fibula LT 2V IMPRESSION: No acute osseous abnormality. External Record Review External record reviewed: Inpatient record, Office record and Outpatient record Prescription Management I considered prescription management with: Pain Medication Discharge Plan Discharge Clinical Impression: Leg pain, left Patient Disposition: Home, Self-Care Instructions: Leg Pain (ED) Additional Instructions: You are evaluated in the emergency department today for left lower leg pain. Your x-ray did not show evidence of any conditions requiring emergent medical treatment at this time. You should continue to take the pain medications prescribed to wear primary care provider. You can apply ice to the area for 10-15 minutes at a time several times daily, using caution not to apply ice directly to skin. You should keep leg elevated while at rest. You are being prescribed topical lidocaine patches which you can wear for up to 12 hours in a 24 hour period, do not apply head directly over the patches. Please follow up with your primary care provider this week. Return to the emergency department if you develop new swelling, redness, warmth, weakness, numbness, tingling, or change of color to your leg or foot. Prescriptions: New lidocaine 5 % adhesive patch,medicated 1 patch topical DAILY Qty: 15 0RF Rx Instructions: leave on most painful area for up to 12 hrs No Action amoxicillin 500 mg capsule 1,000 mg PO TID 5 Days Qty: 30 0RF prednisone 20 mg tablet 60 mg PO DAILY 5 Days Qty: 15 0RF albuterol sulfate [ProAir HFA] 90 mcg/actuation HFA aerosol inhaler 2 puff inhalation Q4-6H PRN (Reason: shortness of breath or wheezing) Qty: 8.5 0RF ketorolac 10 mg tablet 10 mg PO QID PRN (Reason: pain) 5 Days Qty: 20 0RF Rx Instructions: Recieved toradol 30mg IM in the ED methocarbamol 500 mg tablet 1,000 mg PO TID 7 Days Qty: 42 0RF tramadol 50 mg tablet 50 mg PO Q6H PRN (Reason: pain) Qty: 14 0RF buprenorphine-naloxone 2-0.5 mg film 1 strip sublingual DAILY fluoxetine 20 mg Capsule 20 mg PO DAILY 30 Days Qty: 30 0RF melatonin 3 mg Tablet 3 mg PO BEDTIME PRN (Reason: sleep) 30 Days Qty: 30 0RF Aspercreme with Aloe 10 % Cream 1 appl topical TID PRN (Reason: Pain, Moderate (Pain Scale 4-6) 30 Days Qty: 35.4 0RF cyclobenzaprine 10 mg tablet 5 - 10 mg PO BID PRN (Reason: muscle spasm) 30 Days Qty: 30 0RF atorvastatin 10 mg tablet 10 mg PO DAILY 30 Days Qty: 30 0RF clonazepam 0.5 mg tablet 0.5 mg PO BID PRN (Reason: Anxiety) 7 Days Qty: 14 0RF risperidone 2 mg tablet 3 mg PO BEDTIME 30 Days Qty: 45 0RF naloxone [Narcan] 4 mg/actuation spray,non-aerosol 4 mg intranasal Q2M PRN (Reason: opioid overdose) 1 Days Qty: 1 0RF Rx Instructions: spray 1 dose into ONE nostril; alternate nostrils w each dose until help arrives hydrocodone-acetaminophen 5-325 mg tablet 1 - 2 tab PO Q6H PRN (Reason: pain) Qty: 15 0RF azithromycin 250 mg tablet See Rx Instructions .ROUTE .COMPLEX Qty: 6 0RF Rx Instructions: For 250 mg dose pack: take 500 mg today (day 1), then 250 mg for 4 days (days 2-5) prednisone 20 mg tablet 40 mg PO DAILY 5 Days Qty: 10 0RF albuterol sulfate 90 mcg/actuation aerosol powdr breath activated 2 inh inhalation Q4-6H PRN (Reason: shortness of breath or wheezing) Qty: 1 0RF (DME) nebulizer and compressor [[place] Choice Nebulizer] Device See Rx Instructions .Route Qty: 1 0RF Rx Instructions: As directed albuterol sulfate 2.5 mg /3 mL (0.083 %) solution for nebulization 2.5 mg inhalation Q4-6H PRN (Reason: shortness of breath or wheezing) Qty: 90 1RF prednisone 10 mg tablets,dose pack 10 mg PO PER PKG DIR Qty: 21 0RF Rx Instructions: 4 tabs qd x 3d then 2 tabs qd x 3d then 1 tab qd x 3 d pantoprazole [Protonix] 40 mg tablet,delayed release (DR/EC) 40 mg PO DAILY Qty: 30 0RF tramadol 50 mg tablet 50 mg PO Q6H PRN (Reason: pain) Qty: 20 0RF oxycodone 5 mg tablet 5 mg PO Q8H PRN (Reason: pain) Qty: 7 0RF Rx Instructions: Partial Fill upon patient request. meloxicam 15 mg tablet 15 mg PO DAILY Qty: 10 0RF pantoprazole 40 mg tablet,delayed release (DR/EC) 40 mg PO DAILY Qty: 14 0RF oxycodone 5 mg tablet 5 mg PO Q4H PRN (Reason: pain) Qty: 10 0RF Rx Instructions: Patient may request partial fill; Partial Fill upon patient request. tramadol 50 mg tablet 50 mg PO Q6H PRN (Reason: pain) Qty: 20 0RF dicyclomine 20 mg tablet 20 mg PO QID PRN (Reason: abdominal pain) Qty: 20 0RF sucralfate 1 gram tablet 1 g PO BID Qty: 60 0RF cyclobenzaprine 10 mg tablet 10 mg PO Q8H Qty: 20 0RF tramadol 50 mg tablet 50 mg PO Q6H PRN (Reason: pain) Qty: 20 0RF penicillin V potassium 500 mg tablet 500 mg PO BID 10 Days Qty: 20 0RF naproxen 500 mg tablet 500 mg PO BID 7 Days Qty: 14 0RF chlorhexidine gluconate [Peridex] 0.12 % mouthwash 15 ml buccal BID Qty: 118 0RF
--- NOTE | 2023-05-08 02:15 | PC.NURSE ---
this Rn only reviewed discharge instruction with pt. pt verbalized understanding, no sign of distress upon discharge.
== END 2023-05-08 02:16 | disposition home or self-care (01) ==
PROVIDERS: Emergency Provider Emergency Medicine
DX: M79.662 Pain in left lower leg (principal); F17.210 Nicotine dependence, cigarettes, uncomplicated
CPT/HCPCS: 73590; 99282; 99283

== ENCOUNTER 2023-07-25 09:20 | Outpatient (AMB) | payer OTHER, SELFPAY ==
[2023-07-25 09:39] VITALS: BP 120/67; PULSE 109; RESP 16; O2SAT 93; BMI 36.1
--- NOTE | 2023-07-25 09:39 | MHC.OFFVIS ---
Intake Vital Signs 07/25/23 09:39 Height 5 ft 4 in Weight 210 lb 4 oz BMI 36.1 BP 120/67 Blood Pressure Location Lt brachial Position Sitting Respiration 16 Pulse 109 H Pulse Source Pulse Oximeter Pulse Oximetry (%) 93 Oxygen Delivery Method Room Air Intake Visit Reasons: Osteoarthritis anna knee - Confirmed Allergies levofloxacin [From Levaquin] Adverse Reaction (Verified 07/25/23 09:27) Unknown HPI HPI Comments History of Present Illness Details Mari is a very pleasant 53-year-old female who presents to the office today, accompanied by her significant other, for evaluation and management of her chronic bilateral knee pain. Patient reports that she is under the care of orthopedics at [facility]. She is scheduled for left knee replacement on 08/15/2023 with right knee scheduled once she is healed. The plan is for a right to be done within a few months of the left. Patient was hoping today that she could be evaluated for chronic lower back pain that has been ongoing since April of 2022. She attributes the pain to weight gain and poor body mechanics secondary to her chronic knee pain. She has completed 18 sessions of physical therapy, in two courses within the last 12 months, it did not improve her pain. She endorses midline lower back pain that radiates down toward her buttocks. Denies shooting, electrical pain down either lower extremity. She has chronic bilateral knee pain, right knee will pop and give out. But she denies neurological numbness or weakness of either lower extremity. Pain is worse with moving, standing and walking, improves with rest. She has received epid[facility] that did not provide her any benefit. She did not follow up with them after and she does not want to continue care with them. She is hoping to transfer her care here. She has tried chiropractor without improvement of her symptoms. She has never undergone acupuncture or massage. Has tried nonsteroidal anti-inflammatory medication, [id number] medications, topical medications, prescription muscle relaxers and opioid medications all without improvement of her symptoms. She reports using Rollator walker if she needs to ambulate long distances. She is currently prescribed Suboxone 2mg daily, oxycodone 5mg as needed and cyclobenzaprine twice daily as needed. Patient had recent MRI x-ray the [facility], results are not available to review today. She denies red flag symptoms including bowel, bladder or saddle anesthesia Pain today is rated as a 7/10, constant. In terms of muscle damage condition is described as aching, spasming, stabbing, sharp, shooting, dull, cramping, throbbing. Pain is negatively impacting patient's enjoyment of life, general activity, mood, recreational activities and walking. [facility] Medical History Fracture of fifth metacarpal bone of right hand High cholesterol Chronic pain of both knees Chronic neck pain with history of cervical spinal surgery Bipolar disorder Social History Household Members: Children Housing: House Do you presently have visiting nurse or other home services: No Alcohol intake: never Patient Tobacco Use Status: Current everyday Tobacco user Tobacco use type: Cigarette Cigarette Packs Per Day: 1 Cigarettes Per Day: 20.0 Years Smoked: 39 years e-Cigarette/Vaping Use: Former Use Second Hand Smoke Exposure: No Substance Use Type: Opiates service: No Sexual orientation: Did not discuss Review of Systems Const All systems reviewed & are unremarkable except as noted in HPI and below Physical Exam Vital Signs: Last Vital Signs Pulse 109 H 07/25/23 09:39 Resp 16 07/25/23 09:39 BP 120/67 07/25/23 09:39 Pulse Ox 93 07/25/23 09:39 Oxygen Delivery Method Room Air 07/25/23 09:39 BMI result Body Mass Index 36.1 General: awake, alert, oriented. Answers questions appropriately. Fully engaged in examination. Skin: warm, dry, intact HEENT: Normocephalic. Hearing intact. Cardiac: External chest normal in appearance. Respiratory: No cough, audible wheezing or stridor. Abdomen: without gross distension. MS: No obvious swelling or deformities. Able to stand on bilateral tiptoes and bilateral heels.? Able to transition from sit to stand unassisted. Ambulates with bilaterally normal heel strike and toe off Bilateral lower extremity strength 5/5 SLR with and without dorsiflexion negative bilaterally Tenderness over midline lumbar vertebrae and lumbar paraspinal muscles Nontender or posterior superior iliac spine Lumbar range of motion intact Facet loading positive bilaterally Neurological: Oriented to person, place, time and situation. Thought process intact. No gait abnormalities appreciated. Psychiatric: Appropriate mood and affect. Good judgment and insight. Results Reviewed Results Reviewed: MRI report requested from [facility] Assessment & Plan Assessment & Plan (1) Lumbar spondylosis: Code(s): M47.816 - Spondylosis without myelopathy or radiculopathy, lumbar region Plan Patient is a very pleasant 53-year-old female who was referred here for evaluation management of her chronic bilateral knee pain. She is pending bilateral knee replacement surgery, left side is scheduled for next month. He patient would like to on her chronic back pain today as her knee pain is pending surgery. History, physical exam and provocative testing consistent with lumbar spondylosis. MRI results have been requested from [facility], pending review Patient has exhausted conservative therapy including physical therapy, NSAIDs, topical medications, muscle relaxers, opioid medications and steroid injections all without improvement of her pain. Discussed options for treatment including diagnostic interventional testing, epidural steroid injections, peripheral nerve stimulation with Sprint, RFA and more permanent neuromodulation. Informational pamphlets provided. Patient would like to wait until she is recovered from her left knee replacement surgery before proceeding with any interventional procedures for her back. She will call here to schedule an appointment when she is ready to proceed with injections. Plan will be for bilateral L1, L2, L3 medial branch blocks with local anesthetic. Plan for Sprint versus RFA by if patient receives improvement in pain, function and mobility in the hours after the MBBs. All questions and concerns have been answered and patient agrees with the plan. Patient will call the office to schedule follow-up when she is ready to proceed with interventional procedures, sooner if needed. Coding Level of Care Code New Pt Level 4 (12607) Diagnoses Lumbar spondylosis M47.816
== END 2023-07-25 10:13 | disposition home or self-care (01) ==
PROVIDERS: Visit Provider Registered Nurse Emergency
DX: M47.816 Spondylosis without myelopathy or radiculopathy, lumbar region (principal)
CPT/HCPCS: 99204

== ENCOUNTER → 2023-07-25 09:20 | Outpatient (BNVA) | payer OTHER, SELFPAY | PROVIDERS: Visit Provider Registered Nurse Emergency | DX: M47.816 Spondylosis without myelopathy or radiculopathy, lumbar region (principal) | CPT/HCPCS: 99202 ==

== ENCOUNTER 2023-12-13 21:26 | Emergency (ER) | payer OTHER, SELFPAY ==
[2023-12-13 21:31] VITALS: PULSE 118; RESP 19; TEMP 36.4; O2SAT 96; BMI 37.8
[2023-12-13 21:52] LABS: MANUAL DIFF FLAG NO
[2023-12-13 21:53] LABS: Basophils Absolute Auto 0.1 X10*3/uL (0.0-0.2); Basophils Percent Auto 0.8 % (0-2); Eosinophils Absolute Auto 0.3 X10*3/uL (0.0-0.4); Hematocrit 40.7 % (37.0-47.0); Hemoglobin 13.3 g/dl (12.0-16.0); Imm Gran Abs Auto 0.04 X10*3/uL (0.00-0.03); Imm Gran Pct Auto 0.4 % (0.0-0.4); Lymphocytes Absolute Auto 2.5 X10*3/uL (1.2-4.9); Lymphocytes Percent Auto 25.3 % (20-40); Mean Corpuscular HGB Conc 32.7 g/dl (31.0-35.0); Mean Corpuscular Hemoglobin 31.5 pg (27.0-33.0); Mean Corpuscular Volume 96.4 fL (80.0-98.0); Mean Platelet Volume 8.9 fL (9.4-12.3); Monocytes Absolute Auto 0.4 X10*3/uL (0.1-1.2); Monocytes Percent Auto 3.8 % (2-11); Neutrophils Absolute Auto 6.5 x10*3/uL (2.0-8.3); Neutrophils Percent Auto 66.7 % (45-73); Platelet Count 306 X10*3/uL (160-400); Red Blood Count 4.22 X10*6/uL (4.20-5.50); Red Cell Distribution Width 14.9 % (11.0-16.0); White Blood Count 9.8 X10*3/uL (4.8-10.8)
[2023-12-13 22:27] LABS: Appearance Urine Cloudy; Color Urine Yellow; Glucose Urine UA Negative (Negative); Leukocyte Esterase Urine Large (3+) (Negative); Nitrite Urine Negative (Negative); UMIC TRIGGER UACC YES; Urine Blood Negative (Negative); Urine Ketones Negative (Negative); Urine Protein Negative (Neg-Trace)
[2023-12-13 22:32] LABS: Bacteria Urine None Seen (None Seen); Hyaline Casts Urine 0-2 /LPF (0-2); RBC Urine 0-2 /HPF (0-2); Squamous Epithelial Cell Urine 0-2 /HPF (0-2); UACC Culture Trigger YES; WBC Urine >50 /HPF (0-5)
[2023-12-13 22:39] LABS: Anion Gap 14 (12-20); Blood Urea Nitrogen 7 mg/dL (9-16); Calcium 8.2 mg/dL (8.4-10.2); Carbon Dioxide 30 mmol/L (22-29); Chloride 101 mmol/L (96-108); Creatinine Clr Calc Pharmacy 100.7; Estimated Glomerular Filt Rate > 60; Glucose Random 139 mg/dL (60-115); Sodium 141 mmol/L (135-145)
[2023-12-13 23:39] VITALS: BP 136/82; PULSE 100; RESP 16; TEMP 36.2; O2SAT 95
[2023-12-14 01:06] LABS: Alanine Aminotransferase 18 U/L (0-31); Albumin Level 3.6 g/dL (3.5-5.0); Alkaline Phosphatase 106 U/L (39-117); Aspartate Amino Transferase 20 U/L (5-31); Bilirubin Direct < 0.2 mg/dL (0.0-0.5); Bilirubin Total 0.1 mg/dL (0.0-1.0); Total Protein 6.5 g/dL (6.5-8.0)
[2023-12-14 01:08] LABS: B Type Natriuretic Peptide 27 pg/mL (<100)
--- NOTE | 2023-12-14 01:32 | ED_ITS ---
HPI - General Adult General Chief complaint: General Medical Stated complaint: ?UTI/Leg swelling Time Seen by Provider: 12/14/23 00:09 Source: patient, RN notes reviewed and old records reviewed Mode of arrival: ambulatory History of Present Illness ED Provider: Mari Dahl PA-C HPI narrative: 53-year-old female with a past medical history HLD, bipolar, left knee replacement on 08/15/2023, presenting to the ED complaining of dysuria, urinary frequency, and suprapubic discomfort x few days. Also reports acute on chronic LLE pain and swelling. Reports intermittent LLE swelling since surgery, has had 2 venous duplex ultrasounds which have been negative for DVT, states she was cleared by her surgeon, however feels like swelling and redness around incision has worsened. Denies history of clots, recent travel, numbness/tingling, weakness, nausea/vomiting, new or worsening SOB Related Data Home Medications ?Medication ?Instructions ?Recorded ?Confirmed buprenorphine 2 mg-naloxone 0.5 mg 1 strip sublingual DAILY 07/14/21 07/14/21 sublingual film Previous Rx's ?Medication ?Instructions ?Recorded atorvastatin 10 mg tablet 10 mg PO DAILY 30 days #30 tabs 07/24/21 clonazepam 0.5 mg tablet 0.5 mg PO BID PRN Anxiety 7 days 07/24/21 #14 tabs cyclobenzaprine 10 mg tablet 5 - 10 mg (0.5 - 1 x 10 mg) PO BID 07/24/21 PRN muscle spasm 30 days #30 tabs fluoxetine 20 mg capsule 20 mg PO DAILY 30 days #30 caps 07/24/21 naloxone 4 mg/actuation nasal 4 mg intranasal Q2M PRN opioid 07/24/21 spray (Narcan) overdose 1 day #1 ea risperidone 2 mg tablet 3 mg (1.5 x 2 mg) PO BEDTIME 30 07/24/21 days #45 tabs trolamine salicylate-aloe vera 10 1 appl topical TID PRN Pain, 07/24/21 % topical cream (Aspercreme with Moderate (Pain Scale 4-6 30 days Aloe) #35.4 grams hydrocodone 5 mg-acetaminophen 325 1 - 2 tab PO Q6H PRN pain #15 tabs 08/23/21 mg tablet albuterol sulfate 90 mcg/actuation 2 puff inhalation Q4-6H PRN 02/20/22 aerosol inhaler (ProAir HFA) shortness of breath or wheezing #8.5 grams albuterol sulfate 90 mcg/actuation 2 inh inhalation Q4-6H PRN 03/08/22 breath activated powder inhaler shortness of breath or wheezing #1 ea albuterol sulfate 2.5 mg/3 mL 2.5 mg (3 mL) inhalation Q4-6H PRN 03/23/22 (0.083 %) solution for nebulization shortness of breath or wheezing #90 mL nebulizer and compressor ([place] #1 ea 03/23/22 Choice Nebulizer) ketorolac 10 mg tablet 10 mg PO QID PRN pain 5 days #20 04/07/22 tabs methocarbamol 500 mg tablet 1,000 mg (2 x 500 mg) PO TID 7 08/20/22 days #42 tabs dicyclomine 20 mg tablet 20 mg PO QID PRN abdominal pain 09/14/22 #20 tabs sucralfate 1 gram tablet 1 g PO BID #60 tabs 09/28/22 meloxicam 15 mg tablet 15 mg PO DAILY #10 tabs 11/02/22 oxycodone 5 mg tablet 5 mg PO Q8H PRN pain #7 tabs 11/02/22 pantoprazole 40 mg tablet,delayed 40 mg PO DAILY #14 tabs 11/02/22 release chlorhexidine gluconate 0.12 % 15 ml buccal BID #118 mL 12/21/22 mouthwash (Peridex) lidocaine 5 % topical patch 1 patch topical DAILY #15 ea 05/08/23 cefuroxime axetil 250 mg tablet 250 mg PO BID 7 days #14 tabs 12/14/23 Allergies Allergy/AdvReac Type Severity Reaction Status Date / Time levofloxacin [From Levaquin] AdvReac Unknown Verified 12/13/23 21:37 Review of Systems 2 Review of Systems: Constitutional: No Fever, No Chills ENT/Mouth: No Ear Pain, No Nasal Congestion, No sore throat, No Rhinorrhea, No Swallowing Difficulty Cardiovascular: No Chest Pain, No SOB Respiratory: No Cough Gastrointestinal: No Nausea, No Vomiting, No Diarrhea, No Constipation, No Abdominal pain Genitourinary: + Dysuria, + Urinary Frequency, No Hematuria, No Urinary Incontinence/retention, No Urgency, No Flank Pain Musculoskeletal: + joint pain, No Myalgias, +Joint Swelling Skin: No Skin Lesions, No rash Neuro: No Weakness, No Numbness, No Paresthesias Yes all other systems are reviewed and are negative Constitutional: Constitutional: Reports as per [facility] Past Medical History Attestation statement: The following information was validated with the patient. Source: old records reviewed Medical History Fracture of fifth metacarpal bone of right hand High cholesterol Chronic pain of both knees Chronic neck pain with history of cervical spinal surgery Bipolar disorder Social History Social History Household Members: Children Housing: House Do you presently have visiting nurse or other home services: No Alcohol intake: never Patient Tobacco Use Status: Current everyday Tobacco user Tobacco use type: Cigarette Cigarette Packs Per Day: 1 Cigarettes Per Day: 20.0 Years Smoked: 39 years e-Cigarette/Vaping Use: Former Use Second Hand Smoke Exposure: No Substance Use Type: Opiates Advance Directives: No Advance Directives Information Provided: No Do you have a plan to hurt others: No Plan service: No Sexual orientation: Did not discuss Physical Exam ED Vital Signs: Vital Signs - 24 hr 12/13/23 21:31 12/13/23 23:39 Temperature 97.6 F 97.2 F Pulse Rate 118 H 100 Respiratory Rate 19 16 Blood Pressure 136/82 Pulse Oximetry 96 95 Oxygen Delivery Method Room Air Room Air BMI result Body Mass Index 37.8 Const General: cooperative, healthy appearing and no acute distress Orientation/consciousness: patient oriented x3 Limitations: no limitations HENMT Head: Yes normal to inspection and Yes atraumatic Ears: hearing grossly normal bilaterally General nose exam: Normal external nose present Face and sinus: Yes normal facial exam Eyes General: appearance normal, both eyes and all related structures EOM: EOMs intact bilaterally Neck Neck: Yes normal visual inspection and Yes no meningeal signs Resp Effort & Inspection: normal respiratory effort and no respiratory distress Auscultation: clear to auscultation bilaterally Cardio Rate: regular rate Heart sounds: S1 normal heart sound present and S2 normal heart sound present GI Inspection: Yes normal to inspection Palpation (GI): Soft to palpation, nontender, no guarding and not rigid Skin Rashes: no rashes Wounds: no wounds Neuro General: patient oriented x3, tone normal and no meningeal signs Cranial nerves: Yes CN's II-XII intact bilaterally Gait exam (Neuro): Normal gait present Extrem Other: +LLE swelling/pitting edema affecting entire extremity. + tenderness to left knee. Neurovascularly intact distally. Negative Homans sign. Slight erythema, no warmth, no crepitus. Compartments soft. Course Course Course Narrative: -no leukocytosis. Labs otherwise reassuring -UA infected > will discharge home with p.o. Ceftin Results discussed with patient including worrisome signs and symptoms and strict return precautions, and when to return to the emergency department. They verbalized understanding and feel safe for discharge at this time. Medical Decision Making Medical Decision Making [facility] Narrative: 53-year-old female with a past medical history HLD, bipolar, left knee replacement on 08/15/2023, presenting to the ED complaining of dysuria, urinary frequency, and suprapubic discomfort x few days. Also reports acute on chronic LLE pain and swelling. On exam vital signs stable, initially tachycardic, NAD, nontoxic appearing physical exam as noted above. Low suspicion for severe sepsis. Concern for UTI and dependent edema. Unlikely pyelo/renal stone or appendicitis/diverticulitis. Low suspicion for acute lower extremity cellulitis or DVT with previous negative ultrasounds & fluctuating symptoms/chronicity. Low suspicion for compartment syndrome or pulmonary embolism Case d/w Dr. Courtney who also evaluated patient > no need for ultrasound at this time (US tech is not in house). Initial plan was to obtain D-dimer to help r/o DVT however patient refusing additional blood draw Plan: Labs, UA Please refer to course for remaining clinical decision making, interpretation of labs/imaging results, and discussions with consultants and/or family members. Differential Diagnosis Differential Diagnoses: The differential diagnosis associated with the presentation includes As above Lab Data [facility] Lab Attestation statement: I reviewed the patient's lab results. 12/13/23 21:44 12/13/23 22:15 Labs: Lab Results 12/13/23 12/13/23 Range/Units 21:44 22:15 WBC 9.8 (4.8-10.8) X10*3/uL RBC 4.22 (4.20-5.50) X10*6/uL Hgb 13.3 (12.0-16.0) g/dl Hct 40.7 (37.0-47.0) % MCV 96.4 (80.0-98.0) fL MCH 31.5 (27.0-33.0) pg MCHC 32.7 (31.0-35.0) g/dl RDW 14.9 (11.0-16.0) % Plt Count 306 (160-400) X10*3/uL MPV 8.9 L (9.4-12.3) fL Immature Gran % (Auto) 0.4 (0.0-0.4) % Neut % (Auto) 66.7 (45-73) % Lymph % (Auto) 25.3 (20-40) % [place] % (Auto) 3.8 (2-11) % Eos % (Auto) 3.0 (0-4) % Baso % (Auto) 0.8 (0-2) % Lymph # (Auto) 2.5 (1.2-4.9) X10*3/uL [place] # (Auto) 0.4 (0.1-1.2) X10*3/uL Eos # (Auto) 0.3 (0.0-0.4) X10*3/uL Baso # (Auto) 0.1 (0.0-0.2) X10*3/uL Abs Immat Gran (auto) 0.04 H (0.00-0.03) X10*3/uL Absolute Neuts (auto) 6.5 (2.0-8.3) x10*3/uL Absolute Nucleated RBC 0.000 (0.0-0.012) X10*3/uL Nucleated RBC % (auto) 0.0 (0.0-0.2) /100WBC Sodium 141 (135-145) mmol/L Potassium 4.0 (3.3-5.1) mmol/L Chloride 101 (96-108) mmol/L Carbon Dioxide 30 H (22-29) mmol/L Anion Gap 14 (12-20) BUN 7 L (9-16) mg/dL Creatinine 0.75 (0.5-1.4) mg/dL Estim Creat Clear Calc 100.7 Estimated GFR > 60 Random Glucose 139 H (60-115) mg/dL Calcium 8.2 L D (8.4-10.2) mg/dL Total Bilirubin 0.1 (0.0-1.0) mg/dL Direct Bilirubin < 0.2 (0.0-0.5) mg/dL AST 20 (5-31) U/L ALT 18 (0-31) U/L Alkaline Phosphatase 106 (39-117) U/L B-Natriuretic Peptide 27 (<100) pg/mL Total Protein 6.5 (6.5-8.0) g/dL Albumin 3.6 (3.5-5.0) g/dL Urine Color Yellow Urine Appearance Cloudy Urine pH 7.0 (5.0-9.0) Ur Specific [place] 1.010 (1.005-1.025) Urine Protein Negative (Neg-Trace) mg/dL Urine Glucose (UA) Negative (Negative) mg/dL Urine Ketones Negative (Negative) mg/dL Urine Blood Negative (Negative) Urine Nitrite Negative (Negative) Ur Leukocyte Esterase Large (3+) H (Negative) Urine RBC 0-2 (0-2) /HPF Urine WBC >50 H (0-5) /HPF Ur Squamous Epith Cells 0-2 (0-2) /HPF Urine Bacteria None Seen (None Seen) Hyaline Casts 0-2 (0-2) /LPF Radiology Impression Discussion of test interpretation with radiology: I have reviewed the radiologist's reading. External Record Review External record reviewed: Inpatient record, Office record, Outpatient record, Prior outpatient labs, Prior outpatient radiology, Primary care record and Outside ED record Tests considered The following testing was considered but not selected: As above Discharge Plan Discharge Clinical Impression: UTI (urinary tract infection) Patient Disposition: Home, Self-Care Instructions: Urinary Tract Infection in Women (DC) Additional Instructions: You have a urinary tract infection, Ceftin as an antibiotic please take as prescribed Elevate your leg Wear compression stockings Ice painful area Please have close follow-up with her surgeon If pain persists or worsens/becomes unbearable, you develop redness, difficulty ambulating or fever return to the ED Prescriptions: New cefuroxime axetil 250 mg tablet 250 mg PO BID 7 Days Qty: 14 0RF No Action albuterol sulfate [ProAir HFA] 90 mcg/actuation HFA aerosol inhaler 2 puff inhalation Q4-6H PRN (Reason: shortness of breath or wheezing) Qty: 8.5 0RF ketorolac 10 mg tablet 10 mg PO QID PRN (Reason: pain) 5 Days Qty: 20 0RF Rx Instructions: Recieved toradol 30mg IM in the ED methocarbamol 500 mg tablet 1,000 mg PO TID 7 Days Qty: 42 0RF buprenorphine-naloxone 2-0.5 mg film 1 strip sublingual DAILY fluoxetine 20 mg Capsule 20 mg PO DAILY 30 Days Qty: 30 0RF Aspercreme with Aloe 10 % Cream 1 appl topical TID PRN (Reason: Pain, Moderate (Pain Scale 4-6) 30 Days Qty: 35.4 0RF cyclobenzaprine 10 mg tablet 5 - 10 mg PO BID PRN (Reason: muscle spasm) 30 Days Qty: 30 0RF atorvastatin 10 mg tablet 10 mg PO DAILY 30 Days Qty: 30 0RF clonazepam 0.5 mg tablet 0.5 mg PO BID PRN (Reason: Anxiety) 7 Days Qty: 14 0RF risperidone 2 mg tablet 3 mg PO BEDTIME 30 Days Qty: 45 0RF naloxone [Narcan] 4 mg/actuation spray,non-aerosol 4 mg intranasal Q2M PRN (Reason: opioid overdose) 1 Days Qty: 1 0RF Rx Instructions: spray 1 dose into ONE nostril; alternate nostrils w each dose until help arrives hydrocodone-acetaminophen 5-325 mg tablet 1 - 2 tab PO Q6H PRN (Reason: pain) Qty: 15 0RF albuterol sulfate 90 mcg/actuation aerosol powdr breath activated 2 inh inhalation Q4-6H PRN (Reason: shortness of breath or wheezing) Qty: 1 0RF (DME) nebulizer and compressor [[place] Choice Nebulizer] Device See Rx Instructions .Route Qty: 1 0RF Rx Instructions: As directed albuterol sulfate 2.5 mg /3 mL (0.083 %) solution for nebulization 2.5 mg inhalation Q4-6H PRN (Reason: shortness of breath or wheezing) Qty: 90 1RF oxycodone 5 mg tablet 5 mg PO Q8H PRN (Reason: pain) Qty: 7 0RF Rx Instructions: Partial Fill upon patient request. meloxicam 15 mg tablet 15 mg PO DAILY Qty: 10 0RF pantoprazole 40 mg tablet,delayed release (DR/EC) 40 mg PO DAILY Qty: 14 0RF dicyclomine 20 mg tablet 20 mg PO QID PRN (Reason: abdominal pain) Qty: 20 0RF sucralfate 1 gram tablet 1 g PO BID Qty: 60 0RF chlorhexidine gluconate [Peridex] 0.12 % mouthwash 15 ml buccal BID Qty: 118 0RF lidocaine 5 % adhesive patch,medicated 1 patch topical DAILY Qty: 15 0RF Rx Instructions: leave on most painful area for up to 12 hrs Referrals: Amauri Sevilla MD [Primary Care Provider] - 3 days Print Language: Belgian
[2023-12-14 01:50] VITALS: BP 136/82; PULSE 100; RESP 16; TEMP 36.2; O2SAT 95
== END 2023-12-14 01:51 | disposition home or self-care (01) ==
PROVIDERS: Physician Assistant; Emergency Provider Internal Medicine; PCP Internal Medicine
DX: N39.0 Urinary tract infection, site not specified (principal); M79.662 Pain in left lower leg; E78.5 Hyperlipidemia, unspecified; F17.210 Nicotine dependence, cigarettes, uncomplicated; Z79.02 Long term (current) use of antithrombotics/antiplatelets; Z79.899 Other long term (current) drug therapy
CPT/HCPCS: 36415; 80048; 80076; 81001; 83880; 85025; 87086; 99283